=== PATIENT | male | born 1960 | race Caucasian/White ===

== ENCOUNTER 2016-11-24 11:12 | Emergency (ER) | payer OTHER ==
[~2016-11-24] VITALS: Ht 180.3 cm; Wt 109.1 kg
[~2016-11-24 11:12] MED LIST: AMIT25TA9 PO; IBUP-1050 PO; OXYC1TAB3 PO
[2016-11-24 11:19] VITALS: TEMP 37.3; Ht 180.3 cm; Wt 109.1 kg
[2016-11-24] MEDS ORDERED: GARL400T12 PO (11:48)
[2016-11-24] MEDS ORDERED: GING1CAP PO (11:48)
[2016-11-24] MEDS ORDERED: SODIUM CHLORIDE 0.9% 1000ML 500 ML IV STA (12:42)
[2016-11-24] MEDS ORDERED: ONDANSETRON INJ 2 MG/ML 2 ML VIAL IV STA (12:47)
--- NOTE | 2016-11-24 12:51 | EMERGENCY ROOM VISIT NOTE ---
History Report prepared by Carmelita: Loli Valdes Under the Supervision of: Dr. Blas Darby M.D. First contact with patient: 12:11 Chief Complaint: WEAKNESS Stated Complaint: FLU LIKE Nursing Triage Summary: Triage note: Pt wearing mask to triage. Pt reports "there are several things wrong with me, i have been weak since wednesday, my brain feels like it is just a bowl of jelly, i have lower back pain but that is probably my sciatica acting up." History of Present Illness The patient is a 56 year old male who presents to the Emergency Room with complaints of persistent weakness that began Wednesday. He currently rates his discomfort as a 4/10 in severity. The patient states that since Wednesday he has been feeling weak and fatigued. He states that he has had sick contacts at work , noting possible flu. The patient notes that he is typically feeling unsteady since his stroke in 2014, but states that it worsened this morning. He additionally notes chills, and a possible subjective fever. The patient notes that he has had a minor cough and congestion. He states that he has kept up on his fluid intake and appetite. The patient denies any shortness of breath, chest pain, nausea, vomiting, urinary symptoms or diarrhea. He states that he has a history of sciatica, noting that his back pain has worsened with his illness. The patient denies any recent fall. Source of History: patient Onset: Wednesday Position: other (global) Symptom Intensity: 4/10 Quality: other (weakness) Timing: other (persistent) Associated Symptoms: + back pain (increased), + chills, + cough, + fatigue, + fevers (sugjective), No SOB, No chest pain, No diarrhea, No nausea, No urinary symptoms, No vomiting Note: Associated Symptoms: congestion Review of Systems See HPI for pertinent positives & negatives. A total of 10 systems reviewed and were otherwise negative. Past Medical & Surgical Medical Problems: (1) Benign hypertension (2) Diabetes (3) Hyperlipidemia (4) Seizure (5) Tonsillectomy Family History No pertinent family history Social History Smoking Status: Never Smoker Alcohol Use: occasionally Drug Use: none Marital Status: Housing Status: other Occupation Status: employed Current/Historical Medications Scheduled Amitriptyline Hcl (Elavil), 25 MG PO HS Insulin Glargine (Lantus Solostar), 40 UNITS SQ HS Levetiracetam (Keppra), 500 MG PO BID Lisinopril (Prinivil), 20 MG PO QD Metformin Hcl (Glucophage), 1,000 MG PO BIDM Paroxetine Hcl (Paxil), 40 MG PO DAILY Simvastatin (Zocor), 20 MG PO QPM Scheduled PRN Ibuprofen (Advil), 1,200 MG PO Q8 PRN for Pain Oxycodone Immediate Rel Tab (Roxicodone Ir), 1-2 TAB PO Q4H PRN for Severe Pain Oxycodone Ir (Roxicodone Ir), 1-2 TAB PO Q4H PRN for Pain Miscellaneous Medications Garlic (Gnp Garlic) Roxanne (Zingiber Officinalis) (Roxanne) Allergies Coded Allergies: BEE STING (Verified Allergy, Unknown, ., 11/24/16) Physical Exam Vital Signs Date Time Temp Pulse Resp B/P Pulse Ox O2 Delivery O2 Flow Rate FiO2 11/24/16 17:21 75 11/24/16 17:15 74 150/93 11/24/16 16:53 87 16 160/102 11/24/16 16:14 82 16 159/93 97 Room Air 11/24/16 14:15 87 16 180/99 99 Room Air 11/24/16 13:40 88 11/24/16 13:09 87 21 171/101 95 Room Air 11/24/16 13:00 96 Room Air 11/24/16 11:19 37.3 96 18 151/101 97 Room Air Physical Exam GENERAL: Patient is in no acute distress. HEENT: No acute trauma, normocephalic atraumatic, mucous membranes moist, no throat erythema or exudate, no nasal congestion, no scleral icterus. NECK: No stridor, no adenopathy, no meningismus, trachea is midline. LUNGS: Clear to auscultation bilaterally, no wheeze, no rhonchi, breath sounds equal. HEART: Without murmurs gallops or rubs, regular rate and rhythm. ABDOMEN: Soft, nontender, bowel sounds positive, no hernias, no peritonitis. EXTREMITIES: No cyanosis or edema, full range of motion of all the joints without pain or difficulty, no signs for acute trauma. NEUROLOGIC: Oriented x 3, no acute motor or sensory deficits, no focal weakness. SKIN: No rash, no jaundice, no diaphoresis. Medical Decision & Procedures ER Provider Diagnostic Interpretation: X ray results and stated below per my interpretation and radiologist interpretation. Other radiology results and stated below per my review and radiologist interpretation: HEAD CT NONCONTRAST CT DOSE: 638.56 mGycm HISTORY: EVALUATE ALTERED MENTAL STATUS/WEAKNESS TECHNIQUE: Multiaxial CT images of the head were performed without the use of intravenous contrast. Automated exposure control was utilized for this study. Comparison: Head CT 11/09/2014. Findings: The paranasal sinuses and mastoid air cells are clear. The calvarium and skull base are intact. The ventricles and sulci are within normal limits. There is no mass, hematoma, midline shift, or acute infarct. Impression: No acute intracranial abnormality. Electronically signed by: Pantera Garzon M.D. 11/24/2016 1:55 PM Dictated Date/Time: 11/24/2016 1:51 PM CHEST ONE VIEW PORTABLE HISTORY: EVALUATE ALTERED MENTAL STATUS/WEAKNESS COMPARISON: Chest 11/16/2014. FINDINGS: The lungs are clear. Cardiac silhouette is normal in size. No pleural effusions. No pneumothorax. IMPRESSION: No acute process. Electronically signed by: Pantera Garzon M.D. 11/24/2016 1:37 PM Dictated Date/Time: 11/24/2016 1:36 P Laboratory Results 11/24/16 13:05 Red Blood Count 4.79, Mean Corpuscular Volume 85.4, Mean Corpuscular Hemoglobin 30.3, Mean Corpuscular Hemoglobin Concent 35.5, Mean Platelet Volume 10.6, Neutrophils (%) (Auto) 60.7, Lymphocytes (%) (Auto) 14.2, Monocytes (%) (Auto) 23.1, Eosinophils (%) (Auto) 0.8, Basophils (%) (Auto) 0.5, Neutrophils # (Auto ) 3.68, Lymphocytes # (Auto) 0.86, Monocytes # (Auto) 1.40, Eosinophils # (Auto ) 0.05, Basophils # (Auto) 0.03 11/24/16 13:05 Test 11/24/16 13:00 11/24/16 13:05 11/24/16 14:13 Influenza Type A Antigen Neg for Influ A (NEG) Influenza Type B Antigen Neg for Influ B (NEG) White Blood Count 6.06 K/uL (4.8-10.8) Red Blood Count 4.79 M/uL (4.7-6.1) Hemoglobin 14.5 g/dL (14.0-18.0) Hematocrit 40.9 % (42-52) Mean Corpuscular Volume 85.4 fL (80-100) Mean Corpuscular Hemoglobin 30.3 pg (25-34) Mean Corpuscular Hemoglobin Concent 35.5 g/dl (32-36) Platelet Count 181 K/uL (130-400) Mean Platelet Volume 10.6 fL (7.4-10.4) Neutrophils (%) (Auto) 60.7 % Lymphocytes (%) (Auto) 14.2 % Monocytes (%) (Auto) 23.1 % Eosinophils (%) (Auto) 0.8 % Basophils (%) (Auto) 0.5 % Neutrophils # (Auto) 3.68 K/uL (1.4-6.5) Lymphocytes # (Auto) 0.86 K/uL (1.2-3.4) Monocytes # (Auto) 1.40 K/uL (0.11-0.59) Eosinophils # (Auto) 0.05 K/uL (0-0.5) Basophils # (Auto) 0.03 K/uL (0-0.2) RDW Standard Deviation 41.4 fL (36.4-46.3) RDW Coefficient of Variation 13.2 % (11.5-14.5) Immature Granulocyte % (Auto) 0.7 % Immature Granulocyte # (Auto) 0.04 K/uL (0.00-0.02) Anion Gap 11.0 mmol/L (3-11) Est Creatinine Clear Calc Drug Dose 119.1 ml/min Estimated GFR () 112.1 Estimated GFR (Non- 96.7 BUN/Creatinine Ratio 20.5 (10-20) Calcium Level 9.3 mg/dl (8.5-10.1) Total Bilirubin 0.3 mg/dl (0.2-1) Aspartate Amino Transf (AST/SGOT) 35 U/L (15-37) Alanine Aminotransferase (ALT/SGPT) 34 U/L (12-78) Alkaline Phosphatase 109 U/L (45-117) Troponin I < 0.015 ng/ml (0-0.045) Total Protein 7.5 gm/dl (6.4-8.2) Albumin 3.7 gm/dl (3.4-5.0) Globulin 3.8 gm/dl (2.5-4.0) Albumin/Globulin Ratio 1.0 (0.9-2) Thyroid Stimulating Hormone (TSH) 1.460 uIu/ml (0.300-4.500) Urine Color YELLOW Urine Appearance CLEAR (CLEAR) Urine pH 5.0 (4.5-7.5) Urine Specific [place] 1.013 (1.000-1.030) Urine Protein NEG (NEG) Urine Glucose (UA) NEG (NEG) Urine Ketones NEG (NEG) Urine Occult Blood NEG (NEG) Urine Nitrite NEG (NEG) Urine Bilirubin NEG (NEG) Urine Urobilinogen NEG (NEG) Urine Leukocyte Esterase NEG (NEG) Laboratory results reviewed by me. Medications Administered Medications (Trade) Dose Ordered Sig/Jerzy Route Start Time Stop Time Status Last Admin Dose Admin Sodium Chloride (Nss 1000ml) 500 ml @ 999 mls/hr Q31M STAT IV 11/24/16 12:42 11/24/16 13:12 DC 11/24/16 13:17 999 MLS/HR Morphine Sulfate (MoRPHine SULFATE INJ) 4 mg Q15M PRN IV 11/24/16 13:00 12/08/16 12:59 11/24/16 13:17 4 MG Ondansetron HCl (Zofran Inj) 4 mg NOW STAT IV 11/24/16 12:47 11/24/16 12:49 DC 11/24/16 13:17 4 MG Hydromorphone HCl (Dilaudid Inj) 1 mg NOW STAT IV 11/24/16 15:45 11/24/16 15:47 DC 11/24/16 16:13 1 MG Ketorolac Tromethamine (Toradol Inj) 30 mg NOW STAT IV 11/24/16 15:45 11/24/16 15:47 DC 11/24/16 16:12 30 MG Labetalol HCl (Normodyne IV) 20 mg NOW STAT IV 11/24/16 16:39 11/24/16 16:41 DC 11/24/16 16:54 20 MG ECG Indication: weakness Rate (beats per minute): 84 Rhythm: normal sinus Findings: no acute ischemic change, no ectopy ED Course 1216: The patient was evaluated in room C10. A complete history and physical exam was performed by the medical student. 1242: Ordered Sodium Chloride 500 ml @ 999 mls/hr IV. 1245: The patient was evaluated in room C10. A complete history and physical exam was performed. 1247: Ordered Zofran Inj 4 mg IV. 1300: Ordered Morphine Sulfate 4 mg IV. 1450: The medical student reevaluated the patient at this time. 1545: I reevaluated the patient and he is requesting more pain medications. Ordered Toradol Inj 30 mg IV, Dilaudid Inj 1 mg IV. 1637: I reevaluated the patient and he is still having pain, and additionally has a high blood pressure 1639: Ordered Labetalol HCl 20 mg IV. 1654: I discussed the patients case with Pinky Ruby, Family Medicine. He is going to see the patient on Wednesday. He is going to call back with an appointment time. He wants the patient started on 20 mg of Lisinopril daily. 1715: Dr. Ruby called back and states that the patient is scheduled for 1320 on Wednesday at their [facility] office. 1720: I reevaluated the patient and his pressure is better. I discussed all of the exam findings with the patient and I discussed the treatment plan. He verbalized complete understanding and agreement. He is ready to go home. Medical Decision The patient is a 56 year old male who presents to the ED with complaints of weakness. Differential diagnoses considered include dehydration, electrolyte imbalance, anemia, stroke, UTI, flu like illness, influenza, pneumonia. There is no leukocytosis or concerning anemia. No significant electrolyte abnormality, kidney failure or hepatitis. The patient appears to be in a euthyroid state. Urinalysis does not show evidence for infection. Chest x-ray does not show pneumonia or CHF. Influenza testing is negative. Brain CT shows no acute bleed or mass effect. Blood cultures are pending. The patient received IV saline, IV morphine, IV Zofran. He received IV Toradol and IV Dilaudid. The pain medication was given for his lower back discomfort. He states this is always present but he states it feels worse since he feels weak and flulike. He has not fallen, there is no radiation of pain down his legs. Patient did receive IV labetalol to help control his blood pressure. The labetalol worked nicely. I do believe the patient can be discharged with outpatient follow-up. I spoke with his outpatient providers, he will be seen on Wednesday, in 4 days for a recheck. He will be started on lisinopril daily for his blood pressure. I have written a prescription for oxycodone for pain. He will stay hydrated and rest. If worsening, he will return. His generalized illness is likely viral, he understands. [place] Drug Monitoring Program Search Results: patient reviewed within database, see additional documentation Drug Monitoring Findings: The patient's last narcotic prescription was in the end of July. Consults Time Called: 1642 Consulting Physician: Dr. Ruby, Family Medicine Returned Call: 1653 I discussed the patients case with Pinky Ruby, Family Medicine. He is going to see the patient on Wednesday. He is going to call back with an appointment time. He wants the patient started on 20 mg of Lisinopril daily. Impression Primary Impression: Weakness Additional Impressions: Flu-like symptoms Lower back pain Hypertension Scribe Attestation The scribe's documentation has been prepared under my direction and personally reviewed by me in its entirety. I confirm that the note above accurately reflects all work, treatment, procedures, and medical decision making performed by me. Departure Information Dispostion Home / Self-Care Prescriptions Oxycodone Ir (Roxicodone Ir) 5 Mg Tab 1-2 TAB PO Q4H Y for Pain, #15 TAB Prov: Blas Darby M.D. 11/24/16 Lisinopril (Prinivil) 10 Mg Tab 20 MG PO QD, #15 TAB 3 Refills Prov: Blas Darby M.D. 11/24/16 Referrals Jossie Junior D.O. (PCP) Forms HOME CARE DOCUMENTATION FORM, IMPORTANT VISIT INFORMATION, Work Instructions Patient Instructions My [facility] Additional Instructions lisinopril 1 tab daily for now oxy ir 1-2 tab every 4 hours for pain rest stay well hydrated return if worsening lab testing and imaging today was all ok Problem Qualifiers
[2016-11-24 13:00] VITALS: O2SAT 96
[2016-11-24] MEDS ORDERED: MoRPHine SULFATE 4 MG/ML 1 ML CARP\\VIAL IV PRN (13:00)
[2016-11-24 13:19] LABS: BASO % 0.5 %; BASO ABS # 0.03 K/uL (0-0.2); COMPLETE YES; EOS % 0.8 %; HEMATOCRIT 40.9 % (42-52); IG% 0.7 %; LYMPH % 14.2 %; LYMPH ABS # 0.86 K/uL (1.2-3.4); MEAN CELL VOLUME 85.4 fL (80-100); MEAN CORPUSCULAR HEMOGLOBIN 30.3 pg (25-34); MEAN CORPUSCULAR HGB CONC 35.5 g/dl (32-36); MEAN PLATELET VOLUME 10.6 fL (7.4-10.4); MONO % 23.1 %; NEUT % 60.7 %; PLATELET COUNT 181 K/uL (130-400); RED BLOOD COUNT 4.79 M/uL (4.7-6.1); WHITE BLOOD COUNT 6.06 K/uL (4.8-10.8)
[2016-11-24 13:39] LABS: ALT/SGPT 34 U/L (12-78); BLOOD UREA NITROGEN 18 mg/dl (7-18); BUN/CREATININE RATIO 20.5 (10-20); CALCIUM 9.3 mg/dl (8.5-10.1); CARBON DIOXIDE 23 mmol/L (21-32); CHLORIDE 102 mmol/L (98-107); CREATININE 0.88 mg/dl (0.60-1.40); GLUCOSE 131 mg/dl (70-99); SODIUM 136 mmol/L (136-145)
--- NOTE | 2016-11-24 13:39 | DIAGNOSTIC IMAGING REPORT ---
CHEST ONE VIEW PORTABLE HISTORY: EVALUATE ALTERED MENTAL STATUS/WEAKNESS COMPARISON: Chest 11/16/2014. FINDINGS: The lungs are clear. Cardiac silhouette is normal in size. No pleural effusions. No pneumothorax. IMPRESSION: No acute process. Electronically signed by: Pantera Garzon M.D. 11/24/2016 1:37 PM Dictated Date/Time: 11/24/2016 1:36 PM
[2016-11-24 13:49] LABS: ALKALINE PHOSPHATASE 109 U/L (45-117); AST/SGOT 35 U/L (15-37)
--- NOTE | 2016-11-24 13:56 | DIAGNOSTIC IMAGING REPORT ---
HEAD CT NONCONTRAST CT DOSE: 638.56 mGycm HISTORY: EVALUATE ALTERED MENTAL STATUS/WEAKNESS TECHNIQUE: Multiaxial CT images of the head were performed without the use of intravenous contrast. Automated exposure control was utilized for this study. Comparison: Head CT 11/09/2014. Findings: The paranasal sinuses and mastoid air cells are clear. The calvarium and skull base are intact. The ventricles and sulci are within normal limits. There is no mass, hematoma, midline shift, or acute infarct. Impression: No acute intracranial abnormality. Electronically signed by: Pantera Garzon M.D. 11/24/2016 1:55 PM Dictated Date/Time: 11/24/2016 1:51 PM
[2016-11-24 15:24] LABS: URINE APPEARANCE CLEAR (CLEAR); URINE BILIRUBIN NEG (NEG); URINE COLOR YELLOW; URINE NITRITE NEG (NEG); URINE SPECIFIC GRAVITY 1.013 (1.000-1.030); UROBILINOGEN NEG (NEG); ZZUR CULT IF INDIC CLEAN CATCH NO
[2016-11-24 15:28] LABS: MANUAL MICROSCOPIC REQUIRED? NO; REVIEW REQ? NO
[2016-11-24] MEDS ORDERED: KETOROLAC TROMETHAMINE 30 MG/ML VIAL IV STA (15:45)
[2016-11-24] MEDS ORDERED: HYDROmorphone INJ 2 MG/ML SYR/VIAL IV STA (15:45)
[2016-11-24] MEDS ORDERED: LABETALOL HCL IV 5 MG/ML 20ML IV STA (16:39)
[2016-11-24] MEDS ORDERED: LISI10TA PO (17:22)
[2016-11-24] MEDS ORDERED: OXYC1TAB3 PO (17:26)
[2016-11-24 17:38] VITALS: BP 176/95; PULSE 74; O2SAT 97
[2016-11-26] MEDS ORDERED: METF-384 PO (05:13)
[2016-11-26] MEDS ORDERED: LEVE500T13 PO (05:15)
[2016-11-26] MEDS ORDERED: SIMV20TA2 PO (05:16)
[2016-11-26] MEDS ORDERED: INSDGIPEN SQ (05:17)
[2016-11-26] MEDS ORDERED: PARO40TA3 PO (06:57)
== END 2016-11-24 17:40 | disposition home or self-care (01) ==
LOC: C.EDB 11:14 → C.EDC 17:40
DX: R53.1 Weakness (principal); M54.5 Low back pain; I10 Essential (primary) hypertension; E11.9 Type 2 diabetes mellitus without complications; E78.5 Hyperlipidemia, unspecified; Z90.89 Acquired absence of other organs; Z79.4 Long term (current) use of insulin; Z79.84 Long term (current) use of oral hypoglycemic drugs; Z79.899 Other long term (current) drug therapy

== ENCOUNTER 2016-11-26 17:42 | Emergency (ER) | payer OTHER ==
[~2016-11-26] VITALS: Ht 180.3 cm; Wt 110.3 kg
[~2016-11-26 17:42] MED LIST changes: +GARL400T12 PO; +GING1CAP PO; +INSDGIPEN SQ; +LEVE500T13 PO; +LISI10TA PO; +METF-384 PO; +PARO40TA3 PO; +SIMV20TA2 PO
[2016-11-26 17:48] VITALS: TEMP 36.9; Ht 180.3 cm; Wt 110.3 kg
[2016-11-26] MEDS ORDERED: HYDROmorphone INJ 1 MG/ML SYR IM STA (18:28)
[2016-11-26] MEDS ORDERED: GINGER PO (18:29)
--- NOTE | 2016-11-26 19:43 | EMERGENCY ROOM VISIT NOTE ---
History First contact with patient: 18:07 Chief Complaint: BACK PAIN Stated Complaint: BACK PAIN History of Present Illness The patient is a 56 year old male who presents to the Emergency Room with complaints of low back pain. The patient reports he has a history of chronic low back pain and sees Dr. Ruby for this back pain. He previously received prescriptions for oxycodone for his pain, but has not had a take any pain medication recently after visiting a chiropractor. He states that he has been ill recently and was seen here 2 days ago for an illness. He had an extensive workup at that time which was negative. The patient states that he was feeling better, but his back pain has worsened. He states this does feel like a flareup of his chronic back pain. His legs feel slightly weak, but this is not unusual for him. He reports he had an MRI recently of the back. The patient denies any fevers, abdominal pain, chest pain, shortness of breath, incontinence , urinary retention, dysuria, or numbness of the lower extremities. Review of Systems A complete 6 point review of systems was reviewed with the patient with pertinent positives and negatives as per history of present illness. All else were negative. Past Medical/Surgical History Medical Problems: (1) Benign hypertension (2) Diabetes (3) Hyperlipidemia (4) Seizure (5) Tonsillectomy Family History No pertinent family history Social History Smoking Status: Never Smoker Alcohol Use: occasionally Drug Use: none Marital Status: Housing Status: other Occupation Status: employed Current/Historical Medications Scheduled Garlic (Gnp Garlic), 400 MG PO DAILY Insulin Glargine (Lantus Solostar), 40 UNITS SQ HS Levetiracetam (Keppra), 500 MG PO BID Lisinopril (Prinivil), 20 MG PO QD Metformin Hcl (Glucophage), 1,000 MG PO BIDM Paroxetine Hcl (Paxil), 40 MG PO DAILY Simvastatin (Zocor), 20 MG PO QPM [Roxanne], 5 ML PO DAILY Scheduled PRN Amitriptyline Hcl (Elavil), 25 MG PO HS PRN for Sleep Ibuprofen (Advil), 1,200 MG PO Q8 PRN for Pain Oxycodone Ir (Roxicodone Ir), 1-2 TAB PO Q4H PRN for Pain Allergies Coded Allergies: BEE STING (Verified Allergy, Unknown, ., 11/24/16) Physical Exam Vital Signs Date Time Temp Pulse Resp B/P Pulse Ox O2 Delivery O2 Flow Rate FiO2 11/26/16 19:48 80 18 137/87 94 Room Air 11/26/16 17:48 36.9 79 18 147/99 98 Room Air Physical Exam VITALS: Vitals are noted on the nurse's note and reviewed by myself. Vital signs stable. GENERAL: This is a 56-year-old male, in no acute distress, nondiaphoretic, well- developed well-nourished. SKIN: Capillary reflex less than 2 seconds. HEART: Regular rate and rhythm without murmurs gallops or rubs. LUNGS: Clear to auscultation bilaterally without wheezes, rales or rhonchi. No retractions or accessory muscle use. ABDOMEN: Positive bowel sounds x 4. Soft, nontender to palpation. MUSCULOSKELETAL: Mild tenderness over bilateral lumbar paraspinous muscles. No muscle spasms noted. Full range of motion and strength 5/5 bilateral lower extremities. Negative straight leg raise test. NEURO: Patient was alert and oriented to person place and time. Normal sensation to light and sharp touch. Deep tendon reflexes 2+ throughout. No focal neurological deficits. Medical Decision & Procedures Medications Administered Medications (Trade) Dose Ordered Sig/Jerzy Route Start Time Stop Time Status Last Admin Dose Admin Hydromorphone HCl (Dilaudid Inj) 1 mg NOW STAT IM 11/26/16 18:28 11/26/16 18:29 DC 11/26/16 18:38 1 MG Medical Decision Differential diagnosis includes cauda equina syndrome, cord compression, lumbar radiculopathy, epidural abscess, malignancy, muscle spasm, muscular strain, among others. The patient was evaluated as above. Previous records were reviewed. The patient was seen here 2 days ago for weakness and had an extensive workup which was negative. The patient does report he is feeling better, but has continued pain in the low back. He was given pain medication at home, but told me that he has not been taking the medication as he does not like taking any pills. He did agree to receive analgesics in the emergency department and was given 1 mg Dilaudid IM with good relief of his pain. He has appointment with his primary care provider scheduled in 2 days. He was instructed to continue his home pain medication and follow-up with the primary care provider as scheduled. The patient verbalized understanding of my assessment and treatment plan and was discharged home in good condition. Impression Primary Impression: Lumbar pain Departure Information Dispostion Home / Self-Care Condition GOOD Referrals Jossie Junior D.O. (PCP) Patient Instructions My [facility] Additional Instructions You have been treated in the Emergency Department for Back Pain. You have received pain medicine in the emergency department which impairs your ability to operate a vehicle. It is illegal for you to drive after receiving these medicines. For pain control, you can use the following [id number] medicines (if >12 yo): - Regular strength (325mg/tab) Tylenol (acetaminophen) 2 tabs every 4-6 hours as needed. Do not exceed 12 tablets in a 24 hour period. Avoid taking more than 4 grams (4000 mg) of Tylenol per day. This includes any other sources of acetaminophen you may take on a regular basis. - Regular strength (200 mg/tab) Advil (ibuprofen) 1-2 tabs every 4-6 hours as needed. Do not exceed a dose of 3200 mg per day. If this is an acute injury, ice can be applied to the area of pain for the first 3 days to help decrease pain and inflammation. After the first 3 days, a heating pad can be used over the area for continued soothing relief. You should schedule a follow-up appointment in 2-3 days with your Primary Care Provider for further evaluation and treatment of your back pain. Return to the Emergency Department if your current symptoms worsen despite treatment course outlined above, or if you develop any of the following symptoms : intractable pain despite aforementioned treatment course, loss of control of your bowel or bladder, numbness or tingling in your groin, or development of a fever. Problem Qualifiers Primary Impression: Lumbar pain Chronicity: chronic Back pain laterality: bilateral Sciatica presence: unspecified whether sciatica present Qualified Codes: M54.5 - Low back pain; G89.29 - Other chronic pain
[2016-11-26 19:48] VITALS: BP 137/87; PULSE 80; O2SAT 94
== END 2016-11-26 19:55 | disposition home or self-care (01) ==
LOC: EDBD 17:42 → C.EDA 17:47
DX: M54.5 Low back pain (principal); R53.1 Weakness; I10 Essential (primary) hypertension; E78.5 Hyperlipidemia, unspecified; E11.9 Type 2 diabetes mellitus without complications; G40.909 Epilepsy, unspecified, not intractable, without status epilepticus; Z98.890 Other specified postprocedural states; Z79.4 Long term (current) use of insulin; Z79.84 Long term (current) use of oral hypoglycemic drugs; Z79.899 Other long term (current) drug therapy; Z91.030 Bee allergy status

== ENCOUNTER 2017-06-02 08:33 | Emergency (ER) | payer OTHER ==
[~2017-06-02] VITALS: Ht 177.8 cm; Wt 109.4 kg
[~2017-06-02 08:33] MED LIST changes: -GING1CAP PO; +GINGER PO; -OXYC1TAB3 PO
[2017-06-02 08:35] VITALS: TEMP 36.8; Ht 177.8 cm; Wt 109.4 kg
[2017-06-02] MEDS ORDERED: PAROXETINE 20 MG TAB PO ONE (09:15)
[2017-06-02] MEDS ORDERED: LISI-725 PO (09:30)
[2017-06-02 10:25] VITALS: BP 175/104; PULSE 76; O2SAT 97
--- NOTE | 2017-06-02 15:21 | EMERGENCY ROOM VISIT NOTE ---
History First contact with patient: 08:54 Chief Complaint: MEDICATION REFILL REQUEST Stated Complaint: MEDICATION REFILL REQUEST FOR PAROXETINE History of Present Illness The patient is a 57 year old male who presents to the Emergency Room requesting prescription refills of his Lantus and Paxil. The patient reports that he has been without insulin for approximately one week, and without Paxil for the past 4 days. The patient reports that It feels like my brain is turning into Jell-O " because he has not been taking his Paxil. The patient has not been checking his blood glucose monitor at home. The patient reports that his PCP, Dr. Junior , was supposed to send a prescription for the Lantus to his pharmacy [facility]. He tried to call them yesterday and they still did not have the prescription. The patient gets his Prozac prescriptions from Dr. Ruby. The patient reports that he does have refills left on his Prozac, "but I have no excuse for not getting a prescription filled." The patient reports that he is now dizzy with 2 jobs working at [employer], and has been extremely busy. 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 He also complains of bilateral knee pain, and was told in the past by Dr. Wing that he has arthritis. He is wanting evaluation for his knee pain today as well. He denies any recent injuries. He denies any back pain. He currently denies any significant discomfort. Review of Systems 10 system review was performed and was negative except for pertinent positives and negatives as indicated in history of present illness Past Medical/Surgical History Medical Problems: (1) Benign hypertension (2) Diabetes (3) Hyperlipidemia (4) Seizure (5) Tonsillectomy Family History FH: cancer FH: diabetes mellitus FH: heart disease FH: hypertension FH: seizures No pertinent family history Social History Smoking Status: Current Every Day Smoker Alcohol Use: occasionally Drug Use: none Marital Status: Housing Status: lives alone, other Occupation Status: employed Current/Historical Medications Scheduled Insulin Glargine (Lantus Solostar), 40 UNITS SQ HS Levetiracetam (Keppra), 500 MG PO BID Lisinopril (Zestril), 20 MG PO QAM Metformin Hcl (Glucophage), 1,000 MG PO BIDM Paroxetine Hcl (Paxil), 40 MG PO QAM Simvastatin (Zocor), 20 MG PO QPM Scheduled PRN Amitriptyline Hcl (Elavil), 25 MG PO HS PRN for Sleep Ibuprofen (Advil), 1,200 MG PO Q8 PRN for Pain Physical Exam Vital Signs Date Time Temp Pulse Resp B/P (MAP) Pulse Ox O2 Delivery O2 Flow Rate FiO2 06/02/17 10:25 76 18 175/104 97 06/02/17 08:35 36.8 81 18 176/115 97 Room Air Pain Rating (0-10): 0 Physical Exam CONSTITUTIONAL: Healthy and well nourished. Alert and oriented X 3. PSYCHIATRIC: Patient has a positive affect. He does not appear delusional. HEENT: Normocephalic, atraumatic. Pupils equal, round and reactive. No scleral icterus or conjunctival pallor. NECK: Full active range of motion without discomfort. RESPIRATORY: Clear to auscultation bilaterally with no wheezing, crackles, rhonchi or stridor. CARDIOVASCULAR: Regular rate and rhythm with no murmurs, rubs or gallops. GASTROINTESTINAL: Bowel sounds present in all quadrants. Soft and nontender to palpation. MUSCULOSKELETAL: Full range of motion of all joints without discomfort. Patient ambulates without antalgic gait. INTEGUMENTARY: No rash or other significant dermatologic conditions noted. NEUROLOGIC: No focal neurologic deficits noted. Medical Decision & Procedures Laboratory Results Test 06/02/17 08:51 Bedside Glucose 187 mg/dl (70-99) Medications Administered Medications (Trade) Dose Ordered Sig/Jerzy Route Start Time Stop Time Status Last Admin Dose Admin Paroxetine HCl (pAXil TAB) 40 mg NOW ONCE PO 06/02/17 09:15 06/02/17 09:16 DC 06/02/17 09:26 40 MG ED Course Patient history and physical exam were performed. Nurse's notes were reviewed. Vital signs were reviewed, showing a blood pressure 176/115. I also reviewed the patient's prescription bottle of Prozac, showing that he was prescribed Prozac 40 mg once daily. The patient reports before he ran out of his insulin, he was taking Lantus 40 units at bedtime. His BSG in the emergency department was 187. I did discuss this case further with Dr. Junior he reports that she last saw the patient in her office approximately one year ago. He has been a no-show to the last 3 office appointments. She also reports that the patient's insurance changed, and that they will not cover the patient's Lantus. She will have her nurse contact the insurance carrier to see what insulin he is covered under his insurance, we'll call it into his pharmacy and contact the patient by phone. I also discussed the patient's complain of bilateral knee pain, and the patient was instructed to follow-up with Dr. Junior to discuss further orthopedic workup. The patient was instructed to get his Prozac prescription filled. The patient was happy with plan of care, and voiced understanding of all discharge instructions. Medical Decision [place] Drug Monitoring Program Search Results: patient reviewed within database Medication Reconcilliation Current Medication List: was personally reviewed by me Blood Pressure Screening Patient's blood pressure: Elevated blood pressure Blood pressure disposition: Referred to PCP Impression Primary Impression: Diabetes Additional Impression: Depression Departure Information Dispostion Home / Self-Care Forms HOME CARE DOCUMENTATION FORM, IMPORTANT VISIT INFORMATION Patient Instructions My [facility] Additional Instructions Your family doctor's office will call you today once they determine what prescription is covered by your insurance company. Get your Paxil prescription refilled. Follow-up with your family doctor to discuss your knee pain. It is important that you keep your appointments with your family doctor. You did not show up to your last 3 office visits. Problem Qualifiers Additional Impression: Depression Depression Type: unspecified Qualified Codes: F32.9 - Major depressive disorder, single episode, unspecified
== END 2017-06-02 10:47 | disposition home or self-care (01) ==
LOC: C.EDB 08:35
DX: Z76.0 Encounter for issue of repeat prescription (principal); F32.9 Major depressive disorder, single episode, unspecified; E11.9 Type 2 diabetes mellitus without complications; I10 Essential (primary) hypertension; E78.5 Hyperlipidemia, unspecified; G40.909 Epilepsy, unspecified, not intractable, without status epilepticus; F17.200 Nicotine dependence, unspecified, uncomplicated; Z98.890 Other specified postprocedural states; Z79.4 Long term (current) use of insulin; Z79.84 Long term (current) use of oral hypoglycemic drugs; Z79.899 Other long term (current) drug therapy; Z80.9 Family history of malignant neoplasm, unspecified; Z83.3 Family history of diabetes mellitus; Z82.49 Family history of ischemic heart disease and other diseases of the circulatory system; Z82.0 Family history of epilepsy and other diseases of the nervous system

== ENCOUNTER 2017-09-15 22:02 | Emergency (ER) | payer OTHER ==
[~2017-09-15] VITALS: Ht 172.7 cm; Wt 115.4 kg
[~2017-09-15 22:02] MED LIST changes: +DICL-201 PO; -GARL400T12 PO; -GINGER PO; +HYDR-5688 PO; -IBUP-1050 PO; -LISI10TA PO
[2017-09-15 22:13] VITALS: TEMP 36.5; Ht 172.7 cm; Wt 115.4 kg
[2017-09-15 22:15] VITALS: O2SAT 95
[2017-09-15 23:19] LABS: BASO % 0.5 %; BASO ABS # 0.04 K/uL (0-0.2); EOS % 1.3 %; EOS ABS # 0.11 K/uL (0-0.5); HEMATOCRIT 41.8 % (42-52); HEMOGLOBIN 15.1 g/dL (14.0-18.0); IG# 0.09 K/uL (0.00-0.02); LYMPH % 31.5 %; LYMPH ABS # 2.77 K/uL (1.2-3.4); MEAN CELL VOLUME 89.1 fL (80-100); MEAN CORPUSCULAR HEMOGLOBIN 32.2 pg (25-34); MEAN CORPUSCULAR HGB CONC 36.1 g/dl (32-36); MEAN PLATELET VOLUME 10.8 fL (7.4-10.4); MONO % 8.5 %; MONO ABS # 0.75 K/uL (0.11-0.59); NEUT % 57.2 %; NEUT ABS # 5.04 K/uL (1.4-6.5); PLATELET COUNT 213 K/uL (130-400); RED CELL DISTRIBUTION WIDTH CV 12.8 % (11.5-14.5); RED CELL DISTRIBUTION WIDTH SD 41.5 fL (36.4-46.3)
[2017-09-15 23:37] LABS: ALBUMIN 3.7 gm/dl (3.4-5.0); CALCIUM 8.6 mg/dl (8.5-10.1); CREATININE 0.7 mg/dl (0.60-1.40); POTASSIUM 3.6 mmol/L (3.5-5.1)
[2017-09-15 23:40] LABS: TOTAL PROTEIN 7.3 gm/dl (6.4-8.2)
[2017-09-16 02:00] VITALS: BP 144/97; PULSE 72; O2SAT 97
--- NOTE | 2017-09-16 06:38 | EMERGENCY ROOM VISIT NOTE ---
History First contact with patient: 22:16 Chief Complaint: ALCOHOL OVERDOSE Stated Complaint: ETOH Nursing Triage Summary: pt arrives via ALS for alcohol overdose per ALS they arrived to friend reporting patient was unresponsive and drinking he was covered in vomit and feces pt reports he was drinking "rum and cokes." pt reports no drug use ALS reports HX of Seizures and Diabetes History of Present Illness The patient is a 57 year old male who presents to the Emergency Room via EMS for evaluation of an alcohol overdose. The patient reports that he was drinking with friends this evening and he is "so drunk." He states that he had several rum and cokes. He denies any drug use. He is a diabetic and checks his blood sugar frequently. He denies any trauma. According to friends, the patient vomited and was incontinent of stool. Review of Systems A complete 10 point review of systems was reviewed with the patient with pertinent positives and negatives as per history of present illness. All else were negative. Past Medical/Surgical History Medical Problems: (1) Benign hypertension (2) Diabetes (3) Hyperlipidemia (4) Seizure (5) Tonsillectomy Family History FH: cancer FH: diabetes mellitus FH: heart disease FH: hypertension FH: seizures No pertinent family history Social History Smoking Status: Current Every Day Smoker Alcohol Use: occasionally Drug Use: none Marital Status: Housing Status: lives alone, other Occupation Status: employed Current/Historical Medications Unable to Obtain Active Prescriptions or Reported Meds Physical Exam Vital Signs Date Time Temp Pulse Resp B/P (MAP) Pulse Ox O2 Delivery O2 Flow Rate FiO2 09/16/17 02:00 72 16 144/97 97 Room Air 09/16/17 00:05 68 16 141/88 98 Room Air 09/15/17 22:15 71 09/15/17 22:15 95 Room Air 09/15/17 22:13 36.5 99 14 142/99 99 Room Air Physical Exam VITALS: Vitals are noted on the nurse's note and reviewed by myself. Vital signs stable. GENERAL: This is a 57-year-old male, lying prone in bed, appears to be visibly intoxicated, smells of ETOH. SKIN: The skin was without erythema, edema, or bruising. HEAD: Normocephalic atraumatic. EARS: External auditory canals clear. No hemotympanum. EYES: Pupils equal round and reactive to light and accommodation. NOSE: No deformities noted. MOUTH: No loose or chipped teeth. NECK: No cervical spine tenderness. HEART: Regular rate and rhythm without murmurs gallops or rubs. LUNGS: Clear to auscultation bilaterally without wheezes, rales or rhonchi. ABDOMEN: Soft, nontender. MUSCULOSKELETAL: Full range of motion throughout. Strength intact throughout. NEURO: Patient was alert and oriented to person place and time. Speech slurred. Gross sensation intact. Patient cooperative with examiner. Medical Decision & Procedures Laboratory Results 09/15/17 23:02 Red Blood Count 4.69, Mean Corpuscular Volume 89.1, Mean Corpuscular Hemoglobin 32.2, Mean Corpuscular Hemoglobin Concent 36.1, Mean Platelet Volume 10.8, Neutrophils (%) (Auto) 57.2, Lymphocytes (%) (Auto) 31.5, Monocytes (%) (Auto) 8.5, Eosinophils (%) (Auto) 1.3, Basophils (%) (Auto) 0.5, Neutrophils # (Auto) 5.04, Lymphocytes # (Auto) 2.77, Monocytes # (Auto) 0.75, Eosinophils # (Auto) 0.11, Basophils # (Auto) 0.04 09/15/17 23:02 Test 09/15/17 23:02 09/16/17 02:10 White Blood Count 8.80 K/uL (4.8-10.8) Red Blood Count 4.69 M/uL (4.7-6.1) Hemoglobin 15.1 g/dL (14.0-18.0) Hematocrit 41.8 % (42-52) Mean Corpuscular Volume 89.1 fL (80-100) Mean Corpuscular Hemoglobin 32.2 pg (25-34) Mean Corpuscular Hemoglobin Concent 36.1 g/dl (32-36) Platelet Count 213 K/uL (130-400) Mean Platelet Volume 10.8 fL (7.4-10.4) Neutrophils (%) (Auto) 57.2 % Lymphocytes (%) (Auto) 31.5 % Monocytes (%) (Auto) 8.5 % Eosinophils (%) (Auto) 1.3 % Basophils (%) (Auto) 0.5 % Neutrophils # (Auto) 5.04 K/uL (1.4-6.5) Lymphocytes # (Auto) 2.77 K/uL (1.2-3.4) Monocytes # (Auto) 0.75 K/uL (0.11-0.59) Eosinophils # (Auto) 0.11 K/uL (0-0.5) Basophils # (Auto) 0.04 K/uL (0-0.2) RDW Standard Deviation 41.5 fL (36.4-46.3) RDW Coefficient of Variation 12.8 % (11.5-14.5) Immature Granulocyte % (Auto) 1.0 % Immature Granulocyte # (Auto) 0.09 K/uL (0.00-0.02) Anion Gap 9.0 mmol/L (3-11) Est Creatinine Clear Calc Drug Dose 145.3 ml/min Estimated GFR () 122.3 Estimated GFR (Non- 105.5 BUN/Creatinine Ratio 23.7 (10-20) Calcium Level 8.6 mg/dl (8.5-10.1) Total Bilirubin 0.2 mg/dl (0.2-1) Aspartate Amino Transf (AST/SGOT) 17 U/L (15-37) Alanine Aminotransferase (ALT/SGPT) 19 U/L (12-78) Alkaline Phosphatase 89 U/L (45-117) Total Protein 7.3 gm/dl (6.4-8.2) Albumin 3.7 gm/dl (3.4-5.0) Globulin 3.6 gm/dl (2.5-4.0) Albumin/Globulin Ratio 1.0 (0.9-2) Ethyl Alcohol mg/dL 196.3 mg/dl (0-3) Bedside Glucose 125 mg/dl (70-99) ED Course The patient was evaluated as above. Labs were drawn. Patient awoke and requested to be discharged home. He stated he would be walking home. I informed him that I was not comfortable discharging him without a ride. Patient attempted to leave, wearing only a paper scrub top and shorts. He was escorted back to his room by security and informed that he would not be discharged in his intoxicated state. The patient apparently called police from his room phone. [place] Police arrived to the patient's room and were able to assist him in finding a ride home. Patient was discharged home in good condition with a sober ride. Medical Decision Differential diagnosis includes alcohol intoxication, drug use, infection, hypoglycemia, head trauma, among others. The patient is a 57-year-old male who presents today for evaluation of probable alcohol intoxication. POC BSG was found to be 144. Labs revealed an alcohol of 196. Kidney function was found to be within normal limits. Labs were otherwise unremarkable. There is no evidence of head trauma or infection on exam. The patient was placed on the patient monitor and placed in the prone position. They were monitored for an appropriate amount of time. Blood glucose was checked frequently. The patient was discharged home with a sober friend. Medication Reconcilliation Current Medication List: was personally reviewed by me Blood Pressure Screening Patient's blood pressure: Elevated blood pressure Blood pressure disposition: Elevated BP felt to be situational Impression Primary Impression: Alcohol use with intoxication Departure Information Dispostion Home / Self-Care Condition GOOD Prescriptions Unable to Obtain Active Prescriptions or Reported Meds Referrals Jossie Junior D.O. (PCP) Forms HOME CARE DOCUMENTATION FORM, IMPORTANT VISIT INFORMATION Patient Instructions [facility]
[2017-12-28] MEDS ORDERED: LISI-730 PO (14:06)
[2017-12-28] MEDS ORDERED: LISI-726 PO (14:06)
[2017-12-31] MEDS ORDERED: ATOR-26 PO (16:41)
[2017-12-31] MEDS ORDERED: ASPI-320 PO (16:41)
[2017-12-31] MEDS ORDERED: PLV75 PO (16:41)
[2017-12-31] MEDS ORDERED: LISI-730 PO (16:41)
[2017-12-31] MEDS ORDERED: LPR25 PO (16:41)
[2017-12-31] MEDS ORDERED: ACET-1138 PO (16:43)
== END 2017-09-16 03:25 | disposition home or self-care (01) ==
LOC: EDBD 22:02 → C.EDB 22:03
DX: F10.129 Alcohol abuse with intoxication, unspecified (principal); Y90.6 Blood alcohol level of 120-199 mg/100 ml; I10 Essential (primary) hypertension; E78.5 Hyperlipidemia, unspecified; E11.9 Type 2 diabetes mellitus without complications; G40.909 Epilepsy, unspecified, not intractable, without status epilepticus; F17.200 Nicotine dependence, unspecified, uncomplicated; Z98.890 Other specified postprocedural states; Z80.9 Family history of malignant neoplasm, unspecified; Z83.3 Family history of diabetes mellitus; Z82.49 Family history of ischemic heart disease and other diseases of the circulatory system; Z82.0 Family history of epilepsy and other diseases of the nervous system

== ENCOUNTER 2017-12-28 10:11 | Observation (INO) | payer OTHER ==
[~2017-12-28] VITALS: Ht 180.3 cm; Wt 112.0 kg
[2017-12-28 10:52] LABS: BASO % 0.4 %; BASO ABS # 0.03 K/uL (0-0.2); EOS % 1.5 %; EOS ABS # 0.11 K/uL (0-0.5); HEMATOCRIT 43.5 % (42-52); HEMOGLOBIN 15.5 g/dL (14.0-18.0); IG# 0.06 K/uL (0.00-0.02); LYMPH % 35.3 %; LYMPH ABS # 2.63 K/uL (1.2-3.4); MEAN CELL VOLUME 87.5 fL (80-100); MEAN CORPUSCULAR HEMOGLOBIN 31.2 pg (25-34); MEAN CORPUSCULAR HGB CONC 35.6 g/dl (32-36); MEAN PLATELET VOLUME 10.3 fL (7.4-10.4); MONO % 11.3 %; MONO ABS # 0.84 K/uL (0.11-0.59); NEUT % 50.7 %; NEUT ABS # 3.79 K/uL (1.4-6.5); PLATELET COUNT 228 K/uL (130-400); RED CELL DISTRIBUTION WIDTH CV 12.8 % (11.5-14.5); RED CELL DISTRIBUTION WIDTH SD 40.9 fL (36.4-46.3); WHITE BLOOD COUNT 7.46 K/uL (4.8-10.8)
[2017-12-28 11:09] LABS: CALCIUM 9.5 mg/dl (8.5-10.1); CREATININE 0.94 mg/dl (0.60-1.40); POTASSIUM 4.3 mmol/L (3.5-5.1)
[2017-12-28 11:12] LABS: TOTAL PROTEIN 7.5 gm/dl (6.4-8.2)
--- NOTE | 2017-12-28 11:36 | DIAGNOSTIC IMAGING REPORT ---
CT OF THE HEAD WITHOUT CONTRAST CLINICAL HISTORY: Stroke COMPARISON STUDY: Head CT November 24, 2016. CT DOSE: 690.05 mGycm TECHNIQUE: Helical axial images of the head were obtained without IV contrast. Automated exposure control was utilized for the study. A dose lowering technique was utilized adhering to the principles of ALARA. FINDINGS: No acute intracranial hemorrhage, midline shift or mass effect is present. Ventricular system is normal. Basilar cisterns are patent. There are no extra-axial collections. A few white matter hypodensity suggests small vessel disease. There are no findings to suggest acute dural sinus thrombosis or acute territorial infarct. There are no significant calvarial abnormalities. Visual portions of the sinuses and mastoid air cells are clear. IMPRESSION: No acute intracranial findings. Electronically signed by: Anders Dunlap M.D. 12/28/2017 11:35 AM Dictated Date/Time: 12/28/2017 11:33 AM
[2017-12-28 12:10] LABS: PTT PATIENT 24.8 SECONDS (21.0-31.0)
[2017-12-28 12:24] LABS: CKMB 3.6 ng/ml (0.5-3.6)
[2017-12-28] MEDS ORDERED: ASPIRIN 324 MG CHEW PO STA (12:43)
[2017-12-28] MEDS ORDERED: ATORVASTATIN 40 MG TAB PO STA (12:43)
[2017-12-28] MEDS ORDERED: LABETALOL HCL IV 5 MG/ML 20ML IV STA (13:57)
[2017-12-28] MEDS ORDERED: ONDANSETRON INJ 2 MG/ML 2 ML VIAL IV PRN (14:00)
[2017-12-28] MEDS ORDERED: MAGNESIUM HYDROXIDE SUSP 30 ML UDC PO PRN (14:00)
[2017-12-28] MEDS ORDERED: PHARMACIST DISCHARGE MED REC CONSULT PRN (14:00)
[2017-12-28] MEDS ORDERED: LABETALOL HCL IV 5 MG/ML 20ML IV PRN (14:00)
[2017-12-28] MEDS ORDERED: PARO40TA3 PO (14:06)
[2017-12-28] MEDS ORDERED: DICL-201 PO (14:06)
[2017-12-28] MEDS ORDERED: LEVE500T13 PO (14:06)
[2017-12-28] MEDS ORDERED: LSN20 PO (14:06)
[2017-12-28] MEDS ORDERED: SIMV20TA5 PO (14:06)
[2017-12-28] MEDS ORDERED: METF1000 PO (14:06)
[2017-12-28] MEDS ORDERED: AMIT25TA9 PO (14:06)
[2017-12-28] MEDS ORDERED: LSN5 PO (14:06)
[2017-12-28] MEDS ORDERED: INSDGIPEN SC (14:06)
[2017-12-28] MEDS ORDERED: GLUCOSE 10 TABS/TUBE PO PRN ×2 (14:15→16:00)
[2017-12-28] MEDS ORDERED: DEXTROSE 50% 50 ML SYR IV PRN ×2 (14:15→16:00)
[2017-12-28] MEDS ORDERED: IV FLUIDS COMPLETED PRN (14:15)
[2017-12-28] MEDS ORDERED: GLUCAGON FOR INJ 1 MG VIAL SQ PRN ×2 (14:15→16:00)
[2017-12-28] MEDS ORDERED: GLUCOSE 40% GEL 15 GM TUBE PO PRN ×2 (14:15→16:00)
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
--- NOTE | 2017-12-28 16:37 | DIAGNOSTIC IMAGING REPORT ---
BRAIN WITHOUT CONTRAST HISTORY: 57 years-old Male Stroke acute strokelike symptoms with high blood pressure and history of seizures COMPARISON: CT head 12/28/2017 and 11/17/2014, brain MRI 11/10/2014 TECHNIQUE: Multiplanar multisequence MRI the brain was obtained without contrast utilizing seizure protocol. FINDINGS: There is no evidence of restricted diffusion to suggest acute infarction. There is a 7 mm ovoid area of increased diffusion-weighted signal involving the left smith radiata, image 15 series 4 with slightly increased signal on the ADC map, image 15 series 400 and increased T2/FLAIR signal. This area is new from comparison MRI 11/10/2014. Midline structures including the corpus callosum, brainstem, optic chiasm, pituitary and pineal glands are unremarkable the sagittal T1 series. No cerebellar tonsillar herniation. Degenerative changes are noted within the imaged cervical spine. No acute intracranial hemorrhage, midline shift, abnormal extra-axial collections or hydrocephalus. Mild degree of scattered foci demonstrating increased T2/FLAIR signal are seen within the subcortical and periventricular white matter suggesting mild chronic microvascular ischemic changes. No definite acute seizure focus identified. No evidence of mesial temporal sclerosis or cortical dysplasia. There is loss of the normal flow void involving the petrous, cavernous and clinoid portions of the right internal carotid artery which is new from study dated 11/10/2014. The orbits are unremarkable. Paranasal sinuses are generally clear with the exception of mild ethmoid sinus disease. Mastoid air cells are clear. Scalp, calvarium and soft tissues are within normal limits. IMPRESSION: 1. No evidence of acute infarction. 2. 7 mm ovoid area of increased diffusion-weighted signal involving the left smith radiata with slightly increased signal on the ADC map, demonstrates increased T2/FLAIR signal and is new from comparison MRI 11/10/2014 suggesting an area of chronic or subacute infarction. 3. Loss of the normal flow void involving the petrous, cavernous and clinoid portions of the right internal carotid artery is new from study dated 11/10/2014 and is compatible with age indeterminate high-grade narrowing or thrombus. Correlation with CTA recommended. 4. Chronic microvascular ischemic changes. The above report was generated using voice recognition software. It may contain grammatical, syntax or spelling errors. Electronically signed by: Javier Schuster M.D. 12/28/2017 4:36 PM Dictated Date/Time: 12/28/2017 4:23 PM
--- NOTE | 2017-12-28 17:01 | DIAGNOSTIC IMAGING REPORT ---
ADDENDUM ADDENDUM: When correlated with prior examinations there is complete thrombosis of the right internal carotid artery. The patent vessel identified and labeled the right internal carotid artery on today's ultrasound likely represents a prominent right external carotid artery. Electronically signed by: Blas Maurer M.D. 12/29/2017 2:49 PM Dictated Date/Time: 12/29/2017 2:48 PM ORIGINAL REPORT ULTRASOUND OF THE CAROTID ARTERIES CLINICAL HISTORY: Strokelike symptoms. COMPARISON STUDY: MR angiogram of the neck dated 11/10/2014. TECHNIQUE: Real-time, grayscale, and color Doppler sonography of the carotid arteries is performed. Images are reviewed in the transverse and longitudinal planes. FINDINGS: Blood pressures were not assessed due to IV sites. The carotid arteries are patent bilaterally and demonstrate antegrade flow. There is minimal atherosclerotic plaque identified. Normal doppler arterial waveforms are seen throughout. Velocity measurements are listed below. 67 Common carotid peak systolic velocity (cm/sec): RIGHT: 51 LEFT: 62 ICA proximal peak systolic velocity (cm/sec): RIGHT: 90 LEFT: 67 ICA mid peak systolic velocity (cm/sec): RIGHT: 116 LEFT: 73 ICA distal peak systolic velocity (cm/sec): RIGHT: 117 LEFT: 52 ICA/CC peak systolic ratio: RIGHT: 2.3 LEFT: 1.2 Antegrade flow was shown in the vertebral arteries. Only trace flow is seen within the right external carotid artery. IMPRESSION: 1. There is no sonographic evidence of hemodynamically significant stenosis in the right or left carotid arterial system. 2. Antegrade flow is shown in the vertebral arteries. 3. Diminished flow suggested within the right external carotid artery. Electronically signed by: Blas Maurer M.D. 12/28/2017 5:00 PM Dictated Date/Time: 12/28/2017 4:58 PM
[2017-12-28 17:03] VITALS: BP 172/114; PULSE 72; TEMP 36.3; O2SAT 96
[2017-12-28 17:04] VITALS: BP 172/114; PULSE 70; TEMP 36.3; O2SAT 96; BMI 34.1
[2017-12-28] MEDS: NICOTINE 14 MG/24 HR TDSY TD SCH (17:33)
[2017-12-28] MEDS: INSULIN ASPART 100 UNITS/ML 3 ML PEN SC SCH ×2 (18:03→21:27)
[2017-12-28] MEDS ORDERED: OPTIRAY 320 IV PRN (19:15)
[2017-12-28 19:41] VITALS: BP 169/101; PULSE 73; TEMP 37; O2SAT 98
--- NOTE | 2017-12-28 19:41 | DIAGNOSTIC IMAGING REPORT ---
NECK ANGIO WITH CONTRAST, HEAD ANGIO WITH CONTRAST CLINICAL HISTORY: 57 years-old Male with . Acute TIA symptoms. Loss of flow void within the right internal carotid artery seen on brain MRI of same day. COMPARISON STUDY: Brain MRI of same day TECHNIQUE: Following the IV administration of 115 of Optiray 320, CT angiogram of the neck was performed from the aortic arch to the skull base. Images are reviewed in the axial, sagittal, and coronal planes. 3-D MIPS images are created and assessed. IV contrast was administered without complication. All measurements were calculated based on NASCET criteria. A dose lowering technique was utilized adhering to the principles of ALARA. CT DOSE: 532.38 mGy.cm FINDINGS: CTA HEAD: The left internal carotid, bilateral middle cerebral and bilateral anterior cerebral arteries are widely patent. Atherosclerotic plaquing of the clinoid portion left internal carotid artery is noted without significant stenosis. The anterior communicating artery is unremarkable. The bilateral vertebral arteries are widely patent and appear to be codominant. The bilateral posterior cerebral arteries are also widely patent. The cerebral venous sinuses are patent. There is occlusion of the right internal carotid artery with reconstitution of flow within the supraclinoid segment, image 60 series 3. No abnormal intra-axial or extra-axial enhancement. Bones appear intact and unremarkable. Mild thickening of the maxillary sinuses. Soft tissues and orbits are unremarkable. CTA NECK: Normal three-vessel aortic arch is present. The imaged bilateral subclavian arteries are widely patent. The bilateral common carotid arteries are widely patent. Mild to moderate mixed plaquing of the left carotid bulb and proximal left internal carotid artery causes less than 50% narrowing. The left internal carotid artery appears widely patent. No aneurysm or dissection. There is occlusion of the right internal carotid artery at its origin, image 119 series 4 with occlusion extending through the entirety of the vessel with reconstitution of flow seen within the supraclinoid right internal carotid artery, image 222 series 4. The vertebral arteries are codominant. There is a focal area of proximally 70% luminal narrowing involving the V2 segment left vertebral artery, image 113 series 4 at the level of C4-C5 which appears be secondary to atheromatous plaque. There is 80% luminal narrowing involving the V2 segment right vertebral artery at the level of C4-C5, image 110 series 4. The remainder of the vessel is widely patent. Lung apices are clear. No adenopathy of the neck identified. Multilevel degenerative changes about the cervical spine. IMPRESSION: 1. Occlusion of the right internal carotid artery extending from its origin to the clinoid segment. Reconstitution of flow is seen within the supraclinoid portion. 2. Luminal narrowing of the bilateral V2 segment vertebral arteries at the level of C4-C5, 70% on the left and 80% on the right. 3. Mild to moderate mixed plaquing of the left carotid bulb causes less than 50% luminal narrowing. 4. No aneurysm or dissection identified. The above report was generated using voice recognition software. It may contain grammatical, syntax or spelling errors. Electronically signed by: Javier Schuster M.D. 12/28/2017 7:40 PM Dictated Date/Time: 12/28/2017 7:25 PM
[2017-12-28 20:00] VITALS: O2SAT 98
[2017-12-28] MEDS: AMITRIPTYLINE HCL 25 MG TAB PO SCH (21:16)
[2017-12-28] MEDS: LEVETIRACETAM 500 MG TAB PO SCH (21:18)
[2017-12-28] MEDS: ENOXAPARIN 40 MG/0.4 ML SYR SC SCH (21:18)
[2017-12-28] MEDS: INSULIN GLARGINE SOLOSTAR 100 UNITS/ML 3 ML PEN SC SCH (21:20)
[2017-12-28 22:55] VITALS: BP 166/104; PULSE 74; TEMP 36.8; O2SAT 98
[2017-12-28] MEDS ORDERED: CLOPIDOGREL BISULFATE 75 MG TAB PO ONE (23:12)
[2017-12-28] MEDS: ACETAMINOPHEN 325 MG TAB PO PRN (23:49)
[2017-12-29] VITALS (10 sets, daily range): BP systolic 151–182; BP diastolic 95–118; PULSE 67–88; TEMP 36.5–36.9; O2SAT 95–99; Ht 180.3 cm; Wt 112.0 kg
[2017-12-29 06:00] LABS: BASO % 0.7 %; BASO ABS # 0.05 K/uL (0-0.2); EOS % 2.1 %; EOS ABS # 0.16 K/uL (0-0.5); HEMOGLOBIN 14.8 g/dL (14.0-18.0); IG# 0.05 K/uL (0.00-0.02); LYMPH % 39.6 %; LYMPH ABS # 2.99 K/uL (1.2-3.4); MEAN CELL VOLUME 88.1 fL (80-100); MEAN CORPUSCULAR HGB CONC 35.2 g/dl (32-36); MEAN PLATELET VOLUME 10.6 fL (7.4-10.4); MONO % 13.2 %; NEUT % 43.7 %; PLATELET COUNT 215 K/uL (130-400); RED CELL DISTRIBUTION WIDTH CV 12.6 % (11.5-14.5); RED CELL DISTRIBUTION WIDTH SD 40.6 fL (36.4-46.3); WHITE BLOOD COUNT 7.55 K/uL (4.8-10.8)
[2017-12-29 06:00] LABS: HEMOGLOBIN A1C 7.2 % (4.5-5.6)
[2017-12-29 06:37] LABS: BLOOD UREA NITROGEN 13 mg/dl (7-18); CALCIUM 9.3 mg/dl (8.5-10.1); CARBON DIOXIDE 27 mmol/L (21-32); CHOLESTEROL 166 mg/dl (0-200); CREATININE 1.01 mg/dl (0.60-1.40); GLUCOSE 122 mg/dl (70-99); LDL CHOLESTEROL CALCULATED 87 mg/dl; SODIUM 133 mmol/L (136-145)
[2017-12-29] MEDS ORDERED: PERFLUTREN LIPID MICROSPHERE (DEFINITY) IV ONE (07:19)
[2017-12-29] MEDS: ATORVASTATIN 40 MG TAB PO SCH (07:32)
[2017-12-29] MEDS: LEVETIRACETAM 500 MG TAB PO SCH ×2 (07:32→20:56)
[2017-12-29] MEDS: CLOPIDOGREL BISULFATE 75 MG TAB PO SCH (07:32)
[2017-12-29] MEDS: LISINOPRIL 5 MG TAB PO SCH (07:32)
[2017-12-29] MEDS: ASPIRIN 81 MG ECTAB PO SCH (07:32)
[2017-12-29] MEDS: LISINOPRIL 20 MG TAB PO SCH (07:33)
[2017-12-29] MEDS: PAROXETINE 20 MG TAB PO SCH (07:33)
[2017-12-29] MEDS: NICOTINE 14 MG/24 HR TDSY TD SCH (07:33)
[2017-12-29] MEDS: INSULIN ASPART 100 UNITS/ML 3 ML PEN SC SCH ×4 (07:43→21:00)
[2017-12-29] MEDS: INSULIN GLARGINE SOLOSTAR 100 UNITS/ML 3 ML PEN SC SCH ×2 (07:43→20:58)
--- NOTE | 2017-12-29 13:15 | Neurology Consultation ---
Neurology Consultation Date of Consultation: Dec 29, 2017. Attending Physician: Catarino Kasper M.D. Primary Care Physician: Jossie Junior D.O. Reason for Consultation: TIA History of Present Illness Source: patient, family, friend Dean is a 57 year old male PMH HTN, HDL, DM II, depression, seizure disorder presented to ER with complaint "feeling weird". He woke 6:45 AM this morning and he was feeling "in high gear". He got ready for work and when he arrived at work at approximately 8:55 AM his high energy continued and he reports was much more productive than usual and was working ahead of schedule. At 10 AM he started to feel tired" feeling weird" his boss brought him to the ED. He was having trouble gripping the pen with his right hand and trouble writing and is writing on a slant. he was having trouble lifting his left leg , and felt like he had difficulty expressing his words and he noticed some stuttering. All symptoms resolved in approximately 2 hours. he is DM but did not eat breakfast this morning. He had a grand mal seizure in the past and was placed on Keppra. He was also told that he has had a stroke in the past found on head imaging. He is not on a baby aspirin or any other anticoagulation and denies a fib or irregular heart rhythm. Denies CP, SOB, abdominal pain, weakness , numbness tingling, current one sided weakness, falls, head trauma, N,V. no resent seizure history. Past Medical/Surgical History Medical Problems: (1) Flu-like symptoms Status: Acute (2) Left knee pain Status: Acute (3) Left shoulder pain Status: Acute (4) Lower back pain Status: Acute (5) Spasm of thoracic back muscle Status: Acute (6) Weakness Status: Acute Social History Smoking Status: Current every day smoker Smokeless Tobacco Use: No Alcohol Use: occasionally (1-2 drinks a month) Drug Use: none Marital Status: Housing Status: lives alone, other Occupation Status: employed Allergies Coded Allergies: BEE STING (Verified Allergy, Unknown, ., 06/02/17) Current Inpatient Medications Current Inpatient Medications Medications (Trade) Dose Ordered Sig/Jerzy Route Start Time Stop Time Status Last Admin Dose Admin Enoxaparin Sodium (Lovenox Inj) 40 mg Q24H SC 12/28/17 21:00 01/27/18 20:59 12/28/17 21:18 40 MG Acetaminophen (Tylenol Tab) 650 mg Q4H PRN PO 12/28/17 14:00 01/27/18 13:59 12/28/17 23:49 650 MG Magnesium Hydroxide (Milk Of Magnesia Susp) 30 ml Q12H PRN PO 12/28/17 14:00 01/27/18 13:59 Ondansetron HCl (Zofran Inj) 4 mg Q6H PRN IV 12/28/17 14:00 01/27/18 13:59 Atorvastatin Calcium (Lipitor Tab) 40 mg QAM PO 12/29/17 09:00 01/28/18 08:59 12/29/17 07:32 40 MG Aspirin (Ecotrin Tab) 81 mg QAM PO 12/29/17 09:00 01/28/18 08:59 12/29/17 07:32 81 MG Miscellaneous Information (Pharmacist Discharge Med Rec Consult) 1 ea UD PRN N/A 12/28/17 14:00 01/27/18 13:59 Labetalol HCl (Normodyne IV) 10 mg Q4H PRN IV 12/28/17 14:00 01/27/18 13:59 Amitriptyline HCl (Elavil Tab) 25 mg HS PO 12/28/17 21:00 01/27/18 20:59 12/28/17 21:16 25 MG Levetiracetam (Keppra Tab) 500 mg BID PO 12/28/17 21:00 01/27/18 20:59 12/29/17 07:32 500 MG Lisinopril (Zestril Tab) 5 mg DAILY PO 12/29/17 09:00 01/28/18 08:59 12/29/17 07:32 5 MG Lisinopril (Zestril Tab) 20 mg DAILY PO 12/29/17 09:00 01/28/18 08:59 12/29/17 07:33 20 MG Paroxetine HCl (pAXil TAB) 40 mg DAILY PO 12/29/17 09:00 01/28/18 08:59 12/29/17 07:33 40 MG Insulin Glargine (Lantus Solostar Pen) 20 units Q12 SC 12/28/17 21:00 01/27/18 20:59 12/29/17 07:43 20 UNITS Insulin Aspart (novoLOG ASPART) SLIDING SCALE If C... ACHS SC 12/28/17 16:00 01/27/18 15:59 12/29/17 12:16 5 UNITS Glucose (Glucose 40% Gel) 15-30 GRAMS 15 GRAMS... UD PRN PO 12/28/17 14:15 01/27/18 14:14 Glucose (Glucose Chew Tab) 4-8 Tablets 4 Tabl... UD PRN PO 12/28/17 14:15 01/27/18 14:14 Dextrose (Dextrose 50% 50ML Syringe) 25-50ML OF 50% DW IV FOR... UD PRN IV 12/28/17 14:15 01/27/18 14:14 Glucagon (Glucagon Inj) 1 mg UD PRN SQ 12/28/17 14:15 01/27/18 14:14 Miscellaneous (Iv Fluids Completed) 1 ea PRN PRN N/A 12/28/17 14:15 12/28/18 14:14 Nicotine (Nicoderm Cq 14MG Patch) 1 patch QAM TD 12/28/17 17:00 01/27/18 16:59 12/29/17 07:33 1 PATCH Miscellaneous (Remove Nicoderm Patch) 1 ea HS N/A 12/28/17 21:00 01/27/18 20:59 12/28/17 21:15 1 EA Glucose (Glucose 40% Gel) 15-30 GRAMS 15 GRAMS... UD PRN PO 12/28/17 16:00 01/27/18 15:59 Glucose (Glucose Chew Tab) 4-8 Tablets 4 Tabl... UD PRN PO 12/28/17 16:00 01/27/18 15:59 Dextrose (Dextrose 50% 50ML Syringe) 25-50ML OF 50% DW IV FOR... UD PRN IV 12/28/17 16:00 01/27/18 15:59 Glucagon (Glucagon Inj) 1 mg UD PRN SQ 12/28/17 16:00 01/27/18 15:59 Ioversol (Optiray 320) 100 ml UD PRN IV 12/28/17 19:15 01/01/18 19:14 Clopidogrel Bisulfate (plAVix TAB) 75 mg QAM PO 12/29/17 09:00 01/28/18 08:59 12/29/17 07:32 75 MG Physical Exam Vital Signs (Past 24 Hrs): Date Time Temp Pulse Resp B/P (MAP) Pulse Ox O2 Delivery O2 Flow Rate FiO2 12/29/17 12:38 170/98 (122) 12/29/17 12:00 Room Air 12/29/17 11:53 36.8 82 22 182/118 (139) 95 Room Air 12/29/17 08:00 Room Air 12/29/17 07:54 36.5 67 20 160/97 (118) 98 Room Air 12/29/17 04:00 36.6 73 18 155/96 (115) 99 Room Air 12/29/17 04:00 Room Air 12/29/17 00:00 Room Air 12/28/17 22:55 36.8 74 18 166/104 (124) 98 Room Air 12/28/17 20:00 98 Room Air 12/28/17 19:41 37.0 73 18 169/101 (123) 98 Room Air 12/28/17 17:04 36.3 70 20 172/114 96 Room Air 12/28/17 17:03 36.3 72 20 172/114 (133) 96 Room Air 12/28/17 15:20 36.5 72 18 153/95 93 12/28/17 15:18 72 18 147/99 93 Room Air 12/28/17 15:18 72 18 153/95 93 Room Air 12/28/17 15:16 72 162/101 93 12/28/17 15:15 73 162/100 96 12/28/17 15:14 73 18 176/111 97 12/28/17 15:12 177/111 12/28/17 14:44 73 18 169/93 12/28/17 13:14 70 18 178/123 97 Physical Exam: Constitutional: appearance nourished, healthy and obese Ears, Nose, Mouth and Throat: mucous membranes moist, no injection and skin normal, eyes normal Cardiovascular: normal S-1 and S-2 and regular rate and rhythm Respiratory: clear to auscultation (CTA) and no rales, rhonchi or wheeze Musculoskeletal: no peripheral edema and good distal pulses Skin: no stigmata of neurocutaneous disease noted and normal and intact Eyes: extraocular muscles intact (EOMI) and pupils equal, round and reactive to light (PERRL) NEUROLOGIC EXAMINATION: Mental status: Alert and interactive Oriented to full date and location Oriented to person Speech fluent with no evidence of aphasia Cranial Nerves smile eye brow raise symmetric Reflexes: Deep tendon reflexes were symmetrical and graded 2/5. Plantar responses were flexor. Sensory: intact to vibration light touch, GT proprioception intact Coordination: finger to nose no bipass, no tremor Gait/Stance: Posture sitting up in bed no issues with moving to side of bed without assistance Motor: Negative for pronator drift of out stretched arms with eyes closed. Strength: biceps triceps deltoids 5/5 bilaterally hip flex plantar flex ext 5/5 bilaterally Laboratory Results Past 24 Hours: 12/29/17 05:38 Red Blood Count 4.77, Mean Corpuscular Volume 88.1, Mean Corpuscular Hemoglobin 31.0, Mean Corpuscular Hemoglobin Concent 35.2, Mean Platelet Volume 10.6, Neutrophils (%) (Auto) 43.7, Lymphocytes (%) (Auto) 39.6, Monocytes (%) (Auto) 13.2, Eosinophils (%) (Auto) 2.1, Basophils (%) (Auto) 0.7, Neutrophils # (Auto ) 3.30, Lymphocytes # (Auto) 2.99, Monocytes # (Auto) 1.00, Eosinophils # (Auto ) 0.16, Basophils # (Auto) 0.05 12/29/17 05:38 12/29/17 07:51 Test 12/28/17 20:15 12/28/17 21:47 12/29/17 05:38 12/29/17 11:32 Urine Color YELLOW Urine Appearance CLEAR (CLEAR) Urine pH 6.5 (4.5-7.5) Urine Specific [place] 1.016 (1.000-1.030) Urine Protein NEG (NEG) Urine Glucose (UA) NEG (NEG) Urine Ketones NEG (NEG) Urine Occult Blood NEG (NEG) Urine Nitrite NEG (NEG) Urine Bilirubin NEG (NEG) Urine Urobilinogen NEG (NEG) Urine Leukocyte Esterase NEG (NEG) Urine Opiates Screen NEG (NEG) Urine Methadone, Qualitative NEG (NEG) Urine Barbiturates NEG (NEG) Urine Phencyclidine (PCP) Level NEG (NEG) Ur Amphetamine/Methamphetamine NEG (NEG) MDMA (Ecstasy) Screen NEG (NEG) Urine Benzodiazepines Screen NEG (NEG) Urine Cocaine Metabolite NEG (NEG) Urine Marijuana (THC) NEG (NEG) Troponin I < 0.015 ng/ml (0-0.045) White Blood Count 7.55 K/uL (4.8-10.8) Red Blood Count 4.77 M/uL (4.7-6.1) Hemoglobin 14.8 g/dL (14.0-18.0) Hematocrit 42.0 % (42-52) Mean Corpuscular Volume 88.1 fL (80-100) Mean Corpuscular Hemoglobin 31.0 pg (25-34) Mean Corpuscular Hemoglobin Concent 35.2 g/dl (32-36) Platelet Count 215 K/uL (130-400) Mean Platelet Volume 10.6 fL (7.4-10.4) Neutrophils (%) (Auto) 43.7 % Lymphocytes (%) (Auto) 39.6 % Monocytes (%) (Auto) 13.2 % Eosinophils (%) (Auto) 2.1 % Basophils (%) (Auto) 0.7 % Neutrophils # (Auto) 3.30 K/uL (1.4-6.5) Lymphocytes # (Auto) 2.99 K/uL (1.2-3.4) Monocytes # (Auto) 1.00 K/uL (0.11-0.59) Eosinophils # (Auto) 0.16 K/uL (0-0.5) Basophils # (Auto) 0.05 K/uL (0-0.2) RDW Standard Deviation 40.6 fL (36.4-46.3) RDW Coefficient of Variation 12.6 % (11.5-14.5) Immature Granulocyte % (Auto) 0.7 % Immature Granulocyte # (Auto) 0.05 K/uL (0.00-0.02) Anion Gap 3.0 mmol/L (3-11) Est Creatinine Clear Calc Drug Dose 103.2 ml/min Estimated GFR () 95.9 Estimated GFR (Non- 82.8 BUN/Creatinine Ratio 13.1 (10-20) Calcium Level 9.3 mg/dl (8.5-10.1) Triglycerides Level 211 mg/dl (0-150) Cholesterol Level 166 mg/dl (0-200) HDL Cholesterol 37 mg/dl LDL Cholesterol, Calculated 87 mg/dl VLDL Cholesterol, Calculated 42 mg/dl Cholesterol/HDL Ratio 4.5 Bedside Glucose 167 mg/dl (70-99) Imaging CTA head/ neck- Occlusion of the right internal carotid artery extending from its origin to the clinoid segment. Reconstitution of flow is seen within the supraclinoid portion. Luminal narrowing of the bilateral V2 segment vertebral arteries at the level of C4-C5, 70% on the left and 80% on the right. Mild to moderate mixed plaquing of the left carotid bulb causes less than 50% luminal narrowing. No aneurysm or dissection identified. MRI brain- . No evidence of acute infarction. 7 mm ovoid area of increased diffusion-weighted signal involving the left smith radiata with slightly increased signal on the ADC map, demonstrates increased T2/FLAIR signal and is new from comparison MRI 11/10/2014 suggesting an area of chronic or subacute infarction. Loss of the normal flow void involving the petrous, cavernous and clinoid portions of the right internal carotid artery is new from study dated and is compatible with age indeterminate high-grade narrowing or thrombus. Correlation with CTA recommended. Chronic microvascular ischemic changes. Carotid doppler- 1. There is no sonographic evidence of hemodynamically significant stenosis in the right or left carotid arterial system. Antegrade flow is shown in the vertebral arteries. Diminished flow suggested within the right external carotid artery. Impression 57 year old male s/p stroke like event -resolving in 2 hours Plan 1. MRI with evidence of past infarct no acute infarct noted 2. CTA- Occlusion of the right internal carotid artery extending from its origin to the clinoid segment 3. started plavix 75 mg aspirin 81 mg -dual therapy for at least 3 months 4. optimize HTN,DM, DL, LDL <70 5. PT/OT speech does not appear to have any needs 6. vascular surgery consult for ICA occlusion 7. TTE pending read 8. ZIO patch or cardio net for irregular heart rhythms 9. smoking cessation strongly urged 10. continue Keppra 500 mg BID for seizure prevention I have seen and discussed above patient with Dr Catarino An, neurology Case reviewed along with old records Suspect the event was indeed a tia related either to the sudden occlusion of the chroniclly stenotic right ica or a transient collateral failure due to hypotension of transient type Issue is academic he is back to normal the imaging shown no new infarction in the appropriate distribution and the vessel is occluded vascular surgery will be contacted but in this setting doubt that anything will be offered and he needs to be on or back on asa and have bp kept in the high normotensive range to keep collateral flow adequate I will be off and Dr Stone will assume care tomorrow Catarino Lopez MD
--- NOTE | 2017-12-29 15:16 | ECHOCARDIOGRAM REPORT ---
*NOTICE TO RECEIVING DEMOCRAT AGENCY This information is strictly Confidential and protected under [place] law. [place] law prohibits you from making any further disclosure of this information unless further disclosure is expressly permitted by the written consent of the person to whom it pertains or is authorized by law. A general authorization for the release of medical or other information is not sufficient for this purpose. Hospital accepts no responsibility if the information is made available to any other person, INCLUDING THE PATIENT. Interpretation Summary * Name: CYNTHIA SOLOMON Study Date: 12/29/2017 06:46 AM BP: 155/96 mmHg * Patient Location: C.2T\S\E218\S\1 HR: 73 * : 1960 (M/d/yyyy) Gender: Male Height: 71 in * Age: 57 yrs Ethnicity: CA Weight: 250 lb * Ordering Physician: Nini Fields * Performed By: Ann-Marie Ruffin RDCS * * Reason For Study: CEREBRAL ISCHEMIA/EMBOLUS * BSA: 2.3 m2 * Grossly normal valvular structure and function. * -- Conclusions -- * There is severe concentric left ventricular hypertrophy. * The left ventricular cavity is small. * Left ventricular systolic function is normal. * Ejection Fraction = 60-65%. * The right ventricular systolic function is normal. * The left atrial size is normal. * Right atrial size is normal. * Previous study 2015 had a negative micro-cavitations study excluding a PFO. * Grossly normal valvular structure and function. Procedure Details * A complete two-dimensional transthoracic echocardiogram was performed (2D, M-mode, Doppler and color flow Doppler). * A contrast injection of Definity was performed to improve assessment of LV function. * Contrast was injected into an intravenous site in the left arm. * One vial of Definity ultrasound contrast was diluted in normal saline to a total volume of 10 ml. A total of '3' ml of solution was administered during imaging. * Lot # [id number] of Definity utilized for procedure. * Expiration date 01/06. * The attending nurse who injected the contrast agent was ANN-MARIE ROCHA RN. Left Ventricle * The left ventricular cavity is small. * There is severe concentric left ventricular hypertrophy. * Ejection Fraction = 60-65%. * Left ventricular systolic function is normal. Right Ventricle * The right ventricular cavity is small. * The right ventricular systolic function is normal. Atria * The left atrial size is normal. * Right atrial size is normal. * No ASD detected; PFO is not assessed. Mitral Valve * The mitral valve anatomy is normal. * Significant mitral regurgitation is absent. Tricuspid Valve * The tricuspid valve anatomy is normal. * Significant tricuspid regurgitation is absent. Aortic Valve * The aortic valve is not well visualized. * No hemodynamically significant valvular aortic stenosis. * There is no significant aortic regurgitation. Pulmonic Valve * The pulmonic valve is not well visualized. Great Vessels * The aortic root and proximal ascending aorta are normal sized. Pericardium/Pleural * There is no pericardial effusion. MMode 2D Measurements and Calculations IVSd 2.2 cm IVSs 2.0 cm LVIDd 4.3 cm LVIDs 2.8 cm LVPWd 1.7 cm LVPWs 2.5 cm IVS/LVPW 1.3 FS 34.5 % EDV(Teich) 84.0 ml ESV(Teich) 30.3 ml EF(Teich) 63.9 % EDV(cubed) 80.7 ml ESV(cubed) 22.7 ml EF(cubed) 71.9 % % IVS thick -9.25 % % LVPW thick 51.7 % LV mass(C)d 390.3 grams LV mass(C)dI 168.3 grams/m\S\2 LV mass(C)s 312.7 grams LV mass(C)sI 134.9 grams/m\S\2 SV(Teich) 53.7 ml SI(Teich) 23.2 ml/m\S\2 SV(cubed) 58.1 ml SI(cubed) 25.0 ml/m\S\2 asc Aorta Diam 3.5 cm LVOT diam 1.8 cm LVOT area 2.5 cm\S\2 LVAd ap4 33.5 cm\S\2 LVLd ap4 8.8 cm EDV(MOD-sp4) 102.6 ml EDV(sp4-el) 108.3 ml LVAs ap4 18.3 cm\S\2 LVLs ap4 7.5 cm ESV(MOD-sp4) 36.2 ml ESV(sp4-el) 37.9 ml EF(MOD-sp4) 64.7 % EF(sp4-el) 65.0 % LVAd ap2 23.0 cm\S\2 LVLd ap2 7.7 cm EDV(MOD-sp2) 57.2 ml EDV(sp2-el) 58.4 ml LVAs ap2 12.6 cm\S\2 LVLs ap2 6.6 cm ESV(MOD-sp2) 20.6 ml ESV(sp2-el) 20.5 ml EF(MOD-sp2) 64.1 % EF(sp2-el) 64.9 % LVLd %diff -14.05 % EDV(MOD-bp) 81.8 ml LVLs %diff -13.45 % ESV(MOD-bp) 28.6 ml EF(MOD-bp) 65.1 % SV(MOD-sp4) 66.4 ml SI(MOD-sp4) 28.6 ml/m\S\2 SV(MOD-sp2) 36.6 ml SI(MOD-sp2) 15.8 ml/m\S\2 SV(MOD-bp) 53.3 ml SI(MOD-bp) 23.0 ml/m\S\2 SV(sp4-el) 70.4 ml SI(sp4-el) 30.4 ml/m\S\2 SV(sp2-el) 37.9 ml SI(sp2-el) 16.4 ml/m\S\2 Doppler Measurements and Calculations MV E max red 79.8 cm/sec MV A max red 69.9 cm/sec MV E/A 1.1 MV dec time 0.20 sec Ao V2 max 94.9 cm/sec Ao max PG 3.6 mmHg Ao max PG (full) 1.1 mmHg AMEENA(V,A) 2.1 cm\S\2 AMEENA(V,D) 2.1 cm\S\2 LV V1 max PG 2.5 mmHg LV V1 max 79.4 cm/sec PA V2 max 45.3 cm/sec PA max PG 0.82 mmHg PI end-d red 62.1 cm/sec
--- NOTE | 2017-12-29 20:45 | Progress Note ---
Medicine Progress Note Date & Time of Visit: Dec 29, 2017 at ~ 18:00 . Subjective Feels well. No headache. No visual changes were dysarthria. No chest pain, palpitations. No cough or shortness of breath. No nausea or vomiting. . Objective Last 8 Hrs Date Time Temp Pulse Resp B/P (MAP) Pulse Ox O2 Delivery O2 Flow Rate FiO2 12/29/17 19:32 36.9 88 18 151/105 (120) 96 Room Air 12/29/17 16:00 97 Room Air 12/29/17 15:31 79 18 175/117 (136) 97 Room Air 12/29/17 12:38 170/98 (122) Physical Exam: General-lying in bed, no distress Lungs- clear to auscultation; no respiratory distress Cardiovascular- RRR; no murmur; no gallop; no JVD; no pretibial edema Abdomen- + bowel sounds, soft, nontender Extremities- no cyanosis; no calf tenderness Neuro- alert, oriented; PERRL, EOMI; no facial palsy; no dysarthria; motor strength upper and lower extremities 5/5 Skin- warm & dry . Laboratory Results: Last 24 Hours Test 12/28/17 21:47 12/29/17 05:38 12/29/17 06:41 12/29/17 07:51 Troponin I < 0.015 ng/ml White Blood Count 7.55 K/uL Red Blood Count 4.77 M/uL Hemoglobin 14.8 g/dL Hematocrit 42.0 % Mean Corpuscular Volume 88.1 fL Mean Corpuscular Hemoglobin 31.0 pg Mean Corpuscular Hemoglobin Concent 35.2 g/dl Platelet Count 215 K/uL Mean Platelet Volume 10.6 fL Neutrophils (%) (Auto) 43.7 % Lymphocytes (%) (Auto) 39.6 % Monocytes (%) (Auto) 13.2 % Eosinophils (%) (Auto) 2.1 % Basophils (%) (Auto) 0.7 % Neutrophils # (Auto) 3.30 K/uL Lymphocytes # (Auto) 2.99 K/uL Monocytes # (Auto) 1.00 K/uL Eosinophils # (Auto) 0.16 K/uL Basophils # (Auto) 0.05 K/uL RDW Standard Deviation 40.6 fL RDW Coefficient of Variation 12.6 % Immature Granulocyte % (Auto) 0.7 % Immature Granulocyte # (Auto) 0.05 K/uL Sodium Level 133 mmol/L Potassium Level mmol/L 4.1 mmol/L Chloride Level 103 mmol/L Carbon Dioxide Level 27 mmol/L Anion Gap 3.0 mmol/L Blood Urea Nitrogen 13 mg/dl Creatinine 1.01 mg/dl Est Creatinine Clear Calc Drug Dose 103.2 ml/min Estimated GFR () 95.9 Estimated GFR (Non- 82.8 BUN/Creatinine Ratio 13.1 Random Glucose 122 mg/dl Calcium Level 9.3 mg/dl Triglycerides Level 211 mg/dl Cholesterol Level 166 mg/dl HDL Cholesterol 37 mg/dl LDL Cholesterol, Calculated 87 mg/dl VLDL Cholesterol, Calculated 42 mg/dl Cholesterol/HDL Ratio 4.5 Bedside Glucose 120 mg/dl Test 12/29/17 07:54 12/29/17 11:32 12/29/17 16:02 Hepatitis C Antibody Screen NEG Bedside Glucose 167 mg/dl 128 mg/dl Assessment & Plan POSSIBLE TIA Patient presented with right hand weakness, left leg weakness, and apparent aphasia. CT of head without contrast demonstrated small vessel ischemic changes, no apparent acute vascular event. Carotid duplex initially interpreted as normal flow in bilateral internal carotid arteries, but upon further review it was felt that there was occlusion of the right internal carotid artery. MRI of the brain showed a 7 mm lesion in the left smith radiata suggesting chronic or subacute infarction, no evidence of acute infarction, loss of normal flow within the right internal carotid artery, chronic microvascular ischemic changes. CTA of head and neck demonstrated occlusion of the right internal carotid artery , narrowing of bilateral V2 segment vertebral arteries, mild to moderate plaque of the left carotid bulb. Current and previous imaging studies were reviewed with Radiology. MRA of the head performed on 11/17/14 demonstrated occlusion of the right internal carotid artery. No significant arrhythmias. Echocardiogram demonstrated severe concentric LVH, normal left ventricular systolic function. Neurology consulted. It was felt that his symptoms the day of admission may have been secondary to either a TIA or cerebral hypoperfusion. Amounts of relatively high blood pressures recommended. Vascular Surgery consult recommended. Continue antiplatelet therapy with aspirin and clopidogrel. LDL C = 87. Change statin therapy from simvastatin to atorvastatin 80 mg daily given vascular findings. HYPERTENSION Continue lisinopril. Allow relatively high blood pressures given cerebrovascular findings. DIABETES MELLITUS TYPE 2 Fairly well controlled. Hemoglobin A1c 7.2. Hold metformin during hospital stay. Lantus/NovoLog per protocol. Fasting blood sugar today = 120. DYSLIPIDEMIA LDL C = 87. Change statin therapy from simvastatin to atorvastatin 80 mg daily given vascular findings. SEIZURE DISORDER No apparent seizure activity. Continue levetiracetam. VTE PROPHYLAXIS SQ enoxaparin. Ambulate. DISPOSITION Expected discharge to home. Family Medicine follow-up with Dr. Junior. . Current Inpatient Medications: Current Inpatient Medications Medications (Trade) Dose Ordered Sig/Jerzy Route Start Time Stop Time Status Last Admin Dose Admin Enoxaparin Sodium (Lovenox Inj) 40 mg Q24H SC 12/28/17 21:00 01/27/18 20:59 12/28/17 21:18 40 MG Acetaminophen (Tylenol Tab) 650 mg Q4H PRN PO 12/28/17 14:00 01/27/18 13:59 12/28/17 23:49 650 MG Magnesium Hydroxide (Milk Of Magnesia Susp) 30 ml Q12H PRN PO 12/28/17 14:00 01/27/18 13:59 Ondansetron HCl (Zofran Inj) 4 mg Q6H PRN IV 12/28/17 14:00 01/27/18 13:59 Atorvastatin Calcium (Lipitor Tab) 40 mg QAM PO 12/29/17 09:00 01/28/18 08:59 12/29/17 07:32 40 MG Aspirin (Ecotrin Tab) 81 mg QAM PO 12/29/17 09:00 01/28/18 08:59 12/29/17 07:32 81 MG Miscellaneous Information (Pharmacist Discharge Med Rec Consult) 1 ea UD PRN N/A 12/28/17 14:00 01/27/18 13:59 Labetalol HCl (Normodyne IV) 10 mg Q4H PRN IV 12/28/17 14:00 01/27/18 13:59 Amitriptyline HCl (Elavil Tab) 25 mg HS PO 12/28/17 21:00 01/27/18 20:59 12/28/17 21:16 25 MG Levetiracetam (Keppra Tab) 500 mg BID PO 12/28/17 21:00 01/27/18 20:59 12/29/17 07:32 500 MG Lisinopril (Zestril Tab) 5 mg DAILY PO 12/29/17 09:00 01/28/18 08:59 12/29/17 07:32 5 MG Lisinopril (Zestril Tab) 20 mg DAILY PO 12/29/17 09:00 01/28/18 08:59 12/29/17 07:33 20 MG Paroxetine HCl (pAXil TAB) 40 mg DAILY PO 12/29/17 09:00 01/28/18 08:59 12/29/17 07:33 40 MG Insulin Glargine (Lantus Solostar Pen) 20 units Q12 SC 12/28/17 21:00 01/27/18 20:59 12/29/17 07:43 20 UNITS Insulin Aspart (novoLOG ASPART) SLIDING SCALE If C... ACHS SC 12/28/17 16:00 01/27/18 15:59 12/29/17 16:58 10 UNITS Glucose (Glucose 40% Gel) 15-30 GRAMS 15 GRAMS... UD PRN PO 12/28/17 14:15 01/27/18 14:14 Glucose (Glucose Chew Tab) 4-8 Tablets 4 Tabl... UD PRN PO 12/28/17 14:15 01/27/18 14:14 Dextrose (Dextrose 50% 50ML Syringe) 25-50ML OF 50% DW IV FOR... UD PRN IV 12/28/17 14:15 01/27/18 14:14 Glucagon (Glucagon Inj) 1 mg UD PRN SQ 12/28/17 14:15 01/27/18 14:14 Miscellaneous (Iv Fluids Completed) 1 ea PRN PRN N/A 12/28/17 14:15 12/28/18 14:14 Nicotine (Nicoderm Cq 14MG Patch) 1 patch QAM TD 12/28/17 17:00 01/27/18 16:59 12/29/17 07:33 1 PATCH Miscellaneous (Remove Nicoderm Patch) 1 ea HS N/A 12/28/17 21:00 01/27/18 20:59 12/28/17 21:15 1 EA Glucose (Glucose 40% Gel) 15-30 GRAMS 15 GRAMS... UD PRN PO 12/28/17 16:00 01/27/18 15:59 Glucose (Glucose Chew Tab) 4-8 Tablets 4 Tabl... UD PRN PO 12/28/17 16:00 01/27/18 15:59 Dextrose (Dextrose 50% 50ML Syringe) 25-50ML OF 50% DW IV FOR... UD PRN IV 12/28/17 16:00 01/27/18 15:59 Glucagon (Glucagon Inj) 1 mg UD PRN SQ 12/28/17 16:00 01/27/18 15:59 Ioversol (Optiray 320) 100 ml UD PRN IV 12/28/17 19:15 01/01/18 19:14 Clopidogrel Bisulfate (plAVix TAB) 75 mg QAM PO 12/29/17 09:00 01/28/18 08:59 12/29/17 07:32 75 MG
[2017-12-29] MEDS: AMITRIPTYLINE HCL 25 MG TAB PO SCH (20:56)
[2017-12-29] MEDS: ENOXAPARIN 40 MG/0.4 ML SYR SC SCH (20:56)
[2017-12-30 05:08] VITALS: BP 112/76; PULSE 82; TEMP 36.5; O2SAT 95
[2017-12-30 06:39] LABS: BASO % 0.4 %; BASO ABS # 0.03 K/uL (0-0.2); EOS % 2.1 %; EOS ABS # 0.14 K/uL (0-0.5); HEMOGLOBIN 14.9 g/dL (14.0-18.0); IG# 0.05 K/uL (0.00-0.02); LYMPH % 36.6 %; LYMPH ABS # 2.45 K/uL (1.2-3.4); MEAN CELL VOLUME 88.4 fL (80-100); MEAN CORPUSCULAR HEMOGLOBIN 31.4 pg (25-34); MEAN CORPUSCULAR HGB CONC 35.5 g/dl (32-36); MEAN PLATELET VOLUME 10.5 fL (7.4-10.4); MONO % 12.1 %; MONO ABS # 0.81 K/uL (0.11-0.59); NEUT % 48.1 %; NEUT ABS # 3.21 K/uL (1.4-6.5); PLATELET COUNT 212 K/uL (130-400); RED CELL DISTRIBUTION WIDTH CV 12.7 % (11.5-14.5); RED CELL DISTRIBUTION WIDTH SD 40.9 fL (36.4-46.3); WHITE BLOOD COUNT 6.69 K/uL (4.8-10.8)
[2017-12-30 07:09] LABS: CREATININE 0.95 mg/dl (0.60-1.40)
[2017-12-30 07:34] VITALS: BP 127/80; PULSE 70; TEMP 36.7; O2SAT 98
[2017-12-30] MEDS: PAROXETINE 20 MG TAB PO SCH (08:37)
[2017-12-30] MEDS: NICOTINE 14 MG/24 HR TDSY TD SCH (08:37)
[2017-12-30] MEDS: CLOPIDOGREL BISULFATE 75 MG TAB PO SCH (08:37)
[2017-12-30] MEDS: LISINOPRIL 20 MG TAB PO SCH (08:37)
[2017-12-30] MEDS: ASPIRIN 81 MG ECTAB PO SCH (08:37)
[2017-12-30] MEDS: ATORVASTATIN 40 MG TAB PO SCH (08:37)
[2017-12-30] MEDS: LEVETIRACETAM 500 MG TAB PO SCH ×2 (08:37→21:06)
[2017-12-30] MEDS: LISINOPRIL 5 MG TAB PO SCH (08:38)
[2017-12-30] MEDS: INSULIN ASPART 100 UNITS/ML 3 ML PEN SC SCH ×4 (08:40→21:13)
[2017-12-30] MEDS: INSULIN GLARGINE SOLOSTAR 100 UNITS/ML 3 ML PEN SC SCH ×2 (08:41→21:12)
[2017-12-30 11:53] VITALS: BP 138/78; PULSE 77; TEMP 37; O2SAT 95
--- NOTE | 2017-12-30 13:51 | Neurology Progress Notes ---
Neurology Progress Note Date of Service Dec 30, 2017. Danielle Moran is a 57 year old male PMH HTN, HDL, DM II, depression, seizure disorder presented to ER with complaint "feeling weird". He woke 6:45 AM this morning and he was feeling "in high gear". He got ready for work and when he arrived at work at approximately 8:55 AM his high energy continued and he reports was much more productive than usual and was working ahead of schedule. At 10 AM he started to feel tired" feeling weird" his boss brought him to the ED. He was having trouble gripping the pen with his right hand and trouble writing and is writing on a slant. he was having trouble lifting his left leg , and felt like he had difficulty expressing his words and he noticed some stuttering. All symptoms resolved in approximately 2 hours. he is DM but did not eat breakfast this morning. He had a grand mal seizure in the past and was placed on Keppra. He was also told that he has had a stroke in the past found on head imaging. He is not on a baby aspirin or any other anticoagulation and denies a fib or irregular heart rhythm. he is sitting up in bed talking to his daughter and using a lap top computer. He states he has not had any further symptoms. He is waiting for vascular surgery to see him however unlikely they will offer any intervention. Denies CP , SOB, abdominal pain, weakness, numbness tingling, current one sided weakness, falls, head trauma, N,V. no resent seizure history. Objective Date Time Temp Pulse Resp B/P (MAP) Pulse Ox O2 Delivery O2 Flow Rate FiO2 12/30/17 12:00 Room Air 12/30/17 12:00 Room Air 12/30/17 11:53 37.0 77 20 138/78 (98) 95 Room Air 12/30/17 08:00 Room Air 12/30/17 08:00 Room Air 12/30/17 07:34 36.7 70 16 127/80 (96) 98 Room Air 12/30/17 05:08 36.5 82 18 112/76 (88) 95 Room Air 12/30/17 04:00 Room Air 12/30/17 00:00 Room Air 12/29/17 23:49 36.8 84 19 161/105 (123) 96 Room Air 12/29/17 20:00 96 Room Air 12/29/17 19:32 36.9 88 18 151/105 (120) 96 Room Air 12/29/17 16:00 97 Room Air 12/29/17 15:31 79 18 175/117 (136) 97 Room Air Last 24 Hours Test 12/29/17 16:02 12/29/17 20:45 12/30/17 06:20 12/30/17 06:31 Bedside Glucose 128 mg/dl 193 mg/dl 101 mg/dl White Blood Count 6.69 K/uL Red Blood Count 4.75 M/uL Hemoglobin 14.9 g/dL Hematocrit 42.0 % Mean Corpuscular Volume 88.4 fL Mean Corpuscular Hemoglobin 31.4 pg Mean Corpuscular Hemoglobin Concent 35.5 g/dl Platelet Count 212 K/uL Mean Platelet Volume 10.5 fL Neutrophils (%) (Auto) 48.1 % Lymphocytes (%) (Auto) 36.6 % Monocytes (%) (Auto) 12.1 % Eosinophils (%) (Auto) 2.1 % Basophils (%) (Auto) 0.4 % Neutrophils # (Auto) 3.21 K/uL Lymphocytes # (Auto) 2.45 K/uL Monocytes # (Auto) 0.81 K/uL Eosinophils # (Auto) 0.14 K/uL Basophils # (Auto) 0.03 K/uL RDW Standard Deviation 40.9 fL RDW Coefficient of Variation 12.7 % Immature Granulocyte % (Auto) 0.7 % Immature Granulocyte # (Auto) 0.05 K/uL Sodium Level 138 mmol/L Potassium Level 4.0 mmol/L Chloride Level 108 mmol/L Carbon Dioxide Level 27 mmol/L Anion Gap 3.0 mmol/L Blood Urea Nitrogen 15 mg/dl Creatinine 0.95 mg/dl Est Creatinine Clear Calc Drug Dose 110.0 ml/min Estimated GFR () 103.3 Estimated GFR (Non- 89.1 BUN/Creatinine Ratio 15.8 Random Glucose 106 mg/dl Calcium Level 9.0 mg/dl Test 12/30/17 11:17 Bedside Glucose 145 mg/dl Imaging: TTE * There is severe concentric left ventricular hypertrophy. * The left ventricular cavity is small. * Left ventricular systolic function is normal. * Ejection Fraction = 60-65%. * The right ventricular systolic function is normal. * The left atrial size is normal. * Right atrial size is normal. * Previous study 2015 had a negative micro-cavitations study excluding a PFO. * Grossly normal valvular structure and function. 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 triceps bilaterally 5/5, hip flex patellar/plantar flex ext 5/5 bilaterally Current Inpatient Medications Medications (Trade) Dose Ordered Sig/Jerzy Route Start Time Stop Time Status Last Admin Dose Admin Enoxaparin Sodium (Lovenox Inj) 40 mg Q24H SC 12/28/17 21:00 01/27/18 20:59 12/29/17 20:56 40 MG Acetaminophen (Tylenol Tab) 650 mg Q4H PRN PO 12/28/17 14:00 01/27/18 13:59 12/28/17 23:49 650 MG Magnesium Hydroxide (Milk Of Magnesia Susp) 30 ml Q12H PRN PO 12/28/17 14:00 01/27/18 13:59 Ondansetron HCl (Zofran Inj) 4 mg Q6H PRN IV 12/28/17 14:00 01/27/18 13:59 Atorvastatin Calcium (Lipitor Tab) 40 mg QAM PO 12/29/17 09:00 01/28/18 08:59 12/30/17 08:37 40 MG Aspirin (Ecotrin Tab) 81 mg QAM PO 12/29/17 09:00 01/28/18 08:59 12/30/17 08:37 81 MG Miscellaneous Information (Pharmacist Discharge Med Rec Consult) 1 ea UD PRN N/A 12/28/17 14:00 01/27/18 13:59 Labetalol HCl (Normodyne IV) 10 mg Q4H PRN IV 12/28/17 14:00 01/27/18 13:59 Amitriptyline HCl (Elavil Tab) 25 mg HS PO 12/28/17 21:00 01/27/18 20:59 12/29/17 20:56 25 MG Levetiracetam (Keppra Tab) 500 mg BID PO 12/28/17 21:00 01/27/18 20:59 12/30/17 08:37 500 MG Lisinopril (Zestril Tab) 5 mg DAILY PO 12/29/17 09:00 01/28/18 08:59 12/30/17 08:38 5 MG Lisinopril (Zestril Tab) 20 mg DAILY PO 12/29/17 09:00 01/28/18 08:59 12/30/17 08:37 20 MG Paroxetine HCl (pAXil TAB) 40 mg DAILY PO 12/29/17 09:00 01/28/18 08:59 12/30/17 08:37 40 MG Insulin Glargine (Lantus Solostar Pen) 20 units Q12 SC 12/28/17 21:00 01/27/18 20:59 12/30/17 08:41 20 UNITS Insulin Aspart (novoLOG ASPART) SLIDING SCALE If C... ACHS SC 12/28/17 16:00 01/27/18 15:59 12/30/17 12:39 8 UNITS Glucose (Glucose 40% Gel) 15-30 GRAMS 15 GRAMS... UD PRN PO 12/28/17 14:15 01/27/18 14:14 Glucose (Glucose Chew Tab) 4-8 Tablets 4 Tabl... UD PRN PO 12/28/17 14:15 01/27/18 14:14 Dextrose (Dextrose 50% 50ML Syringe) 25-50ML OF 50% DW IV FOR... UD PRN IV 12/28/17 14:15 01/27/18 14:14 Glucagon (Glucagon Inj) 1 mg UD PRN SQ 12/28/17 14:15 01/27/18 14:14 Miscellaneous (Iv Fluids Completed) 1 ea PRN PRN N/A 12/28/17 14:15 12/28/18 14:14 Nicotine (Nicoderm Cq 14MG Patch) 1 patch QAM TD 12/28/17 17:00 01/27/18 16:59 12/30/17 08:37 1 PATCH Miscellaneous (Remove Nicoderm Patch) 1 ea HS N/A 12/28/17 21:00 01/27/18 20:59 12/29/17 20:57 1 EA Glucose (Glucose 40% Gel) 15-30 GRAMS 15 GRAMS... UD PRN PO 12/28/17 16:00 01/27/18 15:59 Glucose (Glucose Chew Tab) 4-8 Tablets 4 Tabl... UD PRN PO 12/28/17 16:00 01/27/18 15:59 Dextrose (Dextrose 50% 50ML Syringe) 25-50ML OF 50% DW IV FOR... UD PRN IV 12/28/17 16:00 01/27/18 15:59 Glucagon (Glucagon Inj) 1 mg UD PRN SQ 12/28/17 16:00 01/27/18 15:59 Ioversol (Optiray 320) 100 ml UD PRN IV 12/28/17 19:15 01/01/18 19:14 Clopidogrel Bisulfate (plAVix TAB) 75 mg QAM PO 12/29/17 09:00 01/28/18 08:59 12/30/17 08:37 75 MG Impression 57 year old male s/p stroke like event -resolving in 2 hours Plan 1. MRI with evidence of past infarct no acute infarct noted 2. CTA- Occlusion of the right internal carotid artery extending from its origin to the clinoid segment 3. started plavix 75 mg aspirin 81 mg -dual therapy for at least 3 months 4. optimize HTN,DM, DL, LDL <70 5. PT/OT speech does not appear to have any needs 6. vascular surgery consult for ICA occlusion 7. TTE no ASD previous imaging r/o PFO 8. ZIO patch or cardio net for irregular heart rhythms 9. smoking cessation strongly urged 10. continue Keppra 500 mg BID for seizure prevention neurology follow up with Moses DOWNS for seizure disorder 2-3 weeks after discharge from hospital. Discussed above patient with Dr Cinthya Ayala, neurology Pt stroke not in the distribution of carotid occlusion. Rec outpt monitoring to r/o gume Vazquez MD
--- NOTE | 2017-12-30 15:04 | Surgery Consultation ---
Consultation Date of Service Dec 30, 2017. Chief Complaint Right internal carotid artery occlusion. History of Present Illness The patient is a 75 year old male who was admitted with left leg weakness that has resolved. He was found to have a right internal artery occlusion. He does state that he has recovered function of his extremity but does have a little difficulty with thin liquids. Vitals Vital Signs Past 12 Hours Date Time Temp Pulse Resp B/P (MAP) Pulse Ox O2 Delivery O2 Flow Rate FiO2 12/30/17 12:00 Room Air 12/30/17 12:00 Room Air 12/30/17 11:53 37.0 77 20 138/78 (98) 95 Room Air 12/30/17 08:00 Room Air 12/30/17 08:00 Room Air 12/30/17 07:34 36.7 70 16 127/80 (96) 98 Room Air 12/30/17 05:08 36.5 82 18 112/76 (88) 95 Room Air 12/30/17 04:00 Room Air Allergies Coded Allergies: BEE STING (Verified Allergy, Unknown, ., 06/02/17) Home Medications Scheduled Amitriptyline Hcl (Elavil), 1 TAB PO HS Diclofenac (Voltaren), 75 MG PO BID Insulin Glargine (Lantus Solostar), 40 SC QPM Levetiracetam (Keppra), 1 TAB PO BID Lisinopril (Lisinopril), 1 TAB PO DAILY Lisinopril (Lisinopril), 1 TAB PO DAILY Metformin Hcl (Glucophage), 1,000 MG PO BID Paroxetine Hcl (Paxil), 1 TAB PO DAILY Simvastatin (Zocor), 1 TAB PO HS Problem List Medical Problems: (1) Alcohol use with intoxication (2) Benign hypertension (3) CVA (cerebral infarction) (4) Depression (5) Diabetes (6) Hyperglycemia (7) Hyperglycemia without ketosis (8) Hyperlipidemia (9) Hypertension (10) Left hand weakness (11) Left shoulder pain (12) Lumbar pain (13) Mood disorder (14) Pain, dental (15) Seizure (16) Seizure disorder (17) TIA (transient ischemic attack) Surgical Problems: (1) Tonsillectomy Surgical / Medical History Hx Cardiac Surgery: No Hx Abdominal Surgery: Yes Hx Cancer Surgery: No Hx Thoracic Surgery: No Hx Orthopedic: Yes (LEFT THUMB) Hx Urinary Tract Surgery: No Family History FH: cancer FH: diabetes mellitus FH: heart disease FH: hypertension FH: seizures No pertinent family history Social History Smoking Status: Current Every Day Smoker Hx Tobacco Use In Past Year?: Yes Hx Alcohol Use - Type & Amnt: Yes (social) Hx Substance Use -Type & Amnt: No Review of Systems Constitutional: No chills, No diaphoresis, No fever, No malaise, No weakness, No weight gain, No weight loss, No sweats, No fatigue, No problem reported Respiratory: No cough, No cyanosis, No VÁSQUEZ, No hemoptysis, No orthopnea, No PND , No short of breath, No sputum production, No stridor, No wheezing, No dyspnea , No problem reported Cardiovascular: No chest pain, No chest tightness, No chest pressure, No palpitations, No syncope, No diaphoresis, No edema, No intermittent claudication , No orthopnea, No cyanosis, No mumur, No lightheadedness, No paroxysmal nocturnal dyspnea, No problem reported Musculoskeletal: No back pain, No gout, No joint pain, No joint swelling, No muscle pain, No muscle stiffness, No muscle weakness, No neck pain, No problem reported Neurologic: No dizziness, No weakness, No headache, No lethargy, No numbness, No paresthesia, No pre-existing deficit, No seizures, No tics, No tingling, No tremors, No vertigo, No memory loss, No LOC, No problem reported Psychiatric: No anxiety, No alcohol abuse, No auditory hallucinations, No depression, No drug abuse, No homicidal ideation, No mood changes, No suicidal ideation, No visual hallucinations, No problem reported Physical Exam Constitutional: General Apperance: heathly-appearing, well-nourished, well-developed Level of Distress: NAD Ambulation: ambulating normally Neurologic: Cranial Nerves: grossly intact Sensation: grossly intact Assessment and Plan Imp; Right internal carotid artery occlusion Difficulty in swallowing Plan: Will order a bedside swallowing study due to problems with thin liquids Will see him in 6 months. Thank you very much for letting me participate in the care of this patient.
[2017-12-30 15:54] VITALS: BP 163/100; PULSE 89; TEMP 37.5; O2SAT 96
[2017-12-30 19:26] VITALS: BP 173/101; PULSE 88; TEMP 37.5; O2SAT 93
--- NOTE | 2017-12-30 20:12 | Progress Note ---
Medicine Progress Note Date & Time of Visit: Dec 30, 2017 at ~ 17:00 . Subjective Still experiencing coughing associated with drinking thin liquids like coffee. No headaches or other neurologic symptoms. No shortness of breath. No chest pain. No nausea or vomiting. . Objective Last 8 Hrs Date Time Temp Pulse Resp B/P (MAP) Pulse Ox O2 Delivery O2 Flow Rate FiO2 12/30/17 19:26 37.5 88 22 173/101 (125) 93 Room Air 12/30/17 16:00 Room Air 12/30/17 16:00 Room Air 12/30/17 15:54 37.5 89 20 163/100 (121) 96 Room Air Physical Exam: General- lying in bed, no distress Lungs- clear to auscultation; no respiratory distress Cardiovascular- RRR; no murmur; no gallop; no JVD; no pretibial edema Abdomen- + bowel sounds, soft, nontender Extremities- no cyanosis; no calf tenderness Neuro- alert, oriented; PERRL, EOMI; no facial palsy; no dysarthria; motor strength upper and lower extremities 5/5 Skin- warm & dry . Laboratory Results: Last 24 Hours Test 12/29/17 20:45 12/30/17 06:20 12/30/17 06:31 12/30/17 11:17 Bedside Glucose 193 mg/dl 101 mg/dl 145 mg/dl White Blood Count 6.69 K/uL Red Blood Count 4.75 M/uL Hemoglobin 14.9 g/dL Hematocrit 42.0 % Mean Corpuscular Volume 88.4 fL Mean Corpuscular Hemoglobin 31.4 pg Mean Corpuscular Hemoglobin Concent 35.5 g/dl Platelet Count 212 K/uL Mean Platelet Volume 10.5 fL Neutrophils (%) (Auto) 48.1 % Lymphocytes (%) (Auto) 36.6 % Monocytes (%) (Auto) 12.1 % Eosinophils (%) (Auto) 2.1 % Basophils (%) (Auto) 0.4 % Neutrophils # (Auto) 3.21 K/uL Lymphocytes # (Auto) 2.45 K/uL Monocytes # (Auto) 0.81 K/uL Eosinophils # (Auto) 0.14 K/uL Basophils # (Auto) 0.03 K/uL RDW Standard Deviation 40.9 fL RDW Coefficient of Variation 12.7 % Immature Granulocyte % (Auto) 0.7 % Immature Granulocyte # (Auto) 0.05 K/uL Sodium Level 138 mmol/L Potassium Level 4.0 mmol/L Chloride Level 108 mmol/L Carbon Dioxide Level 27 mmol/L Anion Gap 3.0 mmol/L Blood Urea Nitrogen 15 mg/dl Creatinine 0.95 mg/dl Est Creatinine Clear Calc Drug Dose 110.0 ml/min Estimated GFR () 103.3 Estimated GFR (Non- 89.1 BUN/Creatinine Ratio 15.8 Random Glucose 106 mg/dl Calcium Level 9.0 mg/dl Test 12/30/17 15:32 Bedside Glucose 152 mg/dl Assessment & Plan POSSIBLE TIA Patient presented with right hand weakness, left leg weakness, and apparent aphasia. CT of head without contrast demonstrated small vessel ischemic changes, no apparent acute vascular event. Carotid duplex initially interpreted as normal flow in bilateral internal carotid arteries, but upon further review it was felt that there was occlusion of the right internal carotid artery. MRI of the brain showed a 7 mm lesion in the left smith radiata suggesting chronic or subacute infarction, no evidence of acute infarction, loss of normal flow within the right internal carotid artery, chronic microvascular ischemic changes. CTA of head and neck demonstrated occlusion of the right internal carotid artery , narrowing of bilateral V2 segment vertebral arteries, mild to moderate plaque of the left carotid bulb. Current and previous imaging studies were reviewed with Radiology. MRA of the head performed on 11/17/14 demonstrated occlusion of the right internal carotid artery. No significant arrhythmias. Echocardiogram demonstrated severe concentric LVH, normal left ventricular systolic function. Neurology consulted. It was felt that his symptoms the day of admission may have been secondary to either a TIA or cerebral hypoperfusion. Amounts of relatively high blood pressures recommended. Vascular Surgery consulted and will see him for outpatient follow-up. Antiplatelet therapy with aspirin and clopidogrel. LDL C = 87. Change statin therapy from simvastatin to atorvastatin 80 mg daily given vascular findings. APPARENT ASPIRATION REFINERY OPERATOR [facility] [facility] asked to see patient for follow-up assessment. HYPERTENSION Taking lisinopril. Add beta anupam in light of marked concentric LVH noted on echo. Allow relatively high blood pressures given cerebrovascular findings. DIABETES MELLITUS TYPE 2 Fairly well controlled. Hemoglobin A1c 7.2. Hold metformin during hospital stay. Lantus/NovoLog per protocol. Fasting blood sugar today = 101. DYSLIPIDEMIA LDL C = 87. Change statin therapy from simvastatin to atorvastatin 80 mg daily given vascular findings. SEIZURE DISORDER No apparent seizure activity. Continue levetiracetam. VTE PROPHYLAXIS SQ enoxaparin. Ambulate. DISPOSITION Expected discharge to home. Family Medicine follow-up with Dr. Junior. . Current Inpatient Medications: Current Inpatient Medications Medications (Trade) Dose Ordered Sig/Jerzy Route Start Time Stop Time Status Last Admin Dose Admin Enoxaparin Sodium (Lovenox Inj) 40 mg Q24H SC 12/28/17 21:00 01/27/18 20:59 12/29/17 20:56 40 MG Acetaminophen (Tylenol Tab) 650 mg Q4H PRN PO 12/28/17 14:00 01/27/18 13:59 12/28/17 23:49 650 MG Magnesium Hydroxide (Milk Of Magnesia Susp) 30 ml Q12H PRN PO 12/28/17 14:00 01/27/18 13:59 Ondansetron HCl (Zofran Inj) 4 mg Q6H PRN IV 12/28/17 14:00 01/27/18 13:59 Atorvastatin Calcium (Lipitor Tab) 40 mg QAM PO 12/29/17 09:00 01/28/18 08:59 12/30/17 08:37 40 MG Aspirin (Ecotrin Tab) 81 mg QAM PO 12/29/17 09:00 01/28/18 08:59 12/30/17 08:37 81 MG Miscellaneous Information (Pharmacist Discharge Med Rec Consult) 1 ea UD PRN N/A 12/28/17 14:00 01/27/18 13:59 Labetalol HCl (Normodyne IV) 10 mg Q4H PRN IV 12/28/17 14:00 01/27/18 13:59 Amitriptyline HCl (Elavil Tab) 25 mg HS PO 12/28/17 21:00 01/27/18 20:59 12/29/17 20:56 25 MG Levetiracetam (Keppra Tab) 500 mg BID PO 12/28/17 21:00 01/27/18 20:59 12/30/17 08:37 500 MG Lisinopril (Zestril Tab) 5 mg DAILY PO 12/29/17 09:00 01/28/18 08:59 12/30/17 08:38 5 MG Lisinopril (Zestril Tab) 20 mg DAILY PO 12/29/17 09:00 01/28/18 08:59 12/30/17 08:37 20 MG Paroxetine HCl (pAXil TAB) 40 mg DAILY PO 12/29/17 09:00 01/28/18 08:59 12/30/17 08:37 40 MG Insulin Glargine (Lantus Solostar Pen) 20 units Q12 SC 12/28/17 21:00 01/27/18 20:59 12/30/17 08:41 20 UNITS Insulin Aspart (novoLOG ASPART) SLIDING SCALE If C... ACHS SC 12/28/17 16:00 01/27/18 15:59 12/30/17 17:02 6 UNITS Glucose (Glucose 40% Gel) 15-30 GRAMS 15 GRAMS... UD PRN PO 12/28/17 14:15 01/27/18 14:14 Glucose (Glucose Chew Tab) 4-8 Tablets 4 Tabl... UD PRN PO 12/28/17 14:15 01/27/18 14:14 Dextrose (Dextrose 50% 50ML Syringe) 25-50ML OF 50% DW IV FOR... UD PRN IV 12/28/17 14:15 01/27/18 14:14 Glucagon (Glucagon Inj) 1 mg UD PRN SQ 12/28/17 14:15 01/27/18 14:14 Miscellaneous (Iv Fluids Completed) 1 ea PRN PRN N/A 12/28/17 14:15 12/28/18 14:14 Nicotine (Nicoderm Cq 14MG Patch) 1 patch QAM TD 12/28/17 17:00 01/27/18 16:59 12/30/17 08:37 1 PATCH Miscellaneous (Remove Nicoderm Patch) 1 ea HS N/A 12/28/17 21:00 01/27/18 20:59 12/29/17 20:57 1 EA Glucose (Glucose 40% Gel) 15-30 GRAMS 15 GRAMS... UD PRN PO 12/28/17 16:00 01/27/18 15:59 Glucose (Glucose Chew Tab) 4-8 Tablets 4 Tabl... UD PRN PO 12/28/17 16:00 01/27/18 15:59 Dextrose (Dextrose 50% 50ML Syringe) 25-50ML OF 50% DW IV FOR... UD PRN IV 12/28/17 16:00 01/27/18 15:59 Glucagon (Glucagon Inj) 1 mg UD PRN SQ 12/28/17 16:00 01/27/18 15:59 Ioversol (Optiray 320) 100 ml UD PRN IV 12/28/17 19:15 01/01/18 19:14 Clopidogrel Bisulfate (plAVix TAB) 75 mg QAM PO 12/29/17 09:00 01/28/18 08:59 12/30/17 08:37 75 MG
[2017-12-30] MEDS: AMITRIPTYLINE HCL 25 MG TAB PO SCH (21:07)
[2017-12-30] MEDS: METOPROLOL TARTRATE 25 MG TAB PO SCH (21:07)
[2017-12-30] MEDS: ENOXAPARIN 40 MG/0.4 ML SYR SC SCH (21:08)
[2017-12-30 23:47] VITALS: BP 159/93; PULSE 72; TEMP 36.8; O2SAT 97
[2017-12-31 07:22] VITALS: BP_SYST 159; BP_SYST 164; BP_DIAS 112; BP_DIAS 97; PULSE 65; TEMP 36.8; O2SAT 98
[2017-12-31] MEDS: PAROXETINE 20 MG TAB PO SCH (07:48)
[2017-12-31] MEDS: CLOPIDOGREL BISULFATE 75 MG TAB PO SCH (07:49)
[2017-12-31] MEDS: ATORVASTATIN 40 MG TAB PO SCH (07:49)
[2017-12-31] MEDS: METOPROLOL TARTRATE 25 MG TAB PO SCH (07:49)
[2017-12-31] MEDS: LEVETIRACETAM 500 MG TAB PO SCH (07:49)
[2017-12-31] MEDS: LISINOPRIL 5 MG TAB PO SCH (07:49)
[2017-12-31] MEDS: ASPIRIN 81 MG ECTAB PO SCH (07:49)
[2017-12-31] MEDS: NICOTINE 14 MG/24 HR TDSY TD SCH (07:50)
[2017-12-31] MEDS: INSULIN GLARGINE SOLOSTAR 100 UNITS/ML 3 ML PEN SC SCH (07:54)
[2017-12-31] MEDS: INSULIN ASPART 100 UNITS/ML 3 ML PEN SC SCH ×3 (07:54→17:43)
[2017-12-31 10:51] VITALS: BP_SYST 159; BP_SYST 167; BP_DIAS 102; BP_DIAS 124; PULSE 62; TEMP 36.8; O2SAT 99
[2017-12-31] MEDS: ACETAMINOPHEN 325 MG TAB PO PRN (13:01)
[2017-12-31 15:44] VITALS: BP 162/104; PULSE 64; TEMP 36.9; O2SAT 96
--- NOTE | 2017-12-31 16:26 | Progress Note ---
Medicine Progress Note Date & Time of Visit: Dec 31, 2017 at 16:26 . Subjective Doing well. No headaches. No focal neurologic symptoms. No chest pain, cough, shortness of breath, nausea, vomiting. . Objective Last 8 Hrs Date Time Temp Pulse Resp B/P (MAP) Pulse Ox O2 Delivery O2 Flow Rate FiO2 12/31/17 15:44 36.9 64 20 162/104 (123) 96 Room Air 12/31/17 12:00 Room Air 12/31/17 10:51 36.8 62 20 159/102 (121) 99 Room Air 167/124 (138) Physical Exam: General- no distress Lungs- clear to auscultation; no respiratory distress Cardiovascular- RRR; no murmur; no gallop; no JVD; no pretibial edema Abdomen- + bowel sounds, soft, nontender Extremities- no cyanosis; no calf tenderness Neuro- alert, oriented; PERRL, EOMI; no facial palsy; no dysarthria; motor strength upper and lower extremities 5/5 Skin- warm & dry . Laboratory Results: Last 24 Hours Test 12/30/17 20:16 12/31/17 07:46 12/31/17 11:10 Bedside Glucose 184 mg/dl 123 mg/dl 104 mg/dl Assessment & Plan POSSIBLE TIA Patient presented with right hand weakness, left leg weakness, and apparent aphasia. CT of head without contrast demonstrated small vessel ischemic changes, no apparent acute vascular event. Carotid duplex initially interpreted as normal flow in bilateral internal carotid arteries, but upon further review it was felt that there was occlusion of the right internal carotid artery. MRI of the brain showed a 7 mm lesion in the left smith radiata suggesting chronic or subacute infarction, no evidence of acute infarction, loss of normal flow within the right internal carotid artery, chronic microvascular ischemic changes. CTA of head and neck demonstrated occlusion of the right internal carotid artery , narrowing of bilateral V2 segment vertebral arteries, mild to moderate plaque of the left carotid bulb. Previous imaging studies reviewed: MRA of the head performed on 11/17/14 demonstrated occlusion of the right internal carotid artery. No significant arrhythmias noted on Telemetry. Echocardiogram demonstrated severe concentric LVH, normal left ventricular systolic function. Neurology consulted. It was felt that his symptoms the day of admission may have been secondary to either a TIA or cerebral hypoperfusion. Allowance of relatively high blood pressures recommended to maintain adequate cerebral Vascular Surgery consulted. No surgical intervention indicated at this time; they will see him for outpatient follow-up. Antiplatelet therapy with aspirin and clopidogrel. LDL C = 87. Changed statin therapy from simvastatin to atorvastatin 80 mg daily given vascular findings. Outpatient cardiac event monitor recommended. APPARENT ASPIRATION PATIENT SERVICE REP asked to see patient. Aspiration precautions discussed. Patient advised not to utilize straws for drinking HYPERTENSION Was taking lisinopril 25 mg daily at home. Lisinopril dose changed to 5 mg twice daily. Added metoprolol tartrate 25 mg twice daily in light of marked concentric LVH noted on echo. Allow relatively high blood pressures given cerebrovascular findings. DIABETES MELLITUS TYPE 2 Fairly well controlled. Hemoglobin A1c 7.2. Hold metformin during hospital stay. Lantus/NovoLog per protocol. Fasting blood sugar today = 123. DYSLIPIDEMIA LDL C = 87. Changed statin therapy from simvastatin to atorvastatin 80 mg daily given vascular findings. SEIZURE DISORDER No apparent seizure activity. Continue levetiracetam. VTE PROPHYLAXIS SQ enoxaparin. Ambulating. DISPOSITION Discharge to home. Family Medicine follow-up with Dr. Junior. Vascular Surgery follow-up with Dr. Wilkerson. . Current Inpatient Medications: Current Inpatient Medications Medications (Trade) Dose Ordered Sig/Jerzy Route Start Time Stop Time Status Last Admin Dose Admin Enoxaparin Sodium (Lovenox Inj) 40 mg Q24H SC 12/28/17 21:00 01/27/18 20:59 12/30/17 21:08 40 MG Acetaminophen (Tylenol Tab) 650 mg Q4H PRN PO 12/28/17 14:00 01/27/18 13:59 12/31/17 13:01 650 MG Magnesium Hydroxide (Milk Of Magnesia Susp) 30 ml Q12H PRN PO 12/28/17 14:00 01/27/18 13:59 Ondansetron HCl (Zofran Inj) 4 mg Q6H PRN IV 12/28/17 14:00 01/27/18 13:59 Atorvastatin Calcium (Lipitor Tab) 40 mg QAM PO 12/29/17 09:00 01/28/18 08:59 12/31/17 07:49 40 MG Aspirin (Ecotrin Tab) 81 mg QAM PO 12/29/17 09:00 01/28/18 08:59 12/31/17 07:49 81 MG Miscellaneous Information (Pharmacist Discharge Med Rec Consult) 1 ea UD PRN N/A 12/28/17 14:00 01/27/18 13:59 Labetalol HCl (Normodyne IV) 10 mg Q4H PRN IV 12/28/17 14:00 01/27/18 13:59 Amitriptyline HCl (Elavil Tab) 25 mg HS PO 12/28/17 21:00 01/27/18 20:59 12/30/17 21:07 25 MG Levetiracetam (Keppra Tab) 500 mg BID PO 12/28/17 21:00 01/27/18 20:59 12/31/17 07:49 500 MG Lisinopril (Zestril Tab) 5 mg DAILY PO 12/29/17 09:00 01/28/18 08:59 12/31/17 07:49 5 MG Paroxetine HCl (pAXil TAB) 40 mg DAILY PO 12/29/17 09:00 01/28/18 08:59 12/31/17 07:48 40 MG Insulin Glargine (Lantus Solostar Pen) 20 units Q12 SC 12/28/17 21:00 01/27/18 20:59 12/31/17 07:54 20 UNITS Insulin Aspart (novoLOG ASPART) SLIDING SCALE If C... ACHS SC 12/28/17 16:00 01/27/18 15:59 12/31/17 11:47 5 UNITS Glucose (Glucose 40% Gel) 15-30 GRAMS 15 GRAMS... UD PRN PO 12/28/17 14:15 01/27/18 14:14 Glucose (Glucose Chew Tab) 4-8 Tablets 4 Tabl... UD PRN PO 12/28/17 14:15 01/27/18 14:14 Dextrose (Dextrose 50% 50ML Syringe) 25-50ML OF 50% DW IV FOR... UD PRN IV 12/28/17 14:15 01/27/18 14:14 Glucagon (Glucagon Inj) 1 mg UD PRN SQ 12/28/17 14:15 01/27/18 14:14 Miscellaneous (Iv Fluids Completed) 1 ea PRN PRN N/A 12/28/17 14:15 12/28/18 14:14 Nicotine (Nicoderm Cq 14MG Patch) 1 patch QAM TD 12/28/17 17:00 01/27/18 16:59 12/31/17 07:50 1 PATCH Miscellaneous (Remove Nicoderm Patch) 1 ea HS N/A 12/28/17 21:00 01/27/18 20:59 12/29/17 20:57 1 EA Glucose (Glucose 40% Gel) 15-30 GRAMS 15 GRAMS... UD PRN PO 12/28/17 16:00 01/27/18 15:59 Glucose (Glucose Chew Tab) 4-8 Tablets 4 Tabl... UD PRN PO 12/28/17 16:00 01/27/18 15:59 Dextrose (Dextrose 50% 50ML Syringe) 25-50ML OF 50% DW IV FOR... UD PRN IV 12/28/17 16:00 01/27/18 15:59 Glucagon (Glucagon Inj) 1 mg UD PRN SQ 12/28/17 16:00 01/27/18 15:59 Ioversol (Optiray 320) 100 ml UD PRN IV 12/28/17 19:15 01/01/18 19:14 Clopidogrel Bisulfate (plAVix TAB) 75 mg QAM PO 12/29/17 09:00 01/28/18 08:59 12/31/17 07:49 75 MG Metoprolol Tartrate (Lopressor Tab) 25 mg BID PO 12/30/17 21:00 01/29/18 20:59 12/31/17 07:49 25 MG
[2017-12-31] MEDS ORDERED: ATOR-26 PO (16:41)
[2017-12-31] MEDS ORDERED: PLV75 PO (16:41)
[2017-12-31] MEDS ORDERED: ASPI-320 PO (16:41)
[2017-12-31] MEDS ORDERED: LPR25 PO (16:41)
[2017-12-31] MEDS ORDERED: LSN5 PO (16:41)
[2017-12-31] MEDS ORDERED: ACET-1138 PO (16:43)
--- NOTE | 2017-12-31 16:57 | Discharge Instructions ---
Discharge Instructions Date of Service Dec 31, 2017. Admission Reason for Admission: weakness . Discharge Discharge Diagnosis / Problem: possible TIA (ministroke) Discharge Goals Goal(s): Increase independence, Improve disease control Activity Recommendations Activity Limitations: resume your previous activity . Instructions / Follow-Up Instructions / Follow-Up APPOINTMENTS: FAMILY MEDICINE 01/03/2018 2:00 PM Jossie Junior DO NEUROLOGY 08/10/2018 3:00 PM HIMANSHU Moran VASCULAR SURGERY Dr. Wilkerson Please call his office for follow-up appointment in 6 months. OTHER INSTRUCTIONS: Take aspirin (Ecotrin) 81 mg daily as blood thinner to prevent strokes and heart attacks. Take long-term unless otherwise instructed. Take clopidogrel (Plavix) 75 mg daily as blood thinner to prevent strokes and heart attacks. Take for 3 months unless otherwise instructed. New blood pressure medication: metoprolol tartrate (Lopressor) 25 mg twice a day New dose lisinopril: lisinopril (Prinivil or Zestril) 5 mg twice a day Stop diclofenac (Voltaren) - it can increase your risk of having a heart attack or stroke. Take acetaminophen (Tylenol Extra Strength) 2 pills every 8 hours as needed for pain. Stop simvastatin (Zocor). New / stronger cholesterol medication: atorvastatin (Lipitor) 80 mg daily' Only take 20 units of Lantus evening of 12/31/17, then go back to usual routine on 01/01/18. It is very important that you quit smoking; it is bad for your blood vessels and lungs. Speech Therapy Discharge Instructions * Recommendin.Dental soft (moist diet) with thin liquids 2.Safe swallow strategies (small bites, small sips, slow rate, upright and alert for all intake, alternate consistencies) 3.No straws Seek medical attention if you have: * temperature above 101 * chest pain or trouble breathing * abdominal pain, nausea, vomiting * diarrhea, dark stools or bloody stools * headache, trouble with vision, trouble speaking, weakness in arms or legs * problems coughing or choking when you eat or drink * any unanswered questions or concerns Call 911 if symptoms are severe. Call if you have any questions or problems. My cell # is [phone]. You can also reach a [facility] hospitalist on duty at [facility] 24 hours a day by calling [phone]. Please take good care of yourself. Catarino Kasper . Risk Factors for Stroke: You can reduce your chances of stroke by working with your medical provider to adopt a healthy lifestyle. Some specific ways to lower your chance of stroke are: * If you are a smoker, now is the time to stop smoking cigarettes * If you are diabetic, improve the control of your blood sugars * Avoid excessive amounts of alcohol * Control high blood pressure * Lose weight if you are overweight * Be sure to lead an active lifestyle * Eat a healthy diet low in salt, cholesterol and fat You should know about other risk factors for stroke that you are unable to control. These include: * Age 55 years or older * Male gender * Certain racial groups: , or / * Family History of Stroke, Mini stroke or Heart Attack * Sickle Cell Disease Follow Up: It is important for you to keep your follow up appointments with your medical provider. Current Hospital Diet Patient's current hospital diet: Diabetes Type 2 Diet, AHA Diet (Heart Healthy) Discharge Diet Recommended Diet: AHA Diet (Heart Healthy), Diabetes Type 2 Diet Pending Studies Studies pending at discharge: no Laboratory Results Hemoglobin A1c Test 12/28/17 10:35 Range/Units Estimated Average Glucose 160 mg/dl Hemoglobin A1c 7.2 H 4.5-5.6 % Lipid Panel Test 12/29/17 05:38 Range/Units Triglycerides Level 211 H 0-150 mg/dl Cholesterol Level 166 0-200 mg/dl HDL Cholesterol 37 mg/dl Cholesterol/HDL Ratio 4.5 LDL Cholesterol, Calculated 87 mg/dl Work Instructions Return To Work: 3 days Additional Instructions: Dean Vieira was absent from work since 12/28/17 due to illness. He may return to work on Wednesday01/03/18 without resriction. Medical Emergencies . Who to Call and When: Medical Emergencies: Call 911 immediately if you experience any of the following warning signs and symptoms of Stroke: * Sudden numbness or weakness of the face, arm or leg, especially on one side of the body * Sudden confusion, trouble speaking or understanding * Sudden trouble seeing in one or both eyes * Sudden trouble walking, dizziness, loss of balance or coordination * Sudden severe headache with no cause Do not delay calling 911 if you experience any warning signs or symptoms of a stroke. Delay in seeking medical attention may affect what treatments can be given to you. . Non-Emergent Contact Non-Emergency issues call your: Primary Care Provider, Hospital Doctor, Neurologist . . "Provider Documentation" section prepared by Catarino Kasper. . Stroke Core Measures Reason no t-PA for Stroke: Treatment not indicated Reason no antithrom by day 2: Treatment provided - N/A Reason no antithrom at D/C: Treatment provided - N/A Reason no statin at D/C: Treatment provided - N/A Reason no anticoag w/a fib: Treatment not indicated
[2017-12-31 17:28] VITALS: BP 162/104; PULSE 64; TEMP 36.9; O2SAT 96
--- NOTE | 2017-12-31 18:11 | Pharmacy Progress Note ---
Pharmacist Stroke Counseling Date of Service Dec 31, 2017. Scope Pharmacy has been consulted to provide medication discharge counseling for this patient admitted with possible transient ischemic attack as per the Pharmacist Discharge Counseling for Stroke Patients Protocol. Medications on Discharge New Medications: Acetaminophen (Tylenol Extra Strength) 500 Mg Tab 1000 MG PO Q8 PRN for Pain, #100 TAB 11 Refills Atorvastatin (Lipitor) 80 Mg Tab 80 MG PO DAILY, #30 TAB 11 Refills Lisinopril (Lisinopril) 5 Mg Tab 5 MG PO BID, #60 TAB 11 Refills Aspirin (Aspirin EC Low Dose) 81 Mg Ectab 81 MG PO QAM, #30 TAB 11 Refills Clopidogrel Bisulfate (Clopidogrel) 75 Mg Tab 75 MG PO QAM, #30 TAB 2 Refills Metoprolol Tartrate (Lopressor) 25 Mg Tab 25 MG PO BID, #60 TAB 11 Refills Continued Medications: Amitriptyline Hcl (Elavil) 25 Mg Tab 25 TAB PO HS Insulin Glargine (Lantus Solostar) 100 Unit/Ml Inj 40 SC QPM, PEN Levetiracetam (Keppra) 500 Mg Tab 500 MG PO BID Metformin Hcl (Glucophage) 1,000 Mg Tab 1000 MG PO BID, TAB Paroxetine Hcl (Paxil) 40 Mg Tab 40 TAB PO DAILY Discontinued Medications: Diclofenac (Voltaren) 75 Mg Tabcr 75 MG PO BID, TAB WITH FOOD Lisinopril (Lisinopril) 20 Mg Tab 20 MG PO DAILY Take with 20 mg pill for total of 25 mg daily. Lisinopril (Lisinopril) 5 Mg Tab 5 MG PO DAILY Take with 20 mg pill for total of 25 mg daily. Simvastatin (Zocor) 20 Mg Tab 1 TAB PO HS Action The above medications, specifically ones for stroke treatment/prophylaxis, have been reviewed in detail with the patient and/or patient bilingual inside sales representative(s) prior to discharge. This includes indication, common adverse reactions, drug interactions, and medication administration. Medication counseling has been employed using the teach-back method to ensure understanding. Outcome The patient and/or patient bilingual inside sales representative(s) have demonstrated understanding of the medications. Please note, they are aware that the pharmacist will call them within 72 hours post-discharge to confirm that the appropriate medications are being taken and answer any further medication related questions the patient might have at that time. Contact information Individual to be contacted: Dean Knepp Relationship to patient (if applicable): patient Phone number: [phone] Best time to call: After 11AM Additional comments: Reviewed changes to statin (previously on simvastatin/patient understands he should no longer take), changes to lisinopril (reduced dose) and new medications ASA, Plavix, Metoprolol tartrate. Please F/u make sure patient has stopped diclofenac per discharge instructions Thank you for allowing pharmacy to be involved in the care of this patient. Please call [phone] or [phone] with any additional questions
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
--- NOTE | 2018-01-03 15:24 | Pharmacy Progress Note ---
Pharmacist Post D/C Phone Note Medications Dose Route/Sig Max Daily Dose Days Date Category Tylenol Extra Strength (Acetaminophen) 500 Mg Tab 1,000 Mg PO Q8 PRN 12/31/17 Rx Lipitor (Atorvastatin Calcium) 80 Mg Tab 80 Mg PO DAILY 12/31/17 Rx Lisinopril 5 Mg Tab 5 Mg PO BID 12/31/17 Rx Lopressor (Metoprolol Tartrate) 25 Mg Tab 25 Mg PO BID 12/31/17 Rx Aspirin EC Low Dose (Aspirin) 81 Mg Ectab 81 Mg PO QAM 12/31/17 Rx Clopidogrel (Clopidogrel Bisulfate) 75 Mg Tab 75 Mg PO QAM 12/31/17 Rx Paxil (Paroxetine Hcl) 40 Mg Tab 40 Tab PO DAILY 12/28/17 Reported Glucophage (Metformin Hcl) 1,000 Mg Tab 1,000 Mg PO BID 12/28/17 Reported Keppra (Levetiracetam) 500 Mg Tab 500 Mg PO BID 12/28/17 Reported Lantus Solostar (Insulin Glargine) 100 Unit/Ml Inj 40 SC QPM 12/28/17 Reported Elavil (Amitriptyline Hcl) 25 Mg Tab 25 Tab PO HS 12/28/17 Reported Date of phone call: Jan 03, 2018. The patient and/or patient traffic representative(s) were unable to be reached for a follow-up phone call within the 72 hour time frame. Discharge counseling pharmacist contact information has already been provided to the patient should questions arise. Thank you for allowing us to be involved in the care of this patient.
== END 2017-12-31 18:15 | disposition home or self-care (01) ==
LOC: C.EDB 10:13 → C.2T 13:50 → ENRESERV 14:51
PROVIDERS: ADMIT Hospitalist; ATTEND Hospitalist
DX: R13.0 Aphagia (principal); I65.21 Occlusion and stenosis of right carotid artery; M62.81 Muscle weakness (generalized); I25.10 Atherosclerotic heart disease of native coronary artery without angina pectoris; I10 Essential (primary) hypertension; E78.00 Pure hypercholesterolemia, unspecified; E11.9 Type 2 diabetes mellitus without complications; F32.9 Major depressive disorder, single episode, unspecified; F17.200 Nicotine dependence, unspecified, uncomplicated; G40.909 Epilepsy, unspecified, not intractable, without status epilepticus; Z86.73 Personal history of transient ischemic attack (TIA), and cerebral infarction without residual deficits; Z90.89 Acquired absence of other organs; Z83.3 Family history of diabetes mellitus; Z82.49 Family history of ischemic heart disease and other diseases of the circulatory system; Z82.0 Family history of epilepsy and other diseases of the nervous system; Z91.030 Bee allergy status; Z79.84 Long term (current) use of oral hypoglycemic drugs

== ENCOUNTER 2018-04-30 01:57 | Emergency (ER) | payer OTHER ==
[~2018-04-30] VITALS: Ht 177.8 cm; Wt 116.8 kg
[~2018-04-30 01:57] MED LIST changes: +ACET-1138 PO; +ASPI-320 PO; +ATOR-26 PO; -DICL-201 PO; -HYDR-5688 PO; +INSDGIPEN SC; -INSDGIPEN SQ; +LISI-730 PO; +LPR25 PO; -METF-384 PO; +METF1000 PO; +PLV75 PO; -SIMV20TA2 PO
[2018-04-30 02:05] VITALS: TEMP 36.8
[2018-04-30] MEDS ORDERED: SODIUM CHLORIDE 0.9% 1000ML 1,000 ML IV SCH (02:05)
[2018-04-30 02:13] VITALS: O2SAT 98; Ht 177.8 cm; Wt 116.8 kg
[2018-04-30 02:22] LABS: BASO % 0.6 %; BASO ABS # 0.05 K/uL (0-0.2); EOS % 1.8 %; EOS ABS # 0.16 K/uL (0-0.5); HEMATOCRIT 39.8 % (42-52); HEMOGLOBIN 13.9 g/dL (14.0-18.0); IG# 0.05 K/uL (0.00-0.02); LYMPH % 38.7 %; LYMPH ABS # 3.35 K/uL (1.2-3.4); MEAN CELL VOLUME 88.8 fL (80-100); MEAN CORPUSCULAR HGB CONC 34.9 g/dl (32-36); MEAN PLATELET VOLUME 10.6 fL (7.4-10.4); MONO % 14.7 %; MONO ABS # 1.27 K/uL (0.11-0.59); NEUT % 43.6 %; NEUT ABS # 3.78 K/uL (1.4-6.5); PLATELET COUNT 208 K/uL (130-400); RED CELL DISTRIBUTION WIDTH CV 12.9 % (11.5-14.5); RED CELL DISTRIBUTION WIDTH SD 41.5 fL (36.4-46.3); WHITE BLOOD COUNT 8.66 K/uL (4.8-10.8)
[2018-04-30 02:36] LABS: PTT PATIENT 22.6 SECONDS (21.0-31.0)
[2018-04-30 02:51] LABS: ALBUMIN 3.5 gm/dl (3.4-5.0); ALKALINE PHOSPHATASE 103 U/L (45-117); ALT/SGPT 18 U/L (12-78); AST/SGOT 17 U/L (15-37); BLOOD UREA NITROGEN 16 mg/dl (7-18); CALCIUM 8.2 mg/dl (8.5-10.1); CARBON DIOXIDE 22 mmol/L (21-32); CKMB 1.5 ng/ml (0.5-3.6); CREATININE 0.89 mg/dl (0.60-1.40); GLUCOSE 141 mg/dl (70-99); SODIUM 138 mmol/L (136-145); TOTAL PROTEIN 6.9 gm/dl (6.4-8.2)
[2018-04-30 03:24] VITALS: BP 156/95; PULSE 64; O2SAT 97
--- NOTE | 2018-04-30 03:39 | EMERGENCY ROOM VISIT NOTE ---
History First contact with patient: 01:59 Chief Complaint: WEAKNESS Stated Complaint: WEAKNESS History of Present Illness The patient is a 58 year old male who presents to the Emergency Room with complaints of generalized weakness and difficulty word finding for the past few hours. Patient denies localized weakness, chest pain, dyspnea, fever, chills, cough, congestion, abdominal pain, nausea, vomiting, diarrhea, vision loss, balance problems, dizziness. Patient is tolerating p.o. fluids and food. Patient states is concerned he might be having another TIA. Review of Systems An 10 system review of systems was completed with positives and pertinent negatives listed in the HPI. Past Medical/Surgical History Medical Problems: (1) Benign hypertension (2) Carotid artery disease (3) Cerebrovascular disease (4) Depression (5) Diabetes mellitus, type 2 (6) Dyslipidemia (7) Hypertension (8) Mood disorder (9) Seizure disorder (10) TIA (transient ischemic attack) Surgical Problems: (1) Status post tonsillectomy (2) Tonsillectomy Family History FH: cancer FH: diabetes mellitus FH: heart disease FH: hypertension FH: seizures No pertinent family history Social History Smoking Status: Current Every Day Smoker Alcohol Use: occasionally Drug Use: none Marital Status: Housing Status: lives alone, other Occupation Status: employed Current/Historical Medications Scheduled Amitriptyline Hcl (Elavil), 25 TAB PO HS Aspirin (Aspirin EC Low Dose), 81 MG PO QAM Atorvastatin (Lipitor), 80 MG PO DAILY Clopidogrel Bisulfate (Clopidogrel), 75 MG PO QAM Insulin Glargine (Lantus Solostar), 40 SC QPM Levetiracetam (Keppra), 500 MG PO BID Lisinopril (Lisinopril), 5 MG PO BID Metformin Hcl (Glucophage), 1,000 MG PO BID Metoprolol Tartrate (Lopressor), 25 MG PO BID Paroxetine Hcl (Paxil), 40 TAB PO DAILY Scheduled PRN Acetaminophen (Tylenol Extra Strength), 1,000 MG PO Q8 PRN for Pain Physical Exam Vital Signs Date Time Temp Pulse Resp B/P (MAP) Pulse Ox O2 Delivery O2 Flow Rate FiO2 04/30/18 03:24 64 18 156/95 97 04/30/18 03:22 170/98 04/30/18 03:20 136/93 04/30/18 03:19 59 19 136/93 97 Room Air 62 170/98 65 156/95 04/30/18 02:13 98 Room Air 04/30/18 02:13 98 Room Air 04/30/18 02:07 61 04/30/18 02:05 36.8 65 20 193/103 98 Room Air 04/30/18 02:03 193/103 Physical Exam VITALS: Vitals are noted on the nurse's note and reviewed by myself. Vital signs hypertensive GENERAL: White male, in no acute distress, nondiaphoretic, well-developed well- nourished. SKIN: The skin was without rashes, erythema, edema, or bruising. There is no tenting of the skin. Capillary reflex less than 2 seconds. HEAD: Normocephalic atraumatic. EARS: External auditory canals clear, tympanic membranes pearly mendiola without erythema or effusion bilaterally. EYES: Pupils equal round and reactive to light and accommodation. Conjunctivae without injection, sclerae without icterus. Extraocular movements intact. NOSE: Patent, turbinates without inflammation or discharge. MOUTH: Mucous membranes moist. Pharynx without erythema or exudate. Uvula midline. Airway patent. Tongue does not deviate. NECK: Supple without nuchal rigidity. No lymphadenopathy. No thyromegaly. Cervical spine is nontender. No JVD. HEART: Regular rate and rhythm without murmurs gallops or rubs. LUNGS: Clear to auscultation bilaterally without wheezes, rales or rhonchi. No retractions or accessory muscle use. ABDOMEN: Positive bowel sounds x 4. Normal tympanic percussion. Soft, nontender, without masses or organomegaly. You sign negative. No guarding or rebound tenderness. No CVA tenderness MUSCULOSKELETAL: No muscle atrophy, erythema, or edema noted. 5 out of 5 strength throughout NEURO: Patient was alert and oriented to person place and time. Normal sensation to light and sharp touch. No focal neurological deficits. Cranial nerves II through XII grossly intact. No pronator drift. Cerebellar exam intact. Medical Decision & Procedures Laboratory Results 04/30/18 02:10 Red Blood Count 4.48, Mean Corpuscular Volume 88.8, Mean Corpuscular Hemoglobin 31.0, Mean Corpuscular Hemoglobin Concent 34.9, Mean Platelet Volume 10.6, Neutrophils (%) (Auto) 43.6, Lymphocytes (%) (Auto) 38.7, Monocytes (%) (Auto) 14.7, Eosinophils (%) (Auto) 1.8, Basophils (%) (Auto) 0.6, Neutrophils # (Auto ) 3.78, Lymphocytes # (Auto) 3.35, Monocytes # (Auto) 1.27, Eosinophils # (Auto ) 0.16, Basophils # (Auto) 0.05 04/30/18 02:10 Test 04/30/18 02:10 04/30/18 03:00 White Blood Count 8.66 K/uL (4.8-10.8) Red Blood Count 4.48 M/uL (4.7-6.1) Hemoglobin 13.9 g/dL (14.0-18.0) Hematocrit 39.8 % (42-52) Mean Corpuscular Volume 88.8 fL (80-100) Mean Corpuscular Hemoglobin 31.0 pg (25-34) Mean Corpuscular Hemoglobin Concent 34.9 g/dl (32-36) Platelet Count 208 K/uL (130-400) Mean Platelet Volume 10.6 fL (7.4-10.4) Neutrophils (%) (Auto) 43.6 % Lymphocytes (%) (Auto) 38.7 % Monocytes (%) (Auto) 14.7 % Eosinophils (%) (Auto) 1.8 % Basophils (%) (Auto) 0.6 % Neutrophils # (Auto) 3.78 K/uL (1.4-6.5) Lymphocytes # (Auto) 3.35 K/uL (1.2-3.4) Monocytes # (Auto) 1.27 K/uL (0.11-0.59) Eosinophils # (Auto) 0.16 K/uL (0-0.5) Basophils # (Auto) 0.05 K/uL (0-0.2) RDW Standard Deviation 41.5 fL (36.4-46.3) RDW Coefficient of Variation 12.9 % (11.5-14.5) Immature Granulocyte % (Auto) 0.6 % Immature Granulocyte # (Auto) 0.05 K/uL (0.00-0.02) Prothrombin Time 10.1 SECONDS (9.0-12.0) Prothromb Time International Ratio 1.0 (0.9-1.1) Activated Partial Thromboplast Time 22.6 SECONDS (21.0-31.0) Partial Thromboplastin Ratio 0.9 Anion Gap 6.0 mmol/L (3-11) Est Creatinine Clear Calc Drug Dose 117.2 ml/min Estimated GFR () 110.0 Estimated GFR (Non- 94.9 BUN/Creatinine Ratio 18.6 (10-20) Calcium Level 8.2 mg/dl (8.5-10.1) Magnesium Level 2.0 mg/dl (1.8-2.4) Total Bilirubin 0.3 mg/dl (0.2-1) Direct Bilirubin < 0.1 mg/dl (0-0.2) Aspartate Amino Transf (AST/SGOT) 17 U/L (15-37) Alanine Aminotransferase (ALT/SGPT) 18 U/L (12-78) Alkaline Phosphatase 103 U/L (45-117) Total Creatine Kinase 99 U/L (39-308) Creatine Kinase MB 1.5 ng/ml (0.5-3.6) Creatine Kinase MB Ratio 1.5 (0-3.0) Troponin I < 0.015 ng/ml (0-0.045) Total Protein 6.9 gm/dl (6.4-8.2) Albumin 3.5 gm/dl (3.4-5.0) Thyroid Stimulating Hormone (TSH) 2.570 uIu/ml (0.300-4.500) Urine Color YELLOW Urine Appearance CLEAR (CLEAR) Urine pH 5.0 (4.5-7.5) Urine Specific [place] 1.027 (1.000-1.030) Urine Protein NEG (NEG) Urine Glucose (UA) NEG (NEG) Urine Ketones NEG (NEG) Urine Occult Blood NEG (NEG) Urine Nitrite NEG (NEG) Urine Bilirubin NEG (NEG) Urine Urobilinogen NEG (NEG) Urine Leukocyte Esterase NEG (NEG) Medications Administered Medications (Trade) Dose Ordered Sig/Jerzy Route Start Time Stop Time Status Last Admin Dose Admin Sodium Chloride 1,000 ml @ 50 mls/hr Q20H IV 04/30/18 02:05 05/30/18 02:04 04/30/18 02:44 50 MLS/HR ED Course Prior records/ancillary studies reviewed and summarized above. Nursing notes reviewed. Additional history obtained from EMS The patient's history was concerning for generalized weakness and difficulty word finding Differential diagnosis: Etiologies such as metabolic, infection, hypo/hyperglycemia, electrolyte abnormalities, cardiac sources, intracerebral event, toxicologic, neurologic, as well as others were entertained. Physical examination: As above. ER treatment provided: IV Lock On reassessment the patient felt better. Diagnostics interpretation by me: ECG: Normal sinus, normal intervals, no acute ST-T wave changes. Impression normal sinus rhythm interpreted by myself I think arrhythmia is unlikely. EKG shows normal sinus rhythm with no interval abnormalities such as QT prolongation or WPW. There are no findings to suggest Brugada syndrome. Cardiac monitoring in the emergency department reveals no tachycardic or bradycardic dysrhythmia. Hypertrophic cardiomyopathy was considered but there are no clear historical elements pointing toward this. EKG is not suggestive. The QRS voltage is not extremely large and there are no suggestive Q waves. The labs revealed mild anemia. Negative troponin. Negative urine. Hyperglycemia without DKA Imaging studies: Chest x-ray with no acute consolidation, pneumothorax or free of my interpretation CT HEAD: Comparison: CT dated 12/28/2017 No evidence of acute intracranial abnormality. Stable CT compared to 12/28/2017. Radiologist: Georgette Gibbs MD Exam and history seem consistent with generalized weakness and hyperglycemia without DKA. Patient was neurovascularly and neurologically intact. He is well -appearing. He is tolerating fluids. He was speaking in full sentences. No acute findings in the above workup. He was advised to follow-up family care in a few days or here in the ER sooner for chest pain, difficulty breathing, localized weakness, worsening signs or symptoms or as needed. He is advised to continue his aspirin and clopidogrel. Patient was upset with the fact that we found nothing wrong with him in the ER. He had been going on and on about how he felt weak and has had lack of energy. I strongly encouraged him to follow- up with family care. He then requested a taxi voucher. He was informed that we do not give these out anymore. Case management and the charge nurse went to speak to him about this matter. By the evaluation outlined above emergent etiologies such as infection, electrolyte abnormalities, cardiac sources, intracerebral event, toxologic, neurologic, severe abnormalities blood glucose, metabolic, as well as others were deemed relatively unlikely. The pt informed about the findings as listed above. All questions were answered and pleased with the treatment. Return instructions were outlined and the patient was discharged in stable condition. Referral: The patient was referred back to primary care physician for follow-up in 2 to 3 days for a recheck of the current condition. Case reviewed with my attending The chart was completed utilizing [employer] Speech voice recognition software. Grammatical errors, random word insertions, pronoun errors, and incomplete sentences are an occassional consequence of this system due to software limitations, ambient noise, and hardware issues. Any formal questions or concerns about the content, text, or information contained within the body of this dictation should be directly addressed to the physician orthopedic assistant for clarification. Medical Decision As above Medication Reconcilliation Current Medication List: was personally reviewed by me Blood Pressure Screening Patient's blood pressure: Elevated blood pressure Impression Primary Impression: Weakness Additional Impression: Hyperglycemia Departure Information Dispostion Home / Self-Care Condition GOOD Referrals No Doctor, Assigned (PCP) Patient Instructions My [facility] Additional Instructions Continue your clopidogrel and aspirin as directed from your last ER visit Rest and drink plenty of fluids as tolerated. Continue current medications. Return to the ER immediately for localized weakness, abdominal pain, vomiting, fevers, chest pains, difficulty breathing, worsening of your condition, or as needed. Follow up with your primary physician in 2-3 days for a recheck of your current condition. Problem Qualifiers
--- NOTE | 2018-04-30 07:39 | DIAGNOSTIC IMAGING REPORT ---
CT SCAN OF THE BRAIN WITHOUT IV CONTRAST CLINICAL HISTORY: Headache. Generalized weakness. COMPARISON STUDY: CT of the brain dated 12/28/2017. TECHNIQUE: Unenhanced axial CT scan of the brain is performed from the vertex to the skull base. A dose lowering technique was utilized adhering to the principles of ALARA. CT DOSE: 537.48 mGy.cm FINDINGS: Brain parenchyma: There is minimal subcortical and periventricular microangiopathic change. There is no hemorrhage, mass effect, or evidence of acute territorial ischemia by CT criteria. Miller-white matter is preserved. No extra-axial fluid collection is seen. Ventricles, sulci, cisterns: Normal in configuration. Intracranial vasculature: There is atherosclerotic calcification of the cavernous carotid arteries. Calvarium: Unremarkable. Sinuses and mastoids: The visualized paranasal sinuses are clear. There is a right mastoid effusion. The left mastoid air cells are well pneumatized. Orbits: The bony orbits are grossly intact. IMPRESSION: There is no hemorrhage, mass effect, or evidence of acute territorial ischemia by CT criteria. Electronically signed by: Blas Maurer M.D. 04/30/2018 7:38 AM Dictated Date/Time: 04/30/2018 7:36 AM
--- NOTE | 2018-04-30 09:39 | DIAGNOSTIC IMAGING REPORT ---
SINGLE VIEW CHEST CLINICAL HISTORY: Generalized weakness. FINDINGS: An AP, portable, upright chest radiograph is compared to study dated 11/24/2016. The examination is degraded by portable technique, apical lordotic positioning, and patient rotation. The heart is top normal for projection. The mediastinal contour is within normal limits. Mild chronic interstitial thickening is similar to previous. No airspace consolidation or pleural effusion is identified. No pneumothorax is seen. The bony thorax is grossly intact. IMPRESSION: No acute cardiopulmonary abnormality. Electronically signed by: Blas Maurer M.D. 04/30/2018 9:38 AM Dictated Date/Time: 04/30/2018 9:37 AM
== END 2018-04-30 03:45 | disposition home or self-care (01) ==
LOC: EDBD 01:57 → C.EDB 01:58
DX: R53.1 Weakness (principal); E11.65 Type 2 diabetes mellitus with hyperglycemia; Z86.73 Personal history of transient ischemic attack (TIA), and cerebral infarction without residual deficits; I10 Essential (primary) hypertension; I25.10 Atherosclerotic heart disease of native coronary artery without angina pectoris; F32.9 Major depressive disorder, single episode, unspecified; E78.5 Hyperlipidemia, unspecified; I67.9 Cerebrovascular disease, unspecified; G40.909 Epilepsy, unspecified, not intractable, without status epilepticus; Z79.84 Long term (current) use of oral hypoglycemic drugs; Z79.4 Long term (current) use of insulin; Z79.82 Long term (current) use of aspirin; Z79.899 Other long term (current) drug therapy; F17.200 Nicotine dependence, unspecified, uncomplicated

== ENCOUNTER 2018-12-14 20:07 | Inpatient (IN) ==
[2018-12-14] MEDS ORDERED: ASPIRIN CHEW 324 MG PO STA (20:26)
[2018-12-14] MEDS ORDERED: SODIUM CHLORIDE 0.9% 1000ML 1,000 ML IV SCH (20:30)
[2018-12-14 20:40] LABS: Basophils # (auto) 0.03 K/uL (0-0.2); Basophils % (auto) 0.2 %; Eosinophils # (auto) 0.03 K/uL (0-0.5); Eosinophils % (auto) 0.2 %; Hemoglobin 12.5 g/dL (14.0-18.0); Immature Granulocytes # (auto) 0.06 K/uL (0.00-0.02); Immature Granulocytes % (auto) 0.5 %; Lymphocytes # (auto) 2.26 K/uL (1.2-3.4); Lymphocytes % (auto) 17.2 %; Mean Corpuscular Hgb Conc 34.7 g/dL (32-36); Mean Corpuscular Volume 88.7 fL (80-100); Mean Platelet Volume 10.9 fL (7.4-10.4); Monocytes # (auto) 1.73 K/uL (0.11-0.59); Monocytes % (auto) 13.1 %; Neutrophils # (auto) 9.05 K/uL (1.4-6.5); Neutrophils % (auto) 68.8 %; Platelet Count 228 K/uL (130-400); RDW Coefficient of Variation 12.9 % (11.5-14.5); RDW Standard Deviation 41.5 fL (36.4-46.3); Red Blood Count 4.06 M/uL (4.7-6.1); White Blood Count 13.16 K/uL (4.8-10.8)
--- NOTE | 2018-12-14 20:42 | XRay Report ---
XR chest 1V portable CLINICAL HISTORY: Atypical chest pain COMPARISON STUDY: 12/11/2018 FINDINGS: The cardiac and mediastinal contours are normal. There is no evidence of focal pulmonary co nsolidation. There is no evidence of failure. No pleural effusions are visualized.[ There is minor ri ght basilar atelectasis versus bronchial thickening unchanged from prior studies. IMPRESSION: No active disease in the chest. Electronically signed by: Thomas Salmon M.D. 12/14/2018 8:41 PM
[2018-12-14] MEDS ORDERED: NovoLIN-R INSULIN PER UNIT CHARGE IV STA (20:54)
[2018-12-14] MEDS ORDERED: NITROGLYCERIN 2% OINTMENT 30GM TUBE EXT STA (20:55)
[2018-12-14 21:07] LABS: Albumin Globulin Ratio 0.9 (0.9-2); Albumin Level 3.2 gm/dl (3.4-5.0); BUN Creatinine Ratio 12.8 (10-20); Bilirubin,Total 0.4 mg/dl (0.2-1); Calcium 8.9 mg/dl (8.5-10.1); Creatinine Clr Calc Pharmacy 70.7 ml/min; Est GFR (African American) 60.5; Est GFR (Non-African American) 52.2; Globulin 3.7 gm/dl (2.5-4.0); Potassium 4.3 mmol/L (3.5-5.1); Total Protein 6.9 gm/dl (6.4-8.2); Troponin I 15.4 ng/ml (0-0.045)
[2018-12-14 21:19] LABS: Beta-Hydroxybutyrate 1.25 mg/dl (0.2-2.81); D Dimer 400 ug/L FEU (0-500); Partial Thromboplastin Ratio 0.9; Partial Thromboplastin Time 25.1 Seconds (21.0-31.0); Prothrombin Time 10.5 Seconds (9.0-12.0)
[2018-12-14] MEDS ORDERED: HEPARIN 25000 UNIT/500 ML D5W IV ONE (21:23)
[2018-12-14] MEDS ORDERED: HEPARIN SOD 5,000 UNIT/0.5 ML VIAL ONE (21:23)
--- NOTE | 2018-12-14 23:33 | Cardiology Consultation ---
Date of Consultation December 14, 2018 Assessment & Plan (1) Elevated troponin: 2. Hyperglycemia/type 2 diabetes 3. Acute kidney injury 4. Cerebrovascular disease with prior TIA 5. Major depressive disorder/PTSD 6. Homelessness 7. Prior tobacco use Patient here with presenting back/abdominal pain found to have dynamic ST changes and elevated troponin of 15. Presenting symptoms have resolved and currently sleeping comfortably without any pain. Bedside echo done showed normal LV function without regional wall motion abnormalities or pericardial effusion. At this point no acute indication for emergent cardiac catheterization. Agree with treating as ACS for now. Continue current heparin infusion, dual antiplatelet therapy with aspirin, clopidogrel along with statin and beta- anupam as BP allows. On echo LV appears underfilled and recommend IV fluids, and avoiding additional nitrates. Monitor on telemetry, formal echocardiogram in the a.m., continue to trend troponins. We will continue to follow. History of Present Illness Attending Physician: George Layton MD History of Present Illness Mr. Vieira is a 58-year-old man who presented to the [facility] ED in the setting of back and abdominal pain. Cardiology contacted by the ED and admitting team's due EKG ST changes and elevated troponin. Patient has a significant psychiatric history for PTSD, major depressive disorder with prior suicidal ideation and inpatient hospitalization. Medical care complicated by homelessness and medical nonadherence. Frequently seen in the emergency department. 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 Patient was unable to provide much of any meaningful history to me. Had to be awoken from sleep. Stated that he had back and abdominal pain earlier today but that has since resolved. Denies any janeth chest pain. No other complaints. Denied prior cardiac history. Upon arrival EKG noteworthy for subtle inferior ST elevations for which computer read as an acute inferior DC. Subtle lateral ST depressions, and TWI in V2. Troponin elevated at 15. Patient started on heparin infusion. Nitropaste applied with resulting hypotensive to 60s-70s. Hyperglycemic to 400s and started on insulin drip. Allergies Allergy/AdvReac Type Severity Reaction Status Date / Time bee venom protein (honey bee) Allergy Unknown . Verified 12/14/18 20:57 Home Medications Home Medications Medication Instructions Recorded Confirmed Type atorvastatin 80 mg PO DAILY 07/08/18 12/14/18 History clopidogrel [Plavix] 75 mg PO DAILY 07/08/18 12/14/18 History metformin 1,000 mg PO BID 07/08/18 12/14/18 History metoprolol tartrate 25 mg PO BID 07/08/18 12/14/18 History paroxetine HCl [Paxil] 40 mg PO QAM 07/08/18 12/14/18 History insulin glargine [Basaglar KwikPen 40 units SQ DAILY #30 ml 11/28/18 12/14/18 Rx U-100 Insulin] levetiracetam [Keppra] 500 mg PO BID #14 tab 11/28/18 12/14/18 Rx risperidone [Risperdal] 1 mg PO BID 11/28/18 12/14/18 History aspirin 81 mg PO DAILY 12/14/18 12/14/18 History lisinopril 10 mg PO DAILY 12/14/18 12/14/18 History Patient History Social History Preferred Language: Swedish Beliefs That Will Affect Care: None Current Living Situation: Homeless Feels Safe at Home: Yes Smoking Status: Current some day smoker Review of Systems Unable to be obtained Physical Exam Vital Signs (Past 24 Hours): Last Vital Signs Temp 36.9 C 12/14/18 20:14 Pulse 57 L 12/14/18 23:07 Resp 18 12/14/18 23:07 BP 89/55 L 12/14/18 23:07 Pulse Ox 96 12/14/18 23:07 Physical Exam: General: Sleeping comfortably Eyes: Sclerae anicteric, extraocular movements intact HENT: Oropharynx clear mucous membranes moist Lungs: Clear to auscultation bilaterally, no rhonchi or wheezes Cardiac: Regular rate and rhythm, no murmurs, rubs or gallops. Vascular: 2+ radial, DP and PT pulses. No varicosities. Abdomen: Soft, nontender, nondistended, positive bowel sounds. Extremities: Well perfused, no peripheral edema Skin: No rashes or lesions. Neuro: Nonfocal Psych: Sleepy, wakes to voice and answers questions briefly
[2018-12-14] MEDS ORDERED: INSULIN REGULAR 250 UNITS in SODIUM CHLORIDE 0.9% 247.5 ML IV SCH (23:38)
[2018-12-14] MEDS ORDERED: DC ALL PREVIOUSLY ORDERED DIABETES MEDS ONE (23:38)
[2018-12-14] MEDS ORDERED: Heparin IV Standard *NO* Bolus ONE (23:38)
[2018-12-14] MEDS ORDERED: ACETAMINOPHEN 325 MG TAB PO PRN (23:38)
[2018-12-14] MEDS ORDERED: ONDANSETRON INJ 2 MG/ML 2 ML VIAL IV PRN (23:38)
[2018-12-14] MEDS ORDERED: MoRPHine SULFATE 2 MG/ML CARP IV PRN (23:38)
[2018-12-14] MEDS ORDERED: INSULIN PROTOCOL GOAL RANGE ONE (23:38)
[2018-12-14] MEDS ORDERED: MODERATE STRESS LEVEL ONE (23:38)
[2018-12-14] MEDS ORDERED: Heparin Adult STANDARD Wt-Based Dextrose 5% 25,000 units/500 mL IV SCH (23:45)
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
[2018-12-15] MEDS ORDERED: PHARMACY GLYCEMIC MGMT CONSULT PRN (00:13)
[2018-12-15] MEDS ORDERED: GLUCOSE 40% GEL 15 GM TUBE PO PRN (01:00)
[2018-12-15] MEDS ORDERED: CARBOHYDRATES FOR HYPOGLYCEMIA PO PRN (01:00)
[2018-12-15] MEDS ORDERED: GLUCOSE 10 TABS/TUBE PO PRN (01:00)
[2018-12-15] MEDS ORDERED: GLUCAGON FOR INJ 1 MG VIAL IM PRN (01:00)
[2018-12-15] MEDS ORDERED: DEXTROSE 50% 50 ML SYRINGE IV PRN (01:00)
[2018-12-15] MEDS: cefTRIAXone SODIUM 1,000 MG in DEXTROSE 5% 50 ML IV SCH ×2 (01:01→21:43)
--- NOTE | 2018-12-15 01:13 | Emergency Department Note ---
Entered by Karla Bryant acting as a scribe for History of Present Illness General Chief complaint: Back Injury/Pain Stated complaint: AB & BACK PAIN Time Seen by Provider: 12/14/18 20:24 Source: patient Mode of arrival: EMS Limitations: no limitations History of Present Illness Provider complaint: back pain Onset (ago): hour(s) (2.5) Location: back Pain Consistency: + other (persistent) Maximum Pain Intensity: 3 Quality: + aching Associated symptoms: + other (chronic arm pain); no chest pain and no shortness of breath The patient is a 58 year old male who presents to the Emergency Room with complaints of a persistent back pain that began 2.5 hours ago. The patient denies any chest pain or shortness of breath and notes he does have chronic arm pain due to his history of arthritis. He reports that he last ate at noon which was chili. He denies a personal history of a heart attack but states he does have a family history of it. He notes he does have abdominal pain. The patient reports that he has a history of diabetes but has not been taking his prescribed medication. Home Medications Home Medications Medication Instructions Recorded Confirmed Type atorvastatin 80 mg PO DAILY 07/08/18 12/18/18 History clopidogrel [Plavix] 75 mg PO DAILY 07/08/18 12/18/18 History metformin 1,000 mg PO BID 07/08/18 12/18/18 History metoprolol tartrate 25 mg PO BID 07/08/18 12/18/18 History paroxetine HCl [Paxil] 40 mg PO QAM 07/08/18 12/18/18 History Basaglar JuanaPen U-100 Insulin 40 units SQ DAILY #30 ml 11/28/18 12/18/18 Rx levetiracetam [Keppra] 500 mg PO BID #14 tab 11/28/18 12/18/18 Rx risperidone [Risperdal] 1 mg PO BID 11/28/18 12/18/18 History aspirin 81 mg PO DAILY 30 Days #30 tab 12/16/18 12/18/18 Rx levofloxacin [Levaquin] 750 mg PO DAILY 7 Days #7 tab 12/18/18 Rx lisinopril 10 mg PO DAILY 12/18/18 12/18/18 History Allergies Allergy/AdvReac Type Severity Reaction Status Date / Time bee venom protein (honey bee) Allergy Unknown . Verified 12/18/18 20:55 Past Med/Surg History Social History Preferred Language: [place] Beliefs That Will Affect Care: None Current Living Situation: Homeless Feels Safe at Home: Yes Smoking Status: Current every day smoker Hx Alcohol Use: No Hx Substance Use: No Review of Systems See HPI for pertinent positives & negatives. and A total of 10 systems reviewed and were otherwise negative Physical Exam Vital Signs Vital Signs - 24 hr 12/14/18 20:14 12/14/18 20:49 12/14/18 21:02 Temperature 36.9 C Temperature Source Oral Sepsis Recent Fever Within 48 Hours No Sepsis New/Unexplained Change in Mental Status No Sepsis Action Taken by Nursing No Action Required Pulse Rate 63 61 61 Pulse Rate [Right Finger] Respiratory Rate 22 18 19 Respiratory Effort / Characteristics Non-Labored Respiratory Depth Normal Respiratory Pattern Blood Pressure 102/61 98/59 L 100/63 Blood Pressure [Right Arm] Blood Pressure Mean 74 72 75 Blood Pressure Mean [Right Arm] Blood Pressure Position [Right Arm] Pulse Oximetry 95 97 99 Oxygen Delivery Method Room Air Room Air Room Air 12/14/18 21:31 12/14/18 22:02 12/14/18 22:30 Temperature Temperature Source Sepsis Recent Fever Within 48 Hours Sepsis New/Unexplained Change in Mental Status Sepsis Action Taken by Nursing Pulse Rate 64 67 61 Pulse Rate [Right Finger] Respiratory Rate 23 23 17 Respiratory Effort / Characteristics Respiratory Depth Respiratory Pattern Blood Pressure 97/58 L 91/57 L 93/54 L Blood Pressure [Right Arm] Blood Pressure Mean 71 68 67 Blood Pressure Mean [Right Arm] Blood Pressure Position [Right Arm] Pulse Oximetry 98 95 97 Oxygen Delivery Method Room Air Room Air Room Air 12/14/18 23:02 12/14/18 23:07 12/14/18 23:40 Temperature 37.3 C Temperature Source Oral Sepsis Recent Fever Within 48 Hours Sepsis New/Unexplained Change in Mental Status Sepsis Action Taken by Nursing Pulse Rate 56 L 57 L Pulse Rate [Right Finger] 56 L Respiratory Rate 16 18 20 Respiratory Effort / Characteristics Non-Labored Spontaneous Respiratory Depth Normal Respiratory Pattern Regular Blood Pressure 80/46 L 89/55 L Blood Pressure [Right Arm] 100/67 Blood Pressure Mean 57 66 Blood Pressure Mean [Right Arm] 78 Blood Pressure Position [Right Arm] Lying Pulse Oximetry 95 96 95 Oxygen Delivery Method Room Air Room Air Room Air Vital signs reviewed. General: Chronically ill-appearing 58-year-old male, in no significant distress. HEENT: No scleral icterus, PERRLA, neck supple. Atraumatic. Cardiovascular: Regular rate and rhythm, no extra sounds. Pulmonary: Clear to auscultation bilaterally, normal work of breathing. Abdomen: Soft, nontender, nondistended, positive bowel sounds. Obese. Musculoskeletal: Atraumatic, no peripheral edema. Neurologic: Patient awake alert and oriented x 3, full strength in all 4 extremities. Cranial nerves 2 through 12 grossly intact. Skin: Warm, dry, no rash Course 2023: Past medical records reviewed. The patient was evaluated in room C11A, and a complete history and physical examination were performed. 2106: I reviewed the patient's case with Dr. Valderrama - Cardiology. We agree that the patient does not warrant urgent intervention at this time. 2126: I reviewed the patient's case with Dr. Kidd - [facility] Hospitalist. He will evaluate the patient for further management. Administered Medications Discontinued Medications Acetaminophen (Tylenol) 650 mg PO Q4H PRN PRN Reason: Pain or Fever Stop: 01/13/19 23:37 Last Admin: 12/16/18 00:23 Dose: 650 mg Documented by: [id number] Aspirin (Aspirin) 324 mg PO NOW [facility] Stop: 12/14/18 20:27 Last Admin: 12/14/18 20:44 Dose: 324 mg Documented by: [id number] [facility]) [facility] Stop: 01/14/19 08:59 Last Admin: 12/16/18 07:58 Dose: 81 mg Documented by: [id number] Admin: 12/15/18 08:28 Dose: 81 mg Documented by: [id number] Atorvastatin Calcium (Lipitor) 80 mg PO DAILY [facility] Stop: 01/14/19 08:59 Last Admin: 12/16/18 07:59 Dose: 80 mg Documented by: [id number] Admin: 12/15/18 08:27 Dose: 80 mg Documented by: [id number] Clopidogrel Bisulfate (Plavix) 75 mg PO DAILY [facility] Stop: 01/14/19 08:59 Last Admin: 12/16/18 07:59 Dose: 75 mg Documented by: [id number] Admin: 12/15/18 08:27 Dose: 75 mg Documented by: [id number] Clopidogrel Bisulfate (Plavix) Confirm Administered Dose 300 mg .ROUTE .STK-MED ONE Stop: 12/15/18 13:55 Last Admin: 12/15/18 14:12 Dose: 300 mg Documented by: [id number] Doxycycline Hyclate (Vibramycin) 100 mg PO BID [facility] Stop: 12/21/18 22:44 Last Admin: 12/16/18 07:58 Dose: 100 mg Documented by: [id number] Admin: 12/15/18 21:44 Dose: 100 mg Documented by: [id number] Admin: 12/15/18 08:28 Dose: 100 mg Documented by: [id number] Admin: 12/15/18 01:57 Dose: 100 mg Documented by: [id number] Fentanyl Citrate (Fentanyl Citrate) Confirm Administered Dose 100 mcg .ROUTE .STK-MED ONE Stop: 12/15/18 11:58 Last Increment: 12/15/18 13:50 Dose: 50 mcg Documented by: [id number] Heparin Sodium (Porcine) (Heparin Sodium (Porcine)) Confirm Administered Dose 10,000 units .ROUTE .STK-MED ONE Stop: 12/14/18 21:24 Last Admin: 12/14/18 21:27 Dose: 5,000 units Documented by: [id number] Cosigned by: [id number] Heparin Sodium (Porcine) (Heparin Iv Bolus (Ec[employer]er Use Only)) Confirm Administered Dose 10,000 units .ROUTE .STK-MED ONE Stop: 12/15/18 11:58 Last Admin: 12/15/18 13:50 Dose: 10,000 units Documented by: [id number] Heparin Sodium/Dextrose () 1 ea IV NOW [facility]; Protocol Stop: 12/14/18 21:02 Last Admin: 12/14/18 21:29 Dose: Not Given Documented by: [id number] Heparin Sodium/Dextrose (Heparin Sodium/Dextrose) Confirm Administered Dose 25,000 units IV .STK-MED ONE Stop: 12/14/18 21:24 Last Admin: 12/14/18 21:28 Dose: 1,600 units Documented by: [id number] Cosigned by: [id number] Heparin Sodium/Sodium Chloride (Heparin Sod/Nss 2 Units/Ml) Confirm Administered Dose 3,000 units IV .STK-MED ONE Stop: 12/15/18 11:58 Last Admin: 12/15/18 12:54 Dose: 3,000 units Documented by: [id number] Sodium Chloride (Nss 1000ml) 1,000 mls @ 125 mls/hr IV .Q8H [facility] Stop: 01/13/19 20:29 Last Infusion: 12/14/18 23:50 Dose: 0 mls/hr Documented by: [id number] Admin: 12/14/18 20:44 Dose: 125 mls/hr Documented by: [id number] Ceftriaxone Sodium 1,000 mg/ (Dextrose) 50 mls @ 100 mls/hr IV Q24H [facility]; Protocol Stop: 12/21/18 22:44 Last Infusion: 12/15/18 22:16 Dose: 0 mls/hr Documented by: [id number] Admin: 12/15/18 21:43 Dose: 100 mls/hr Documented by: [id number] Infusion: 12/15/18 01:51 Dose: 0 mls/hr Documented by: [id number] Admin: 12/15/18 01:01 Dose: 100 mls/hr Documented by: [id number] Sodium Chloride (Nss 1000ml) 1,000 mls @ 150 mls/hr IV .Q6H40M [facility] Stop: 01/13/19 23:37 Last Admin: 12/15/18 14:53 Dose: Not Given Documented by: [id number] Infusion: 12/15/18 14:51 Dose: 0 mls/hr Documented by: [id number] Infusion: 12/15/18 12:30 Dose: 0 mls/hr Documented by: [id number] Infusion: 12/15/18 10:56 Dose: 150 mls/hr Documented by: [id number] Infusion: 12/15/18 08:35 Dose: 0 mls/hr Documented by: [id number] Admin: 12/15/18 08:27 Dose: 150 mls/hr Documented by: [id number] Infusion: 12/15/18 08:27 Dose: 150 mls/hr Documented by: [id number] Admin: 12/15/18 02:01 Dose: 150 mls/hr Documented by: [id number] Heparin Sodium/Dextrose (Heparin Sodium/Dextrose) 25,000 units in 500 mls @ 0 mls/hr IV .Q0M [facility]; Protocol Stop: 01/13/19 23:44 Last Titration: 12/15/18 15:35 Dose: 0 units/hr, 0 mls/hr Documented by: [id number] Cosigned by: [id number] Titration: 12/15/18 14:31 Dose: 0 units/hr, 0 mls/hr Documented by: [id number] Cosigned by: [id number] Titration: 12/15/18 12:30 Dose: 0 units/hr, 0 mls/hr Documented by: [id number] Cosigned by: [id number] Titration: 12/15/18 07:01 Dose: 1,600 units/hr, 32 mls/hr Documented by: [id number] Cosigned by: [id number] Admin: 12/14/18 23:50 Dose: 1,600 units/hr, 32 mls/hr Documented by: [id number] Cosigned by: [id number] Magnesium Sulfate/Dextrose (Magnesium Sulfate / D5w) 1 gm in 100 mls @ 100 mls/hr IV Q1H [facility] Stop: 12/15/18 09:29 Last Infusion: 12/15/18 10:56 Dose: 0 mls/hr Documented by: [id number] Admin: 12/15/18 09:43 Dose: 100 mls/hr Documented by: [id number] Infusion: 12/15/18 09:35 Dose: 100 mls/hr Documented by: [id number] Admin: 12/15/18 08:35 Dose: 100 mls/hr Documented by: [id number] Sodium Chloride (Nss 1000ml) 1,000 mls @ 100 mls/hr IV .Q10H [facility] Stop: 12/15/18 19:14 Last Infusion: 12/16/18 00:16 Dose: 0 mls/hr Documented by: [id number] Admin: 12/15/18 14:51 Dose: 100 mls/hr Documented by: [id number] Insulin Aspart (Novolog Flexpen) 0 units SC Q4 [facility]; Protocol Stop: 01/14/19 03:59 Last Admin: 12/16/18 08:01 Dose: 4 units Documented by: [id number] Cosigned by: [id number] Admin: 12/16/18 04:17 Dose: Not Given Documented by: [id number] Cosigned by: [id number] Admin: 12/16/18 00:15 Dose: 3 units Documented by: [id number] Cosigned by: [id number] Admin: 12/15/18 21:45 Dose: 4 units Documented by: [id number] Cosigned by: [id number] Admin: 12/15/18 16:49 Dose: 8 units Documented by: [id number] Cosigned by: [id number] Admin: 12/15/18 12:00 Dose: 2 units Documented by: [id number] Cosigned by: [id number] Admin: 12/15/18 08:29 Dose: 1 units Documented by: [id number] Cosigned by: [id number] Admin: 12/15/18 04:33 Dose: 1 units Documented by: [id number] Cosigned by: [id number] Insulin Aspart (Novolog Flexpen) 0 units SC ACHS [facility]; Protocol Stop: 01/15/19 11:29 Last Admin: 12/16/18 12:18 Dose: 9 units Documented by: [id number] Cosigned by: [id number] Insulin Glargine (Lantus Solostar Pen) 25 units SC 0900 [facility] Stop: 12/15/18 09:01 Last Admin: 12/15/18 09:44 Dose: 25 units Documented by: [id number] Cosigned by: [id number] Insulin Glargine (Lantus Solostar Pen) 0 units SC 1630 [facility]; Protocol Stop: 12/15/18 16:31 Last Admin: 12/15/18 16:48 Dose: 10 units Documented by: [id number] Cosigned by: [id number] Insulin Glargine (Lantus Solostar Pen) 35 units SC 0900 [facility] Stop: 12/16/18 09:01 Last Admin: 12/16/18 09:01 Dose: 35 units Documented by: [id number] Cosigned by: [id number] Insulin Human Regular (Novolin R U-100 Per Unit) 10 units IV NOW [facility] Stop: 12/14/18 20:55 Last Admin: 12/14/18 21:00 Dose: 10 units Documented by: [id number] Cosigned by: [id number] Levetiracetam (Keppra) 500 mg PO BID [facility] Stop: 01/13/19 23:37 Last Admin: 12/16/18 07:59 Dose: 500 mg Documented by: [id number] Admin: 12/15/18 21:43 Dose: 500 mg Documented by: [id number] Admin: 12/15/18 08:27 Dose: 500 mg Documented by: [id number] Admin: 12/15/18 01:57 Dose: 500 mg Documented by: [id number] Lisinopril (Zestril) 10 mg PO DAILY [facility] Stop: 01/14/19 08:59 Last Admin: 12/16/18 07:59 Dose: 10 mg Documented by: [id number] Admin: 12/15/18 08:27 Dose: 10 mg Documented by: [id number] Metoprolol Tartrate (Lopressor) 25 mg PO BID [facility] Stop: 01/14/19 08:59 Last Admin: 12/16/18 07:58 Dose: 25 mg Documented by: [id number] Admin: 12/15/18 21:43 Dose: 25 mg Documented by: [id number] Admin: 12/15/18 09:46 Dose: Not Given Documented by: [id number] Midazolam HCl (Versed) Confirm Administered Dose 2 mg .ROUTE .STK-MED ONE Stop: 12/15/18 11:58 Last Increment: 12/15/18 13:50 Dose: 1 mg Documented by: [id number] Nicardipine HCl (Cardene) Confirm Administered Dose 25 mg .ROUTE .STK-MED ONE Stop: 12/15/18 11:58 Last Admin: 12/15/18 12:54 Dose: 25 mg Documented by: [id number] Nitroglycerin (Nitro-Bid 2%) 1 inch EXT NOW [facility] Stop: 12/14/18 20:56 Last Admin: 12/14/18 21:00 Dose: 1 inch Documented by: [id number] Nitroglycerin/Dextrose (Nitroglycerin/D5w 100 Mcg/Ml 20ml Syringe) Confirm Administered Dose 2,000 mcg .ROUTE .STK-MED ONE Stop: 12/15/18 11:58 Last Admin: 12/15/18 12:54 Dose: 2,000 mcg Documented by: [id number] Paroxetine HCl (Paxil) 40 mg PO QAM [facility] Stop: 01/14/19 08:59 Last Admin: 12/16/18 07:59 Dose: 40 mg Documented by: [id number] Admin: 12/15/18 08:28 Dose: 40 mg Documented by: [id number] Risperidone (Risperdal) 1 mg PO BID [facility] Stop: 01/14/19 08:59 Last Admin: 12/16/18 09:01 Dose: 1 mg Documented by: [id number] Admin: 12/15/18 21:42 Dose: 1 mg Documented by: [id number] Admin: 12/15/18 08:28 Dose: 1 mg Documented by: [id number] Medical Decision Making Differential Diagnosis Differential Diagnosis includes but is not limited to: dehydration, stroke, anemia, hypoglycemia, hyponatremia, hypernatremia, urinary tract infection, p neumonia, bronchitis, sepsis, gastroenteritis, additional abdominal pathology, metabolic abnormalities and infections. Medical Records Attestation: I reviewed the patient's medical records. Home Medications Current Medication List: was personally reviewed by me Laboratory Data Attestation: I reviewed the patient's lab results. Result diagrams: 12/15/18 05:16 12/16/18 05:41 Lab Results 12/14/18 12/14/18 12/14/18 Range/Units 20:25 20:25 20:25 WBC 13.16 H (4.8-10.8) K/uL RBC 4.06 L (4.7-6.1) M/uL Hgb 12.5 L (14.0-18.0) g/dL Hct 36.0 L (42-52) % MCV 88.7 (80-100) fL MCH 30.8 (25-34) pg MCHC 34.7 (32-36) g/dL RDW Std Deviation 41.5 (36.4-46.3) fL RDW Coeff of Kimmy 12.9 (11.5-14.5) % Plt Count 228 (130-400) K/uL MPV 10.9 H (7.4-10.4) fL Immature Gran % (Auto) 0.5 % Neut % (Auto) 68.8 % Lymph % (Auto) 17.2 % [place] % (Auto) 13.1 % Eos % (Auto) 0.2 % Baso % (Auto) 0.2 % Immature Gran # (Auto) 0.06 H (0.00-0.02) K/uL Neut # (Auto) 9.05 H (1.4-6.5) K/uL Lymph # (Auto) 2.26 (1.2-3.4) K/uL [place] # (Auto) 1.73 H (0.11-0.59) K/uL Eos # (Auto) 0.03 (0-0.5) K/uL Baso # (Auto) 0.03 (0-0.2) K/uL PT 10.5 (9.0-12.0) Seconds INR 1.0 (0.9-1.1) APTT 25.1 (21.0-31.0) Seconds PTT Ratio 0.9 Activ Coag Time Kaolin (94-140) SECONDS D-Dimer 400 (0-500) ug/L FEU Sodium 132 L (136-145) mmol/L Potassium 4.3 (3.5-5.1) mmol/L Chloride 98 (98-107) mmol/L Carbon Dioxide 24 (21-32) mmol/L Anion Gap 10.0 (3-11) BUN 19 H (7-18) mg/dl Creatinine 1.47 H (0.6-1.4) mg/dl Est Cr Clr Drug Dosing 70.7 ml/min Est GFR ( Amer) 60.5 Est GFR (Non-Af Amer) 52.2 BUN/Creatinine Ratio 12.8 (10-20) Glucose 429 H* (70-99) mg/dl POC Glucose (70-99) Estimat Average Glucose mg/dl Hemoglobin A1c (4.5-5.6) % Calcium 8.9 (8.5-10.1) mg/dl Magnesium (1.8-2.4) mg/dl Total Bilirubin 0.4 (0.2-1) mg/dl AST 82 H (15-37) U/L ALT 26 (12-78) U/L Alkaline Phosphatase 129 H (45-117) U/L POC Troponin I (0-0.045) ng/ml Troponin I 15.400 H* (0-0.045) ng/ml Total Protein 6.9 (6.4-8.2) gm/dl Albumin 3.2 L (3.4-5.0) gm/dl Globulin 3.7 (2.5-4.0) gm/dl Albumin/Globulin Ratio 0.9 (0.9-2) Lipase 109 (73-393) U/L Beta-Hydroxybutyric Acd 1.25 (0.2-2.81) mg/dl 12/14/18 12/14/18 12/14/18 Range/Units 20:25 20:33 23:43 WBC (4.8-10.8) K/uL RBC (4.7-6.1) M/uL Hgb (14.0-18.0) g/dL Hct (42-52) % MCV (80-100) fL MCH (25-34) pg MCHC (32-36) g/dL RDW Std Deviation (36.4-46.3) fL RDW Coeff of Kimmy (11.5-14.5) % Plt Count (130-400) K/uL MPV (7.4-10.4) fL Immature Gran % (Auto) % Neut % (Auto) % Lymph % (Auto) % [place] % (Auto) % Eos % (Auto) % Baso % (Auto) % Immature Gran # (Auto) (0.00-0.02) K/uL Neut # (Auto) (1.4-6.5) K/uL Lymph # (Auto) (1.2-3.4) K/uL [place] # (Auto) (0.11-0.59) K/uL Eos # (Auto) (0-0.5) K/uL Baso # (Auto) (0-0.2) K/uL PT Cancelled (9.0-12.0) Seconds INR Cancelled (0.9-1.1) APTT Cancelled (21.0-31.0) Seconds PTT Ratio Cancelled Activ Coag Time Kaolin (94-140) SECONDS D-Dimer (0-500) ug/L FEU Sodium (136-145) mmol/L Potassium (3.5-5.1) mmol/L Chloride (98-107) mmol/L Carbon Dioxide (21-32) mmol/L Anion Gap (3-11) BUN (7-18) mg/dl Creatinine (0.6-1.4) mg/dl Est Cr Clr Drug Dosing ml/min Est GFR ( Amer) Est GFR (Non-Af Amer) BUN/Creatinine Ratio (10-20) Glucose (70-99) mg/dl POC Glucose (70-99) Estimat Average Glucose mg/dl Hemoglobin A1c (4.5-5.6) % Calcium (8.5-10.1) mg/dl Magnesium (1.8-2.4) mg/dl Total Bilirubin (0.2-1) mg/dl AST (15-37) U/L ALT (12-78) U/L Alkaline Phosphatase (45-117) U/L POC Troponin I 11.09 H (0-0.045) ng/ml Troponin I 15.800 H* (0-0.045) ng/ml Total Protein (6.4-8.2) gm/dl Albumin (3.4-5.0) gm/dl Globulin (2.5-4.0) gm/dl Albumin/Globulin Ratio (0.9-2) Lipase (73-393) U/L Beta-Hydroxybutyric Acd (0.2-2.81) mg/dl 12/15/18 12/15/18 12/15/18 Range/Units 00:35 01:33 03:16 WBC (4.8-10.8) K/uL RBC (4.7-6.1) M/uL Hgb (14.0-18.0) g/dL Hct (42-52) % MCV (80-100) fL MCH (25-34) pg MCHC (32-36) g/dL RDW Std Deviation (36.4-46.3) fL RDW Coeff of Kimmy (11.5-14.5) % Plt Count (130-400) K/uL MPV (7.4-10.4) fL Immature Gran % (Auto) % Neut % (Auto) % Lymph % (Auto) % [place] % (Auto) % Eos % (Auto) % Baso % (Auto) % Immature Gran # (Auto) (0.00-0.02) K/uL Neut # (Auto) (1.4-6.5) K/uL Lymph # (Auto) (1.2-3.4) K/uL [place] # (Auto) (0.11-0.59) K/uL Eos # (Auto) (0-0.5) K/uL Baso # (Auto) (0-0.2) K/uL PT (9.0-12.0) Seconds INR (0.9-1.1) APTT (21.0-31.0) Seconds PTT Ratio Activ Coag Time Kaolin (94-140) SECONDS D-Dimer (0-500) ug/L FEU Sodium (136-145) mmol/L Potassium (3.5-5.1) mmol/L Chloride (98-107) mmol/L Carbon Dioxide (21-32) mmol/L Anion Gap (3-11) BUN (7-18) mg/dl Creatinine (0.6-1.4) mg/dl Est Cr Clr Drug Dosing ml/min Est GFR ( Amer) Est GFR (Non-Af Amer) BUN/Creatinine Ratio (10-20) Glucose (70-99) mg/dl POC Glucose 144 H 183 H 148 H (70-99) Estimat Average Glucose mg/dl Hemoglobin A1c (4.5-5.6) % Calcium (8.5-10.1) mg/dl Magnesium (1.8-2.4) mg/dl Total Bilirubin (0.2-1) mg/dl AST (15-37) U/L ALT (12-78) U/L Alkaline Phosphatase (45-117) U/L POC Troponin I (0-0.045) ng/ml Troponin I (0-0.045) ng/ml Total Protein (6.4-8.2) gm/dl Albumin (3.4-5.0) gm/dl Globulin (2.5-4.0) gm/dl Albumin/Globulin Ratio (0.9-2) Lipase (73-393) U/L Beta-Hydroxybutyric Acd (0.2-2.81) mg/dl 12/15/18 12/15/18 12/15/18 Range/Units 03:25 04:12 05:16 WBC 11.50 H (4.8-10.8) K/uL RBC 3.63 L (4.7-6.1) M/uL Hgb 10.9 L (14.0-18.0) g/dL Hct 31.7 L (42-52) % MCV 87.3 (80-100) fL MCH 30.0 (25-34) pg MCHC 34.4 (32-36) g/dL RDW Std Deviation 42.1 (36.4-46.3) fL RDW Coeff of Kimmy 13.0 (11.5-14.5) % Plt Count 184 (130-400) K/uL MPV 10.6 H (7.4-10.4) fL Immature Gran % (Auto) 0.5 % Neut % (Auto) 61.3 % Lymph % (Auto) 24.2 % [place] % (Auto) 13.2 % Eos % (Auto) 0.6 % Baso % (Auto) 0.2 % Immature Gran # (Auto) 0.06 H (0.00-0.02) K/uL Neut # (Auto) 7.05 H (1.4-6.5) K/uL Lymph # (Auto) 2.78 (1.2-3.4) K/uL [place] # (Auto) 1.52 H (0.11-0.59) K/uL Eos # (Auto) 0.07 (0-0.5) K/uL Baso # (Auto) 0.02 (0-0.2) K/uL PT (9.0-12.0) Seconds INR (0.9-1.1) APTT 54.3 H* (21.0-31.0) Seconds PTT Ratio 2.0 Activ Coag Time Kaolin (94-140) SECONDS D-Dimer (0-500) ug/L FEU Sodium (136-145) mmol/L Potassium (3.5-5.1) mmol/L Chloride (98-107) mmol/L Carbon Dioxide (21-32) mmol/L Anion Gap (3-11) BUN (7-18) mg/dl Creatinine (0.6-1.4) mg/dl Est Cr Clr Drug Dosing ml/min Est GFR ( Amer) Est GFR (Non-Af Amer) BUN/Creatinine Ratio (10-20) Glucose (70-99) mg/dl POC Glucose 165 H (70-99) Estimat Average Glucose mg/dl Hemoglobin A1c (4.5-5.6) % Calcium (8.5-10.1) mg/dl Magnesium (1.8-2.4) mg/dl Total Bilirubin (0.2-1) mg/dl AST (15-37) U/L ALT (12-78) U/L Alkaline Phosphatase (45-117) U/L POC Troponin I (0-0.045) ng/ml Troponin I (0-0.045) ng/ml Total Protein (6.4-8.2) gm/dl Albumin (3.4-5.0) gm/dl Globulin (2.5-4.0) gm/dl Albumin/Globulin Ratio (0.9-2) Lipase (73-393) U/L Beta-Hydroxybutyric Acd (0.2-2.81) mg/dl 12/15/18 12/15/1812/15/19 Range/Units 05:16 05:16 07:41 WBC (4.8-10.8) K/uL RBC (4.7-6.1) M/uL Hgb (14.0-18.0) g/dL Hct (42-52) % MCV (80-100) fL MCH (25-34) pg MCHC (32-36) g/dL RDW Std Deviation (36.4-46.3) fL RDW Coeff of Kimmy (11.5-14.5) % Plt Count (130-400) K/uL MPV (7.4-10.4) fL Immature Gran % (Auto) % Neut % (Auto) % Lymph % (Auto) % [place] % (Auto) % Eos % (Auto) % Baso % (Auto) % Immature Gran # (Auto) (0.00-0.02) K/uL Neut # (Auto) (1.4-6.5) K/uL Lymph # (Auto) (1.2-3.4) K/uL [place] # (Auto) (0.11-0.59) K/uL Eos # (Auto) (0-0.5) K/uL Baso # (Auto) (0-0.2) K/uL PT (9.0-12.0) Seconds INR (0.9-1.1) APTT (21.0-31.0) Seconds PTT Ratio Activ Coag Time Kaolin (94-140) SECONDS D-Dimer (0-500) ug/L FEU Sodium 138 (136-145) mmol/L Potassium 3.7 (3.5-5.1) mmol/L Chloride 106 (98-107) mmol/L Carbon Dioxide 25 (21-32) mmol/L Anion Gap 7.0 (3-11) BUN 19 H (7-18) mg/dl Creatinine 1.00 D (0.6-1.4) mg/dl Est Cr Clr Drug Dosing 103.0 ml/min Est GFR ( Amer) 96.4 Est GFR (Non-Af Amer) 83.2 BUN/Creatinine Ratio 18.9 (10-20) Glucose 154 H (70-99) mg/dl POC Glucose 167 H (70-99) Estimat Average Glucose 246 mg/dl Hemoglobin A1c 10.2 H (4.5-5.6) % Calcium 8.5 (8.5-10.1) mg/dl Magnesium 1.6 L (1.8-2.4) mg/dl Total Bilirubin (0.2-1) mg/dl AST (15-37) U/L ALT (12-78) U/L Alkaline Phosphatase (45-117) U/L POC Troponin I (0-0.045) ng/ml Troponin I 15.200 H* (0-0.045) ng/ml Total Protein (6.4-8.2) gm/dl Albumin (3.4-5.0) gm/dl Globulin (2.5-4.0) gm/dl Albumin/Globulin Ratio (0.9-2) Lipase (73-393) U/L Beta-Hydroxybutyric Acd (0.2-2.81) mg/dl 12/15/18 12/15/18 12/15/18 Range/Units 11:18 11:40 12:35 WBC (4.8-10.8) K/uL RBC (4.7-6.1) M/uL Hgb (14.0-18.0) g/dL Hct (42-52) % MCV (80-100) fL MCH (25-34) pg MCHC (32-36) g/dL RDW Std Deviation (36.4-46.3) fL RDW Coeff of Kimmy (11.5-14.5) % Plt Count (130-400) K/uL MPV (7.4-10.4) fL Immature Gran % (Auto) % Neut % (Auto) % Lymph % (Auto) % [place] % (Auto) % Eos % (Auto) % Baso % (Auto) % Immature Gran # (Auto) (0.00-0.02) K/uL Neut # (Auto) (1.4-6.5) K/uL Lymph # (Auto) (1.2-3.4) K/uL [place] # (Auto) (0.11-0.59) K/uL Eos # (Auto) (0-0.5) K/uL Baso # (Auto) (0-0.2) K/uL PT (9.0-12.0) Seconds INR (0.9-1.1) APTT (21.0-31.0) Seconds PTT Ratio Activ Coag Time Kaolin 186 H (94-140) SECONDS D-Dimer (0-500) ug/L FEU Sodium (136-145) mmol/L Potassium (3.5-5.1) mmol/L Chloride (98-107) mmol/L Carbon Dioxide (21-32) mmol/L Anion Gap (3-11) BUN (7-18) mg/dl Creatinine (0.6-1.4) mg/dl Est Cr Clr Drug Dosing ml/min Est GFR ( Amer) Est GFR (Non-Af Amer) BUN/Creatinine Ratio (10-20) Glucose (70-99) mg/dl POC Glucose 200 H (70-99) Estimat Average Glucose mg/dl Hemoglobin A1c (4.5-5.6) % Calcium (8.5-10.1) mg/dl Magnesium (1.8-2.4) mg/dl Total Bilirubin (0.2-1) mg/dl AST (15-37) U/L ALT (12-78) U/L Alkaline Phosphatase (45-117) U/L POC Troponin I (0-0.045) ng/ml Troponin I 12.300 H* (0-0.045) ng/ml Total Protein (6.4-8.2) gm/dl Albumin (3.4-5.0) gm/dl Globulin (2.5-4.0) gm/dl Albumin/Globulin Ratio (0.9-2) Lipase (73-393) U/L Beta-Hydroxybutyric Acd (0.2-2.81) mg/dl 12/15/18 12/15/18 12/16/18 Range/Units 16:16 20:07 00:07 WBC (4.8-10.8) K/uL RBC (4.7-6.1) M/uL Hgb (14.0-18.0) g/dL Hct (42-52) % MCV (80-100) fL MCH (25-34) pg MCHC (32-36) g/dL RDW Std Deviation (36.4-46.3) fL RDW Coeff of Kimmy (11.5-14.5) % Plt Count (130-400) K/uL MPV (7.4-10.4) fL Immature Gran % (Auto) % Neut % (Auto) % Lymph % (Auto) % [place] % (Auto) % Eos % (Auto) % Baso % (Auto) % Immature Gran # (Auto) (0.00-0.02) K/uL Neut # (Auto) (1.4-6.5) K/uL Lymph # (Auto) (1.2-3.4) K/uL [place] # (Auto) (0.11-0.59) K/uL Eos # (Auto) (0-0.5) K/uL Baso # (Auto) (0-0.2) K/uL PT (9.0-12.0) Seconds INR (0.9-1.1) APTT (21.0-31.0) Seconds PTT Ratio Activ Coag Time Kaolin (94-140) SECONDS D-Dimer (0-500) ug/L FEU Sodium (136-145) mmol/L Potassium (3.5-5.1) mmol/L Chloride (98-107) mmol/L Carbon Dioxide (21-32) mmol/L Anion Gap (3-11) BUN (7-18) mg/dl Creatinine (0.6-1.4) mg/dl Est Cr Clr Drug Dosing ml/min Est GFR ( Amer) Est GFR (Non-Af Amer) BUN/Creatinine Ratio (10-20) Glucose (70-99) mg/dl POC Glucose 163 H 238 H 207 H (70-99) Estimat Average Glucose mg/dl Hemoglobin A1c (4.5-5.6) % Calcium (8.5-10.1) mg/dl Magnesium (1.8-2.4) mg/dl Total Bilirubin (0.2-1) mg/dl AST (15-37) U/L ALT (12-78) U/L Alkaline Phosphatase (45-117) U/L POC Troponin I (0-0.045) ng/ml Troponin I (0-0.045) ng/ml Total Protein (6.4-8.2) gm/dl Albumin (3.4-5.0) gm/dl Globulin (2.5-4.0) gm/dl Albumin/Globulin Ratio (0.9-2) Lipase (73-393) U/L Beta-Hydroxybutyric Acd (0.2-2.81) mg/dl 12/16/18 12/16/18 12/16/18 Range/Units 04:14 05:41 05:41 WBC (4.8-10.8) K/uL RBC (4.7-6.1) M/uL Hgb (14.0-18.0) g/dL Hct (42-52) % MCV (80-100) fL MCH (25-34) pg MCHC (32-36) g/dL RDW Std Deviation (36.4-46.3) fL RDW Coeff of Kimmy (11.5-14.5) % Plt Count (130-400) K/uL MPV (7.4-10.4) fL Immature Gran % (Auto) % Neut % (Auto) % Lymph % (Auto) % [place] % (Auto) % Eos % (Auto) % Baso % (Auto) % Immature Gran # (Auto) (0.00-0.02) K/uL Neut # (Auto) (1.4-6.5) K/uL Lymph # (Auto) (1.2-3.4) K/uL [place] # (Auto) (0.11-0.59) K/uL Eos # (Auto) (0-0.5) K/uL Baso # (Auto) (0-0.2) K/uL PT (9.0-12.0) Seconds INR (0.9-1.1) APTT 27.6 (21.0-31.0) Seconds PTT Ratio 1.0 Activ Coag Time Kaolin (94-140) SECONDS D-Dimer (0-500) ug/L FEU Sodium 138 (136-145) mmol/L Potassium 3.8 (3.5-5.1) mmol/L Chloride 109 H (98-107) mmol/L Carbon Dioxide 26 (21-32) mmol/L Anion Gap 3.0 (3-11) BUN 11 (7-18) mg/dl Creatinine 0.67 D (0.6-1.4) mg/dl Est Cr Clr Drug Dosing 154.0 ml/min Est GFR ( Amer) 123.6 Est GFR (Non-Af Amer) 106.7 BUN/Creatinine Ratio 15.7 (10-20) Glucose 117 H (70-99) mg/dl POC Glucose 148 H (70-99) Estimat Average Glucose mg/dl Hemoglobin A1c (4.5-5.6) % Calcium 7.9 L (8.5-10.1) mg/dl Magnesium (1.8-2.4) mg/dl Total Bilirubin (0.2-1) mg/dl AST (15-37) U/L ALT (12-78) U/L Alkaline Phosphatase (45-117) U/L POC Troponin I (0-0.045) ng/ml Troponin I (0-0.045) ng/ml Total Protein (6.4-8.2) gm/dl Albumin (3.4-5.0) gm/dl Globulin (2.5-4.0) gm/dl Albumin/Globulin Ratio (0.9-2) Lipase (73-393) U/L Beta-Hydroxybutyric Acd (0.2-2.81) mg/dl 12/16/18 12/16/18 Range/Units 07:58 11:25 WBC (4.8-10.8) K/uL RBC (4.7-6.1) M/uL Hgb (14.0-18.0) g/dL Hct (42-52) % MCV (80-100) fL MCH (25-34) pg MCHC (32-36) g/dL RDW Std Deviation (36.4-46.3) fL RDW Coeff of Kimmy (11.5-14.5) % Plt Count (130-400) K/uL MPV (7.4-10.4) fL Immature Gran % (Auto) % Neut % (Auto) % Lymph % (Auto) % [place] % (Auto) % Eos % (Auto) % Baso % (Auto) % Immature Gran # (Auto) (0.00-0.02) K/uL Neut # (Auto) (1.4-6.5) K/uL Lymph # (Auto) (1.2-3.4) K/uL [place] # (Auto) (0.11-0.59) K/uL Eos # (Auto) (0-0.5) K/uL Baso # (Auto) (0-0.2) K/uL PT (9.0-12.0) Seconds INR (0.9-1.1) APTT (21.0-31.0) Seconds PTT Ratio Activ Coag Time Kaolin (94-140) SECONDS D-Dimer (0-500) ug/L FEU Sodium (136-145) mmol/L Potassium (3.5-5.1) mmol/L Chloride (98-107) mmol/L Carbon Dioxide (21-32) mmol/L Anion Gap (3-11) BUN (7-18) mg/dl Creatinine (0.6-1.4) mg/dl Est Cr Clr Drug Dosing ml/min Est GFR ( Amer) Est GFR (Non-Af Amer) BUN/Creatinine Ratio (10-20) Glucose (70-99) mg/dl POC Glucose 124 H 167 H (70-99) Estimat Average Glucose mg/dl Hemoglobin A1c (4.5-5.6) % Calcium (8.5-10.1) mg/dl Magnesium (1.8-2.4) mg/dl Total Bilirubin (0.2-1) mg/dl AST (15-37) U/L ALT (12-78) U/L Alkaline Phosphatase (45-117) U/L POC Troponin I (0-0.045) ng/ml Troponin I (0-0.045) ng/ml Total Protein (6.4-8.2) gm/dl Albumin (3.4-5.0) gm/dl Globulin (2.5-4.0) gm/dl Albumin/Globulin Ratio (0.9-2) Lipase (73-393) U/L Beta-Hydroxybutyric Acd (0.2-2.81) mg/dl Imaging Data Radiologist's Impression: Radiology results as stated below per my review and the radiologist's interpretation: XR chest 1V portable CLINICAL HISTORY: Atypical chest pain COMPARISON STUDY: 12/11/2018 FINDINGS: The cardiac and mediastinal contours are normal. There is no evidence of focal pulmonary consolidation. There is no evidence of failure. No pleural effusions are visualized.[ There is minor right basilar atelectasis versus bronchial thickening unchanged from prior studies. IMPRESSION: No active disease in the chest. Electronically signed by: Thomas Salmon M.D. 12/14/2018 8:41 PM ECG Data Attestation: I personally reviewed and interpreted this ECG as follows: Indication: back/shoulder pain Rate (beats per minute): 64 Rhythm: normal sinus Findings: + other (poor quality baseline for interpretation), + Q waves (Inferior), + T-wave inversion (aVL, v1 and v2) and + ST elevation (questionable of 1 mm); no ectopy Comparison ECG Date: from (11-DEC-2018) Change: the following changes noted (hanges in inferior leads are new. TWI in v2 is new. Otherwise, no significant change.) Additional Comments: RPEAT EKG at 2028: normal sinus rhythm at 63 bpm, no change from previous. Slight ST elevation in inferior leads, TWI in aVL, v1 and v2. Blood Pressure Blood Pressure Findings: Low blood pressure Blood Pressure Disposition: further management by hospitalist MDM Narrative This patient was evaluated and appeared to be in no significant distress. The patient is a poor historian. EKG changes are noted, IV access was obtained and the patient was placed on the flocculator operator. He was given aspirin. Patient was not able to answer specific questions regarding any chest discomfort or pain with exertion. Several EKGs were evaluated. I do suspect the patient is high risk for ACS. Glucose is noted to be 429. Patient was given 10 units of IV regular insulin and hydrated with normal saline solution. I did speak with Dr. Valderrama of interventional cardiology. As the patient does not have any chest pain at this time and has significant metabolic stressors, he will be placed on IV heparin and evaluated by the hospitalist. He may require catheterization while hospitalized. Patient is aware of the plan and agrees. Impression & Plan Acute coronary syndrome, Hyperglycemia, Noncompliance with medications, Homeless Discharge Plan Visit Data *Final* Discharge Date/Time: 12/14/18 23:00 Chief Complaint: Back Injury/Pain Stated Complaint: AB & BACK PAIN ED Provider: Rocio Medrano Discharge Problem: Acute coronary syndrome, Hyperglycemia, Noncompliance with medications, Homeless Patient Disposition: Being Evaluated by Hospitalist Discharge Instructions Interventions: ED Discharge Assessment Last Done: 12/14/18 23:00 The scribe's documentation has been prepared under my direction and personally reviewed by me in its entirety. I confirm that the note above accurately reflects all work, treatment, procedures, and medical decision making performed by me.
[2018-12-15] MEDS: levETIRAcetam 500 MG TAB PO SCH ×3 (01:57→21:43)
[2018-12-15] MEDS: DOXYCYCLINE HYCLATE 100 MG CAP PO SCH ×3 (01:57→21:44)
[2018-12-15] MEDS: SODIUM CHLORIDE 0.9% 1000ML 1,000 ML IV SCH ×3 (02:01→14:53)
[2018-12-15 04:07] LABS: Partial Thromboplastin Time 54.3 Seconds (21.0-31.0)
[2018-12-15] MEDS: INSULIN ASPART 100 UNITS/ML 3 ML PEN SC SCH ×5 (04:33→21:45)
[2018-12-15 05:35] LABS: Basophils # (auto) 0.02 K/uL (0-0.2); Basophils % (auto) 0.2 %; Eosinophils # (auto) 0.07 K/uL (0-0.5); Eosinophils % (auto) 0.6 %; Hematocrit (blood only) 31.7 % (42-52); Hemoglobin 10.9 g/dL (14.0-18.0); Immature Granulocytes # (auto) 0.06 K/uL (0.00-0.02); Immature Granulocytes % (auto) 0.5 %; Lymphocytes # (auto) 2.78 K/uL (1.2-3.4); Lymphocytes % (auto) 24.2 %; Mean Corpuscular Hgb Conc 34.4 g/dL (32-36); Mean Corpuscular Volume 87.3 fL (80-100); Mean Platelet Volume 10.6 fL (7.4-10.4); Monocytes # (auto) 1.52 K/uL (0.11-0.59); Monocytes % (auto) 13.2 %; Neutrophils # (auto) 7.05 K/uL (1.4-6.5); Neutrophils % (auto) 61.3 %; Platelet Count 184 K/uL (130-400); RDW Standard Deviation 42.1 fL (36.4-46.3); Red Blood Count 3.63 M/uL (4.7-6.1)
[2018-12-15 06:13] LABS: BUN Creatinine Ratio 18.9 (10-20); Calcium 8.5 mg/dl (8.5-10.1); Est GFR (African American) 96.4; Est GFR (Non-African American) 83.2; Magnesium 1.6 mg/dl (1.8-2.4); Potassium 3.7 mmol/L (3.5-5.1); Troponin I 15.2 ng/ml (0-0.045)
[2018-12-15 06:24] LABS: Estimated Average Glucose 246 mg/dl; Hemoglobin A1C 10.2 % (4.5-5.6)
[2018-12-15] MEDS: ATORVASTATIN 40 MG TAB PO SCH (08:27)
[2018-12-15] MEDS: LISINOPRIL 10 MG TAB PO SCH (08:27)
[2018-12-15] MEDS: CLOPIDOGREL BISULFATE 75 MG TAB PO SCH (08:27)
[2018-12-15] MEDS: ASPIRIN 81 MG ECTAB PO SCH (08:28)
[2018-12-15] MEDS: PARoxetine HCl 20 MG TAB PO SCH (08:28)
[2018-12-15] MEDS: risperiDONE 1 MG TABLET PO SCH ×2 (08:28→21:42)
[2018-12-15] MEDS: METOPROLOL TARTRATE 25 MG TAB PO SCH ×3 (08:29→21:43)
[2018-12-15] MEDS: MAGNESIUM SULFATE / D5W 1 GM/100 ML BAG IV SCH ×2 (08:35→09:43)
[2018-12-15] MEDS ORDERED: ASPIRIN CHEW 324 MG PO SCH (09:00)
[2018-12-15] MEDS ORDERED: INSULIN ASPART 100 UNITS/ML 3 ML PEN SC SCH (09:00)
[2018-12-15] MEDS ORDERED: INSULIN GLARGINE SOLOSTAR 100 UNITS/ML 3 ML PEN SC SCH ×2 (09:00→16:30)
[2018-12-15] MEDS ORDERED: NITROGLYCERIN/D5W 100MCG/ML 20ML SYR ONE (11:57)
[2018-12-15] MEDS ORDERED: MIDAZOLAM HCL 1 MG/ML 2ML VIAL ONE (11:57)
[2018-12-15] MEDS ORDERED: HEPARIN (PORCINE) 1000 UNIT/ML 10 ML (CATH LAB USE ONLY) ONE (11:57)
[2018-12-15] MEDS ORDERED: NiCARDipine HCL INJ 2.5 MG/ML 10 ML AMP ONE (11:57)
[2018-12-15] MEDS ORDERED: fentaNYL citrate 100 MCG/2 ML VIAL ONE (11:57)
--- NOTE | 2018-12-15 12:11 | Pharmacy Report ---
Glycemic Control Consultation - Date of Service December 15, 2018 - Scope Scope: Glycemic Pharmacist consulted by Dr. Kidd on 12/14/18 for glycemic control and to write orders per [facility] inpatient glycemic control protocol - Objective Weight: 107 kg Accuchecks BSG (last 24hrs): 12/14/18 12/15/18 12/15/18 20:25 00:35 01:33 Glucose 429 H* POC Glucose 144 H 183 H 12/15/18 12/15/18 12/15/18 03:16 04:12 05:16 Glucose 154 H POC Glucose 148 H 165 H 12/15/18 12/15/18 07:41 11:18 Glucose POC Glucose 167 H 200 H Laboratory Data (last 24hrs): 12/14/18 12/15/18 20:25 05:16 Potassium 4.3 3.7 Carbon Dioxide 24 25 Anion Gap 10.0 7.0 Creatinine 1.47 H 1.00 D Est Cr Clr Drug Dosing 70.7 103.0 Beta-Hydroxybutyric Acd 1.25 HbA1c: Hemoglobin A1c 10.2 % (4.5-5.6) H 12/15/18 05:16 - Recent Pertinent Medications Outpatient Anti-diabetic Regimen: * Lantus 40 units daily * Metformin 1 gm po BID * A1c = 10.2 % on 12/15/18 The patient is currently receiving: * Basal insulin: Lantus 25 units x1 dose this AM * Correctional Insulin: Novolog Correction per scale ACHS Goal Range: Low 120 mg/dL - High 160 mg/dL Correction Factor: 20 mg/dL/unit * Prandial insulin: Currently NPO, but carb ratio of 1 unit per 7 grams CHO is ordered for when diet ordered. * Oral Agents: Metformin put on hold Risk Factors for Insulin Resistance: * Steroids: None * Infection: Doxycycline + Ceftriaxone * Pressors: none * IVF: NS @ 150 ml/hr * Recent Surgery: * Diet: NPO - Assessment & Plan Assessment & Plan: ASSESSMENT: * 58 y/o M with diabetes managed with Lantus and Metformin prior to admission. Patient is homeless and his compliance with anti-diabetic meds is questionable given HbA1c = 10.2%. He is currently admitted for acute HI and possible respiratory infection. * Patient had an elevated BSG last night at 429 for which he received regular insulin 10 units IV. He was then ordered an insulin drip but because his BSG decreased down to 144 pretty quickly after the bolus dose, the drip was cancelled and not given. Novolog with CF of 20 was ordered q4h to make sure his BSGs were not trending up. * BSG this AM was 165 and 154. BSG around 1100 today was 200. Patient continues to be NPO. * Patient only received 2 units of insulin this AM. Will continue same CF and CR. * Lantus dose will be based off of his home regimen but split up into BID to allow for easier titration. PLAN FOR INPATIENT GLYCEMIC CONTROL: * Holding outpatient oral diabetes medications (Metformin). * Basal insulin * Lantus 25 units SQ ordered this AM. * Dinner time Lantus based on scale: BSG less than 140- give 0 insulin, BSG 140-180- give 10 units, BSG greater than 180- give 15 units. * Bolus insulin: continue same * NovoLog per scale Q4H * Goal Range: Low 120 mg/dL - [id number] mg/dL * Correction Factor: 20 mg/dL/unit * Nutritional / Prandial insulin per carb ratio of 1 unit per 7 grams CHO consumed once diet is ordered. * Please note that the plan above was derived based on current level of insulin resistance and hospital stress. These recommendations are appropriate for inpatient admission only. Plan of care upon discharge will need to be reassessed to avoid potential outpatient hypo/hyperglycemia. Thank you.
[2018-12-15] MEDS ORDERED: CLOPIDOGREL BISULFATE 300 MG TAB ONE (13:54)
--- NOTE | 2018-12-15 13:55 | Post Anesthesia Assessment ---
Date of Service December 15, 2018 Post Sedation Assessment Vital Signs Temp Pulse Pulse Resp BP BP BP 12/15/18 11:52 37.0 C 54 L 19 105/69 12/15/18 07:45 37.4 C 57 L 19 106/64 12/15/18 04:45 58 L 96/62 L 12/15/18 03:17 36.8 C 55 L 16 81/55 L 81/55 L 12/14/18 23:40 37.3 C 56 L 20 100/67 12/14/18 23:37 65 12/14/18 23:07 57 L 18 89/55 L 12/14/18 23:02 56 L 16 80/46 L 12/14/18 22:30 61 17 93/54 L 12/14/18 22:02 67 23 91/57 L 12/14/18 21:31 64 23 97/58 L 12/14/18 21:02 61 19 100/63 12/14/18 20:49 61 18 98/59 L 12/14/18 20:14 36.9 C 63 22 102/61 Pulse Ox 12/15/18 11:52 96 12/15/18 07:45 95 12/15/18 04:45 12/15/18 03:17 92 12/14/18 23:40 95 12/14/18 23:37 12/14/18 23:07 96 12/14/18 23:02 95 12/14/18 22:30 97 12/14/18 22:02 95 12/14/18 21:31 98 12/14/18 21:02 99 12/14/18 20:49 97 12/14/18 20:14 95 Recovery Score Activity: Moves 4 extremities Respiration: Deep Breath/Cough Circulation: +/-20% PreAnes Value Consciousness: Fully Awake Oxygen Saturation: O2 needed for >90% Discharge Sedation Level of Care: Fast Track Phase II Post Sedation Plan On clinical assessment, the patient appears to have tolerated the sedation without complications. Patient is recovering as anticipated. Patient will continue to be monitored by nursing and may be discharged when sedation discharge criteria are met per below protocol. Upon Completions of procedure and additional 15 minutes continue every 5 minute vital signs and the P.A.R. score; then discharge to a Phase I or Fast Track to Phase II per the following guidelines: * Discharge Patient to appropriate Phase II area if PAR is 8 or greater or return to pre- procedure baseline. The post - procedure orders will be as directed. * If PAR score is less than 8 or not return to pre-procedure baseline then patient will follow Phase I monitoring till PAR is reached for Phase II. The Phase I may be done in procedure room or may call to secure a Phase I area. * If naloxone or flumazenil are used for reversal, hold in Phase I for continued monitoring from when last reversal dose was given for a minimum of 60 minutes or longer pending the nurse and/or physician discretion of patient condition before discharge to Phase II. Please call the Sedation Physician to re-evaluate and complete post-note for discharge to Phase II area. Do NOT discharge from procedure sedation or Phase 1 until post- sedation evaluation note is complete by procedure /sedation MD Sedation Discharge Instructions to be given to the patient at discharge to home.
--- NOTE | 2018-12-15 13:55 | Pre Anesthesia Assessment ---
Date of Service December 15, 2018 Pre Sedation Assessment Vital Signs Temp Pulse Pulse Resp BP BP BP 12/15/18 11:52 37.0 C 54 L 19 105/69 12/15/18 07:45 37.4 C 57 L 19 106/64 12/15/18 04:45 58 L 96/62 L 12/15/18 03:17 36.8 C 55 L 16 81/55 L 81/55 L 12/14/18 23:40 37.3 C 56 L 20 100/67 12/14/18 23:37 65 12/14/18 23:07 57 L 18 89/55 L 12/14/18 23:02 56 L 16 80/46 L 12/14/18 22:30 61 17 93/54 L 12/14/18 22:02 67 23 91/57 L 12/14/18 21:31 64 23 97/58 L 12/14/18 21:02 61 19 100/63 12/14/18 20:49 61 18 98/59 L 12/14/18 20:14 36.9 C 63 22 102/61 Pulse Ox 12/15/18 11:52 96 12/15/18 07:45 95 12/15/18 04:45 12/15/18 03:17 92 12/14/18 23:40 95 12/14/18 23:37 12/14/18 23:07 96 12/14/18 23:02 95 12/14/18 22:30 97 12/14/18 22:02 95 12/14/18 21:31 98 12/14/18 21:02 99 12/14/18 20:49 97 12/14/18 20:14 95 Cardiovascular RRR, no murmur, no edema Respiratory normal respiratory effort, lungs clear to auscultation Pre-Sedation Airway Assessment Smoking Status: Current every day smoker Hx Sleep Apnea: No Hx Difficult Intubation: No Short, Thick Neck: No Thyromental Distance: < 3.5 Finger Breadths Oral Cavity: + WNL Mallampati Class: III ASA: ASA4 NPO Status Date of Last Intake of Fluids: 12/14/18 Date of Last Intake of Solid Food: 12/14/18 Procedure Planning Contraindications for Sedation: none Current Medications Reviewed: Yes Notes The planned sedation has been discussed with the patient. Informed Consent was obtained. I have identified the patient, determined the appropriateness of sedation and have assessed the patient immediately prior to the procedure. All medicine(s) and interventions are by my order.
--- NOTE | 2018-12-15 14:04 | Cardiac Catheterization ---
Cardiac Cath Procedure Full Procedure Date December 15, 2018 Pre-Procedure Diagnosis Pre-Procedure Diagnosis: Non STEMI AUC Score AUC Score: 8 Post-Procedure Diagnosis Post-Procedure Diagnosis: Severe CAD, Successful PCI and Normal Intracardiac Pressures Procedure(s) Performed Procedure(s) Performed: Coronary Angiography, Left Heart Cath and Drug Eluting Stent Business Consult Osito Valderrama MD Dedenter(s) Lara Estimated Blood Loss Estimated Blood Loss: 15 Medication(s) Medication(s): Clopidogrel, Fentanyl, Heparin, Lidocaine 1%, Nicardipine, Nitroglycerin and Versed Summary of Findings Indication: High risk NSTEMI Access: 6 Fr right radial artery Catheters: [place], EBU 3.75 guide Findings: LM -luminal irregularities LAD -moderate caliber vessel, proximal luminal irregularities, 40-50% diffuse mid segment disease, distal with 20-30% disease as wraps around apex. Circumflex -moderate caliber vessel, 100% acute mid segment occlusion after takeoff of small OM1. Ramusmoderate caliber, luminal irregularities RCA -dominant, moderate caliber vessel, proximal to mid luminal irregularities, 60% distal stenosis. Right PDA without significant disease. Large acute marginal with 60-70% proximal, 90% mid stenosis. LVEDP -16 -- PCI -- Antithrombotic therapy: Heparin, clopidogrel Procedure: Left main cannulated with EBU 3.75 guide Turret Punch Operator 50 wire passed across occlusion into distal PLB Mid circumflex lesion predilated with 2.5 compliant balloon Dilated lesion stented with 2.75 x 18 mm integrity bare-metal stent Stent post-dilated with 2.75 noncompliant balloon IC vasodilators administered for spasm Post procedure ROSA 3 flow, stent well expanded with minimal residual stenosis and no apparent cardiac complications. Arterial Closure: TR band Summary: 1. Multivessel coronary artery disease -100% acute mid circumflex occlusion 40-50% diffuse mid LAD 60% distal RCA. 90% right acute marginal 2. Normal intracardiac filling pressure 3. Successful PCI of mid circumflex with single bare-metal stent (2.75 x 18 mm integrity) Recommendations: To PCU for continued monitoring Reloaded with clopidogrel 300 mg in catholic priest Continue dual-antiplatelet therapy for at least one month, ideally 1 year the setting of [place] Continue statin, and ASCVD risk factor modification Consult cardiac Rehab Hemodynamics Rest Ao:: 66 Final Ao: 108/60/82 LV: 87/16 Recommendations Recommendations: PCI without planned CABG Specimens Specimens: None Radiation Exposure (mGy) 2976 Contrast (mls) 110 Fluids (cc crystalloids) Fluids (cc crystalloids): 110 Drains Drains: None Anesthesia Moderate Procedural Complication(s) None Disposition PCU ACC Data: Clothes Ironer Cardiac Status Clinical evaluation leading to the procedure CAD Presenation: Non STEMI Anginal Classification: CCS IV Heart Failure: No Cardiogenic Shock within 24 Hours: No Cardiac Arrest within 24 Hours: No Imaging Studies Past 6 Months: Yes Stress Studies Past 6 Months: No Diagnostic Physicians Name: Osito Valderrama MD Status: Urgent Closure Device Percutaneous Entry Location: Radial Closure Device: Radial Band Recommendations: PCI without planned CABG PCI Indication: PCI for high risk Non-ELDA Lesion Segment Name: Mid circumflex Culprit Artery: Yes Stenosis Prior to Rx (%): 100 Chronic Total Occlusion: No IVUS: No Pre-Procedure ROSA Flow: 0 Previously Treated Lesion: No Lesion Complexity: Non-High/Non-C Lesion Length (mm): 12 Thrombus Present: Yes Bifurcation Lesion: No Guidewire Across Lesion: Stenosis Post-Procedure (%): 0 Post-Procedure ROSA Flow: 3 Devices(s) Deployed: Yes Yes Intraprocedure Events Significant Disection: No Perforation: No
--- NOTE | 2018-12-15 14:07 | Cardiology Progress Note ---
Date of Service December 15, 2018 Assessment & Plan (1) Elevated troponin: 2. Hyperglycemia/type 2 diabetes 3. Acute kidney injury 4. Cerebrovascular disease with prior TIA 5. Major depressive disorder/PTSD 6. Homelessness 7. Prior tobacco use Patient chest pain-free overnight, hemodynamically electrically stable. Troponin peaked at 15. Echocardiogram shows preserved LV function with subtle inferolateral wall motion abnormality Discussed options for management going forward including continued medical management versus early invasive strategy with cardiac catheterization. We agreed upon proceeding with cardiac cath after discussing risk, benefits, alternatives. Procedure to be completed via right radial artery. Further conditions pending findings. Subjective Patient chest pain-free overnight. No other new concerns this morning. Telemetry reviewno events Review of Systems 10 point review of systems was completed and was otherwise negative unless stated in HPI Physical Exam Vital Signs (Past 24 Hours): Last Vital Signs Temp 37.0 C 12/15/18 11:52 Pulse 54 L 12/15/18 11:52 Resp 19 12/15/18 11:52 BP 105/69 12/15/18 11:52 Pulse Ox 96 12/15/18 11:52 Physical Exam: General: Comfortable, no acute distress Eyes: Sclerae anicteric, Neck: Normal carotid upstrokes, no bruits. No JVD. Lungs: Clear to auscultation bilaterally, no rhonchi or wheezes Cardiac: Regular rate and rhythm, no murmurs, rubs or gallops. Vascular: 2+ radial, DP and PT pulses. No varicosities. Abdomen: Soft, nontender, nondistended, positive bowel sounds. Extremities: Well perfused, no peripheral edema Skin: No rashes or lesions. Neuro: Nonfocal Psych: Alert orient x3, normal affect and mood
[2018-12-15] MEDS ORDERED: SODIUM CHLORIDE 0.9% 1000ML 1,000 ML IV SCH (14:15)
--- NOTE | 2018-12-15 15:44 | Hospitalist Progress Note ---
Date of Service December 15, 2018 Assessment & Plan (1) Acute coronary syndrome: (2) Elevated troponin: Present on admission with back pain and abdominal pain Troponin on [address] changes on admission Cardiology on board S/P cardiac cath done today with multivessel coronary artery disease. 100% acute mid circumflex occlusion. 40-50% diffuse mid LAD. 60% distal RCA. 90% right acute marginal Successful PCI of mid circumflex with single bare-metal stent (2.75 x 18 mm integrity) Continue dual-antiplatelet therapy with plavix and aspirin for at least one month, ideally 1 year the setting of [place] Continue statin and metoprolol Will need cardiac Rehab Continue monitor in tele Check troponin in am (3) Diabetes mellitus, type 2: Uncontrolled DM Hba1c 10.2 On insulin sliding scale with novolog and lantus Diabetic education Continue monitor BS closely (4) Cerebrovascular disease: Stable (5) PTSD (post-traumatic stress disorder): (6) Mood disorder: (7) Major depressive disorder, recurrent: Continue paroxetine and Risperdal. Stable Cough CXR showed no infiltrate WBC elevates Doubt about infectious etiology On IV rocephin and Doxy Will consider to de escalate or d/c abx in am if procalcitonin normal DVT px was on heparin drip CODE STATUS FULL CODE Disposition Monitor in tele Subjective Pt was seen and examined Lying in bd with no distress eating Pt said that he feels fine Denies any chest pain, palpitation, dizziness and SOB Physical Exam Vital Signs (Past 24 Hours): Last Vital Signs Temp 37.1 C 12/15/18 14:08 Pulse 61 12/15/18 14:53 Resp 16 12/15/18 14:53 BP 127/72 12/15/18 14:53 Pulse Ox 95 12/15/18 14:53 Physical Exam: General- No acute distress Head- atraumatic Eyes- PERRL, EOMI, ENT- oropharynx clear Neck- supple, no JVD Lungs- clear to auscultation Heart- regular rhythm; no murmur Abdomen- normal bowel sounds, soft, nontender Extremities- no calf tenderness, no hematoma in right radial wrist Neuro- alert, oriented, PERRL, EOMI; no facial palsy; no dysarthria Skin- warm & dry (1) Diabetes mellitus, type 2 Diabetes mellitus complication status: with unspecified complications Diabetes mellitus extermination supervisor insulin use: unspecified extermination supervisor insulin use status Qualified Code(s): E11.8 - Type 2 diabetes mellitus with unspecified complications
[2018-12-16] MEDS: INSULIN ASPART 100 UNITS/ML 3 ML PEN SC SCH ×3 (00:15→08:01)
[2018-12-16 06:26] LABS: Partial Thromboplastin Time 27.6 Seconds (21.0-31.0)
[2018-12-16 06:48] LABS: BUN Creatinine Ratio 15.7 (10-20); Calcium 7.9 mg/dl (8.5-10.1); Est GFR (African American) 123.6; Est GFR (Non-African American) 106.7; Potassium 3.8 mmol/L (3.5-5.1)
[2018-12-16] MEDS: METOPROLOL TARTRATE 25 MG TAB PO SCH (07:58)
[2018-12-16] MEDS: ASPIRIN 81 MG ECTAB PO SCH (07:58)
[2018-12-16] MEDS: DOXYCYCLINE HYCLATE 100 MG CAP PO SCH (07:58)
[2018-12-16] MEDS: levETIRAcetam 500 MG TAB PO SCH (07:59)
[2018-12-16] MEDS: CLOPIDOGREL BISULFATE 75 MG TAB PO SCH (07:59)
[2018-12-16] MEDS: PARoxetine HCl 20 MG TAB PO SCH (07:59)
[2018-12-16] MEDS: ATORVASTATIN 40 MG TAB PO SCH (07:59)
[2018-12-16] MEDS: LISINOPRIL 10 MG TAB PO SCH (07:59)
[2018-12-16] MEDS ORDERED: INSULIN GLARGINE SOLOSTAR 100 UNITS/ML 3 ML PEN SC SCH (09:00)
[2018-12-16] MEDS: risperiDONE 1 MG TABLET PO SCH (09:01)
[2018-12-16] MEDS ORDERED: INSULIN ASPART 100 UNITS/ML 3 ML PEN SC SCH (11:30)
--- NOTE | 2018-12-16 11:34 | Pharmacy Report ---
Pharmacy Glycemic Short Note 2 - Date of Service December 16, 2018 - Glycemic Short BSG Results (Last 24 hours): 12/15/18 12/15/18 12/15/18 11:18 16:16 20:07 Glucose POC Glucose 200 H 163 H 238 H 12/16/18 12/16/18 12/16/18 00:07 04:14 05:41 Glucose 117 H POC Glucose 207 H 148 H 12/16/18 07:58 Glucose POC Glucose 124 H OUTPATIENT ANTIDIABETIC REGIMEN: * Lantus 40 units SQ daily * Metformin 1 gm BID ASSESSMENT: * Patient received total of 63 units of insulin yesterday:- 35 units were basal insulin and 28 units were prandial/correctional insulin. * AM Fasting BSG = 117. Will continue with same dose of Lantus, all of it to be given in the AM to match patient's home regimen. * Patient was NPO yesterday during the day but changed to a diet at dinner. Due to this bedtime and overnight BSGs were elevated. * For this reason, Carb ratio was tightened to 6 with lunch today. * Novolog coverage/ BSG checks was changed from q4h to ACHS this AM since we have a better idea of patient's insulin needs now. PLAN FOR INPATIENT GLYCEMIC CONTROL: * Holding outpatient oral diabetes medications (Metformin). * Basal insulin: continue same * Lantus 35 units SQ this AM * Bolus insulin: tightened CR * NovoLog per scale ACHS or Q6hrs while NPO * Goal Range: Low 120 mg/dL - High 160 mg/dL * Correction Factor: 20 mg/dL/unit * Nutritional / Prandial insulin per carb ratio of 1 unit per 6 grams CHO consumed PLAN FOR DISCHARGE: * HbA1c = 10.2% from 12/15/18 * Per CDE note, patient was not using any insulin for several months d/t inability to afford, but is now interested in using insulin and checking BSGs. * Would recommend patient continue to use Lantus at home and resume his previously ordered Metformin BID. Would follow up with outpatient provider to optimize insulin dosing.
[2018-12-16 12:16] VITALS: BP 120/65; PULSE 71; TEMP 98.2; O2SAT 99
--- NOTE | 2018-12-16 12:52 | Hospitalist Progress Note ---
Date of Service December 16, 2018 Assessment & Plan (1) Acute coronary syndrome: (2) Elevated troponin: Present on admission with back pain and abdominal pain Troponin [address] changes on admission Troponin dropped to 12 Cardiology on board S/P cardiac cath done today with multivessel coronary artery disease. 100% acute mid circumflex occlusion. 40-50% diffuse mid LAD. 60% distal RCA. 90% right acute marginal Successful PCI of mid circumflex with single bare-metal stent (2.75 x 18 mm int egrity) Continue dual-antiplatelet therapy with plavix and aspirin for at least one month, ideally 1 year the setting of [place] Continue statin and metoprolol Will need cardiac Rehab on discharge Case discussed with cardiology and [place] from cardiac standpoint to discharge home Follow up with [place] cardiology in 2 weeks (Office will arrange for the f/u appt) (3) Diabetes mellitus, type 2: Uncontrolled DM Hba1c 10.2 On insulin sliding scale with novolog and lantus Diabetic education Continue monitor BS closely Check Hba1c in 4 months (4) Cerebrovascular disease: Stable (5) PTSD (post-traumatic stress disorder): (6) Mood disorder: (7) Major depressive disorder, recurrent: Continue paroxetine and Risperdal. Stable Cough CXR showed no infiltrate WBC elevates Doubt about infectious etiology On IV rocephin and Doxy Will consider to de escalate or d/c abx in am if procalcitonin normal DVT px was on heparin drip CODE STATUS FULL CODE Disposition Follow up with your primary care provider Dr. Alejandra on 12/21 @ 1:05 PM Follow with [facility] Cardiology in 2 weeks Cardiac rehab referral Subjective Pt was seen and examined Lying in bed with no distress eating lunch Pt said that he slept well last night He denies any chest pain, palpitation, dizziness and SOB Physical Exam Vital Signs (Past 24 Hours): Last Vital Signs Temp 36.8 C 12/16/18 11:44 Pulse 71 12/16/18 11:44 Resp 18 12/16/18 11:44 BP 120/65 12/16/18 11:44 Pulse Ox 99 12/16/18 11:44 Physical Exam: General- No acute distress Head- atraumatic Eyes- PERRL, EOMI, ENT- oropharynx clear Neck- supple, no JVD Lungs- clear to auscultation Heart- regular rhythm; no murmur Abdomen- normal bowel sounds, soft, nontender Extremities- no calf tenderness, no hematoma in right radial wrist Neuro- alert, oriented, PERRL, EOMI; no facial palsy; no dysarthria Skin- warm & dry (1) Diabetes mellitus, type 2 Diabetes mellitus complication status: with unspecified complications Diabetes mellitus manager intermediate insulin use: unspecified snf insulin use status Qualified Code(s): E11.8 - Type 2 diabetes mellitus with unspecified complications
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
== END 2018-12-16 16:25 | disposition home or self-care (01) | DRG 248 ==
LOC: ED 20:07 → 2S 22:22

== ENCOUNTER 2018-12-31 17:03 | Inpatient (IN) ==
[2018-12-31] MEDS ORDERED: NITROGLYCERIN 2% OINTMENT 30GM TUBE EXT STA (17:46)
--- NOTE | 2018-12-31 18:04 | XRay Report ---
SINGLE VIEW CHEST CLINICAL HISTORY: Atypical chest pain. FINDINGS: An AP, portable, upright chest radiograph is compared to study dated 12/18/2018. The examina tion is degraded by portable technique and patient rotation. The heart is enlarged. The pulmonary va sculature is noncongested. There is left basilar atelectasis. No airspace consolidation or large pleu ral effusion is identified. No pneumothorax is seen. The skeletal structures are osteopenic. The bon y thorax is grossly intact. IMPRESSION: Cardiomegaly with no acute cardiopulmonary abnormality. Electronically signed by: Blas Maurer M.D. 12/31/2018 6:02 PM
--- NOTE | 2018-12-31 18:05 | Emergency Department Note ---
Entered by Jessica Leon acting as a scribe for History of Present Illness General Chief complaint: Chest Pain Stated complaint: chest pain Time Seen by Provider: 12/31/18 17:38 Source: patient Mode of arrival: EMS Limitations: no limitations History of Present Illness Provider complaint: Chest pain Onset (ago): hour(s) (a few hours ago) Location: chest and left Radiation: non-radiation Pain Consistency: + other (worsening) Maximum Pain Intensity: 8 Current Pain Intensity: 8 Quality: + other (pain, tightness) Relieved By: + medication Associated symptoms: + other (Additional symptoms: shallow breathing); no diaphoresis and no nausea/vomiting Treatments prior to arrival: aspirin (4 baby aspirin) and other (2 nitroglycerin) The patient is a 58 year old male with a history of an OR, pneumonia, diabetes, hypertension, and TIA who presents to the Emergency Room with complaints of worsening left-sided chest pain starting a few hours ago. The patient describes his pain as a tightness that, at its worst, was an 8/10. He states that his pain came on suddenly while he was sitting down and that he did not experience any chest symptoms prior to today. He adds that his pain has been accompanied by shallow breathing but no diaphoresis and nausea. The patient reports that he was administered 2 nitroglycerin and 4 baby aspirin on the ambulance, which somewhat alleviated his symptoms. He states that his PCP is Dr. Ramos and that he is scheduled to see a helicopter utility aircrewman in the near future. Per the patient's medical records, the patient was diagnosed with an OR and had a stent placed by Dr. Valderrama on December 14. The patient was back in the ER on December 18, he was diagnosed with pneumonia and put on Levaquin, which he has now finished taking. Home Medications Home Medications Medication Instructions Recorded Confirmed Type atorvastatin 80 mg PO DAILY 07/08/18 12/31/18 History clopidogrel [Plavix] 75 mg PO DAILY 07/08/18 12/31/18 History metformin 1,000 mg PO BID 07/08/18 12/31/18 History metoprolol tartrate 25 mg PO BID 07/08/18 12/31/18 History paroxetine HCl [Paxil] 40 mg PO QAM 07/08/18 12/31/18 History Basaglar KwikPen U-100 Insulin 40 units SQ DAILY #30 ml 11/28/18 12/31/18 Rx levetiracetam [Keppra] 500 mg PO BID #14 tab 11/28/18 12/31/18 Rx risperidone [Risperdal] 1 mg PO BID 11/28/18 12/31/18 History aspirin 81 mg PO DAILY 30 Days #30 tab 12/16/18 12/31/18 Rx lisinopril 10 mg PO DAILY 12/18/18 12/31/18 History Allergies Allergy/AdvReac Type Severity Reaction Status Date / Time bee venom protein (honey bee) Allergy Unknown . Verified 12/31/18 17:52 Past Med/Surg History Medical History Myocardial infarction Pneumonia (Acute) TIA (transient ischemic attack) Depression (Chronic) Hypertension (Chronic) Diabetes mellitus, type 2 (Chronic) Cerebrovascular disease (Chronic) Dyslipidemia (Chronic) Carotid artery disease (Chronic) "complete occlusion right ICA first noted 11/17/14" Seizure disorder (Chronic) Mood disorder (Chronic) Major depressive disorder, recurrent PTSD (post-traumatic stress disorder) Surgical History S/P coronary artery stent placement Status post tonsillectomy (Chronic) Family History Other Family history non-contributory Social History Preferred Language: Irish Beliefs That Will Affect Care: None marital status: Current Living Situation: Homeless current occupational status: unemployed Feels Safe at Home: Yes Smoking Status: Current every day smoker Hx Alcohol Use: No Hx Substance Use: No Review of Systems See HPI for pertinent positives & negatives. and A total of 10 systems reviewed and were otherwise negative Physical Exam Vital Signs Vital Signs - 24 hr 12/31/18 17:15 12/31/18 18:33 12/31/18 18:49 Temperature 37 C Temperature Source Oral Sepsis Recent Fever Within 48 Hours No Sepsis New/Unexplained Change in Mental Status No Sepsis Action Taken by Nursing No Action Required Pulse Rate 67 Pulse Rate [Left Finger] 68 65 Pulse Rate from SpO2 Sensor Respiratory Rate 18 18 Respiratory Effort / Characteristics Non-Labored Spontaneous Non-Labored Respiratory Depth Normal Normal Respiratory Pattern Regular Regular Blood Pressure 109/68 Blood Pressure [Right Arm] 110/85 114/66 Blood Pressure Mean 81 Blood Pressure Mean [Right Arm] 93 82 Blood Pressure Position Sitting Pulse Oximetry 95 98 Oxygen Delivery Method Room Air Room Air 12/31/18 19:10 12/31/18 19:16 12/31/18 19:20 Temperature Temperature Source Sepsis Recent Fever Within 48 Hours Sepsis New/Unexplained Change in Mental Status Sepsis Action Taken by Nursing Pulse Rate 73 70 70 Pulse Rate [Left Finger] Pulse Rate from SpO2 Sensor 73 70 71 Respiratory Rate 16 19 17 Respiratory Effort / Characteristics Respiratory Depth Respiratory Pattern Blood Pressure 127/89 Blood Pressure [Right Arm] Blood Pressure Mean 101 Blood Pressure Mean [Right Arm] Blood Pressure Position Pulse Oximetry 99 96 95 Oxygen Delivery Method 12/31/18 19:48 12/31/18 20:23 12/31/18 21:49 Temperature Temperature Source Sepsis Recent Fever Within 48 Hours Sepsis New/Unexplained Change in Mental Status Sepsis Action Taken by Nursing Pulse Rate 68 Pulse Rate [Left Finger] 71 68 Pulse Rate from SpO2 Sensor Respiratory Rate 21 18 16 Respiratory Effort / Characteristics Non-Labored Non-Labored Respiratory Depth Normal Normal Respiratory Pattern Regular Regular Blood Pressure 103/64 Blood Pressure [Right Arm] 117/66 101/61 Blood Pressure Mean Blood Pressure Mean [Right Arm] 83 74 Blood Pressure Position Pulse Oximetry 97 95 96 Oxygen Delivery Method Room Air Room Air Room Air GENERAL: Patient is in no acute distress. HEENT: No acute trauma, normocephalic atraumatic, mucous membranes moist, no nasal congestion, no scleral icterus. NECK: No stridor, no adenopathy, no meningismus, trachea is midline. LUNGS: Clear to auscultation bilaterally, no wheeze, no rhonchi, breath sounds equal. HEART: Without murmurs gallops or rubs, regular rate and rhythm. ABDOMEN: Soft, nontender, bowel sounds positive, no hernias, no peritonitis. EXTREMITIES: No cyanosis, full range of motion of all the joints without pain or difficulty, no signs for acute trauma, moderate bilateral pedal edema. NEUROLOGIC: Oriented x 3, no acute motor or sensory deficits, no focal weakness. SKIN: No rash, no jaundice, no diaphoresis. Course 1741: The patient was evaluated in room B5. A complete history and physical exam was performed. 1911: I checked on the patient and updated him on his results and treatment plan. The patient appeared comfortable. 1914: I reviewed the patient's case with Dr. Reynolds - Pipo Machado. Dr. Reynolds will evaluate the patient for further management. Consultations Consultation #1: I reviewed the patient's case with Dr. Reynolds - Pipo Machado. Dr. Reynolds will evaluate the patient for further management. Time: 19:15 Administered Medications Discontinued Medications Heparin Sodium/Dextrose (Heparin Sodium/Dextrose) Confirm Administered Dose 25,000 units IV .STK-MED ONE Stop: 12/31/18 20:58 Last Admin: 12/31/18 21:01 Dose: 1,600 units Documented by: [id number] Cosigned by: [id number] Nitroglycerin (Nitro-Bid 2%) 1 inch EXT NOW STA Stop: 12/31/18 17:47 Last Admin: 12/31/18 18:50 Dose: 1 inch Documented by: [id number] Medical Decision Making Differential Diagnosis Differential diagnosis includes: angina, OR, pneumonia, pneumothorax, anemia, aortic dissection, PE, musculoskeletal pain. Medical Records Attestation: I reviewed the patient's medical records. Home Medications Current Medication List: was personally reviewed by me Laboratory Data Attestation: I reviewed the patient's lab results. Result diagrams: 12/31/18 18:20 12/31/18 18:20 Lab Results 12/31/18 12/31/18 12/31/18 Range/Units 18:20 18:20 18:20 WBC 10.42 (4.8-10.8) K/uL RBC 3.76 L (4.7-6.1) M/uL Hgb 10.9 L (14.0-18.0) g/dL Hct 32.6 L (42-52) % MCV 86.7 (80-100) fL MCH 29.0 (25-34) pg MCHC 33.4 (32-36) g/dL RDW Std Deviation 42.1 (36.4-46.3) fL RDW Coeff of Kimmy 13.2 (11.5-14.5) % Plt Count 444 H (130-400) K/uL MPV 9.4 (7.4-10.4) fL Immature Gran % (Auto) 1.1 % Neut % (Auto) 62.8 % Lymph % (Auto) 22.6 % Harmon % (Auto) 10.2 % Eos % (Auto) 3.0 % Baso % (Auto) 0.3 % Immature Gran # (Auto) 0.11 H (0.00-0.02) K/uL Neut # (Auto) 6.55 H (1.4-6.5) K/uL Lymph # (Auto) 2.36 (1.2-3.4) K/uL Harmon # (Auto) 1.06 H (0.11-0.59) K/uL Eos # (Auto) 0.31 (0-0.5) K/uL Baso # (Auto) 0.03 (0-0.2) K/uL PT 11.5 (9.0-12.0) Seconds INR 1.1 (0.9-1.1) APTT 26.8 (21.0-31.0) Seconds PTT Ratio 1.0 Sodium 139 (136-145) mmol/L Potassium 3.8 (3.5-5.1) mmol/L Chloride 107 (98-107) mmol/L Carbon Dioxide 27 (21-32) mmol/L Anion Gap 5.0 (3-11) BUN 11 (7-18) mg/dl Creatinine 0.64 (0.6-1.4) mg/dl Est Cr Clr Drug Dosing 159.0 ml/min Est GFR ( Amer) 126.0 Est GFR (Non-Af Amer) 108.7 BUN/Creatinine Ratio 17.4 (10-20) Glucose 81 (70-99) mg/dl Calcium 9.0 (8.5-10.1) mg/dl Magnesium 1.9 (1.8-2.4) mg/dl Total Bilirubin 0.1 L (0.2-1) mg/dl AST 11 L (15-37) U/L ALT 13 (12-78) U/L Alkaline Phosphatase 145 H (45-117) U/L Troponin I 0.594 H* (0-0.045) ng/ml Total Protein 6.6 (6.4-8.2) gm/dl Albumin 2.5 L (3.4-5.0) gm/dl Globulin 4.1 H (2.5-4.0) gm/dl Albumin/Globulin Ratio 0.6 L (0.9-2) Lipase 101 (73-393) U/L Imaging Data Radiologist's Impression: Radiology results as stated below per my review and the radiologist's interpretation: SINGLE VIEW CHEST CLINICAL HISTORY: Atypical chest pain. FINDINGS: An AP, portable, upright chest radiograph is compared to study dated 12/18/2018. The examination is degraded by portable technique and patient rotation. The heart is enlarged. The pulmonary vasculature is noncongested. There is left basilar atelectasis. No airspace consolidation or large pleural effusion is identified. No pneumothorax is seen. The skeletal structures are osteopenic. The bony thorax is grossly intact. IMPRESSION: Cardiomegaly with no acute cardiopulmonary abnormality. Electronically signed by: Blas Maurer M.D. 12/31/2018 6:02 PM ECG Data Attestation: I personally reviewed and interpreted this ECG as follows: Indication: chest pain Rate (beats per minute): 66 Rhythm: normal sinus Findings: no PVC and no ST elevation Blood Pressure Blood Pressure Findings: Normal blood pressure MDM Narrative There is no leukocytosis. The patient is anemic today's value is similar to her recent testing. Platelet count was 444. There was no coagulopathy. No significant electrolyte abnormality or kidney failure. Alk phos was slightly elevated. Lipase was normal. EKG showed a normal sinus rhythm, no acute ischemia. Cardiac troponin was somewhat elevated at 0.59. This could be consistent with cardiac injury or strain. During his last hospitalization, his troponin was higher than today's value. Chest x-ray does not show mediastinal widening, pneumonia or pneumothorax. The patient was given Nitropaste. No further aspirin was given as he had received aspirin prior to arrival. He is currently resting comfortably. Patient presents with chest pain and left arm discomfort. He was somewhat short of breath. He recently underwent cardiac stenting for an OR. Looking at his recent cardiac catheterization results, he does have three-vessel coronary disease. The patient requires a hospital stay and further cardiac work-up. I did speak to the patient and case picker. The on-call hospitalist was consulted. Impression & Plan Precordial chest pain, Elevated troponin, Recent myocardial infarction Discharge Plan Visit Data *Final* Discharge Date/Time: 12/31/18 21:49 Chief Complaint: Chest Pain Stated Complaint: chest pain ED Provider: Blas Darby Discharge Problem: Precordial chest pain, Elevated troponin, Recent myocardial infarction Patient Disposition: Admitted As Inpatient Discharge Instructions Interventions: ED Discharge Assessment Last Done: 12/31/18 21:49 The scribe's documentation has been prepared under my direction and personally reviewed by me in its entirety. I confirm that the note above accurately reflects all work, treatment, procedures, and medical decision making performed by me.
[2018-12-31 18:36] LABS: Basophils # (auto) 0.03 K/uL (0-0.2); Basophils % (auto) 0.3 %; Eosinophils # (auto) 0.31 K/uL (0-0.5); Hematocrit (blood only) 32.6 % (42-52); Hemoglobin 10.9 g/dL (14.0-18.0); Immature Granulocytes # (auto) 0.11 K/uL (0.00-0.02); Immature Granulocytes % (auto) 1.1 %; Lymphocytes # (auto) 2.36 K/uL (1.2-3.4); Lymphocytes % (auto) 22.6 %; Mean Corpuscular Hgb Conc 33.4 g/dL (32-36); Mean Corpuscular Volume 86.7 fL (80-100); Mean Platelet Volume 9.4 fL (7.4-10.4); Monocytes # (auto) 1.06 K/uL (0.11-0.59); Monocytes % (auto) 10.2 %; Neutrophils # (auto) 6.55 K/uL (1.4-6.5); Neutrophils % (auto) 62.8 %; Platelet Count 444 K/uL (130-400); RDW Coefficient of Variation 13.2 % (11.5-14.5); RDW Standard Deviation 42.1 fL (36.4-46.3); Red Blood Count 3.76 M/uL (4.7-6.1); White Blood Count 10.42 K/uL (4.8-10.8)
[2018-12-31 18:47] LABS: INR 1.1 (0.9-1.1); Partial Thromboplastin Time 26.8 Seconds (21.0-31.0); Prothrombin Time 11.5 Seconds (9.0-12.0)
[2018-12-31 18:56] LABS: Albumin Level 2.5 gm/dl (3.4-5.0); BUN Creatinine Ratio 17.4 (10-20); Est GFR (Non-African American) 108.7; Magnesium 1.9 mg/dl (1.8-2.4); Potassium 3.8 mmol/L (3.5-5.1)
[2018-12-31 19:08] LABS: Albumin Globulin Ratio 0.6 (0.9-2); Bilirubin,Total 0.1 mg/dl (0.2-1); Globulin 4.1 gm/dl (2.5-4.0); Total Protein 6.6 gm/dl (6.4-8.2); Troponin I 0.594 ng/ml (0-0.045)
--- NOTE | 2018-12-31 20:10 | History & Physical Report ---
Date of Service December 31, 2018 Assessment & Plan (1) Acute coronary syndrome: hx CAD status post recent PCI hypertension, stable hyperlipidemia on statin Rx history CVA as per records DM 2 insulin requiring, suboptimal control as of recent inpatient hemoglobin A1c of 10.2 last month ongoing tobacco abuse mood disorder, at baseline seizure disorder, stable on Keppra regimen Anemia, hemoglobin of 10 is patient's new baseline since last month PCU Continue antiplatelet regimen, beta-anupam, statin meds, nitro as needed IV heparin Follow cardiac markers; TTE if with progressive troponin elevation Cardiology consult in a.m. RE ACS Basal insulin, ISS BG goal 140-180, carb count coverage Anemia workup nicotine patch as needed DVT prophylaxis. Heparin Full code History of Present Illness Chief Complaint: Chest pain Primary Care Provider: Nilay Ramos DO History obtained from patient and records. Medical history significant for CAD status post stent, hypertension hyperlipidemia, history CVA, DM 2 insulin requiring, ongoing tobacco abuse, mood disorder, history PTSD, seizure disorder. Recent confinement last month for ACS. Multivessel CAD found on diagnostic cardiac catheterization. PCI of mid circumflex vessel done. Patient seen at the ER a few days later for pneumonia. Subsequent improvement on outpatient antibiotic course. Today patient noted sudden onset left-sided chest tightness, nonpleuritic, accompanied by shallow breathing. Patient had subsequent relief with aspirin and nitroglycerin given by EMS. Patient compliant with home antiplatelet Rx. Family History : Heart disease, diabetes, psychiatric disorder Personal/Social history : Pack daily, no EtOH intake, unemployed, currently [facility] resident Allergies Allergy/AdvReac Type Severity Reaction Status Date / Time bee venom protein (honey bee) Allergy Unknown . Verified 12/31/18 17:52 Home Medications Home Medications Medication Instructions Recorded Confirmed Type atorvastatin 80 mg PO DAILY 07/08/18 12/31/18 History clopidogrel [Plavix] 75 mg PO DAILY 07/08/18 12/31/18 History metformin 1,000 mg PO BID 07/08/18 12/31/18 History metoprolol tartrate 25 mg PO BID 07/08/18 12/31/18 History paroxetine HCl [Paxil] 40 mg PO QAM 07/08/18 12/31/18 History Basaglar KwikPen U-100 Insulin 40 units SQ DAILY #30 ml 11/28/18 12/31/18 Rx levetiracetam [Keppra] 500 mg PO BID #14 tab 11/28/18 12/31/18 Rx risperidone [Risperdal] 1 mg PO BID 11/28/18 12/31/18 History aspirin 81 mg PO DAILY 30 Days #30 tab 12/16/18 12/31/18 Rx lisinopril 10 mg PO DAILY 12/18/18 12/31/18 History Past Med/Surg History Medical History Myocardial infarction Pneumonia (Acute) TIA (transient ischemic attack) Depression (Chronic) Hypertension (Chronic) Diabetes mellitus, type 2 (Chronic) Cerebrovascular disease (Chronic) Dyslipidemia (Chronic) Carotid artery disease (Chronic) "complete occlusion right ICA first noted 11/17/14" Seizure disorder (Chronic) Mood disorder (Chronic) Major depressive disorder, recurrent PTSD (post-traumatic stress disorder) Surgical History S/P coronary artery stent placement Status post tonsillectomy (Chronic) Family History Other Family history non-contributory Social History Preferred Language: Gambian Communication Ability: Effective Research Consultant Required: No Beliefs That Will Affect Care: None marital status: Current Living Situation: Homeless current occupational status: unemployed Other Information That Helps Us Care for You: No Feels Safe at Home: Declines to Answer Smoking Status: Current some day smoker Hx Alcohol Use: No Hx Substance Use: No Review of Systems As per HPI, all 10 systems reviewed, all other ROS negative Physical Exam Vital Signs (Past 24 Hours): Last Vital Signs Temp 37 C 12/31/18 17:15 Pulse 71 12/31/18 19:48 Resp 21 12/31/18 19:48 BP 117/66 12/31/18 19:48 Pulse Ox 97 12/31/18 19:48 Physical Exam: GENERAL: Comfortable, slightly anxious, no respiratory distress SKIN: Pallor, warm HEENT: pale palpebral conjunctivae, no ptosis, dry buccal mucosa NECK : Supple, no tenderness CHEST : CTA, no tenderness HEART : RRR, no obvious murmurs ABDOMEN: Some distention, nontender EXTREMITIES : No LE swelling/tenderness, no other conspicuous deformities noted NEUROLOGIC : Coherent, no facial asymmetry, no other gross focality Results & Data Laboratory Results Laboratory Results WBC 10.42 K/uL (4.8-10.8) 12/31/18 18:20 RBC 3.76 M/uL (4.7-6.1) L 12/31/18 18:20 Hgb 10.9 g/dL (14.0-18.0) L 12/31/18 18:20 Hct 32.6 % (42-52) L 12/31/18 18:20 MCV 86.7 fL (80-100) 12/31/18 18:20 MCH 29.0 pg (25-34) 12/31/18 18:20 MCHC 33.4 g/dL (32-36) 12/31/18 18:20 RDW Std Deviation 42.1 fL (36.4-46.3) 12/31/18 18:20 RDW Coeff of Kimmy 13.2 % (11.5-14.5) 12/31/18 18:20 Plt Count 444 K/uL (130-400) H 12/31/18 18:20 MPV 9.4 fL (7.4-10.4) 12/31/18 18:20 Immature Gran % (Auto) 1.1 % 12/31/18 18:20 Neut % (Auto) 62.8 % 12/31/18 18:20 Lymph % (Auto) 22.6 % 12/31/18 18:20 Hall % (Auto) 10.2 % 12/31/18 18:20 Eos % (Auto) 3.0 % 12/31/18 18:20 Baso % (Auto) 0.3 % 12/31/18 18:20 Immature Gran # (Auto) 0.11 K/uL (0.00-0.02) H 12/31/18 18:20 Neut # (Auto) 6.55 K/uL (1.4-6.5) H 12/31/18 18:20 Lymph # (Auto) 2.36 K/uL (1.2-3.4) 12/31/18 18:20 Hall # (Auto) 1.06 K/uL (0.11-0.59) H 12/31/18 18:20 Eos # (Auto) 0.31 K/uL (0-0.5) 12/31/18 18:20 Baso # (Auto) 0.03 K/uL (0-0.2) 12/31/18 18:20 PT 11.5 Seconds (9.0-12.0) 12/31/18 18:20 INR 1.1 (0.9-1.1) 12/31/18 18:20 APTT 26.8 Seconds (21.0-31.0) 12/31/18 18:20 PTT Ratio 1.0 12/31/18 18:20 Sodium 139 mmol/L (136-145) 12/31/18 18:20 Potassium 3.8 mmol/L (3.5-5.1) 12/31/18 18:20 Chloride 107 mmol/L (98-107) 12/31/18 18:20 Carbon Dioxide 27 mmol/L (21-32) 12/31/18 18:20 Anion Gap 5.0 (3-11) 12/31/18 18:20 BUN 11 mg/dl (7-18) 12/31/18 18:20 Creatinine 0.64 mg/dl (0.6-1.4) 12/31/18 18:20 Est Cr Clr Drug Dosing 159.0 ml/min 12/31/18 18:20 Est GFR ( Amer) 126.0 12/31/18 18:20 Est GFR (Non-Af Amer) 108.7 12/31/18 18:20 BUN/Creatinine Ratio 17.4 (10-20) 12/31/18 18:20 Glucose 81 mg/dl (70-99) 12/31/18 18:20 Calcium 9.0 mg/dl (8.5-10.1) 12/31/18 18:20 Magnesium 1.9 mg/dl (1.8-2.4) 12/31/18 18:20 Total Bilirubin 0.1 mg/dl (0.2-1) L 12/31/18 18:20 AST 11 U/L (15-37) L 12/31/18 18:20 ALT 13 U/L (12-78) 12/31/18 18:20 Alkaline Phosphatase 145 U/L (45-117) H 12/31/18 18:20 Troponin I 0.594 ng/ml (0-0.045) H* 12/31/18 18:20 Total Protein 6.6 gm/dl (6.4-8.2) 12/31/18 18:20 Albumin 2.5 gm/dl (3.4-5.0) L 12/31/18 18:20 Globulin 4.1 gm/dl (2.5-4.0) H 12/31/18 18:20 Albumin/Globulin Ratio 0.6 (0.9-2) L 12/31/18 18:20 Lipase 101 U/L (73-393) 12/31/18 18:20 Diagnostic Findings Chest x-ray showed cardiomegaly EKG as per my interpretation : Rate 65, NSR, LAD, LAFB, incomplete RBBB, T wave flattening lateral leads
[2018-12-31] MEDS ORDERED: GLUCOSE 40% GEL 15 GM TUBE PO PRN (20:21)
[2018-12-31] MEDS ORDERED: DEXTROSE 50% 50 ML SYRINGE IV PRN (20:21)
[2018-12-31] MEDS ORDERED: CARBOHYDRATES FOR HYPOGLYCEMIA PO PRN (20:21)
[2018-12-31] MEDS ORDERED: GLUCOSE 10 TABS/TUBE PO PRN (20:21)
[2018-12-31] MEDS ORDERED: GLUCAGON FOR INJ 1 MG VIAL SQ PRN (20:21)
[2018-12-31] MEDS ORDERED: NITROGLYCERIN SL 0.4 MG/TAB TAB SL PRN (20:21)
[2018-12-31] MEDS ORDERED: ACETAMINOPHEN 325 MG TAB PO PRN (20:21)
[2018-12-31] MEDS ORDERED: LORazepam 0.5 MG/1 ML VIAL IV PRN (20:23)
[2018-12-31] MEDS ORDERED: PROCHLORPERAZINE 5 MG in SYRINGE 4 ML IV PRN (20:23)
[2018-12-31] MEDS ORDERED: MoRPHine SULFATE 4 MG/ML 1 ML CARP\\VIAL IV PRN (20:23)
[2018-12-31] MEDS ORDERED: OXYCODONE HCL IR 5 MG TAB (IMMEDIATE RELEASE) PO PRN (20:23)
[2018-12-31] MEDS ORDERED: Heparin IV Standard *NO* Bolus IV SCH (20:30)
[2018-12-31] MEDS ORDERED: HEPARIN 25000 UNIT/500 ML D5W IV ONE (20:57)
[2018-12-31] MEDS ORDERED: NSS + 20MEQ KCL 20 MEQ/1,000 ML BAG IV ONE (22:00)
[2018-12-31] MEDS: Heparin Adult STANDARD Wt-Based Dextrose 5% 25,000 units/500 mL IV SCH (22:54)
[2019-01-01] MEDS: levETIRAcetam 500 MG TAB PO SCH ×3 (00:16→21:30)
[2019-01-01] MEDS: METOPROLOL TARTRATE 25 MG TAB PO SCH ×3 (00:18→21:31)
[2019-01-01] MEDS: risperiDONE 1 MG TABLET PO SCH ×3 (00:18→21:31)
[2019-01-01] MEDS: INSULIN ASPART 100 UNITS/ML 3 ML PEN SC SCH ×5 (01:04→21:32)
[2019-01-01 06:07] LABS: Basophils # (auto) 0.05 K/uL (0-0.2); Basophils % (auto) 0.5 %; Eosinophils # (auto) 0.32 K/uL (0-0.5); Eosinophils % (auto) 3.2 %; Hematocrit (blood only) 33.4 % (42-52); Hemoglobin 11.1 g/dL (14.0-18.0); Immature Granulocytes # (auto) 0.08 K/uL (0.00-0.02); Immature Granulocytes % (auto) 0.8 %; Lymphocytes # (auto) 2.88 K/uL (1.2-3.4); Lymphocytes % (auto) 29.2 %; Mean Corpuscular Hgb Conc 33.2 g/dL (32-36); Mean Corpuscular Volume 88.4 fL (80-100); Mean Platelet Volume 9.8 fL (7.4-10.4); Monocytes # (auto) 1.02 K/uL (0.11-0.59); Monocytes % (auto) 10.3 %; Neutrophils # (auto) 5.51 K/uL (1.4-6.5); Platelet Count 454 K/uL (130-400); RDW Coefficient of Variation 13.2 % (11.5-14.5); Red Blood Count 3.78 M/uL (4.7-6.1); Reticulocyte % 2.4 % (0.5-2.0); Reticulocytes # 0.09 10^6/uL (0.02-0.10); White Blood Count 9.86 K/uL (4.8-10.8)
[2019-01-01 06:17] LABS: Partial Thromboplastin Ratio 1.5; Partial Thromboplastin Time 39.5 Seconds (21.0-31.0)
[2019-01-01 06:35] LABS: Ferritin 315.1 ng/ml (8-388); Troponin I 0.547 ng/ml (0-0.045)
[2019-01-01] MEDS ORDERED: HEPARIN IV BOLUS 7,000 UNITS in SYRINGE 0 ML IV ONE (06:51)
[2019-01-01] MEDS: ASPIRIN 81 MG ECTAB PO SCH (07:59)
[2019-01-01] MEDS: ATORVASTATIN 40 MG TAB PO SCH (07:59)
[2019-01-01] MEDS: PARoxetine HCl 20 MG TAB PO SCH (07:59)
[2019-01-01] MEDS: LISINOPRIL 10 MG TAB PO SCH (08:00)
[2019-01-01] MEDS: INSULIN GLARGINE SOLOSTAR 100 UNITS/ML 3 ML PEN SC SCH ×2 (08:00→21:31)
[2019-01-01] MEDS: CLOPIDOGREL BISULFATE 75 MG TAB PO SCH (08:00)
[2019-01-01] MEDS: Heparin Adult STANDARD Wt-Based Dextrose 5% 25,000 units/500 mL IV SCH (10:55)
--- NOTE | 2019-01-01 13:02 | Cardiology Consultation ---
Date of Consultation January 01, 2019 Assessment & Plan (1) Precordial chest pain: He presents with chest discomfort, although the symptoms could represent myocardial ischemia I do not think they do. The symptoms were quite prolonged, they were not associated with an enzyme rise (see below) and electric cardiogram is unchanged. I think the discomfort is noncardiac. (2) Elevated troponin: He does have a slightly elevated troponin and a descending pattern. However he recently had a microinfarction and observation of the grafts of his troponin levels from prior to his recent myocardial infarction suggests that this is the tail and of his prior infarction not a new event. I do not believe that the troponin elevation represents recurrent ischemia. (3) CAD (coronary artery disease): He does have coronary artery disease, and he needs to continue risk factor modification. I would not recommend intervention however. I would recommend discontinuation of heparin, liberalization of activity and see how he feels with ambulation. History of Present Illness Reason for Consultation: Chest pain Attending Physician: George Layton MD History of Present Illness This is a 58-year-old male who has history of coronary disease, CVA, prior tobacco abuse and major depressive disorder. He was recently hospitalized where he had electrocardiographic abnormalities and an elevated troponin, he therefore underwent catheterization on December 15, 2018 where he was found to have non- instructive LAD disease, an occluded circumflex and significant right coronary artery stenosis. He did under go intervention in the mid and circumflex. He was discharged the next day on December 16, 2018 but then presented to the emergency room on December 18, 2018 with complaints of weakness and was treated and discharged. He then presented again to the emergency room on December 31, 2018 with complaints of chest discomfort. He describes his discomfort as a sharp left-sided pain followed by chest dullness. He is a very poor historian and I am not sure we can rely very much on his history. It sounds as though the discomfort is no longer present. He was noted to have low-grade cardiac enzymes on admission, the initial troponin was 0.594, the next 0.571 and the third 0.547 indicating a descending pattern. On December 18 his troponin was 3.4 at the time of his myocardial infarction his peak troponin was 15.8 on December 14, 2018. His electrocardiograms this admission have shown no acute changes. Allergies Allergy/AdvReac Type Severity Reaction Status Date / Time bee venom protein (honey bee) Allergy Unknown . Verified 12/31/18 17:52 Home Medications Home Medications Medication Instructions Recorded Confirmed Type atorvastatin 80 mg PO DAILY 07/08/18 12/31/18 History clopidogrel [Plavix] 75 mg PO DAILY 07/08/18 12/31/18 History metformin 1,000 mg PO BID 07/08/18 12/31/18 History metoprolol tartrate 25 mg PO BID 07/08/18 12/31/18 History paroxetine HCl [Paxil] 40 mg PO QAM 07/08/18 12/31/18 History Basaglar KwikPen U-100 Insulin 40 units SQ DAILY #30 ml 11/28/18 12/31/18 Rx levetiracetam [Keppra] 500 mg PO BID #14 tab 11/28/18 12/31/18 Rx risperidone [Risperdal] 1 mg PO BID 11/28/18 12/31/18 History aspirin 81 mg PO DAILY 30 Days #30 tab 12/16/18 12/31/18 Rx lisinopril 10 mg PO DAILY 12/18/18 12/31/18 History Patient History Medical History Myocardial infarction Pneumonia (Acute) TIA (transient ischemic attack) Depression (Chronic) Hypertension (Chronic) Diabetes mellitus, type 2 (Chronic) Cerebrovascular disease (Chronic) Dyslipidemia (Chronic) Carotid artery disease (Chronic) "complete occlusion right ICA first noted 11/17/14" Seizure disorder (Chronic) Mood disorder (Chronic) Major depressive disorder, recurrent PTSD (post-traumatic stress disorder) Surgical History S/P coronary artery stent placement Status post tonsillectomy (Chronic) Family History Other Family history non-contributory Social History Preferred Language: Romansh Communication Ability: Effective 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 No exertional symptoms, no dyspnea on exertion or exertional chest pain. Resting chest discomfort as described. No orthopnea or PND or peripheral edema. No GI complaints, no bleeding. No neurologic complaints such as TIA or stroke symptoms. Other systems negative. Physical Exam Vital Signs (Past 24 Hours): Last Vital Signs Temp 36.7 C 01/01/19 11:39 Pulse 61 01/01/19 11:39 Resp 20 01/01/19 11:39 BP 127/74 01/01/19 11:39 Pulse Ox 97 01/01/19 11:39 Physical Exam: Constitutional: Alert, cooperative and in no distress. HEENT: Unremarkable Neck: No jugular venous distention, carotid pulses are normal and equal bilaterally without bruits. Pulmonary: Clear to auscultation bilaterally. Cardiac: Regular rhythm with no murmur, gallop or rub. Abdomen: Soft, nontender with normal bowel sounds. Extremities: No edema. Distal pulses intact. Neurologic: No focal findings. Gait is steady. Skin: No rash, ecchymoses or petechiae. Results & Data Diagnostic Findings His electrocardiogram on admission demonstrates sinus rhythm at 65 bpm and is essentially normal. A repeat electrocardiogram this morning is essentially the same.
[2019-01-01 13:25] LABS: Partial Thromboplastin Time 81.3 Seconds (21.0-31.0)
--- NOTE | 2019-01-01 13:58 | Hospitalist Progress Note ---
Date of Service January 01, 2019 Assessment & Plan (1) Precordial chest pain: Present on admission with chest pain with mildly elevated troponin had cardiac cath done on 12/15/18 with multivessel coronary artery disease. 100% acute mid circumflex occlusion. 40-50% diffuse mid LAD. 60% distal RCA. 90% right acute marginal Successful PCI of mid circumflex with single bare-metal stent (2.75 x 18 mm integrity) Already on plavix and aspirin EKG on admission showed no ischemic changes Was starting on heparin drip in the ER cardiology on board and think the chest pain is non cardiac Heparin drip d/c Will encourage pt to ambulate Continue statin and metoprolol Follow up with [facility]ology in 2 weeks (Office will arrange for the f/u appt) (2) Elevated troponin: Seems to be related from prior infarction not a new event. Troponin trending down Cardiology does not believe that the troponin elevation represents recurrent ischemia Heparin drip discontinued Continue statin, metoprolol, aspirin and plavix 3) Diabetes mellitus, type 2: Uncontrolled DM Hba1c 10.2 On insulin sliding scale with novolog and lantus Diabetic education Continue monitor BS closely Check Hba1c in 4 months (4) Cerebrovascular disease: Stable (5) PTSD (post-traumatic stress disorder): (6) Mood disorder: (7) Major depressive disorder, recurrent: Continue paroxetine and Risperdal. Stable 8) DVT px on heparin drip, d/c 9)Code status full code 10) Disposition Possible discharge Subjective Pt was seen and examined Lying in bed with no distress Pt said that he feels fine Currently denies any chest pain, palpitation, dizziness and SOB Physical Exam Vital Signs (Past 24 Hours): Last Vital Signs Temp 36.7 C 01/01/19 11:39 Pulse 61 01/01/19 11:39 Resp 20 01/01/19 11:39 BP 127/74 01/01/19 11:39 Pulse Ox 97 01/01/19 11:39 Physical Exam: General- No acute distress Head- atraumatic Eyes- PERRL, EOMI, ENT- oropharynx clear Neck- supple, no JVD Lungs- clear to auscultation Heart- regular rhythm; no murmur Abdomen- normal bowel sounds, soft, nontender Extremities- no calf tenderness Neuro- alert, oriented x 3; PERRL, EOMI; no facial palsy; no dysarthria Skin- warm & dry
[2019-01-02 07:47] VITALS: PULSE 68; TEMP 97.7; O2SAT 94
[2019-01-02] MEDS: INSULIN ASPART 100 UNITS/ML 3 ML PEN SC SCH ×2 (08:23→12:00)
[2019-01-02] MEDS: PARoxetine HCl 20 MG TAB PO SCH (08:25)
[2019-01-02] MEDS: ATORVASTATIN 40 MG TAB PO SCH (08:25)
[2019-01-02] MEDS: risperiDONE 1 MG TABLET PO SCH (08:25)
[2019-01-02] MEDS: levETIRAcetam 500 MG TAB PO SCH (08:25)
[2019-01-02] MEDS: LISINOPRIL 10 MG TAB PO SCH (08:25)
[2019-01-02] MEDS: METOPROLOL TARTRATE 25 MG TAB PO SCH (08:25)
[2019-01-02] MEDS: CLOPIDOGREL BISULFATE 75 MG TAB PO SCH (08:25)
[2019-01-02] MEDS: ASPIRIN 81 MG ECTAB PO SCH (08:25)
[2019-01-02] MEDS: INSULIN GLARGINE SOLOSTAR 100 UNITS/ML 3 ML PEN SC SCH (08:26)
--- NOTE | 2019-01-02 10:48 | Hospitalist Progress Note ---
Date of Service January 02, 2019 Assessment & Plan (1) Precordial chest pain: Present on admission with chest pain with mildly elevated troponin had cardiac cath done on 12/15/18 with multivessel coronary artery disease. 100% acute mid circumflex occlusion. 40-50% diffuse mid LAD. 60% distal RCA. 90% right acute marginal Successful PCI of mid circumflex with single bare-metal stent (2.75 x 18 mm integrity) EKG on admission showed no ischemic changes Case discussed with Cardiology and believe it is noncardiac Continue plavix and aspirin Heparin drip that was starting in the ER was d/c Continue statin and metoprolol Follow up with [place] cardiology in 2 weeks (Office will arrange for the f/u appt) (2) Elevated troponin: Seems to be related from prior infarction not a new event. Troponin trending down Cardiology does not believe that the troponin elevation represents recurrent ischemia Heparin drip discontinued Continue statin, metoprolol, aspirin and plavix 3) Diabetes mellitus, type 2: Uncontrolled DM Hba1c 10.2 On insulin sliding scale with novolog and lantus Diabetic education Continue monitor BS closely Check Hba1c in 4 months (4) Cerebrovascular disease: Stable (5) PTSD (post-traumatic stress disorder): (6) Mood disorder: (7) Major depressive disorder, recurrent: Continue paroxetine and Risperdal. Stable 8) DVT px on heparin drip, d/c 9)Code status full code 10) Disposition Possible discharge Subjective Pt was seen and examined Lying in bed with no distress Pt said that she feels fine She denies any chest pain, palpitation, dizziness and SOB Physical Exam Vital Signs (Past 24 Hours): Last Vital Signs Temp 36.5 C 01/02/19 07:46 Pulse 68 01/02/19 07:46 Resp 19 01/02/19 07:46 BP 160/87 H 01/02/19 07:46 Pulse Ox 94 01/02/19 07:46 Physical Exam: General- No acute distress Head- atraumatic Eyes- PERRL, EOMI, ENT- oropharynx clear Neck- supple, no JVD Lungs- clear to auscultation Heart- regular rhythm; no murmur Abdomen- normal bowel sounds, soft, nontender Extremities- no calf tenderness Neuro- alert, oriented x 3; PERRL, EOMI; no facial palsy; no dysarthria Skin- warm & dry
[2019-01-02 11:21] VITALS: BP 143/76
--- NOTE | 2019-01-04 08:32 | Coding Query ---
CODING QUERY FOR UNCONTROLLED DIABETES To promote full compliance with coding requirements relating to patient care, provider participation is requested in all cases of welder experimental uncertainty. Please assist us with the question(s) below: Coding Question: The term uncontrolled Diabetes was used throughout the record. To be able to code this diagnosis properly, could you please clarify the diagnosis below: ( ) Uncontrolled Diabetes meaning hypoglycemia ( x ) Uncontrolled Diabetes meaning hyperglycemia ( ) Other (please specify) Principal Diagnosis: "that condition established after study, to be chiefly responsible for occasioning the admission of the patient to the hospital for care." Co-Existing Principal Diagnosis: "when two or more diagnoses equally meet the criteria for principal diagnosis as determined by the circumstances of admission, diagnostic work up, and/or therapy provided, and the Alphabetic Index, Tabular List, or another coding guideline does not provide sequencing direction, any one of the diagnoses may be sequenced first." "When the physician has documented what appears to be a current diagnosis in the body of the record, but has not included the diagnosis in the final diagnostic statement, the physician should be asked whether the diagnosis should be added." (Source Coding [facility] 2 QTR90. p3-4) JOSÉ
--- NOTE | 2019-01-10 08:56 | Discharge Summary ---
Date of Service January 02, 2019 Admission HPI Per Admitting Provider History obtained from patient and records. Medical history significant for CAD status post stent, hypertension hyperlipidemia, history CVA, DM 2 insulin requiring, ongoing tobacco abuse, mood disorder, history PTSD, seizure disorder. Recent confinement last month for ACS. Multivessel CAD found on diagnostic cardiac catheterization. PCI of mid circumflex vessel done. Patient seen at the ER a few days later for pneumonia. Subsequent improvement on outpatient antibiotic course. Today patient noted sudden onset left-sided chest tightness, nonpleuritic, accompanied by shallow breathing. Patient had subsequent relief with aspirin and nitroglycerin given by EMS. Patient compliant with home antiplatelet Rx. Family History : Heart disease, diabetes, psychiatric disorder Personal/Social history : Pack daily, no EtOH intake, unemployed, currently homeless senior care resident Admission Exam Per Admitting Provider GENERAL: Comfortable, slightly anxious, no respiratory distress SKIN: Pallor, warm HEENT: pale palpebral conjunctivae, no ptosis, dry buccal mucosa NECK : Supple, no tenderness CHEST : CTA, no tenderness HEART : RRR, no obvious murmurs ABDOMEN: Some distention, nontender EXTREMITIES : No LE swelling/tenderness, no other conspicuous deformities noted NEUROLOGIC : Coherent, no facial asymmetry, no other gross focality Principal Diagnosis Chest Pain Uncontrolled DM type 2 Discharge Exam General- No acute distress Head- atraumatic Eyes- PERRL, EOMI, ENT- oropharynx clear Neck- supple, no JVD Lungs- clear to auscultation Heart- regular rhythm; no murmur Abdomen- normal bowel sounds, soft, nontender Extremities- no calf tenderness Neuro- alert, oriented x 3; PERRL, EOMI; no facial palsy; no dysarthria Skin- warm & dry Discharge Data Allergies Allergy/AdvReac Type Severity Reaction Status Date / Time bee venom protein (honey bee) Allergy Unknown . Verified 12/31/18 17:52 Consultations 12/31/18 19:17 ED Decision to Admit Stat 12/31/18 20:21 Consult Cardiology Routine Procedures Performed Operation Date: 01/02/19 12:00 <No data on this case meets the specified criteria> Ordered Studies 01/02/19 06:59 CL Cath Imgs for PACS use only Routine SINGLE VIEW CHEST CLINICAL HISTORY: Atypical chest pain. FINDINGS: An AP, portable, upright chest radiograph is compared to study dated 12/18/2018. The examination is degraded by portable technique and patient rotation. The heart is enlarged. The pulmonary vasculature is noncongested. There is left basilar atelectasis. No airspace consolidation or large pleural effusion is identified. No pneumothorax is seen. The skeletal structures are osteopenic. The bony thorax is grossly intact. IMPRESSION: Cardiomegaly with no acute cardiopulmonary abnormality. Electronically signed by: Blas Maurer M.D. 12/31/2018 6:02 PM Dictated: 12/31/181800 Transcribed: 12/31/181800 Hospital Course (1) Precordial chest pain: Present on admission with chest pain with mildly elevated troponin had cardiac cath done on 12/15/18 with multivessel coronary artery disease. 100% acute mid circumflex occlusion. 40-50% diffuse mid LAD. 60% distal RCA. 90% right acute marginal Successful PCI of mid circumflex with single bare-metal stent (2.75 x 18 mm integrity) EKG on admission showed no ischemic changes Case discussed with Cardiology and believe it is noncardiac Continue plavix and aspirin Heparin drip that was starting in the ER was d/c Continue statin and metoprolol Follow up with [place] cardiology in 2 weeks (Office will arrange for the f/u appt) (2) Elevated troponin: Seems to be related from prior infarction not a new event. Troponin trending down Cardiology does not believe that the troponin elevation represents recurrent ischemia Heparin drip discontinued Continue statin, metoprolol, aspirin and plavix 3) Diabetes mellitus, type 2: Uncontrolled DM with Hba1c 10.2 On insulin sliding scale with novolog and lantus Diabetic education Continue monitor BS closely Check Hba1c in 4 months (4) Cerebrovascular disease: Stable (5) PTSD (post-traumatic stress disorder): (6) Mood disorder: (7) Major depressive disorder, recurrent: Continue paroxetine and Risperdal. Stable 8) DVT px on heparin drip, d/c 9)Code status full code 10) Disposition Possible discharge Total Time Total Time Spent Total Time Spent (In Minutes): 35 minutes Total Time Includes: Examination of the Patient, Discharge Planning, Medication Reconciliation, Communication With Other Providers and Other Discharge Plan Discharge Items Patient Disposition: Home - Self-Care Reason For Visit: ACS Discharge Diagnosis: Chest pain Discharge Goals: Decrease discomfort, Improve disease control, Improve function and Increase independence Activity: Resume your previous activity Activity Comment: As tolerated Non-emergency contact: Primary Care Provider and It Systems Analyst Consultant Call non-emergency contact if: you have any medication questions Follow-up/Referrals: Nilay Ramos, [Primary Care Provider] - Diet: Carb Consistent or DM2 and Heart Healthy Addtl Provider Instructions: Follow up with your primary care provider Dr. Alejandra on 01/05 @ 12:55 PM [address] up with [facility] cardiology group in 2 weeks (Please call to schedule for follow up appointment) Monitor your blood sugar and bring your blood sugar log at your next appointment with your primary care provider Follow up a low carb diet and limited concentrated sugar intake. Continue plavix, aspirin, atorvastatin Prescriptions: Continued clopidogrel [Plavix] 75 mg Tablet 75 mg PO DAILY RF: 0 atorvastatin 80 mg Tablet 80 mg PO DAILY RF: 0 metoprolol tartrate 25 mg Tablet 25 mg PO BID RF: 0 paroxetine HCl [Paxil] 40 mg Tablet 40 mg PO QAM RF: 0 metformin 1,000 mg Tablet 1,000 mg PO BID RF: 0 aspirin 81 mg Tablet,Chewable 81 mg PO DAILY 30 Days Qty: 30 RF: 0 lisinopril 10 mg Tablet 10 mg PO DAILY RF: 0 risperidone [Risperdal] 1 mg Tablet 1 mg PO BID RF: 0 levetiracetam [Keppra] 500 mg tablet 500 mg PO BID Qty: 14 RF: 0 Basaglar KwikPen U-100 Insulin 100 unit/mL (3 mL) insulin pen 40 units SQ DAILY Qty: 30 RF: 0 Stand-Alone Forms: Call Back Authorization, My [facility]/Other Patient Handouts: Angina, Heart Attack Sx, Angina Heart Attack Recognize, CAD Discharge Orders: Discharge Order (Routine); Ordered 01/02/19 Ordered By: George Layton Admission Data Admit Date/Time: 12/31/18 20:21 Attending Provider: George Layton Admit Provider: Emiliano Reynolds Primary Care Provider: Nilay Ramos Other Providers: Emiliano Reynolds ; Rob Barlow Service: Telemetry Other Interventions: Discharge Summary Assessment (RN) Last Done: 01/02/19 11:19 DC Date/Time DO NOT enter until pt leaves facility: 01/02/19 12:23
== END 2019-01-02 12:23 | disposition home or self-care (01) | DRG 281 ==
LOC: ED 17:03 → 2S 20:21

== ENCOUNTER 2019-08-04 18:46 | Observation (INO) ==
[2019-08-04 19:37] LABS: Basophils # (auto) 0.03 K/uL (0-0.2); Basophils % (auto) 0.3 %; Eosinophils % (auto) 0.9 %; Hematocrit (blood only) 39.3 % (42-52); Immature Granulocytes # (auto) 0.05 K/uL (0.00-0.02); Immature Granulocytes % (auto) 0.4 %; Lymphocytes # (auto) 3.25 K/uL (1.2-3.4); Lymphocytes % (auto) 27.9 %; Mean Corpuscular Hgb Conc 35.6 g/dL (32-36); Mean Corpuscular Volume 87.1 fL (80-100); Mean Platelet Volume 11.2 fL (7.4-10.4); Monocytes # (auto) 1.02 K/uL (0.11-0.59); Monocytes % (auto) 8.8 %; Neutrophils # (auto) 7.19 K/uL (1.4-6.5); Neutrophils % (auto) 61.7 %; Platelet Count 242 K/uL (130-400); RDW Coefficient of Variation 12.7 % (11.5-14.5); RDW Standard Deviation 40.8 fL (36.4-46.3); Red Blood Count 4.51 M/uL (4.7-6.1); White Blood Count 11.64 K/uL (4.8-10.8)
[2019-08-04 19:52] LABS: Albumin Level 3.6 gm/dl (3.4-5.0); Bilirubin,Total 0.3 mg/dl (0.2-1); Calcium 8.9 mg/dl (8.5-10.1); Creatinine Clr Calc Pharmacy 98.8 ml/min; Est GFR (African American) 91.3; Est GFR (Non-African American) 78.8; Globulin 3.5 gm/dl (2.5-4.0); Potassium 3.9 mmol/L (3.5-5.1); Total Protein 7.1 gm/dl (6.4-8.2); Troponin I 0.021 ng/ml (0-0.045)
[2019-08-04 19:55] LABS: Base Excess VBG 2.2 mEq/L; Oxygen Saturation VBG 79.6 %; pH VBG 7.45 (7.36-7.41)
--- NOTE | 2019-08-04 20:04 | XRay Report ---
XR chest 1V portable CLINICAL HISTORY: Shortness of breath COMPARISON STUDY: No previous studies for comparison. FINDINGS: The heart is the upper limits of normal in size. There is mild interstitial thickening jeanine lar to the preceding study. There is no lobar consolidation. There is no overt failure. There are no pleural effusions.[ IMPRESSION: Stable mild interstitial thickening. No evidence of focal pulmonary consolidation Electronically signed by: Thomas Salmon M.D. 08/04/2019 8:03 PM
[2019-08-04] MEDS ORDERED: NovoLIN-R INSULIN PER UNIT CHARGE IV STA (20:18)
[2019-08-04 20:21] LABS: Appearance Urine Clear (Clear); Bilirubin Urine Negative (Negative); Blood Urine Negative (Negative); Color Urine Yellow; Glucose Urine UA 3+ (Negative); Ketones Urine Trace (Negative); Leukocyte Esterase Urine Negative (Negative); Nitrite Urine Negative (Negative); Protein Urine Negative (Negative); Specific Gravity Urine 1.035 (1.000-1.030); Urobilinogen Urine Negative (Negative)
[2019-08-04 20:55] LABS: D Dimer 530 ug/L FEU (0-500)
[2019-08-04] MEDS ORDERED: OPTIRAY 320 125ml IV PRN (21:37)
--- NOTE | 2019-08-04 21:44 | CT Scan Report ---
CT ANGIOGRAM OF THE CHEST CLINICAL HISTORY: Shortness of breath. Suspected pulmonary embolism COMPARISON STUDY: Chest x-ray dated 08/04/2019 TECHNIQUE: Following the IV administration of 100 mL of [id number]-[id number], CT angiogram of the thorax was p erformed from the thoracic inlet to the lung bases utilizing the pulmonary embolus protocol. Images a re reviewed in the axial, sagittal, and coronal planes. IV contrast was administered without complica tion. MIP imaging was performed. A dose lowering technique was utilized adhering to the principles o f ALARA. CT DOSE: 879.81 mGy.cm FINDINGS: No pathologically enlarged axillary mediastinal or hilar lymph nodes were visualized. There was no evidence of thoracic aortic dilatation. There were no pulmonary artery filling defects to indicate acute pulmonary embolism. No pleural effusions are visualized. There is no focal pulmonary consolidation. There are coronary artery calcifications. There is no pneumothorax. IMPRESSION: 1. No acute intrathoracic findings 2. No evidence of acute pulmonary embolism 3. No evidence of focal pulmonary consolidation Electronically signed by: Thomas Salmon M.D. 08/04/2019 9:43 PM
--- NOTE | 2019-08-05 00:14 | Emergency Department Note ---
Entered by Bee Hdz acting as a scribe for Micah Medrano DO History of Present Illness General Chief complaint: Hypoglycemia Stated complaint: ILLNESS Time Seen by Provider: 08/04/19 19:06 Source: patient History of Present Illness Onset (ago): minute(s) (30) Location: chest Pain Consistency: + constant Maximum Pain Intensity: 0 Relieved By: + rest (laying down) Associated symptoms: + denies other symptoms (vomiting, diarrhea, abdominal pain, rhinorrhea, sore throat ), + shortness of breath and + other (nausea, lightheadedness); no chest pain and no cough The patient is a 59 year old male who presents to the Emergency Room with complaints of shortness of breath. The patient is homeless and is involved in a program called "[employer]". He explains that this program allows people to store their personal items in a "pod". He explains that his items are "buried" and he has not been able to get to his meds as well as stating he is out of them. He also reports feeling nausea and lightheadedness beginning 2 hours ago as well as shortness of breath beginning 30 minutes ago. He states he was not doing anything unusual when he began to experience shortness of breath. He reports that he was sitting inside a restaurant. The patient explains that this SOB is similar to previous episodes, however today he feels it it worse and states he cannot "catch his breath". He states that his SOB is improved when laying down. Of note, he reports baseline swelling in his legs as well as a history of DM2. He also notes that he has not taken his insulin in 2 days. He denies vomiting, diarrhea, abdominal pain, chest pain, cough, rhinorrhea, and sore throat. The patient offers no additional complaints at this time. Home Medications Home Medications Medication Instructions Recorded Confirmed Type atorvastatin 80 mg PO QPM 07/08/18 08/04/19 History clopidogrel [Plavix] 75 mg PO QPM 07/08/18 08/04/19 History metformin 1,000 mg PO BID 07/08/18 08/04/19 History paroxetine HCl [Paxil] 40 mg PO DAILY 07/08/18 08/04/19 History levetiracetam [Keppra] 500 mg PO BID #14 tab 11/28/18 08/04/19 Rx risperidone [Risperdal] 1 mg PO BID 11/28/18 08/04/19 History lisinopril 10 mg PO DAILY 12/18/18 08/04/19 History Michelle Green U-100 Insulin 40 unit SQ HS 03/11/19 08/04/19 History acetaminophen 1,000 mg PO BID #60 cap 07/31/19 08/04/19 Rx aspirin [Aspirin Low Dose] 81 mg PO DAILY 08/04/19 08/04/19 History metoprolol tartrate 25 mg PO BID 08/04/19 08/04/19 History Allergies Allergy/AdvReac Type Severity Reaction Status Date / Time bee venom protein (honey bee) Allergy Intermediate Swelling Verified 08/04/19 19:40 of Lip/Tongue/Throat Past Med/Surg History Medical History Carotid artery disease (Chronic) "complete occlusion right ICA first noted 11/17/14" Cerebrovascular disease (Chronic) Depression (Chronic) Diabetes mellitus, type 2 (Chronic) Dyslipidemia (Chronic) Hypertension (Chronic) Major depressive disorder, recurrent Mood disorder (Chronic) Myocardial infarction Pneumonia (Inactive) PTSD (post-traumatic stress disorder) Seizure disorder (Chronic) TIA (transient ischemic attack) Surgical History S/P coronary artery stent placement Status post tonsillectomy (Chronic) Family History Other Family history non-contributory Social History Preferred Language: Indonesian Communication Ability: Effective Vegetable Trimmer Required: No Beliefs That Will Affect Care: None marital status: Current Living Situation: Homeless current occupational status: unemployed Feels Safe at Home: Yes Smoking Status: Current every day smoker Tobacco Type: cigarettes ; Cigarettes Per Day: 15-20 ; Hx Alcohol Use: No Hx Substance Use: No Review of Systems See HPI for pertinent positives & negatives. and A total of 10 systems reviewed and were otherwise negative Physical Exam Vital Signs Vital Signs - 24 hr 08/04/19 18:56 08/04/19 20:08 08/04/19 21:06 Temperature 36.6 C Temperature Source Oral Pulse Rate 81 Pulse Rate [Right Finger] 80 Pulse Rhythm Regular Pulse Rhythm [Right Finger] Regular Pulse Strength Normal Pulse Strength [Right Finger] Normal Respiratory Rate 16 16 Respiratory Effort / Characteristics Non-Labored Respiratory Depth Normal Respiratory Pattern Blood Pressure 155/99 H Blood Pressure [Right Arm] 148/83 H Blood Pressure Mean 117 Blood Pressure Mean [Right Arm] 104 Blood Pressure Position Lying Blood Pressure Position [Right Arm] Lying Pulse Oximetry 95 96 95 Oxygen Delivery Method Room Air Room Air Room Air Sepsis Recent Fever Within 48 Hours No Sepsis New/Unexplained Change in Mental Status No Sepsis Action Taken by Nursing No Action Required 08/04/19 23:00 08/04/19 23:50 Temperature Temperature Source Pulse Rate 69 Pulse Rate [Right Finger] 85 Pulse Rhythm Pulse Rhythm [Right Finger] Regular Pulse Strength Pulse Strength [Right Finger] Normal Respiratory Rate 16 16 Respiratory Effort / Characteristics Non-Labored Respiratory Depth Normal Respiratory Pattern Regular Blood Pressure 138/68 Blood Pressure [Right Arm] 138/68 Blood Pressure Mean Blood Pressure Mean [Right Arm] 91 Blood Pressure Position Blood Pressure Position [Right Arm] Lying Pulse Oximetry 96 99 Oxygen Delivery Method Room Air Room Air Sepsis Recent Fever Within 48 Hours Sepsis New/Unexplained Change in Mental Status Sepsis Action Taken by Nursing GENERAL: alert, chronically ill appearing, no distress, non-toxic, sitting up in bed, disheveled EYE EXAM: normal conjunctiva OROPHARYNX: no exudate, no erythema, lips, buccal mucosa, and tongue normal and mucous membranes are moist NECK: supple, no nuchal rigidity, no adenopathy, non-tender LUNGS: Clear to auscultation. Normal chest wall mechanics. Diminished at bases. HEART: no murmurs, S1 normal and S2 normal ABDOMEN: abdomen soft, non-tender, normo-active bowel sounds, no masses, no rebound or guarding. BACK: Back is symmetrical on inspection and there is no deformity, no midline tenderness, no CVA tenderness. SKIN: no rashes and no bruising UPPER EXTREMITIES: upper extremities are grossly normal. LOWER EXTREMITIES: Calves have pitting edema bilaterally. NEURO EXAM: Normal sensorium, cranial nerves II-XII grossly intact, normal speech, no gross weakness of arms, no gross weakness of legs. Course Course ED COURSE: Vital signs were reviewed and showed hypertensive situationally The patients medical record was reviewed The above diagnostic studies were performed and reviewed. ED treatments and interventions as stated above. 1919: Past medical records reviewed. The patient was evaluated in room C11B. A complete history and physical exam was performed. 2110: I updated the patient and he states that he feels like he cannot take a deep breath. 2300: I spoke with Dr. Kidd, [facility] Hospitalist who accepts the patient for admission. Based on the patients age, coexisting illnesses, exam and lab findings the d ecision to treat as an inpatient was made. The patient remained stable while under my care. The patient will be evaluated for further management. Administered Medications Ioversol (Optiray 320 125ml) 100 ml IV ONCE PRN PRN Reason: Interaction Checking Stop: 08/08/19 21:36 Last Admin: 08/04/19 21:38 Dose: 100 ml Documented by: [id number] Discontinued Medications Insulin Human Regular (Novolin R U-100 Per Unit) 4 units IV NOW STA Stop: 08/04/19 20:19 Last Admin: 08/04/19 21:01 Dose: 4 units Documented by: [id number] Cosigned by: [id number] Impression & Plan Shortness of breath, Hyperglycemia, Weakness Discharge Plan Visit Data Chief Complaint: Hypoglycemia Stated Complaint: ILLNESS ED Provider: Micah Medrano Discharge Problem: Shortness of breath, Hyperglycemia, Weakness Patient Disposition: Being Evaluated by Hospitalist Discharge Instructions Interventions: ED Discharge Assessment Last Done: 08/04/19 23:50 Medical Decision Making Differential Diagnosis Differential diagnosis includes but is not limited to etiologies such as infe ctions, reactive airway disease, pneumonia, pneumothorax, COPD, CHF, cardiac ischemia, pulmonary embolism, musculoskeletal, gastrointestinal, as well as others were entertained. Medical Records Attestation: I reviewed the patient's medical records. Home Medications Current Medication List: was personally reviewed by me Laboratory Data Attestation: I reviewed the patient's lab results. Result diagrams: 08/04/19 19:05 08/04/19 19:05 Lab Results 08/04/19 08/04/19 08/04/19 Range/Units 19:05 19:05 19:05 WBC 11.64 H (4.8-10.8) K/uL RBC 4.51 L (4.7-6.1) M/uL Hgb 14.0 (14.0-18.0) g/dL Hct 39.3 L (42-52) % MCV 87.1 (80-100) fL MCH 31.0 (25-34) pg MCHC 35.6 (32-36) g/dL RDW Std Deviation 40.8 (36.4-46.3) fL RDW Coeff of Kimmy 12.7 (11.5-14.5) % Plt Count 242 (130-400) K/uL MPV 11.2 H (7.4-10.4) fL Immature Gran % (Auto) 0.4 % Neut % (Auto) 61.7 % Lymph % (Auto) 27.9 % [place] % (Auto) 8.8 % Eos % (Auto) 0.9 % Baso % (Auto) 0.3 % Immature Gran # (Auto) 0.05 H (0.00-0.02) K/uL Neut # (Auto) 7.19 H (1.4-6.5) K/uL Lymph # (Auto) 3.25 (1.2-3.4) K/uL [place] # (Auto) 1.02 H (0.11-0.59) K/uL Eos # (Auto) 0.10 (0-0.5) K/uL Baso # (Auto) 0.03 (0-0.2) K/uL D-Dimer (0-500) ug/L FEU VBG pH (7.36-7.41) VBG pCO2 (38-50) mmHg VBG pO2 mmHg VBG HCO3 mmol/L VBG O2 Saturation % VBG Base Excess mEq/L Barometric Pressure mm/Hg Sodium 135 L (136-145) mmol/L Potassium 3.9 (3.5-5.1) mmol/L Chloride 101 (98-107) mmol/L Carbon Dioxide 26 (21-32) mmol/L Anion Gap 8.0 (3-11) BUN 18 (7-18) mg/dl Creatinine 1.04 (0.6-1.4) mg/dl Est Cr Clr Drug Dosing 98.8 ml/min Est GFR ( Amer) 91.3 Est GFR (Non-Af Amer) 78.8 BUN/Creatinine Ratio 17.0 (10-20) Glucose 370 H* (70-99) mg/dl POC Glucose (70-99) Calcium 8.9 (8.5-10.1) mg/dl Total Bilirubin 0.3 (0.2-1) mg/dl AST 15 (15-37) U/L ALT 19 (12-78) U/L Alkaline Phosphatase 118 H (45-117) U/L Troponin I 0.021 (0-0.045) ng/ml NT-Pro-B Natriuret Pep 222 (0-900) pg/ml Total Protein 7.1 (6.4-8.2) gm/dl Albumin 3.6 (3.4-5.0) gm/dl Globulin 3.5 (2.5-4.0) gm/dl Albumin/Globulin Ratio 1.0 (0.9-2) Lipase 99 (73-393) U/L Beta-Hydroxybutyric Acd (0.2-2.81) mg/dl Specimen Hemolysis Urine Color Yellow Urine Appearance Clear (Clear) Urine pH 6.0 (4.5-7.5) Ur Specific [place] 1.035 H (1.000-1.030) Urine Protein Negative (Negative) Urine Glucose (UA) 3+ H (Negative) Urine Ketones Trace H (Negative) Urine Blood Negative (Negative) Urine Nitrite Negative (Negative) Urine Bilirubin Negative (Negative) Urine Urobilinogen Negative (Negative) Ur Leukocyte Esterase Negative (Negative) 08/04/19 08/04/19 08/04/19 Range/Units 19:05 19:45 20:59 WBC (4.8-10.8) K/uL RBC (4.7-6.1) M/uL Hgb (14.0-18.0) g/dL Hct (42-52) % MCV (80-100) fL MCH (25-34) pg MCHC (32-36) g/dL RDW Std Deviation (36.4-46.3) fL RDW Coeff of Kimmy (11.5-14.5) % Plt Count (130-400) K/uL MPV (7.4-10.4) fL Immature Gran % (Auto) % Neut % (Auto) % Lymph % (Auto) % [place] % (Auto) % Eos % (Auto) % Baso % (Auto) % Immature Gran # (Auto) (0.00-0.02) K/uL Neut # (Auto) (1.4-6.5) K/uL Lymph # (Auto) (1.2-3.4) K/uL [place] # (Auto) (0.11-0.59) K/uL Eos # (Auto) (0-0.5) K/uL Baso # (Auto) (0-0.2) K/uL D-Dimer 530 H* (0-500) ug/L FEU VBG pH 7.45 H (7.36-7.41) VBG pCO2 38 (38-50) mmHg VBG pO2 41 mmHg VBG HCO3 26 mmol/L VBG O2 Saturation 79.6 % VBG Base Excess 2.2 mEq/L Barometric Pressure 737.9 mm/Hg Sodium (136-145) mmol/L Potassium (3.5-5.1) mmol/L Chloride (98-107) mmol/L Carbon Dioxide (21-32) mmol/L Anion Gap (3-11) BUN (7-18) mg/dl Creatinine (0.6-1.4) mg/dl Est Cr Clr Drug Dosing ml/min Est GFR ( Amer) Est GFR (Non-Af Amer) BUN/Creatinine Ratio (10-20) Glucose (70-99) mg/dl POC Glucose 342 H* (70-99) Calcium (8.5-10.1) mg/dl Total Bilirubin (0.2-1) mg/dl AST (15-37) U/L ALT (12-78) U/L Alkaline Phosphatase (45-117) U/L Troponin I (0-0.045) ng/ml NT-Pro-B Natriuret Pep (0-900) pg/ml Total Protein (6.4-8.2) gm/dl Albumin (3.4-5.0) gm/dl Globulin (2.5-4.0) gm/dl Albumin/Globulin Ratio (0.9-2) Lipase (73-393) U/L Beta-Hydroxybutyric Acd (0.2-2.81) mg/dl Specimen Hemolysis Urine Color Urine Appearance (Clear) Urine pH (4.5-7.5) Ur Specific [place] (1.000-1.030) Urine Protein (Negative) Urine Glucose (UA) (Negative) Urine Ketones (Negative) Urine Blood (Negative) Urine Nitrite (Negative) Urine Bilirubin (Negative) Urine Urobilinogen (Negative) Ur Leukocyte Esterase (Negative) 08/04/19 08/04/19 Range/Units 21:57 22:41 WBC (4.8-10.8) K/uL RBC (4.7-6.1) M/uL Hgb (14.0-18.0) g/dL Hct (42-52) % MCV (80-100) fL MCH (25-34) pg MCHC (32-36) g/dL RDW Std Deviation (36.4-46.3) fL RDW Coeff of Kimmy (11.5-14.5) % Plt Count (130-400) K/uL MPV (7.4-10.4) fL Immature Gran % (Auto) % Neut % (Auto) % Lymph % (Auto) % [place] % (Auto) % Eos % (Auto) % Baso % (Auto) % Immature Gran # (Auto) (0.00-0.02) K/uL Neut # (Auto) (1.4-6.5) K/uL Lymph # (Auto) (1.2-3.4) K/uL [place] # (Auto) (0.11-0.59) K/uL Eos # (Auto) (0-0.5) K/uL Baso # (Auto) (0-0.2) K/uL D-Dimer (0-500) ug/L FEU VBG pH (7.36-7.41) VBG pCO2 (38-50) mmHg VBG pO2 mmHg VBG HCO3 mmol/L VBG O2 Saturation % VBG Base Excess mEq/L Barometric Pressure mm/Hg Sodium (136-145) mmol/L Potassium (3.5-5.1) mmol/L Chloride (98-107) mmol/L Carbon Dioxide (21-32) mmol/L Anion Gap (3-11) BUN (7-18) mg/dl Creatinine (0.6-1.4) mg/dl Est Cr Clr Drug Dosing ml/min Est GFR ( Amer) Est GFR (Non-Af Amer) BUN/Creatinine Ratio (10-20) Glucose (70-99) mg/dl POC Glucose 393 H* (70-99) Calcium (8.5-10.1) mg/dl Total Bilirubin (0.2-1) mg/dl AST (15-37) U/L ALT (12-78) U/L Alkaline Phosphatase (45-117) U/L Troponin I 0.033 (0-0.045) ng/ml NT-Pro-B Natriuret Pep (0-900) pg/ml Total Protein (6.4-8.2) gm/dl Albumin (3.4-5.0) gm/dl Globulin (2.5-4.0) gm/dl Albumin/Globulin Ratio (0.9-2) Lipase (73-393) U/L Beta-Hydroxybutyric Acd (0.2-2.81) mg/dl Specimen Hemolysis Urine Color Urine Appearance (Clear) Urine pH (4.5-7.5) Ur Specific [place] (1.000-1.030) Urine Protein (Negative) Urine Glucose (UA) (Negative) Urine Ketones (Negative) Urine Blood (Negative) Urine Nitrite (Negative) Urine Bilirubin (Negative) Urine Urobilinogen (Negative) Ur Leukocyte Esterase (Negative) Imaging Data Radiologist's Impression: Radiology results as stated below per my review and the radiologist's interpretation: XR chest 1V portable CLINICAL HISTORY: Shortness of breath COMPARISON STUDY: No previous studies for comparison. FINDINGS: The heart is the upper limits of normal in size. There is mild interstitial thickening similar to the preceding study. There is no lobar consolidation. There is no overt failure. There are no pleural effusions.[ IMPRESSION: Stable mild interstitial thickening. No evidence of focal pulmonary consolidation Electronically signed by: Thomas Salmon M.D. 08/04/2019 8:[address] ANGIOGRAM OF THE CHEST CLINICAL HISTORY: Shortness of breath. Suspected pulmonary embolism COMPARISON STUDY: Chest x-ray dated 08/04/2019 TECHNIQUE: Following the IV administration of 100 mL of [id number]-[id number], CT angiogram of the thorax was performed from the thoracic inlet to the lung bases utilizing the pulmonary embolus protocol. Images are reviewed in the axial, sagittal, and coronal planes. IV contrast was administered without complication. MIP imaging was performed. A dose lowering technique was utilized adhering to the principles of ALARA. CT DOSE: 879.81 mGy.cm FINDINGS: No pathologically enlarged axillary mediastinal or hilar lymph nodes were visualized. There was no evidence of thoracic aortic dilatation. There were no pulmonary artery filling defects to indicate acute pulmonary embolism. No pleural effusions are visualized. There is no focal pulmonary consolidation. There are coronary artery calcifications. There is no pneumothorax. IMPRESSION: 1. No acute intrathoracic findings 2. No evidence of acute pulmonary embolism 3. No evidence of focal pulmonary consolidation Electronically signed by: Thomas Salmon M.D. 08/04/2019 9:43 PM ECG Data Attestation: I personally reviewed and interpreted this ECG as follows: Indication: + SOB/dyspnea Rate (beats per minute): 79 Rhythm: + sinus rhythm ECG Intervals/blocks: + Normal QT ECG Findings: + Other (poor baseline); no PVCs Blood Pressure Blood Pressure Findings: Elevated blood pressure Blood Pressure Disposition: further management by hospitalist [facility] Narrative Patient is a 59-year-old male with a past medical history of CAD, stents, OH, CVA, diabetes, hypertension, hyperlipidemia who presents the ER for weakness, diaphoresis, shortness of breath. IV was established and blood work was obtained and showed no significant leukocytosis or anemia. D-dimer was elevated and consequently CT PE was performed and was negative. VBG was negative. BMP was unremarkable with exception of a hyperglycemia. No signs of DKA. LFTs are negative. Troponin was initially 0.021 and increased on repeat to 0.033. UA was unremarkable. Chest x-ray without any focal infiltrate. EKG was nondiagnostic. He was updated bedside and discussed with the hospitalist for observation as his troponin is trending up with shortness of breath and extensive risk factors. The scribe's documentation has been prepared under my direction and personally reviewed by me in its entirety. I confirm that the note above accurately reflects all work, treatment, procedures, and medical decision making performed by me.
[2019-08-05] MEDS ORDERED: ACETAMINOPHEN 325 MG TAB PO PRN ×2 (00:36→07:31)
[2019-08-05] MEDS ORDERED: NITROGLYCERIN SL 0.4 MG/TAB TAB SL PRN (00:36)
[2019-08-05] MEDS ORDERED: ONDANSETRON INJ 2 MG/ML 2 ML VIAL IV PRN (00:36)
[2019-08-05] MEDS ORDERED: INSULIN GLARGINE SOLOSTAR 100 UNITS/ML 3 ML PEN SC SCH (00:36)
[2019-08-05] MEDS ORDERED: GLUCOSE 40% GEL 15 GM TUBE PO PRN (00:45)
[2019-08-05] MEDS ORDERED: DEXTROSE 50% 50 ML SYRINGE IV PRN (00:45)
[2019-08-05] MEDS ORDERED: GLUCAGON FOR INJ 1 MG VIAL SQ PRN (00:45)
[2019-08-05] MEDS ORDERED: CARBOHYDRATES FOR HYPOGLYCEMIA PO PRN (00:45)
[2019-08-05] MEDS ORDERED: GLUCOSE 10 TABS/TUBE PO PRN (00:45)
--- NOTE | 2019-08-05 00:50 | History and Physical Report ---
DATE OF ADMISSION: 08/04/2019 CHIEF COMPLAINT: Chest pain and shortness of breath. HISTORY OF PRESENT ILLNESS: This is a 59-year-old male with past medical history significant for coronary artery disease, multivessel disease, status post stent, type 2 diabetes, hyperlipidemia, hypertension, seizures, depression, paranoia, history of transient ischemic attack, history of noncompliance with medications, the patient is homeless, currently living in intermediate. The patient states they will put in their medications in the pot, his medications went to the bottom and he could not access them for the last 2 days and he could not take his diabetes mellitus medication for the last 2 days and today evening he felt chest pain, mild in nature and also shortness of breath when he called [facility]. When his sugars were checked, it was running high and was brought in here. Currently, he got 4 units of I.V. insulin. Currently resting comfortably. He states his shortness of breath and chest pain have improved. D-dimer is mildly elevated. CTA of the chest was done which was unremarkable. Denies any headache. No dizziness. No blurred vision. No cough. Currently, no chest pain. Currently, no shortness of breath. No nausea. No vomiting. No abdominal pain. Normal bowel and bladder movements. No hematuria or burning micturition. No hematochezia or melena. He states he has swelling in the legs. He states it comes and goes. He has erythematous skin changes in the medial aspect of both thighs. He states that is not new. Denies any fevers. He states his appetite is okay. He states he is not ambulating much because of his knee pains. Currently resting comfortably and hemodynamically stable. ALLERGIES: BEE VENOM. PAST MEDICAL HISTORY: As mentioned above. PAST SURGICAL HISTORY: Tonsillectomy and cardiac catheterization with stent placement. MEDICATIONS: The patient is on Keppra 500 mg p.o. b.i.d., Tylenol 1000 mg p.o. q. 6 hours p.r.n., metformin 1000 mg p.o. b.i.d., Plavix 75 mg p.o. daily, paroxetine 40 mg p.o. daily, insulin glargine 40 units under skin daily, risperidone 1 mg b.i.d., amitriptyline 25 mg p.o. at bedtime, Lipitor 80 mg p.o. daily, Lopressor 25 mg p.o. b.i.d., lisinopril 10 mg p.o. daily and aspirin 81 mg p.o. daily. FAMILY HISTORY: Significant for father had diabetes, heart disorder and hypertension. Mother has diabetes, coronary artery disease and hypertension. Brother has gout. Sister has cancer. SOCIAL HISTORY: Currently homeless. Smokes a half a pack a day for 40 years. Alcohol rare. No drug use. REVIEW OF SYMPTOMS: As per HPI. Rest of review of systems negative. PHYSICAL EXAMINATION: GENERAL: The patient is obese, not in acute distress. VITAL SIGNS: Temperature 36.6, pulse 80, respiratory rate 16, blood pressure 148/83 and oxygen 95% on room air. HEENT: No pallor. No icterus. Pupils are equal, round and reactive to light. NECK: No JVD. No neck masses. No carotid bruits. Supple. CARDIOVASCULAR: S1, S2 heard. Regular rate and rhythm. No murmur. No gallop. RESPIRATORY SYSTEM: Normal AP diameter. No accessory muscle use. No wheezing. No crackles. ABDOMEN: Soft. Bowel sounds present. Nontender. No distention. CENTRAL NERVOUS SYSTEM: Cranial nerves II through XII grossly nonfocal. EXTREMITIES: Bilateral lower extremities, +2 edema present with erythematous changes on the bilateral medial aspect of thigh. LABORATORY DATA: WBC 11.6, hemoglobin 14, hematocrit 39.3 and platelets 242. D-dimer 530. Venous blood gases pH 7.4, pCO2 of 38, pO2 of 41 and bicarbonate 26. Sodium 135, potassium 3.9, chloride 101, bicarbonate 26, BUN 18 and creatinine 1.04. Serum glucose 370. Calcium 8.9. Total bilirubin 0.3. AST 15. ALT 19. Alkaline phosphatase 118. Troponin I of 0.033. Brain natriuretic peptide 222. Urinalysis, +3 glucose. Chest x-ray, no evidence of focal pulmonary consolidation. CTA of the chest, no acute intrathoracic findings, no evidence of acute pulmonary embolism and no evidence of focal pulmonary consolidation. ELECTROCARDIOGRAM: Normal sinus rhythm, rate of [address] changes seen. ASSESSMENT AND PLAN: This is a 59-year-old male who presents with chest pain and shortness of breath. 1. Chest pain and shortness of breath. The patient has had cardiac catheterization done on 11/2018 showing multivessel coronary disease, 100% acute mid circumflex occlusion, 40% to 50% diffuse mid left anterior descending, 60% distal right coronary artery, 90% right acute marginal and status post successful mid circumflex single bare metal stent, currently D-dimer is elevated, but CTA of the chest is unremarkable. Electrocardiogram is unremarkable. Troponin 0.033. We will observe in tele floor. Serial cardiac enzymes, echocardiogram and consult Cardiology in a.m. and we will keep n.p.o. until seen by Cardiology. Currently asymptomatic. We will closely monitor in tele floor because of the history. 2. Diabetes. The patient is on metformin and on Basaglar insulin 40 units daily. He states for the last couple of days, he is not taking diabetes medication because they went to the bottom of the pot and he could not find them. Sugars were 300 when he came in. He received I.V. insulin. Currently, the patient is n.p.o. We will put him on 20 units of Basaglar at bedtime and insulin sliding scale. We will monitor blood sugars and change to full dose insulin when he starts to eat. May need prescription at discharge. 3. History of cerebrovascular accident, currently stable, continue aspirin, Plavix and statin. 4. History of depression and paranoia. Continue paroxetine , risperidone and amitriptyline. 5. Lower extremity edema erythematous changes in medial aspects of bilateral thighs-chronic? will follow Doppler studies and echo. 6. Deep venous thrombosis prophylaxis, sequential compression devices for now. 7. Disposition: Observation in tele floor. Expect to discharge home and follow with the family doctor. Level 1 full code. MTDD
[2019-08-05 05:45] LABS: Basophils # (auto) 0.04 K/uL (0-0.2); Basophils % (auto) 0.6 %; Eosinophils # (auto) 0.12 K/uL (0-0.5); Eosinophils % (auto) 1.7 %; Hematocrit (blood only) 39.9 % (42-52); Hemoglobin 13.9 g/dL (14.0-18.0); Immature Granulocytes # (auto) 0.04 K/uL (0.00-0.02); Immature Granulocytes % (auto) 0.6 %; Lymphocytes # (auto) 2.57 K/uL (1.2-3.4); Lymphocytes % (auto) 36.7 %; Mean Corpuscular Hemoglobin 30.7 pg (25-34); Mean Corpuscular Hgb Conc 34.8 g/dL (32-36); Mean Corpuscular Volume 88.1 fL (80-100); Mean Platelet Volume 10.4 fL (7.4-10.4); Monocytes # (auto) 0.83 K/uL (0.11-0.59); Monocytes % (auto) 11.8 %; Neutrophils # (auto) 3.41 K/uL (1.4-6.5); Neutrophils % (auto) 48.6 %; Platelet Count 224 K/uL (130-400); RDW Coefficient of Variation 12.9 % (11.5-14.5); RDW Standard Deviation 41.2 fL (36.4-46.3); Red Blood Count 4.53 M/uL (4.7-6.1); White Blood Count 7.01 K/uL (4.8-10.8)
[2019-08-05 06:01] LABS: BUN Creatinine Ratio 16.2 (10-20); Calcium 8.7 mg/dl (8.5-10.1); Creatinine Clr Calc Pharmacy 119.5 ml/min; Est GFR (African American) 111.9; Est GFR (Non-African American) 96.5; Magnesium 1.9 mg/dl (1.8-2.4); Potassium 3.8 mmol/L (3.5-5.1)
--- NOTE | 2019-08-05 07:12 | Ultrasound Report ---
BILATERAL LOWER EXTREMITY VENOUS DOPPLER HISTORY: dvt? lower extremity edema. erythematous chnages i COMPARISON STUDY: None. FINDINGS: There is normal compressibility, flow, and augmentation within the bilateral lower extremit y deep venous systems. IMPRESSION: No DVT within the right or left lower extremity. Electronically signed by: Pantera Garzon M.D. 08/05/2019 7:10 AM
[2019-08-05] MEDS ORDERED: INSULIN ASPART 100 UNITS/ML 3 ML PEN SC SCH ×2 (07:30→16:30)
[2019-08-05 07:44] LABS: Estimated Average Glucose 229 mg/dl; Hemoglobin A1C 9.6 % (4.5-5.6)
[2019-08-05] MEDS: INSULIN ASPART 100 UNITS/ML 3 ML PEN SC SCH ×2 (08:19→12:43)
[2019-08-05] MEDS ORDERED: risperiDONE 1 MG TABLET PO SCH (09:00)
[2019-08-05] MEDS ORDERED: LISINOPRIL 10 MG TAB PO SCH (09:00)
[2019-08-05] MEDS ORDERED: METOPROLOL TARTRATE 25 MG TAB PO SCH (09:00)
[2019-08-05] MEDS ORDERED: HEPARIN SOD 5,000 UNIT/0.5 ML VIAL SQ SCH (09:00)
[2019-08-05] MEDS ORDERED: PARoxetine HCl 20 MG TAB PO SCH (09:00)
[2019-08-05] MEDS ORDERED: levETIRAcetam 500 MG TAB PO SCH ×2 (09:00→21:00)
[2019-08-05] MEDS ORDERED: ASPIRIN 81 MG ECTAB PO SCH (09:00)
[2019-08-05] MEDS ORDERED: ACETAMINOPHEN 500 MG TAB PO SCH (09:00)
--- NOTE | 2019-08-05 10:18 | Hospitalist Progress Note ---
Date of Service August 05, 2019 Assessment & Plan (1) Chest pain: 59-year-old male who presents with chest pain and shortness of breath. -had cardiac catheterization done on 11/2018 showing multivessel coronary disease, 100% acute mid circumflex occlusion, 40% to 50% diffuse mid left anter ior descending, 60% distal right coronary artery, 90% right acute marginal and status post successful mid circumflex single bare metal stent -08/04/19 D-dimer elevated, but CTA of the chest is unremarkable. admission Electrocardiogram nonischemic. -troponins 0.033, then 0.015, then less than 0.015 -08/05/19: echocardiogram -08/05/19 daytime hospitalist encounter with patient: Patient is seen and examined at bedside on telemetry moralez. He denies current chest pain. He cannot clearly state how long prior episode of chest pain for which he came to the emergency room lasted. He reports the main symptoms that he came for is described as a general feeling of unwellness. Prior to coming to the emergency room, patient reports that the last time he took his own insulin of 40 units daily was several days ago. When asked why he did not take insulin more regularly, patient was nonspecific about that and reports that he is homeless. He denies being in a retirement recently. When asked where he has been living recently, patient replies "That is a lot of personal information." Hospitalist doctor explained that these questions are only being asked to coordinate outpatient care for after the hospital stay. Hospitalist informed patient that nurse case manager will be coming by. When patient asked about other home medications, patient reports he has been taking other medications regularly and he recounts: metformin, metoprolol,paroxetine, risperidone -08/05/19 echocardiogram: No change compared to previous study of 12/15/18. Normal LV chamber size with severe concentric LVH. Mild hypokinesis involving basel inferior, inferolateral hooper, otherwise, normal wall motion. Grade I diastolic dysfunction. No significant valvular pathology -continue metoprolol -08/05/19 cardiology recommendations pending Lower extremity edema -mild bilateral lower extremity edema (2) Diabetes mellitus, type 2: HbA1c is 10.2 on 12/15/18 HbA1c is 9.6 on 08/05/19 -home regimen should be metformin 1000 mg BID and Basaglar insulin 40 units daily -patient did not take insulin at home for several days prior to hospital presentation -in hospital, patient was given Lantus 20 units qhs and sliding scale insulin -will try to resume patient's insulin regimen -will benefit with lisinopril to be continued in hospital given Diabetes mellitus History of cerebrovascular accident -no focal neurological motor deficits -continue aspirin, Plavix and statin History of depression and paranoia -Continue paroxetine , risperidone -unclear whether patient takes Keppra (Levetiracetam) currently as outpatient Homeless -nurse case manager consultation requested Deep venous thrombosis prophylaxis, sequential compression devices Subjective Patient is seen and examined at bedside on telemetry moralez. He denies current chest pain. He cannot clearly state how long prior episode of chest pain for which he came to the emergency room lasted. He reports the main symptoms that he came for is described as a general feeling of unwellness. Prior to coming to the emergency room, patient reports that the last time he took his own insulin of 40 units daily was several days ago. When asked why he did not take insulin more regularly, patient was nonspecific about that and reports that he is homeless. He denies being in a retirement recently. When asked where he has been living recently, patient replies "That is a lot of personal information." Hospitalist doctor explained that these questions are only being asked to coordinate outpatient care for after the hospital stay. Hospitalist informed patient that nurse case manager will be coming by. When patient asked about other home medications, patient reports he has been taking other medications regularly and he recounts: metformin, metoprolol,paroxetine, risperidone. Review of Systems Review of Systems: All systems reviewed & are unremarkable except as noted in HPI & below Physical Exam Constitutional: comfortable Eyes: PERRL, conjunctivae normal, anicteric sclerae EOM intact bilaterally ENMT: external ear and nose normal, oropharynx normal Neck: normal visual inspection Respiratory: normal respiratory effort, lungs clear to auscultation Cardiovascular: Rate/Rhythm: regular rate and regular rhythm Gastrointestinal (Abdomen): normal bowel sounds, soft, nontender, no hepatosplenomegaly Musculoskeletal: Head/Neck/Chest: normocephalic and head atraumatic mild bilateral lower extremity edema Neurologic: PERRL, EOMI, accommodation nl, no face palsy, no dysarthria CN's II-XI intact bilaterally Psychiatric: A+Ox3, euthymic affect Results & Data Vital Signs (Past 12 Hours) Vital Signs Temp Pulse Pulse Resp BP BP Pulse Ox 08/05/19 08:02 36.8 C 63 18 144/68 H 96 08/05/19 03:27 36.7 C 69 18 164/72 H 94 08/05/19 01:11 73 08/05/19 00:29 36.7 C 76 20 172/96 H 94 08/04/19 23:50 69 16 138/68 99 08/04/19 23:00 85 16 138/68 96 (1) Diabetes mellitus, type 2 Diabetes mellitus complication status: with unspecified complications Diabetes mellitus 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
[2019-08-05] MEDS ORDERED: INSULIN GLARGINE SOLOSTAR 100 UNITS/ML 3 ML PEN SC STA (12:25)
--- NOTE | 2019-08-05 14:05 | Cardiology Consultation ---
Date of Consultation August 05, 2019 Assessment & Plan (1) CAD (coronary artery disease): (2) S/P coronary artery stent placement: (3) Chest pain: (4) Hypertension: (5) Dyslipidemia: ASSESSMENT/PLAN: 1. CAD status post circumflex PCI: No definite angina. One episode of chest discomfort at rest however no exertional chest pain despite regular activity. Cannot rule out that this is from her residual CAD, especially involving her acute marginal branch, which is typically treated medically. Unfortunately he has not been taking his medications the past few days. On medications he had no symptoms so therefore would recommend that he resume his usual medications including metoprolol, lisinopril, and anti-platelet therapy. High-intensity statin therapy. 911 for angina. 2. Chest pain: Atypical in that it occurred at rest. No objective findings to suggest ischemia. Was not having pain while taking medications. Resume medications as above. 3. Hypertension: Resume home medications. Blood pressure has been elevated here. 4. Dyslipidemia: Resume high-intensity statin therapy. 5. Tobacco abuse: Stop smoking. 6. Disposition: Follow-up with Dr. Valderrama if able/willing. Plan of care discussed with Dr. Lr, primary hospitalist. 45 minutes spent, with greater than 50% time spent counseling patient, and coordinating care. Thank you for allowing me to participate in the care of your patient. Please call for any other questions or concerns. Sincerely, Moses Gray M.D. History of Present Illness Reason for Consultation: Chest pain Requesting Physician: Dr. Lr Attending Physician: Shahriar Lr MD History of Present Illness Mr. Vieira is a pleasant 59-year-old gentleman with a history significant for CAD status post circumflex PCI in November of 2018 when presenting with NSTEMI, type 2 diabetes, dyslipidemia, hypertension, seizure disorder, depression/paranoia, TIA, and history of noncompliance with medical therapy. He initially was admitted on 12/14/2018 with NSTEMI and underwent consultation with Dr. Valderrama. Coronary angiography was performed with PCI of mid circumflex. He was then rehospitalized on 12/31/2018 with what was felt to be noncardiac chest discomfort when he was seen in consultation by Dr. Barlow. He had prolonged episodes of chest discomfort without objective data to suggest ongoing ischemic issues per report. He is homeless for the past year or so. He is currently in a program called out of the cold and is staying at [facility] for 2 weeks. He admits that for the past couple of days he has not taking any of his medications but states that typically he is compliant. He walks 3-4 miles per day and denies any exertional symptoms such as chest pain or shortness of breath. Last evening however, he fell really a goalie and sluggish throughout the night. He had 1 minor episode of chest discomfort which he described as a substernal chest pain. It lasted only a couple of minutes before spontaneously resolving. It occurred while sitting. He felt a little short of breath during the episode but no diaphoresis and no radiation of the pain. He states that he did not feel any chest discomfort with his [place] in November of 2018. He has not had any such symptoms with his regular exertion. He states that he is back to baseline currently. He no longer feels sluggish and has not had any further chest pain. He denies shortness of breath, syncope, near-syncope, palpitations, lower extremity edema, or bleeding such as melena, hematochezia, or hematuria. He has had the following studies/procedures: 1. Cardiac catheterization 12/15/2018: Mid LAD 40-50% diffuse disease. Distal LAD 20-30%. Acute mid circumflex 100%. Dominant RCA. Distal RCA 60%. Large acute marginal 60-70% proximal and mid 90%. Mid circumflex underwent PCI with 2.75 x 18 mm integrity BMS, post dilated with 2.75 NC. 2. Echo 12/15/2018: Normal LV size and systolic function. EF 60-65%. Mild hypokinesis involving the basal inferior and inferolateral hooper. No significant valvular abnormalities. Review of systems: As above. Review of systems otherwise negative/unremarkable, other than right hand arthritis. Family history: CAD reported. Social history: Smokes 1 pack of cigarettes per day. No alcohol or drugs. He is homeless for the past 1 year or so. He has 5 children and he keeps in touch with them. He has 1 grandchild. He is . He was unaccompanied in his hospital room. Allergies Allergy/AdvReac Type Severity Reaction Status Date / Time bee venom protein (honey bee) Allergy Intermediate Swelling Verified 08/04/19 19:40 of Lip/Tongue/Throat Home Medications Home Medications Medication Instructions Recorded Confirmed Type atorvastatin 80 mg PO QPM 07/08/18 08/04/19 History clopidogrel [Plavix] 75 mg PO QPM 07/08/18 08/04/19 History metformin 1,000 mg PO BID 07/08/18 08/04/19 History paroxetine HCl [Paxil] 40 mg PO DAILY 07/08/18 08/04/19 History levetiracetam [Keppra] 500 mg PO BID #14 tab 11/28/18 08/04/19 Rx risperidone [Risperdal] 1 mg PO BID 11/28/18 08/04/19 History lisinopril 10 mg PO DAILY 12/18/18 08/04/19 History Basaglar RennyikPen U-100 Insulin 40 unit SQ HS 03/11/19 08/04/19 History acetaminophen 1,000 mg PO BID #60 cap 07/31/19 08/04/19 Rx aspirin [Aspirin Low Dose] 81 mg PO DAILY 08/04/19 08/04/19 History metoprolol tartrate 25 mg PO BID 08/04/19 08/04/19 History aspirin [Ecotrin Low Strength] 81 mg PO DAILY 30 Days #30 tab 08/05/19 Rx atorvastatin 80 mg PO QPM 30 Days #60 tab 08/05/19 Rx clopidogrel 75 mg PO QPM 30 Days #30 tab 08/05/19 Rx levetiracetam [Keppra] 500 mg PO BID 30 Days #60 tab 08/05/19 Rx lisinopril 10 mg PO DAILY 30 Days #30 tab 08/05/19 Rx metformin 1,000 mg PO BIDM 30 Days #60 tab 08/05/19 Rx metoprolol tartrate 25 mg PO BID 30 Days #60 tab 08/05/19 Rx paroxetine HCl 40 mg PO DAILY 30 Days #60 tab 08/05/19 Rx risperidone 1 mg PO BID 30 Days #60 tab 08/05/19 Rx Patient History Medical History Carotid artery disease (Chronic) "complete occlusion right ICA first noted 11/17/14" Cerebrovascular disease (Chronic) Depression (Chronic) Diabetes mellitus, type 2 (Chronic) Dyslipidemia (Chronic) Hypertension (Chronic) Major depressive disorder, recurrent Mood disorder (Chronic) Myocardial infarction Pneumonia (Inactive) PTSD (post-traumatic stress disorder) Seizure disorder (Chronic) TIA (transient ischemic attack) Surgical History S/P coronary artery stent placement Status post tonsillectomy (Chronic) Family History Other Family history non-contributory Social History Preferred Language: Vietnamese Communication Ability: Effective Loop Tender Required: No Beliefs That Will Affect Care: None marital status: Current Living Situation: Homeless current occupational status: unemployed Feels Safe at Home: Declines to Answer Smoking Status: Current every day smoker Tobacco Type: cigarettes ; Cigarettes Per Day: 20 ; Second Hand Exposure: No ; Tobacco Cessation Education Requested by Patient: No Hx Alcohol Use: No Hx Substance Use: No Physical Exam Physical Exam: Gen.: No acute distress. Alert and oriented. HEENT: Anicteric sclera. Neck: No JVD. No bruits. Normal carotid upstrokes bilaterally. Cardiac: PMI was nondisplaced. No ventricular heave. Regular. Normal S1-S2. No murmurs, rubs, or gallops. Pulmonary: Clear to auscultation bilaterally without wheezes, rales, or rhonchi. Abdomen: Soft, nontender, nondistended, with normoactive bowel sounds. No bruits noted. Extremities: 2+ radial pulses bilaterally. 2+ posterior tibialis pulses bilaterally trace bilateral lower extremity edema. No cyanosis. Psychiatric: Affect appears appropriate. Chest: Nontender to palpation. Results & Data Vital Signs (Past 12 Hours) Vital Signs Temp Pulse Resp BP Pulse Ox 08/05/19 11:47 36.8 C 59 L 18 154/76 H 94 08/05/19 08:02 36.8 C 63 18 144/68 H 96 08/05/19 03:27 36.7 C 69 18 164/72 H 94 Laboratory Results Laboratory Results - last 24 hr 08/04/19 08/04/19 08/04/19 19:05 19:05 19:05 WBC 11.64 H RBC 4.51 L Hgb 14.0 Hct 39.3 L MCV 87.1 MCH 31.0 MCHC 35.6 RDW Std Deviation 40.8 RDW Coeff of Kimmy 12.7 Plt Count 242 MPV 11.2 H Immature Gran % (Auto) 0.4 Neut % (Auto) 61.7 Lymph % (Auto) 27.9 [place] % (Auto) 8.8 Eos % (Auto) 0.9 Baso % (Auto) 0.3 Immature Gran # (Auto) 0.05 H Neut # (Auto) 7.19 H Lymph # (Auto) 3.25 [place] # (Auto) 1.02 H Eos # (Auto) 0.10 Baso # (Auto) 0.03 D-Dimer VBG pH VBG pCO2 VBG pO2 VBG HCO3 VBG O2 Saturation VBG Base Excess Barometric Pressure Sodium 135 L Potassium 3.9 Chloride 101 Carbon Dioxide 26 Anion Gap 8.0 BUN 18 Creatinine 1.04 Est Cr Clr Drug Dosing 98.8 Est GFR ( Amer) 91.3 Est GFR (Non-Af Amer) 78.8 BUN/Creatinine Ratio 17.0 Glucose 370 H* POC Glucose Estimat Average Glucose Hemoglobin A1c Calcium 8.9 Magnesium Total Bilirubin 0.3 AST 15 ALT 19 Alkaline Phosphatase 118 H Troponin I 0.021 NT-Pro-B Natriuret Pep 222 Total Protein 7.1 Albumin 3.6 Globulin 3.5 Albumin/Globulin Ratio 1.0 Lipase 99 Beta-Hydroxybutyric Acd Specimen Hemolysis Urine Color Yellow Urine Appearance Clear Urine pH 6.0 Ur Specific [place] 1.035 H Urine Protein Negative Urine Glucose (UA) 3+ H Urine Ketones Trace H Urine Blood Negative Urine Nitrite Negative Urine Bilirubin Negative Urine Urobilinogen Negative Ur Leukocyte Esterase Negative Hepatitis C Ab Screen 08/04/19 08/04/19 08/04/19 19:05 19:45 20:59 WBC RBC Hgb Hct MCV MCH MCHC RDW Std Deviation RDW Coeff of Kimmy Plt Count MPV Immature Gran % (Auto) Neut % (Auto) Lymph % (Auto) [place] % (Auto) Eos % (Auto) Baso % (Auto) Immature Gran # (Auto) Neut # (Auto) Lymph # (Auto) [place] # (Auto) Eos # (Auto) Baso # (Auto) D-Dimer 530 H* VBG pH 7.45 H VBG pCO2 38 VBG pO2 41 VBG HCO3 26 VBG O2 Saturation 79.6 VBG Base Excess 2.2 Barometric Pressure 737.9 Sodium Potassium Chloride Carbon Dioxide Anion Gap BUN Creatinine Est Cr Clr Drug Dosing Est GFR ( Amer) Est GFR (Non-Af Amer) BUN/Creatinine Ratio Glucose POC Glucose 342 H* Estimat Average Glucose Hemoglobin A1c Calcium Magnesium Total Bilirubin AST ALT Alkaline Phosphatase Troponin I NT-Pro-B Natriuret Pep Total Protein Albumin Globulin Albumin/Globulin Ratio Lipase Beta-Hydroxybutyric Acd Specimen Hemolysis Urine Color Urine Appearance Urine pH Ur Specific [place] Urine Protein Urine Glucose (UA) Urine Ketones Urine Blood Urine Nitrite Urine Bilirubin Urine Urobilinogen Ur Leukocyte Esterase Hepatitis C Ab Screen 08/04/19 08/04/19 08/05/19 21:57 22:41 00:24 WBC RBC Hgb Hct MCV MCH MCHC RDW Std Deviation RDW Coeff of Kimmy Plt Count MPV Immature Gran % (Auto) Neut % (Auto) Lymph % (Auto) [place] % (Auto) Eos % (Auto) Baso % (Auto) Immature Gran # (Auto) Neut # (Auto) Lymph # (Auto) [place] # (Auto) Eos # (Auto) Baso # (Auto) D-Dimer VBG pH VBG pCO2 VBG pO2 VBG HCO3 VBG O2 Saturation VBG Base Excess Barometric Pressure Sodium Potassium Chloride Carbon Dioxide Anion Gap BUN Creatinine Est Cr Clr Drug Dosing Est GFR ( Amer) Est GFR (Non-Af Amer) BUN/Creatinine Ratio Glucose POC Glucose 393 H* 262 H Estimat Average Glucose Hemoglobin A1c Calcium Magnesium Total Bilirubin AST ALT Alkaline Phosphatase Troponin I 0.033 NT-Pro-B Natriuret Pep Total Protein Albumin Globulin Albumin/Globulin Ratio Lipase Beta-Hydroxybutyric Acd Specimen Hemolysis Urine Color Urine Appearance Urine pH Ur Specific [place] Urine Protein Urine Glucose (UA) Urine Ketones Urine Blood Urine Nitrite Urine Bilirubin Urine Urobilinogen Ur Leukocyte Esterase Hepatitis C Ab Screen 08/05/19 08/05/19 08/05/19 00:42 05:35 05:35 WBC 7.01 RBC 4.53 L Hgb 13.9 L Hct 39.9 L MCV 88.1 MCH 30.7 MCHC 34.8 RDW Std Deviation 41.2 RDW Coeff of Kimmy 12.9 Plt Count 224 MPV 10.4 Immature Gran % (Auto) 0.6 Neut % (Auto) 48.6 Lymph % (Auto) 36.7 [place] % (Auto) 11.8 Eos % (Auto) 1.7 Baso % (Auto) 0.6 Immature Gran # (Auto) 0.04 H Neut # (Auto) 3.41 Lymph # (Auto) 2.57 [place] # (Auto) 0.83 H Eos # (Auto) 0.12 Baso # (Auto) 0.04 D-Dimer VBG pH VBG pCO2 VBG pO2 VBG HCO3 VBG O2 Saturation VBG Base Excess Barometric Pressure Sodium 138 Potassium 3.8 Chloride 106 Carbon Dioxide 27 Anion Gap 5.0 BUN 14 Creatinine 0.84 Est Cr Clr Drug Dosing 119.5 Est GFR ( Amer) 111.9 Est GFR (Non-Af Amer) 96.5 BUN/Creatinine Ratio 16.2 Glucose 280 H POC Glucose Estimat Average Glucose Hemoglobin A1c Calcium 8.7 Magnesium 1.9 Total Bilirubin AST ALT Alkaline Phosphatase Troponin I 0.016 NT-Pro-B Natriuret Pep Total Protein Albumin Globulin Albumin/Globulin Ratio Lipase Beta-Hydroxybutyric Acd Specimen Hemolysis Urine Color Urine Appearance Urine pH Ur Specific [place] Urine Protein Urine Glucose (UA) Urine Ketones Urine Blood Urine Nitrite Urine Bilirubin Urine Urobilinogen Ur Leukocyte Esterase Hepatitis C Ab Screen 08/05/19 08/05/19 08/05/19 05:35 05:35 06:45 WBC RBC Hgb Hct MCV MCH MCHC RDW Std Deviation RDW Coeff of Kimmy Plt Count MPV Immature Gran % (Auto) Neut % (Auto) Lymph % (Auto) [place] % (Auto) Eos % (Auto) Baso % (Auto) Immature Gran # (Auto) Neut # (Auto) Lymph # (Auto) [place] # (Auto) Eos # (Auto) Baso # (Auto) D-Dimer VBG pH VBG pCO2 VBG pO2 VBG HCO3 VBG O2 Saturation VBG Base Excess Barometric Pressure Sodium Potassium Chloride Carbon Dioxide Anion Gap BUN Creatinine Est Cr Clr Drug Dosing Est GFR ( Amer) Est GFR (Non-Af Amer) BUN/Creatinine Ratio Glucose POC Glucose Estimat Average Glucose 229 Hemoglobin A1c 9.6 H Calcium Magnesium Total Bilirubin AST ALT Alkaline Phosphatase Troponin I < 0.015 NT-Pro-B Natriuret Pep Total Protein Albumin Globulin Albumin/Globulin Ratio Lipase Beta-Hydroxybutyric Acd Specimen Hemolysis Urine Color Urine Appearance Urine pH Ur Specific [place] Urine Protein Urine Glucose (UA) Urine Ketones Urine Blood Urine Nitrite Urine Bilirubin Urine Urobilinogen Ur Leukocyte Esterase Hepatitis C Ab Screen Neg 08/05/19 08/05/19 08/05/19 07:19 11:48 13:49 WBC RBC Hgb Hct MCV MCH MCHC RDW Std Deviation RDW Coeff of Kimmy Plt Count MPV Immature Gran % (Auto) Neut % (Auto) Lymph % (Auto) [place] % (Auto) Eos % (Auto) Baso % (Auto) Immature Gran # (Auto) Neut # (Auto) Lymph # (Auto) [place] # (Auto) Eos # (Auto) Baso # (Auto) D-Dimer VBG pH VBG pCO2 VBG pO2 VBG HCO3 VBG O2 Saturation VBG Base Excess Barometric Pressure Sodium Potassium Chloride Carbon Dioxide Anion Gap BUN Creatinine Est Cr Clr Drug Dosing Est GFR ( Amer) Est GFR (Non-Af Amer) BUN/Creatinine Ratio Glucose POC Glucose 322 H* 284 H 242 H Estimat Average Glucose Hemoglobin A1c Calcium Magnesium Total Bilirubin AST ALT Alkaline Phosphatase Troponin I NT-Pro-B Natriuret Pep Total Protein Albumin Globulin Albumin/Globulin Ratio Lipase Beta-Hydroxybutyric Acd Specimen Hemolysis Urine Color Urine Appearance Urine pH Ur Specific [place] Urine Protein Urine Glucose (UA) Urine Ketones Urine Blood Urine Nitrite Urine Bilirubin Urine Urobilinogen Ur Leukocyte Esterase Hepatitis C Ab Screen Diagnostic Findings Echo 08/05/2019: Normal LV size and systolic function. EF 60-65%. Mild hypokinesis involving basal inferior and inferolateral hooper. Severe concentric LVH. No significant valvular abnormalities. Telemetry personally reviewed: No arrhythmia. Sinus rhythm. ECGs personally reviewed: ECG 08/05/2019: Sinus rhythm 61 bpm. ECG 08/04/2019: Sinus rhythm 79 bpm. CTA chest 08/04/2019: No acute intrathoracic findings per Radiology. No PE. Medications Administered Current Inpatient Medications Acetaminophen (Tylenol) 325 mg PO Q6H PRN PRN Reason: Pain or Fever Stop: 09/04/19 00:35 Aspirin (Ecotrin Ectab) 81 mg PO DAILY [facility] Stop: 09/04/19 08:59 Last Admin: 08/05/19 08:18 Dose: 81 mg Documented by: Atorvastatin Calcium (Lipitor) 80 mg PO QPM [facility] Stop: 09/04/19 20:59 Clopidogrel Bisulfate (Plavix) 75 mg PO QPM [facility] Stop: 09/04/19 20:59 Dextrose (Dextrose 50%) 25 - 50 ml IV UD PRN; Protocol PRN Reason: Hypoglycemia Protocol Stop: 12/16/19 00:44 Glucagon (Glucagen) 1 mg SQ UD PRN; Protocol PRN Reason: Hypoglycemia Protocol Stop: 09/04/19 00:44 Glucose (Glucose 40%) 15 - 30 gm PO UD PRN; Protocol PRN Reason: Hypoglycemia Protocol Stop: 09/04/19 00:44 Glucose (Dex4 Glucose) 4 - 8 tabs PO UD PRN; Protocol PRN Reason: Hypoglycemia Protocol Stop: 09/04/19 00:44 Heparin Sodium (Porcine) (Heparin Sodium (Porcine)) 5,000 units SQ Q12 [facility] Stop: 09/04/19 08:59 Last Admin: 08/05/19 08:15 Dose: 5,000 units Documented by: Insulin Aspart (Novolog Flexpen) 0 units SC ACHS [facility] Stop: 09/04/19 16:29 Insulin Glargine (Lantus Solostar Pen) 40 units SC HS [facility] Stop: 09/05/19 20:59 Levetiracetam (Keppra) 500 mg PO BID [facility] Stop: 09/04/19 20:59 Lisinopril (Zestril) 10 mg PO DAILY [facility] Stop: 09/04/19 08:59 Last Admin: 08/05/19 08:15 Dose: 10 mg Documented by: Metformin HCl (Glucophage) 1,000 mg PO BIDM [facility] Stop: 09/04/19 16:59 Metoprolol Tartrate (Lopressor) 25 mg PO BID [facility] Stop: 09/04/19 08:59 Last Admin: 08/05/19 08:15 Dose: 25 mg Documented by: Miscellaneous (Carbohydrates For Hypoglycemia) 15 - 30 gm PO UD PRN PRN Reason: Hypoglycemia Treatment Stop: 09/04/19 00:44 Nitroglycerin (Nitrostat) 0.4 mg SL UD PRN PRN Reason: Chest Pain Stop: 09/04/19 00:35 Ondansetron HCl (Zofran) 4 mg IV Q6H PRN PRN Reason: Nausea Stop: 09/04/19 00:35 Paroxetine HCl (Paxil) 40 mg PO DAILY [facility] Stop: 09/04/19 08:59 Last Admin: 08/05/19 08:15 Dose: 40 mg Documented by: Risperidone (Risperdal) 1 mg PO BID [facility] Stop: 09/04/19 08:59 Last Admin: 08/05/19 08:16 Dose: 1 mg Documented by: PG Care Time/CCT Total # of Minutes Spent Total Time Spent with Patient: Total time spent is greater than 50% in coordination of care (as documented) at patient's floor/unit and/or counseling patient: (1) Hypertension Hypertension type: unspecified Qualified Code(s): I10 - Essential (primary) hypertension
--- NOTE | 2019-08-05 14:07 | Discharge Summary ---
Date of Service August 05, 2019 Admission HPI Per Admitting Provider DATE OF ADMISSION: 08/04/2019 CHIEF COMPLAINT: Chest pain and shortness of breath. HISTORY OF PRESENT ILLNESS: This is a 59-year-old male with past medical history significant for coronary artery disease, multivessel disease, status post stent, type 2 diabetes, hyperlipidemia, hypertension, seizures, depression, paranoia, history of transient ischemic attack, history of noncompliance with medications, the patient is homeless, currently living in longterm. The patient states they will put in their medications in the pot, his medications went to the bottom and he could not access them for the last 2 days and he could not take his diabetes mellitus medication for the last 2 days and today evening he felt chest pain, mild in nature and also shortness of breath when he called [facility]. When his sugars were checked, it was running high and was brought in here. Currently, he got 4 units of I.V. insulin. Currently resting comfortably. He states his shortness of breath and chest pain have improved. D-dimer is mildly elevated. CTA of the chest was done which was unremarkable. Denies any headache. No dizziness. No blurred vision. No cough. Currently, no chest pain. Currently, no shortness of breath. No nausea. No vomiting. No abdominal pain. Normal bowel and bladder movements. No hematuria or burning micturition. No hematochezia or melena. He states he has swelling in the legs. He states it comes and goes. He has erythematous skin changes in the medial aspect of both thighs. He states that is not new. Denies any fevers. He states his appetite is okay. He states he is not ambulating much because of his knee pains. Currently resting comfortably and hemodynamically stable. ALLERGIES: BEE VENOM. PAST MEDICAL HISTORY: As mentioned above. PAST SURGICAL HISTORY: Tonsillectomy and cardiac catheterization with stent placement. MEDICATIONS: The patient is on Keppra 500 mg p.o. b.i.d., Tylenol 1000 mg p.o. q. 6 hours p.r.n., metformin 1000 mg p.o. b.i.d., Plavix 75 mg p.o. daily, paroxetine 40 mg p.o. daily, insulin glargine 40 units under skin daily, risperidone 1 mg b.i.d., amitriptyline 25 mg p.o. at bedtime, Lipitor 80 mg p.o. daily, Lopressor 25 mg p.o. b.i.d., lisinopril 10 mg p.o. daily and aspirin 81 mg p.o. daily. FAMILY HISTORY: Significant for father had diabetes, heart disorder and hypertension. Mother has diabetes, coronary artery disease and hypertension. Brother has gout. Sister has cancer. SOCIAL HISTORY: Currently homeless. Smokes a half a pack a day for 40 years. Alcohol rare. No drug use. REVIEW OF SYMPTOMS: As per HPI. Rest of review of systems negative. Admission Exam Per Admitting Provider PHYSICAL EXAMINATION: GENERAL: The patient is obese, not in acute distress. VITAL SIGNS: Temperature 36.6, pulse 80, respiratory rate 16, blood pressure 148/83 and oxygen 95% on room air. HEENT: No pallor. No icterus. Pupils are equal, round and reactive to light. NECK: No JVD. No neck masses. No carotid bruits. Supple. CARDIOVASCULAR: S1, S2 heard. Regular rate and rhythm. No murmur. No gallop. RESPIRATORY SYSTEM: Normal AP diameter. No accessory muscle use. No wheezing. No crackles. ABDOMEN: Soft. Bowel sounds present. Nontender. No distention. CENTRAL NERVOUS SYSTEM: Cranial nerves II through XII grossly nonfocal. EXTREMITIES: Bilateral lower extremities, +2 edema present with erythematous changes on the bilateral medial aspect of thigh. 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 Discharge Exam Constitutional comfortable Eyes PERRL, conjunctivae normal, anicteric sclerae EOM intact bilaterally ENMT external ear and nose normal, oropharynx normal Neck normal visual inspection Respiratory normal respiratory effort, lungs clear to auscultation Cardiovascular Rate/Rhythm: regular rate and regular rhythm Gastrointestinal (Abdomen) normal bowel sounds, soft, nontender, no hepatosplenomegaly Musculoskeletal Head/Neck/Chest: normocephalic and head atraumatic mild bilateral lower extrmeity edema Neurologic PERRL, EOMI, accommodation nl, no face palsy, no dysarthria CN's II-XI intact bilaterally Psychiatric A+Ox3, euthymic affect Discharge Data Allergies Allergy/AdvReac Type Severity Reaction Status Date / Time bee venom protein (honey bee) Allergy Intermediate Swelling Verified 08/04/19 19:40 of Lip/Tongue/Throat Consultations 08/04/19 22:41 ED Decision to Admit Stat 08/05/19 00:36 Consult Case Management - Discharge Planning Routine 08/05/19 08:00 Consult Cardiology Routine Ordered Studies 08/04/19 21:00 CT angio chest PE protocol Stat 08/05/19 00:36 US venous doppler LE BI Routine Hospital Course (1) Chest pain: 59-year-old male who presents with chest pain and shortness of breath. -had cardiac catheterization done on 11/2018 showing multivessel coronary disease, 100% acute mid circumflex occlusion, 40% to 50% diffuse mid left anterior descending, 60% distal right coronary artery, 90% right acute marginal and status post successful mid circumflex single bare metal stent -08/04/19 D-dimer elevated, but CTA of the chest is unremarkable. admission Electrocardiogram nonischemic. -troponins 0.033, then 0.015, then less than 0.015 -08/05/19: echocardiogram -08/05/19 daytime hospitalist encounter with patient: Patient is seen and examined at bedside on telemetry moralez. He denies current chest pain. He cannot clearly state how long prior episode of chest pain for which he came to the emergency room lasted. He reports the main symptoms that he came for is described as a general feeling of unwellness. Prior to coming to the emergency room, patient reports that the last time he took his own insulin of 40 units daily was several days ago. When asked why he did not take insulin more regularly, patient was nonspecific about that and reports that he is homeless. He denies being in a longterm recently. When asked where he has been living recently, patient replies "That is a lot of personal information." Hospitalist doctor explained that these questions are only being asked to coordinate outpatient care for after the hospital stay. Hospitalist informed patient that caser up will be coming by. When patient asked about other home medications, patient reports he has been taking other medications regularly and he recounts: metformin, metoprolol,paroxetine, risperidone -08/05/19 echocardiogram: No change compared to previous study of 12/15/18. Normal LV chamber size with severe concentric LVH. Mild hypokinesis involving basel inferior, inferolateral hooper, otherwise, normal wall motion. Grade I diastolic dysfunction. No significant valvular pathology -continue metoprolol -08/05/[address] Gray does not advise further invasive testing such as cardiac cath Lower extremity edema -mild bilateral lower extremity edema (2) Diabetes mellitus, type 2: Type 2 diabetes mellitus with hyperglycemia and correction current use of insulin HbA1c is 10.2 on 12/15/18 HbA1c is 9.6 on 08/05/19 -home regimen should be metformin 1000 mg BID and Basaglar insulin 40 units daily -patient did not take insulin at home for several days prior to hospital presentation -in hospital, patient was given Lantus 20 units qhs and sliding scale insulin, and when it was determined that no further invasive cardiac testing needed, patient was given additional Lantus 20 units in the daytime of 08/05/19 -counseled patient about resuming diabetes medications with new prescriptions History of cerebrovascular accident -no focal neurological motor deficits -continue aspirin, Plavix and statin History of depression and paranoia -Continue paroxetine , risperidone History of Seizures in the past -Keppra (Levetiracetam) Homeless -caser up consultation requested and she assured hospitalist that patient has access to [facility] and arrangements with local pharmacy for medications to be filled Patient is given prescriptions for medication refill if needed for 30 day resupply of aspirin 81 mg daily, clopidogrel 75 mg every night, atorvastatin 80 mg every night, levtiracetam (Keppra) 500 mg twice a day, metformin 1000 mg twice a day, metoprolol 25 mg twice a day, paroxetine 40 mg daily, risperidone 1 mg twice a day, and prescription of Basaglar insulin to be used as 40 units daily subcutaneously Patient has follow up to see primary care doctor 08/11/2019 11:10 AM Provider DO Josephine Sebastian [facility] If patient develops acute chest pain with activity then he should return to the Emergency room Main Discharge Diagnosis: Chest Pain, Coronary artery disease involving [place] coronary artery of [place] heart, Type 2 diabetes mellitus with hyperglycemia with halfway current use of insulin. 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 Condition on Discharge: Good Activity: Per Instructions section Non-emergency contact: Primary Care Provider Call non-emergency contact if: you have any medication questions Follow-up/Referrals: Nilay Ramos DO [Primary Care Provider] - Diet: Carb Consistent or DM2 Addtl Attending Provider Instructions: Patient is given prescriptions for medication refill if needed for 30 day resupply of aspirin 81 mg daily, clopidogrel 75 mg every night, atorvastatin 80 mg every night, levtiracetam (Keppra) 500 mg twice a day, metformin 1000 mg twice a day, metoprolol 25 mg twice a day, paroxetine 40 mg daily, risperidone 1 mg twice a day, and prescription of Basaglar insulin to be used as 40 units daily subcutaneously Patient has follow up to see primary care doctor 08/11/2019 11:10 AM Provider Nilay Ramos DO [facility] If patient develops acute chest pain with activity then he should return to the Emergency room Pending Studies at Discharge: No Stand-Alone Forms: My [facility] [employer], Smoking Cessation Medications and DC Order Prescriptions: New atorvastatin 40 mg Tablet 80 mg PO QPM 30 Days Qty: 60 RF: 0 levetiracetam [Keppra] 500 mg Tablet 500 mg PO BID 30 Days Qty: 60 RF: 0 clopidogrel 75 mg Tablet 75 mg PO QPM 30 Days Qty: 30 RF: 0 aspirin [Ecotrin Low Strength] 81 mg Tablet,Delayed Release (Dr/Ec) 81 mg PO DAILY 30 Days Qty: 30 RF: 0 paroxetine HCl 20 mg Tablet 40 mg PO DAILY 30 Days Qty: 60 RF: 0 lisinopril 10 mg Tablet 10 mg PO DAILY 30 Days Qty: 30 RF: 0 risperidone 1 mg Tablet 1 mg PO BID 30 Days Qty: 60 RF: 0 metoprolol tartrate 25 mg Tablet 25 mg PO BID 30 Days Qty: 60 RF: 0 metformin 1,000 mg tablet 1,000 mg PO BIDM 30 Days Qty: 60 RF: 0 Continued Basaglar KwikPen U-100 Insulin 100 unit/mL (3 mL) insulin pen 40 unit SQ HS 30 Days Qty: 12 RF: 0 Discontinued clopidogrel [Plavix] 75 mg Tablet 75 mg PO QPM RF: 0 atorvastatin 80 mg Tablet 80 mg PO QPM RF: 0 paroxetine HCl [Paxil] 40 mg Tablet 40 mg PO DAILY RF: 0 metformin 1,000 mg Tablet 1,000 mg PO BID RF: 0 lisinopril 10 mg Tablet 10 mg PO DAILY RF: 0 risperidone [Risperdal] 1 mg Tablet 1 mg PO BID RF: 0 levetiracetam [Keppra] 500 mg tablet 500 mg PO BID Qty: 14 RF: 0 acetaminophen 500 mg capsule 1,000 mg PO BID Qty: 60 RF: 0 metoprolol tartrate 50 mg tablet 25 mg PO BID RF: 0 aspirin [Aspirin Low Dose] 81 mg Tablet,Delayed Release (Dr/Ec) 81 mg PO DAILY RF: 0 Discharge Orders: Discharge Order (Routine); Ordered 08/05/19 Ordered By: Shahriar Lr Admission Data Admit Date/Time: 08/04/19 23:24 Attending Provider: Shahriar Lr Admit Provider: Prieto Kidd Primary Care Provider: Nilay Ramos Other Providers: Prieto Kidd ; Rob Barlow
[2019-08-05] MEDS ORDERED: METFORMIN HCL 500 MG TAB PO SCH (17:00)
[2019-08-05] MEDS ORDERED: ATORVASTATIN 40 MG TAB PO SCH (21:00)
[2019-08-05] MEDS ORDERED: CLOPIDOGREL BISULFATE 75 MG TAB PO SCH (21:00)
[2019-08-06] MEDS ORDERED: INSULIN GLARGINE SOLOSTAR 100 UNITS/ML 3 ML PEN SC SCH (21:00)
== END 2019-08-05 16:15 | disposition home or self-care (01) ==
LOC: ED 18:46 → 2E 18:46

== ENCOUNTER 2019-10-31 13:53 | Inpatient (IN) ==
[2019-10-31 14:41] LABS: Appearance Urine Clear (Clear); Bilirubin Urine Negative (Negative); Blood Urine Negative (Negative); Color Urine Yellow; Glucose Urine UA 3+ (Negative); Ketones Urine Negative (Negative); Leukocyte Esterase Urine Negative (Negative); Nitrite Urine Negative (Negative); Protein Urine Negative (Negative); Specific Gravity Urine 1.026 (1.000-1.030); Urobilinogen Urine Negative (Negative)
[2019-10-31 14:42] LABS: Amphetamines+Metham, Urine Neg (Neg); Barbiturates, Urine Neg (Neg); Benzodiazepine, Urine Neg (Neg); Cocaine, Urine Neg (Neg); MDMA (Ecstacy), Urine Neg (Neg); Methadone, Urine Neg (Neg); Opiate, Urine Neg (Neg); Phencyclidine, Urine Neg (Neg)
[2019-10-31 14:46] LABS: Basophils # (auto) 0.03 K/uL (0-0.2); Basophils % (auto) 0.4 %; Eosinophils # (auto) 0.11 K/uL (0-0.5); Eosinophils % (auto) 1.4 %; Hematocrit (blood only) 43.2 % (42-52); Hemoglobin 15.2 g/dL (14.0-18.0); Immature Granulocytes # (auto) 0.07 K/uL (0.00-0.02); Immature Granulocytes % (auto) 0.9 %; Lymphocytes # (auto) 2.15 K/uL (1.2-3.4); Lymphocytes % (auto) 27.8 %; Mean Corpuscular Hemoglobin 30.4 pg (25-34); Mean Corpuscular Hgb Conc 35.2 g/dL (32-36); Mean Corpuscular Volume 86.4 fL (80-100); Mean Platelet Volume 11.3 fL (7.4-10.4); Monocytes # (auto) 1.06 K/uL (0.11-0.59); Monocytes % (auto) 13.7 %; Neutrophils # (auto) 4.32 K/uL (1.4-6.5); Neutrophils % (auto) 55.8 %; Platelet Count 215 K/uL (130-400); RDW Coefficient of Variation 13.1 % (11.5-14.5); RDW Standard Deviation 41.4 fL (36.4-46.3); White Blood Count 7.74 K/uL (4.8-10.8)
[2019-10-31 15:15] LABS: Acetaminophen < 2 ug/ml (10-30); Salicylate 3.8 mg/dl (2.8-20)
[2019-10-31 15:17] LABS: Albumin Globulin Ratio 0.9 (0.9-2); Albumin Level 3.3 gm/dl (3.4-5.0); BUN Creatinine Ratio 12.4 (10-20); Bilirubin,Total 0.3 mg/dl (0.2-1); Calcium 9.4 mg/dl (8.5-10.1); Creatinine Clr Calc Pharmacy 106.9 ml/min; Est GFR (African American) 101.9; Est GFR (Non-African American) 87.9; Globulin 3.8 gm/dl (2.5-4.0); Potassium 3.7 mmol/L (3.5-5.1); Thyroid Stimulating Hormone 2.85 uIu/ml (0.300-4.500); Total Protein 7.1 gm/dl (6.4-8.2)
[2019-10-31] MEDS ORDERED: NovoLIN-R INSULIN PER UNIT CHARGE SC STA (15:20)
[2019-10-31 15:37] LABS: Beta-Hydroxybutyrate 1.33 mg/dl (0.2-2.81)
--- NOTE | 2019-10-31 16:06 | Emergency Department Note ---
Entered by Compa Tipton acting as a scribe for Hugo Poole M.D. History of Present Illness General Chief complaint: Mental Health Evaluation Stated complaint: MENTAL HEALTH EVAL Time Seen by Provider: 10/31/19 14:03 Source: patient Limitations: no limitations History of Present Illness Onset (ago): day(s) (today) Location: head Pain Consistency: + constant Maximum Pain Intensity: 5 Quality: + constant Associated symptoms: + other (suicidal ideation with plan, anxiety, depressed) Treatments prior to arrival: other (daily medications, Paxil) The patient is a 59 year old male who presents to the Emergency Room for a mental health evaluation. The lead case manager states the patient was brought in by the police after he had suicidal ideations. The lead case manager states the patient has been staying with [facility] The patient states he felt depressed and wanted to take a nosedive off a parking garage. He states he went to the parking garage, but states he did not do anything. He states he has had thoughts of wanting to hurt himself before but denies ever doing anything. He states he has been feeling very down. He states his anxiety comes and goes. He notes he thinks he needs to talk to someone. He states he has been inpatient before. He notes he has been taking his medicine including Paxil, but states it has not been working. The patient denies having hallucinations. Home Medications Home Medications Medication Instructions Recorded Confirmed Type Basaglar KwikPen U-100 Insulin 40 unit SQ HS 30 Days #12 ml 08/05/19 10/31/19 Rx clopidogrel 75 mg PO QAM 08/20/19 10/31/19 History Paxil 40 mg PO DAILY 10/31/19 10/31/19 History levetiracetam 500 mg PO BID 10/31/19 10/31/19 History metformin 1,000 mg PO DAILY 10/31/19 10/31/19 History risperidone 2 mg PO DAILY 10/31/19 10/31/19 History Allergies Allergy/AdvReac Type Severity Reaction Status Date / Time bee venom protein (honey bee) Allergy Intermediate Swelling Verified 10/31/19 14:12 of Lip/Tongue/Throat Past Med/Surg History Medical History Carotid artery disease (Chronic) "complete occlusion right ICA first noted 11/17/14" Cerebrovascular disease (Chronic) Depression (Chronic) Diabetes mellitus, type 2 (Chronic) Dyslipidemia (Chronic) Hypertension (Chronic) Major depressive disorder, recurrent Mood disorder (Chronic) Myocardial infarction Pneumonia (Inactive) PTSD (post-traumatic stress disorder) Seizure disorder (Chronic) TIA (transient ischemic attack) Surgical History S/P coronary artery stent placement Status post tonsillectomy (Chronic) Family History Other Family history non-contributory Social History Preferred Language: Somali Communication Ability: Effective Wound Treatment Rn Required: No Beliefs That Will Affect Care: None marital status: Current Living Situation: Homeless current occupational status: unemployed Feels Safe at Home: No Is there a partner from a previous relationship who is making you feel unsafe now?: No Smoking Status: Current every day smoker Tobacco Type: cigarettes ; Cigarettes Per Day: 20 ; Second Hand Exposure: No ; Hx Alcohol Use: No Hx Substance Use: No Review of Systems See HPI for pertinent positives & negatives. and A total of 10 systems reviewed and were otherwise negative Physical Exam Vital Signs Vital Signs - 24 hr 10/31/19 14:02 10/31/19 16:34 Temperature 36.8 C Temperature Source Oral Pulse Rate 96 H Pulse Rate [Right Finger] 90 Pulse Rhythm [Right Finger] Regular Pulse Strength [Right Finger] Normal Respiratory Rate 20 20 Respiratory Effort / Characteristics Non-Labored Spontaneous Non-Labored Respiratory Depth Normal Normal Respiratory Pattern Regular Blood Pressure 175/111 H Blood Pressure [Left Arm] 184/95 H Blood Pressure Mean 132 Blood Pressure Mean [Left Arm] 124 Blood Pressure Position [Left Arm] Sitting Pulse Oximetry 95 92 Oxygen Delivery Method Room Air Room Air Sepsis Recent Fever Within 48 Hours No Sepsis New/Unexplained Change in Mental Status No Sepsis Action Taken by Nursing No Action Required GENERAL: Awake, alert, poorly kept HENT: Normocephalic, atraumatic. EYES: Normal conjunctiva. Sclera non-icteric. RESPIRATORY: Clear to auscultation. No wheezes. Normal respiratory effort. CARDIAC: Normal rate. Normal rhythm. Extremities warm and well perfused. MUSCULOSKELETAL: Atraumatic. Chest examination reveals no tenderness. NEURO: No sensory or motor deficits noted. No facial droop. SKIN: Warm and dry. No jaundice noted. PSYCH: Endorses depression and suicidal thoughts. States he wants to jump off a parking garage. No HI. Denies hallucinations. Course Course 1410: The patient was evaluated in room A8, and a complete history and physical examination were performed. 1940: Signed out to Dr. Hopkins pending bled placement. 3S at bedside of p atient evaling him. Administered Medications Discontinued Medications Insulin Human Regular (Novolin R U-100 Per Unit) 10 units SC NOW STA Stop: 10/31/19 15:21 Last Admin: 10/31/19 16:31 Dose: 10 units Documented by: [id number] Cosigned by: [id number] Medical Decision Making Differential Diagnosis Differential diagnoses considered include mood disorder, infection, hypoglycemia, electrolyte abnormalities, cardiac sources, intracerebral event, toxicologic, neurologic, as well as others. Medical Records Attestation: I reviewed the patient's medical records. Home Medications Current Medication List: was personally reviewed by me Laboratory Data Attestation: I reviewed the patient's lab results. Result diagrams: 10/31/19 14:28 10/31/19 14:28 Lab Results 10/31/19 10/31/19 10/31/19 Range/Units 14:10 14:10 14:28 WBC 7.74 (4.8-10.8) K/uL RBC 5.00 (4.7-6.1) M/uL Hgb 15.2 (14.0-18.0) g/dL Hct 43.2 (42-52) % MCV 86.4 (80-100) fL MCH 30.4 (25-34) pg MCHC 35.2 (32-36) g/dL RDW Std Deviation 41.4 (36.4-46.3) fL RDW Coeff of Kimmy 13.1 (11.5-14.5) % Plt Count 215 (130-400) K/uL MPV 11.3 H (7.4-10.4) fL Immature Gran % (Auto) 0.9 % Neut % (Auto) 55.8 % Lymph % (Auto) 27.8 % Hancock % (Auto) 13.7 % Eos % (Auto) 1.4 % Baso % (Auto) 0.4 % Immature Gran # (Auto) 0.07 H (0.00-0.02) K/uL Neut # (Auto) 4.32 (1.4-6.5) K/uL Lymph # (Auto) 2.15 (1.2-3.4) K/uL Hancock # (Auto) 1.06 H (0.11-0.59) K/uL Eos # (Auto) 0.11 (0-0.5) K/uL Baso # (Auto) 0.03 (0-0.2) K/uL Sodium (136-145) mmol/L Potassium (3.5-5.1) mmol/L Chloride (98-107) mmol/L Carbon Dioxide (21-32) mmol/L Anion Gap (3-11) BUN (7-18) mg/dl Creatinine (0.6-1.4) mg/dl Est Cr Clr Drug Dosing ml/min Est GFR ( Amer) Est GFR (Non-Af Amer) BUN/Creatinine Ratio (10-20) Glucose (70-99) mg/dl POC Glucose (70-99) mg/dl Calcium (8.5-10.1) mg/dl Total Bilirubin (0.2-1) mg/dl AST (15-37) U/L ALT (12-78) U/L Alkaline Phosphatase (45-117) U/L Total Protein (6.4-8.2) gm/dl Albumin (3.4-5.0) gm/dl Globulin (2.5-4.0) gm/dl Albumin/Globulin Ratio (0.9-2) Beta-Hydroxybutyric Acd (0.2-2.81) mg/dl TSH (0.300-4.500) uIu/ml Urine Color Yellow Urine Appearance Clear (Clear) Urine pH 6.0 (4.5-7.5) Ur Specific [place] 1.026 (1.000-1.030) Urine Protein Negative (Negative) Urine Glucose (UA) 3+ H (Negative) Urine Ketones Negative (Negative) Urine Blood Negative (Negative) Urine Nitrite Negative (Negative) Urine Bilirubin Negative (Negative) Urine Urobilinogen Negative (Negative) Ur Leukocyte Esterase Negative (Negative) Salicylates (2.8-20) mg/dl Urine Opiates Screen Neg (Neg) Ur Methadone, Qual Neg (Neg) Acetaminophen (10-30) ug/ml Urine Barbiturates Neg (Neg) Ur Phencyclidine (PCP) Neg (Neg) U Amphetamin/Meth Scrn Neg (Neg) MDMA (Ecstasy) Screen Neg (Neg) U Benzodiazepines Scrn Neg (Neg) Ur Cocaine Metabolite Neg (Neg) U Marijuana (THC) Screen Neg (Neg) Ethyl Alcohol mg/dL (0-3) mg/dl 10/31/19 10/31/19 10/31/19 Range/Units 14:28 14:28 14:28 WBC (4.8-10.8) K/uL RBC (4.7-6.1) M/uL Hgb (14.0-18.0) g/dL Hct (42-52) % MCV (80-100) fL MCH (25-34) pg MCHC (32-36) g/dL RDW Std Deviation (36.4-46.3) fL RDW Coeff of Kimmy (11.5-14.5) % Plt Count (130-400) K/uL MPV (7.4-10.4) fL Immature Gran % (Auto) % Neut % (Auto) % Lymph % (Auto) % Hancock % (Auto) % Eos % (Auto) % Baso % (Auto) % Immature Gran # (Auto) (0.00-0.02) K/uL Neut # (Auto) (1.4-6.5) K/uL Lymph # (Auto) (1.2-3.4) K/uL Hancock # (Auto) (0.11-0.59) K/uL Eos # (Auto) (0-0.5) K/uL Baso # (Auto) (0-0.2) K/uL Sodium 137 (136-145) mmol/L Potassium 3.7 (3.5-5.1) mmol/L Chloride 105 (98-107) mmol/L Carbon Dioxide 27 (21-32) mmol/L Anion Gap 5.0 (3-11) BUN 12 (7-18) mg/dl Creatinine 0.95 (0.6-1.4) mg/dl Est Cr Clr Drug Dosing 106.9 ml/min Est GFR ( Amer) 101.9 Est GFR (Non-Af Amer) 87.9 BUN/Creatinine Ratio 12.4 (10-20) Glucose 325 H* (70-99) mg/dl POC Glucose (70-99) mg/dl Calcium 9.4 (8.5-10.1) mg/dl Total Bilirubin 0.3 (0.2-1) mg/dl AST 7 L (15-37) U/L ALT 14 (12-78) U/L Alkaline Phosphatase 112 (45-117) U/L Total Protein 7.1 (6.4-8.2) gm/dl Albumin 3.3 L (3.4-5.0) gm/dl Globulin 3.8 (2.5-4.0) gm/dl Albumin/Globulin Ratio 0.9 (0.9-2) Beta-Hydroxybutyric Acd 1.33 (0.2-2.81) mg/dl TSH 2.850 (0.300-4.500) uIu/ml Urine Color Urine Appearance (Clear) Urine pH (4.5-7.5) Ur Specific [place] (1.000-1.030) Urine Protein (Negative) Urine Glucose (UA) (Negative) Urine Ketones (Negative) Urine Blood (Negative) Urine Nitrite (Negative) Urine Bilirubin (Negative) Urine Urobilinogen (Negative) Ur Leukocyte Esterase (Negative) Salicylates 3.8 (2.8-20) mg/dl Urine Opiates Screen (Neg) Ur Methadone, Qual (Neg) Acetaminophen < 2 L (10-30) ug/ml Urine Barbiturates (Neg) Ur Phencyclidine (PCP) (Neg) U Amphetamin/Meth Scrn (Neg) MDMA (Ecstasy) Screen (Neg) U Benzodiazepines Scrn (Neg) Ur Cocaine Metabolite (Neg) U Marijuana (THC) Screen (Neg) Ethyl Alcohol mg/dL < 3.0 (0-3) mg/dl 10/31/19 10/31/19 Range/Units 17:28 18:40 WBC (4.8-10.8) K/uL RBC (4.7-6.1) M/uL Hgb (14.0-18.0) g/dL Hct (42-52) % MCV (80-100) fL MCH (25-34) pg MCHC (32-36) g/dL RDW Std Deviation (36.4-46.3) fL RDW Coeff of Kimmy (11.5-14.5) % Plt Count (130-400) K/uL MPV (7.4-10.4) fL Immature Gran % (Auto) % Neut % (Auto) % Lymph % (Auto) % Hancock % (Auto) % Eos % (Auto) % Baso % (Auto) % Immature Gran # (Auto) (0.00-0.02) K/uL Neut # (Auto) (1.4-6.5) K/uL Lymph # (Auto) (1.2-3.4) K/uL [place]ancock # (Auto) (0.11-0.59) K/uL Eos # (Auto) (0-0.5) K/uL Baso # (Auto) (0-0.2) K/uL Sodium (136-145) mmol/L Potassium (3.5-5.1) mmol/L Chloride (98-107) mmol/L Carbon Dioxide (21-32) mmol/L Anion Gap (3-11) BUN (7-18) mg/dl Creatinine (0.6-1.4) mg/dl Est Cr Clr Drug Dosing ml/min Est GFR ( Amer) Est GFR (Non-Af Amer) BUN/Creatinine Ratio (10-20) Glucose (70-99) mg/dl POC Glucose 299 H 208 H (70-99) mg/dl Calcium (8.5-10.1) mg/dl Total Bilirubin (0.2-1) mg/dl AST (15-37) U/L ALT (12-78) U/L Alkaline Phosphatase (45-117) U/L Total Protein (6.4-8.2) gm/dl Albumin (3.4-5.0) gm/dl Globulin (2.5-4.0) gm/dl Albumin/Globulin Ratio (0.9-2) Beta-Hydroxybutyric Acd (0.2-2.81) mg/dl TSH (0.300-4.500) uIu/ml Urine Color Urine Appearance (Clear) Urine pH (4.5-7.5) Ur Specific [place] (1.000-1.030) Urine Protein (Negative) Urine Glucose (UA) (Negative) Urine Ketones (Negative) Urine Blood (Negative) Urine Nitrite (Negative) Urine Bilirubin (Negative) Urine Urobilinogen (Negative) Ur Leukocyte Esterase (Negative) Salicylates (2.8-20) mg/dl Urine Opiates Screen (Neg) Ur Methadone, Qual (Neg) Acetaminophen (10-30) ug/ml Urine Barbiturates (Neg) Ur Phencyclidine (PCP) (Neg) U Amphetamin/Meth Scrn (Neg) MDMA (Ecstasy) Screen (Neg) U Benzodiazepines Scrn (Neg) Ur Cocaine Metabolite (Neg) U Marijuana (THC) Screen (Neg) Ethyl Alcohol mg/dL (0-3) mg/dl Blood Pressure Blood Pressure Findings: Elevated blood pressure Blood Pressure Disposition: Referred to patients primary care provider NICK Narrative Patient is a 59-year-old gentleman history of diabetes presenting today after made some statements that out of the cold, 1 of the homeless programs in [facility], a bout wanting to harm himself. States he thought about going up to a parking garage and jumping off. States he went to the parking garage but did not go up in it. Denies attempts in the past. Past psychiatric history and inpatient care. Patient states he feels very depressed. Denies hallucination or HI. Basic medical clearance was completed. Hyperglycemic with a history of diabetes. Given some additional insulin here with gradual improvement of glucose. No evidence of DKA or HHS. He is agreeable for inpatient voluntary treatment which I agree should be pursued for his safety with these thoughts. Referrals were made. Seem in conjunction with psychiatric lead case manager. 3 s to . Signed out to Dr. Hopkins pending bed placement on 201. Has made concerning statements and likely has involuntary grounds if changes mind. Impression & Plan Depression, Verbalizes suicidal thoughts Discharge Plan Visit Data Chief Complaint: Mental Health Evaluation Stated Complaint: MENTAL HEALTH EVAL ED Provider: Major Hopkins Discharge Problem: Depression, Verbalizes suicidal thoughts Forms Stand Alone Forms: My [facility], Suicide Prevention Resources Prescriptions Prescriptions: No Action Michelle Green U-100 Insulin 100 unit/mL (3 mL) insulin pen 40 unit SQ HS 30 Days Qty: 12 RF: 0 clopidogrel 75 mg tablet 75 mg PO QAM RF: 0 levetiracetam 500 mg Tablet 500 mg PO BID RF: 0 risperidone 2 mg Tablet 2 mg PO DAILY RF: 0 metformin 1,000 mg Tablet 1,000 mg PO DAILY RF: 0 Paxil 40 mg PO DAILY RF: 0 Discharge Problem: Depression Qualifiers: Depression Type: major depressive disorder Major depression recurrence: recurrent Active/Remission status: currently active Major depression episode severity: unspecified Qualified Code(s): F33.9 - Major depressive disorder, recurrent, unspecified The scribe's documentation has been prepared under my direction and personally reviewed by me in its entirety. I confirm that the note above accurately reflects all work, treatment, procedures, and medical decision making performed by me.
[2019-10-31] MEDS ORDERED: SODIUM CHLORIDE 0.65% NA SOLN 45 ML (OCEAN) PRN (21:44)
[2019-10-31] MEDS ORDERED: ACETAMINOPHEN 325 MG TAB PO PRN (21:44)
[2019-10-31] MEDS ORDERED: LORazepam 1 MG TAB PO PRN (21:44)
[2019-10-31] MEDS ORDERED: MAGNESIUM HYDROXIDE SUSP 30 ML UDC PO PRN (21:44)
[2019-10-31] MEDS ORDERED: ALUMINUM/MAGNESIUM SUSP 30 ML UDC PO PRN (21:44)
[2019-10-31] MEDS ORDERED: BISMUTH SUBSALICYLATE PER ML OMNICELL CHARGE PO PRN (21:44)
[2019-10-31] MEDS ORDERED: PHARMACY GLYCEMIC MGMT CONSULT PRN (21:56)
[2019-10-31] MEDS ORDERED: GLUCAGON FOR INJ 1 MG VIAL SQ PRN (22:15)
[2019-10-31] MEDS ORDERED: GLUCOSE 40% GEL 15 GM TUBE PO PRN (22:15)
[2019-10-31] MEDS ORDERED: CARBOHYDRATES FOR HYPOGLYCEMIA PO PRN (22:15)
[2019-10-31] MEDS ORDERED: DEXTROSE 50% 50 ML SYRINGE IV PRN (22:15)
[2019-10-31] MEDS ORDERED: GLUCOSE 10 TABS/TUBE PO PRN (22:15)
--- NOTE | 2019-10-31 22:19 | Emergency Department Note ---
ED Visit Note Received patient in signout. History and physical verified by me. Patient has been admitted to 3 S. . : Depression Qualifiers: Depression Type: major depressive disorder Major depression recurrence: recurrent Active/Remission status: currently active Major depression episode severity: unspecified Qualified Code(s): F33.9 - Major depressive disorder, recurrent, unspecified
--- NOTE | 2019-10-31 22:40 | Pharmacy Report ---
PHA: Glycemic Control AP - Date of Service October 31, 2019 - Assessment & Plan Laboratory Tests 08/05/19 10/31/19 10/31/19 05:35 14:28 17:28 Glucose 325 H* POC Glucose 299 H Hemoglobin A1c 9.6 H 10/31/19 18:40 POC Glucose 208 H Reported Home Diabetes Regimen: * Insulin glargine 40 units sq qHS (last dose unkown) * metformin 1 gram po daily ASSESSMENT/PLAN: Pt last here 12/16/19 and known to glycemic service. Will use glycemic regimen similar to that visit * D/C metformin * Basal insulin: Ordered Lantus 40 units every qHS (start on admission). * Correctional Insulin: Novolog Correction per scale ACHS Goal Range: Low 120 mg/dL - High 160 mg/dL Correction Factor: 20 mg/dL/unit * Prandial insulin: Per carb ratio of 1 unit per 7 grams CHO consumed Pharmacy will continue to monitor patient daily and write orders per [facility] inpatient glycemic control protocol. Thanks. * Please note that the plan above was derived based on current level of insulin resistance and hospital stress. These recommendations are appropriate for inpatient admission only. Plan of care upon discharge will need to be reassessed to avoid potential outpatient hypo/hyperglycemia.
[2019-10-31] MEDS: levETIRAcetam 500 MG TAB PO SCH (23:29)
[2019-10-31] MEDS ORDERED: INSULIN GLARGINE SOLOSTAR 100 UNITS/ML 3 ML PEN SC SCH (23:30)
[2019-10-31] MEDS: INSULIN ASPART 100 UNITS/ML 3 ML PEN SC SCH (23:33)
[2019-11-01] MEDS ORDERED: METFORMIN HCL 500 MG TAB PO SCH (06:30)
[2019-11-01 07:43] LABS: Estimated Average Glucose 309 mg/dl; Hemoglobin A1C 12.4 % (4.5-5.6)
[2019-11-01] MEDS ORDERED: PHARMACY GLYCEMIC MGMT CONSULT STA (09:14)
--- NOTE | 2019-11-01 09:41 | History & Physical ---
Date of Service November 01, 2019 Impression / Recommendations Impression 59-year-old male with a history of multiple medical problems as detailed above as well as recurrent depression and treatment noncompliance who presents after reporting suicidal thoughts with a plan to jump off a parking garage in the context of numerous psychosocial stressors, including feeling abandoned by his adult children and losing his cell phone. He is homeless, in the process of applying for disability, and has alienated all of the people in his life. He never followed up with outpatient psychiatric care or therapy, and does not know if he has been assigned a new rehabilitation caseworker, as his last one left the agency and the patient never followed up with them, which he attributes to losing his phone. He has not been caring for himself, not checking blood sugar, estimated average glucose is over 300, and has not been filling medications for his various medical conditions regularly. He has been off antihypertensives for some time and presented with hypertension. Inpatient treatment is medically n ecessary due to the severity of his symptoms and risk for suicide if discharged. (1) Depression: 11/01 -patient with history of recurrent depression, who presents with depressive symptoms. He reports compliance with paroxetine 40 mg daily (had been on 60 mg daily when here in 2018) and risperidone 1 mg twice daily, which was started in [place] in 2018. He would like to start with increasing paroxetine to 50mg, which he previously responded well to, and also discussed trial of fluoxetine if that is ineffective (no previous SSRI trials). -Staff contacted PCPs office -no recent FLP, so will order for tomorrow for monitoring on an atypical. Hemoglobin A1c 12.4 today. -Had a BCM through [facility], but he left - contact them to determine if he was transferred to someone else. -He would benefit from outpatient psychiatric care and therapy, but lack of insurance and finances are barriers. Currently, his PCP, Dr. Nilay Zurita, is prescribing medication. -Recommend family meeting with adult children - he is unsure about this. Active/Remission status: currently active Depression Type: major depressive disorder Major depression episode severity: unspecified Major depression recurrence: recurrent Qualified Code(s): F33.9 - Major depressive disorder, recurrent, unspecified (2) Homeless: Patient has been homeless for years, using [facility]. -Recommend referral for case management services for assistance with resources in the county. -Explore options for replacing his cell phone; perhaps through his insurance or the county. (3) Noncompliance with medications: Chronic noncompliance with outpatient medications, does not fill prescriptions regularly, had not been taking antihypertensives or insulin prior to admission, and presented with elevated blood pressure and glucose > 300. Explore ways to improve adherence. (4) Hypertension: Resume home dose of metoprolol 25 mg twice daily. Ensure follow-up with PCP. Hypertension type: unspecified Qualified Code(s): I10 - Essential (primary) hypertension (5) Cerebrovascular disease: Continue home dose of Plavix 75 mg daily. (6) Diabetes mellitus, type 2: Continue insulin and consult the diabetic pharmacist for assistance with management. Hemoglobin A1c today 12.4, with estimated average glucose of 309. Diabetes mellitus complication status: with unspecified complications Diabetes mellitus long term care administrator insulin use: unspecified intermediate insulin use status Qualified Code(s): E11.8 - Type 2 diabetes mellitus with unspecified complications (7) Dyslipidemia: Patient has been prescribed atorvastatin 80 mg in the past, last filled 5 months ago. Unclear if he is still supposed to be on this medication -will refer to PCP for outpatient follow-up. (8) Seizure disorder: Continue home dose of Keppra. Risk Factors Assessment Male: Yes : Yes Do You Have Access To A Gun?: No Health Problems: Yes Mental Health Diagnoses: Yes Previous Attempt: Yes Previous Attempt; Highly Lethal: No Family History of Suicide: No Previous Psychiatric Hospitalization: Yes Hopelessness: Yes Smoker: Yes Protective Factors Assessment : No Responsible for Young Children: No Employed: No Stable Relationships: No Supportive Family: No Psychiatric History Identifying Data CYNTHIA SOLOMON is a 59-year-old homeless male with a history of major depressive disorder and multiple medical problems including CAD, CVD, DM 2, hypertension, seizure disorder, and CO who was admitted on 10/31/19 21:44 on a 201 voluntary commitment for suicidality with a plan to jump off a parking garage. Chief Complaint "Opened my big mouth and let somebody know that I'd started making some plans to kill myself". Past Psychiatric History Previous Psych History: Patient is known to us from a previous hospitalization on our unit in June 2018, also for depression with suicidality and a plan to jump off a roof. At that time, his home dose of paroxetine was increased to 60 mg daily, and stated he was moving to [place], so did not have local aftercare. It does not appear that he ever moved, as he continues to present frequently to the emergency room, 1-2 times a month over the past year. His PCP is Dr. Nilay Zurita, who prescribes his psychotropic medications. Per his external medication history, he does not fill his meds regularly, and should have run out of several of them by now. He presented to the ER yesterday with police after going to a parking garage with intent to jump off and end his life. He reported severe depression, intermittent anxiety, and said he needed to talk to someone. He said he had been compliant with his psychotropic medications, but they had not been effective. He reported multiple stressors including legal problems, homelessness, little contact with his children, lack of supports, financial problems, unemployment, chronic pain, medical problems, and recently losing his phone. He reported poor appetite, disturbed sleep, low motivation, anergia, hopelessness, and helplessness. He stated he had not been checking his blood sugar regularly, and BSG in the ER was 325. He was incontinent of urine in the ER. He signed in voluntarily. Admission labs notable for normal CBC and CMP with the exception of glucose 325, normal TSH, UA with 3+ glucose, UDS negative. On my assessment, he reports he started making plans for suicide a couple of weeks ago, when he noticed he felt "at the bottom of the barrel" and was feeling hopeless. Exacerbated by his 20 y/o son telling him "he was getting sick of me," as the patient had been asking him for money repeatedly. He has no income and says he is "waiting to go before the [employer] for disability," but doesn't know when that will be. He is getting food and custodial from [facility] since it opened in the fall, and during summer months stayed "in a park" and lived off food stamps. He says that after his discharge from here in 06/2018, he moved to [place] and was hospitalized and started on risperidone for "paranoia," and returned to [place] after 3 months. He says he doesn't think his medications are "doing what they're supposed to," because he believes they should prevent all symptoms of depression. He says he is "pretty good" about taking medication as prescribed, but admits he "forgot about" some of his medications, including atorvastatin, metformin, and metoprolol. He says he never checks his blood sugar "because that's my choice, I don't care anymore." He says he decided to end his life because "I came to realize that a lot of my family no longer wants to be my family," stating his youngest son (age 20) and oldest daughter told him "don't take it personal, but I get sick of you." He has only seen his daughter 2-3 times in the past 2-3 years, although she lives locally. He states his only supports are the other people who use [facility]. He has not followed up with case management services as he lost his phone, which he had gotten through medical assistance. He states yesterday he was at [facility], where he typically goes during the day, and decided to walk to a nearby parking garage as he was contemplating jumping off, but did not jump because "the problem is, you don't immediately," and he was worried about surviving and being in pain. He then walked to a day custodial and "shared my feelings with a couple of confidants," and then went to take a shower. Someone told the supervisor hand silvering there, who spoke with the patient, and then called the police, who came and talked to him, and he agreed to come in to the hospital. He says it "crossed my mind" to try to get help, "but I didn't know quite what to do." His goals of treatment are to "sort through my problems," including that he can't get a job due to his medical problems, has no money or income, few supports, is homeless, and feels there is no way out. He would like to try increasing his paroxetine as higher doses have been effective in the past. He denies current paranoia and thinks risperidone has been helpful for that. His primary goal is to get a phone. Current Psychiatric Diagnosis: Depression, PTSD. Outpatient Services: None currently, PCP prescribes psychotopics. He had a rehabilitation caseworker through [facility], but he left for another job, and he doesn't know if he was reassigned, as lost his phone. Previous Psych Admissions: Here 06/2018, 2009 [facility] [place] 2013 Do You Have Access To A Gun?: No History of Previous Suicide Attempt: Yes Describe Attempts in the Past: 2007 - Attempted to smother self with pillow. Past Medication Trials: paroxetine Allergies Allergy/AdvReac Type Severity Reaction Status Date / Time bee venom protein (honey bee) Allergy Intermediate Swelling Verified 10/31/19 14:12 of Lip/Tongue/Throat Home Medications Home Medications Medication Instructions Recorded Confirmed Type Basaglar KwikPen U-100 Insulin 40 unit SQ HS 30 Days #12 ml 08/05/19 10/31/19 Rx clopidogrel 75 mg PO QAM 08/20/19 10/31/19 History levetiracetam 500 mg PO BID 10/31/19 10/31/19 History metformin 1,000 mg PO DAILY 10/31/19 10/31/19 History risperidone 1 mg PO BID 10/31/19 10/31/19 History metoprolol tartrate 25 mg PO BID 11/01/19 11/01/19 History paroxetine HCl 40 mg PO DAILY 11/01/19 11/01/19 History Family History Family History of: Refuses To Discuss Family Mental Health History Comment: Per past records, reported mother and several cousins have depression, and alcoholism/drug abuse on both sides of the family Alcohol History Hx of Alcohol Use Over the Past 12 Months: No AUDIT Total Score: 0 Smoking Use Have You Smoked or Used Tobacco Products in the Last 30 Days: Yes tobacco type: cigarettes Smoking Status: Current every day smoker Substance History Hx of Prescription Med Misuse Over the Past 12 Months: No Hx of Over the Counter Med Misuse Over the Past 12 Months: No Hx of Inhalent Misuse Over the Past 12 Months: No Hx of Organic Substance Use Over the Past 12 Months: No Hx of Illegal Substances/Street Drug Use Over Past 12 Months: No Problems as a Result of Past Substance Use: None Identified Personal History Living Arrangements: Temporary Care Home Living Arrangements Comments: [facility] custodial (homeless for years) Born In: [place] Highest Grade Completed: College Employment Status: Unemployed Marital Status: Number Of Children: 5 Beliefs That Will Affect Care: None Current Legal Problems: Yes Legal Problems Comment: arrested in 2019 for assault Hx Traumatic Life Events: Yes Patient History Medical History Carotid artery disease (Chronic) "complete occlusion right ICA first noted 11/17/14" Cerebrovascular disease (Chronic) Depression (Chronic) Diabetes mellitus, type 2 (Chronic) Dyslipidemia (Chronic) Hypertension (Chronic) Major depressive disorder, recurrent Mood disorder (Chronic) Myocardial infarction Pneumonia (Inactive) PTSD (post-traumatic stress disorder) Seizure disorder (Chronic) TIA (transient ischemic attack) Surgical History S/P coronary artery stent placement Status post tonsillectomy (Chronic) Family History Other Family history non-contributory Social History Preferred Language: Croatian Communication Ability: Effective Chief Inspector Required: No Beliefs That Will Affect Care: None marital status: Current Living Situation: Homeless current occupational status: unemployed Feels Safe at Home: No Is there a partner from a previous relationship who is making you feel unsafe now?: No Smoking Status: Current every day smoker Tobacco Type: cigarettes ; Cigarettes Per Day: 20 ; Second Hand Exposure: No ; Hx Alcohol Use: No Hx Substance Use: No Review of Systems Review of Systems: All systems reviewed & are unremarkable except as noted in HPI & below intermittent urinary incontinence, chronic joint pain (knees, shoulders, hands, and neck) Physical Exam Psychiatric: Orientation: alert and cooperative Apperance: appeared stated age Overweight, dressed in paper scrubs, mustache and glasses. Adequate hygiene and grooming. Seated in NAD. Eye Contact: good eye contact Motor Behavior: steady gait and station and no abnormal motor movements Speech: normal rate/rhythm/volume of speech Affect: euthymic affect; + mood not congruent with affect Mood: + depressed mood Thought Process: goal directed thought process Thought Content: reality based without delusions Suicidal Thoughts: + reports suicidal thoughts Homicidal Thoughts: denies homicidal thoughts Hallucinations: no auditory hallucinations and no visual hallucinations Cognition: recent memory grossly intact Insight: + fair insight Judgement: + fair judgement Vital Signs (Past 24 Hours): Last Vital Signs Temp 36.8 C 11/01/19 06:00 Pulse 89 11/01/19 06:44 Resp 18 11/01/19 06:00 BP 146/83 H 11/01/19 06:44 Pulse Ox 95 10/31/19 22:00 Exam Statement: A physical exam was performed in the ER prior to admission to the unit by Dr. Hugo Poole. I accept that physical as correct/medical clearance for the inpatient physical exam. Results & Data ([facility]) Laboratory Results Laboratory Results - last 24 hr 10/31/19 10/31/19 10/31/19 14:10 14:10 14:28 WBC 7.74 RBC 5.00 Hgb 15.2 Hct 43.2 MCV 86.4 MCH 30.4 MCHC 35.2 RDW Std Deviation 41.4 RDW Coeff of Kimmy 13.1 Plt Count 215 MPV 11.3 H Immature Gran % (Auto) 0.9 Neut % (Auto) 55.8 Lymph % (Auto) 27.8 Coffee % (Auto) 13.7 Eos % (Auto) 1.4 Baso % (Auto) 0.4 Immature Gran # (Auto) 0.07 H Neut # (Auto) 4.32 Lymph # (Auto) 2.15 Coffee # (Auto) 1.06 H Eos # (Auto) 0.11 Baso # (Auto) 0.03 Sodium Potassium Chloride Carbon Dioxide Anion Gap BUN Creatinine Est Cr Clr Drug Dosing Est GFR ( Amer) Est GFR (Non-Af Amer) BUN/Creatinine Ratio Glucose POC Glucose Estimat Average Glucose Hemoglobin A1c Calcium Total Bilirubin AST ALT Alkaline Phosphatase Total Protein Albumin Globulin Albumin/Globulin Ratio Beta-Hydroxybutyric Acd TSH Urine Color Yellow Urine Appearance Clear Urine pH 6.0 Ur Specific [place] 1.026 Urine Protein Negative Urine Glucose (UA) 3+ H Urine Ketones Negative Urine Blood Negative Urine Nitrite Negative Urine Bilirubin Negative Urine Urobilinogen Negative Ur Leukocyte Esterase Negative Nasal Screen MRSA (PCR) Salicylates Urine Opiates Screen Neg Ur Methadone, Qual Neg Acetaminophen Urine Barbiturates Neg Ur Phencyclidine (PCP) Neg U Amphetamin/Meth Scrn Neg MDMA (Ecstasy) Screen Neg U Benzodiazepines Scrn Neg Ur Cocaine Metabolite Neg U Marijuana (THC) Screen Neg Ethyl Alcohol mg/dL 10/31/19 10/31/19 10/31/19 14:28 14:28 14:28 WBC RBC Hgb Hct MCV MCH MCHC RDW Std Deviation RDW Coeff of Kimmy Plt Count MPV Immature Gran % (Auto) Neut % (Auto) Lymph % (Auto) Coffee % (Auto) Eos % (Auto) Baso % (Auto) Immature Gran # (Auto) Neut # (Auto) Lymph # (Auto) Coffee # (Auto) Eos # (Auto) Baso # (Auto) Sodium 137 Potassium 3.7 Chloride 105 Carbon Dioxide 27 Anion Gap 5.0 BUN 12 Creatinine 0.95 Est Cr Clr Drug Dosing 106.9 Est GFR ( Amer) 101.9 Est GFR (Non-Af Amer) 87.9 BUN/Creatinine Ratio 12.4 Glucose 325 H* POC Glucose Estimat Average Glucose Hemoglobin A1c Calcium 9.4 Total Bilirubin 0.3 AST 7 L ALT 14 Alkaline Phosphatase 112 Total Protein 7.1 Albumin 3.3 L Globulin 3.8 Albumin/Globulin Ratio 0.9 Beta-Hydroxybutyric Acd 1.33 TSH 2.850 Urine Color Urine Appearance Urine pH Ur Specific [place] Urine Protein Urine Glucose (UA) Urine Ketones Urine Blood Urine Nitrite Urine Bilirubin Urine Urobilinogen Ur Leukocyte Esterase Nasal Screen MRSA (PCR) Salicylates 3.8 Urine Opiates Screen Ur Methadone, Qual Acetaminophen < 2 L Urine Barbiturates Ur Phencyclidine (PCP) U Amphetamin/Meth Scrn MDMA (Ecstasy) Screen U Benzodiazepines Scrn Ur Cocaine Metabolite U Marijuana (THC) Screen Ethyl Alcohol mg/dL < 3.0 10/31/19 10/31/19 10/31/19 17:28 18:40 20:15 WBC RBC Hgb Hct MCV MCH MCHC RDW Std Deviation RDW Coeff of Kimmy Plt Count MPV Immature Gran % (Auto) Neut % (Auto) Lymph % (Auto) Coffee % (Auto) Eos % (Auto) Baso % (Auto) Immature Gran # (Auto) Neut # (Auto) Lymph # (Auto) Coffee # (Auto) Eos # (Auto) Baso # (Auto) Sodium Potassium Chloride Carbon Dioxide Anion Gap BUN Creatinine Est Cr Clr Drug Dosing Est GFR ( Amer) Est GFR (Non-Af Amer) BUN/Creatinine Ratio Glucose POC Glucose 299 H 208 H Estimat Average Glucose Hemoglobin A1c Calcium Total Bilirubin AST ALT Alkaline Phosphatase Total Protein Albumin Globulin Albumin/Globulin Ratio Beta-Hydroxybutyric Acd TSH Urine Color Urine Appearance Urine pH Ur Specific [place] Urine Protein Urine Glucose (UA) Urine Ketones Urine Blood Urine Nitrite Urine Bilirubin Urine Urobilinogen Ur Leukocyte Esterase Nasal Screen MRSA (PCR) Negative Salicylates Urine Opiates Screen Ur Methadone, Qual Acetaminophen Urine Barbiturates Ur Phencyclidine (PCP) U Amphetamin/Meth Scrn MDMA (Ecstasy) Screen U Benzodiazepines Scrn Ur Cocaine Metabolite U Marijuana (THC) Screen Ethyl Alcohol mg/dL 10/31/19 11/01/19 23:26 07:04 WBC RBC Hgb Hct MCV MCH MCHC RDW Std Deviation RDW Coeff of Kimmy Plt Count MPV Immature Gran % (Auto) Neut % (Auto) Lymph % (Auto) Coffee % (Auto) Eos % (Auto) Baso % (Auto) Immature Gran # (Auto) Neut # (Auto) Lymph # (Auto) Coffee # (Auto) Eos # (Auto) Baso # (Auto) Sodium Potassium Chloride Carbon Dioxide Anion Gap BUN Creatinine Est Cr Clr Drug Dosing Est GFR ( Amer) Est GFR (Non-Af Amer) BUN/Creatinine Ratio Glucose POC Glucose 124 H Estimat Average Glucose 309 Hemoglobin A1c 12.4 H Calcium Total Bilirubin AST ALT Alkaline Phosphatase Total Protein Albumin Globulin Albumin/Globulin Ratio Beta-Hydroxybutyric Acd TSH Urine Color Urine Appearance Urine pH Ur Specific [place] Urine Protein Urine Glucose (UA) Urine Ketones Urine Blood Urine Nitrite Urine Bilirubin Urine Urobilinogen Ur Leukocyte Esterase Nasal Screen MRSA (PCR) Salicylates Urine Opiates Screen Ur Methadone, Qual Acetaminophen Urine Barbiturates Ur Phencyclidine (PCP) U Amphetamin/Meth Scrn MDMA (Ecstasy) Screen U Benzodiazepines Scrn Ur Cocaine Metabolite U Marijuana (THC) Screen Ethyl Alcohol mg/dL Current Inpatient Medications Current Inpatient Medications: Current Inpatient Medications Acetaminophen (Tylenol) 650 mg PO Q4H PRN PRN Reason: Headache or Minor Fever Stop: 11/30/19 21:43 Al Hydrox/Mg Hydrox/Simethicone (Maalox) 30 ml PO Q4H PRN PRN Reason: GI Upset Stop: 11/30/19 21:43 Bismuth Subsalicylate (Kaopectate) 15 ml PO PRN PRN PRN Reason: Loose Stool Stop: 11/30/19 21:43 Clopidogrel Bisulfate (Plavix) 75 mg PO QAM TURNER Stop: 12/01/19 08:59 Dextrose (Dextrose 50%) 25 - 50 ml IV UD PRN; Protocol PRN Reason: Hypoglycemia Protocol Stop: 11/30/19 22:14 Glucagon (Glucagen) 1 mg SQ UD PRN; Protocol PRN Reason: Hypoglycemia Protocol Stop: 11/30/19 22:14 Glucose (Glucose 40%) 15 - 30 gm PO UD PRN; Protocol PRN Reason: Hypoglycemia Protocol Stop: 11/30/19 22:14 Glucose (Dex4 Glucose) 4 - 8 tabs PO UD PRN; Protocol PRN Reason: Hypoglycemia Protocol Stop: 11/30/19 22:14 Hydroxyzine HCl (Vistaril) 50 mg PO HSZ PRN PRN Reason: Insomnia Stop: 11/30/19 21:43 Hydroxyzine HCl (Vistaril) 25 mg PO Q4H PRN PRN Reason: Anxiety Stop: 11/30/19 21:43 Insulin Aspart (Novolog Flexpen) 0 units SC ACHS TURNER; Protocol Stop: 11/30/19 23:29 Last Admin: 10/31/19 23:33 Dose: Not Given Documented by: Insulin Glargine (Lantus Solostar Pen) 40 units SC HS TURNER; Protocol Stop: 11/30/19 23:29 Last Admin: 10/31/19 23:31 Dose: 40 units Documented by: Levetiracetam (Keppra) 500 mg PO BID TURNER Stop: 11/30/19 21:59 Last Admin: 10/31/19 23:29 Dose: 500 mg Documented by: Magnesium Hydroxide (Milk Of Magnesia) 30 ml PO DAILY PRN PRN Reason: Constipation Stop: 11/30/19 21:43 Metoprolol Tartrate (Lopressor) 25 mg PO BID TURNER Stop: 12/01/19 09:44 Miscellaneous (Carbohydrates For Hypoglycemia) 15 - 30 gm PO UD PRN PRN Reason: Hypoglycemia Treatment Stop: 11/30/19 22:14 Miscellaneous Information (Consult Glycemic Management Pharmacy) 1 ea N/A UD PRN PRN Reason: Consult Stop: 11/30/19 21:55 Miscellaneous Information (Consult Glycemic Management Pharmacy) 1 ea N/A NOW STA Stop: 11/01/19 09:15 Risperidone (Risperdal) 1 mg PO BID TURNER Stop: 12/01/19 09:44 Sodium Chloride ([place] Nasal) 1 - 2 sprays NA PRN PRN PRN Reason: Nasal Dryness/Congestion Stop: 11/30/19 21:43
[2019-11-01] MEDS: METOPROLOL TARTRATE 25 MG TAB PO SCH ×2 (10:05→21:17)
[2019-11-01] MEDS: risperiDONE 1 MG TABLET PO SCH ×2 (10:06→21:18)
[2019-11-01] MEDS: levETIRAcetam 500 MG TAB PO SCH ×2 (10:06→21:17)
[2019-11-01] MEDS: CLOPIDOGREL BISULFATE 75 MG TAB PO SCH (10:07)
[2019-11-01] MEDS: INSULIN ASPART 100 UNITS/ML 3 ML PEN SC SCH ×4 (11:11→21:20)
[2019-11-01] MEDS: PARoxetine HCl 10 MG TAB PO SCH (12:11)
[2019-11-01] MEDS: PARoxetine HCl 20 MG TAB PO SCH (12:12)
--- NOTE | 2019-11-01 14:57 | Pharmacy Report ---
Pharmacy Glycemic Short Note 2 - Date of Service November 01, 2019 - Glycemic Short BSG Results (Last 24 hours): 10/31/19 10/31/19 10/31/19 14:28 17:28 18:40 Glucose 325 H* POC Glucose 299 H 208 H 10/31/19 11/01/19 11/01/19 23:26 09:57 12:41 Glucose POC Glucose 124 H 125 H 232 H ASSESSMENT: 11/01: * Patient received total of 50 units of insulin yesterday, of which 40 units were basal (home dose) * Fasting BSG w/in range at 125 mg/dL - will add scale for Lantus tonight based upon BSG * Patient already eating when lunch BSG taken - told nurse to only cover carbs * Plan to add overnight checks as unclear if regimen needs titrated further PLAN FOR INPATIENT GLYCEMIC CONTROL: * Hold outpatient oral diabetes medications * Basal insulin * Lantus 35-40 HS based upon BSG * Bolus insulin * NovoLog per scale ACHS or Q6hrs while NPO * Goal Range: Low 120 mg/dL - High 160 mg/dL * Correction Factor: 20 mg/dL/unit * Nutritional / Prandial insulin per carb ratio of 1 unit per 7 grams CHO consumed
[2019-11-01] MEDS: INSULIN GLARGINE SOLOSTAR 100 UNITS/ML 3 ML PEN SC SCH (21:19)
[2019-11-02] MEDS ORDERED: INSULIN ASPART 100 UNITS/ML 3 ML PEN SC SCH
[2019-11-02 08:53] LABS: Chol HDL Ratio 5; Cholesterol 207 mg/dl (0-200); HDL Cholesterol 43 mg/dl; LDL Cholesterol Calculated 149 mg/dl; Triglycerides 74 mg/dl (0-150); VLDL Cholesterol 15 mg/dl
[2019-11-02] MEDS: levETIRAcetam 500 MG TAB PO SCH ×2 (09:38→21:16)
[2019-11-02] MEDS: risperiDONE 1 MG TABLET PO SCH ×2 (09:38→21:16)
[2019-11-02] MEDS: METOPROLOL TARTRATE 25 MG TAB PO SCH ×2 (09:38→21:16)
[2019-11-02] MEDS: CLOPIDOGREL BISULFATE 75 MG TAB PO SCH (09:38)
[2019-11-02] MEDS: PARoxetine HCl 20 MG TAB PO SCH (09:38)
[2019-11-02] MEDS: PARoxetine HCl 10 MG TAB PO SCH (09:38)
[2019-11-02] MEDS: INSULIN ASPART 100 UNITS/ML 3 ML PEN SC SCH ×4 (09:55→21:40)
--- NOTE | 2019-11-02 13:40 | Psychiatric Progress Note ---
Date of Service November 02, 2019 Impression / Recommendations Impression 59-year-old male with a history of multiple medical problems as detailed above as well as recurrent depression and treatment noncompliance who presents after reporting suicidal thoughts with a plan to jump off a parking garage in the context of numerous psychosocial stressors, including feeling abandoned by his adult children and losing his cell phone. He is homeless, in the process of applying for disability, and has alienated all of the people in his life. He never followed up with outpatient psychiatric care or therapy, and does not know if he has been assigned a new case repairer, as his last one left the agency and the patient never followed up with them, which he attributes to losing his phone. He has not been caring for himself, not checking blood sugar, estimated average glucose is over 300, and has not been filling medications for his various medical conditions regularly. He has been off antihypertensives for some time and presented with hypertension. Recommended home medications have since been resumed. Pt continues to report concern that he would act on plans to harm himself Inpatient treatment is medically necessary due to the severity of his symptoms and risk for suicide if discharged. (1) Depression: 11/01 -patient with history of recurrent depression, who presents with depressive symptoms. He reports compliance with paroxetine 40 mg daily (had been on 60 mg daily when here in 2018) and risperidone 1 mg twice daily, which was started in [place] in 2018. He would like to start with increasing paroxetine to 50mg, which he previously responded well to, and also discussed trial of fluoxetine if that is ineffective (no previous SSRI trials). -Staff contacted PCPs office -no recent FLP, so will order for tomorrow for monitoring on an atypical. Hemoglobin A1c 12.4 today. -Had a BCM through [facility], but he left - contact them to determine if he was transferred to someone else. -He would benefit from outpatient psychiatric care and therapy, but lack of insurance and finances are barriers. Currently, his PCP, Dr. Nilay Zurita, is prescribing medication. -Recommend family meeting with adult children - he is unsure about this. 11/02 - Will titrate paroxetine to 60mg starting tomorrow morning; continue risperidone 1mg BID - Fasting lipid panel obtained this morning - total cholesterol is mildly elevated at 207, remainder of lipid panel is WNL - Pt accepting of referral for case management and psychiatric providers - He continues to verbalize inability to contract for safety due to ongoing SI in the setting of feeling from his children (2) Homeless: Patient has been homeless for years, using [facility]. -Recommend referral for case management services for assistance with resources in the county. -Explore options for replacing his cell phone; perhaps through his insurance or the county. (3) Noncompliance with medications: Chronic noncompliance with outpatient medications, does not fill prescriptions regularly, had not been taking antihypertensives or insulin prior to admission, and presented with elevated blood pressure and glucose > 300. Explore ways to improve adherence. (4) Hypertension: Resume home dose of metoprolol 25 mg twice daily. Ensure follow-up with PCP. 11/02 - Confirmed recommended medications with PCP - Pt is also prescribed lisinopril 10mg qAM which we will resume (5) Cerebrovascular disease: Continue home dose of Plavix 75 mg daily. (6) Diabetes mellitus, type 2: Continue insulin and consult the diabetic pharmacist for assistance with management. Hemoglobin A1c today 12.4, with estimated average glucose of 309. (7) Dyslipidemia: Patient has been prescribed atorvastatin 80 mg in the past, last filled 5 months ago. Unclear if he is still supposed to be on this medication -will refer to PCP for outpatient follow-up. 11/02 - Clarified with PCP that patient has been recommended to continue atorvastatin 80mg - will order for him to continue during admission (8) Seizure disorder: Continue home dose of Keppra. Risk Factors Assessment Male: Yes : Yes Do You Have Access To A Gun?: No Health Problems: Yes Mental Health Diagnoses: Yes Previous Attempt: Yes Previous Attempt; Highly Lethal: No Family History of Suicide: No Previous Psychiatric Hospitalization: Yes Hopelessness: Yes Smoker: Yes Protective Factors Assessment : No Responsible for Young Children: No Employed: No Stable Relationships: No Supportive Family: No Interval History Identifying Information CYNTHIA SOLOMON is a 59-year-old homeless male with a history of major depressive disorder and multiple medical problems including CAD, CVD, DM 2, hypertension, seizure disorder, and VT who was admitted on 10/31/19 21:44 on a 201 voluntary commitment for suicidality with a plan to jump off a parking garage. Chief Complaint "Very tired. I have been for the past two days. When you're sleeping on cots all the time, I guess you try to make up for it." Review of Systems Notes Constitutional: denied Cardiovascular: denied Respiratory: denied Gastrointestinal: denied Neurological: denied Musculoskeletal: reports generalized joint pain Psychiatric: denies symptoms other than stated above Total of at least 10 systems reviewed, pertinent positives as above and in HPI. Sleep Information Total Hours of Sleep: 7.5 Meal Information Percent Meal Consumed - Breakfast: 100 Percent Meal Consumed - Lunch: 100 Percent Meal Consumed - Dinner: 100 Nutrition Comment: per meal record Subjective Subjective Patient was seen & assessed and interval progress reviewed with nursing and social work. Staff report the patient has only selectively been participating in groups. 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 Pt was seen today to assess progress since admission. He states that he is "very tired", admitting he does not sleep well at the f[facility] where he has been residing. Pt states that he has continued to struggle with his mood, having difficulty processing the changing dynamics in his relationship with his son. Pt states, "my son is not dealing with me the way he used to. He's from dad, and I don't know how to handle that." Pt states that he has difficulty as he gave up his education to be there for his son, but now feels his son values his own education more than his relationship with his father. Pt states, "last week he told me he was sick of me. That's what started all of this." Pt admits that "the only thing that prevented me from jumping was the pain." He also disclosed that he has an alternative plan to use "a gun to the head", but "I don't have the means." Pt does admit that if he were not hospitalized, he would be highly concerned he would follow through with one of these plans. He admits to ongoing SI with the explanation "it's from the perspective that [my children] don't want to deal with me." He remains agreeable with recommendations for aftercare services and is concerned about his safety if he were to be discharged home. We did discuss recommendations for inpatient treatment, which include attending group programming even if the patient does not feel comfortable sharing every concern in that setting. He was also encouraged to meet 1:1 with counselors as desired. Pt denies acute needs or concerns presently. Physical Exam Psychiatric Orientation: alert, oriented x 3 and cooperative (superficially) Apperance: + disheveled; + inappropriately dressed (clothing is significantly stained) and + inappropriately groomed Pt is unkempt, hair is messing and clothing is significantly stained. He is malodorous and edentulous. Eye Contact: + fair eye contact Motor Behavior: steady gait and station and no abnormal motor movements Speech: normal rate/rhythm/volume of speech (speech is drawn out with slow rhythm) Affect: + flat affect Mood: + depressed mood and + anxious mood Thought Process: goal directed thought process, clear/coherent thought process and thought association intact Thought Content: + cognitive distortions (regarding relationships with children ), + hopelessness, + worthlessness and + loneliness Suicidal Thoughts: + reports suicidal thoughts, + reports suicidal plan (jump from parking garage or shoot himself ) and + reports suicidal intent (pt reports significant concern he would act on plans if discharged) Hallucinations: no auditory hallucinations and no visual hallucinations Cognition: attention grossly intact and language grossly intact Insight: + poor insight Judgement: + poor judgement Vital Signs (Past 24 Hours) Last Vital Signs Temp 37 C 11/02/19 06:00 Pulse 68 11/02/19 06:00 Resp 18 11/02/19 06:00 BP 178/95 H 11/02/19 06:00 Pulse Ox 95 10/31/19 22:00 Results & Data ([facility]) Laboratory Results Laboratory Results - last 24 hr 11/01/19 11/01/19 11/01/19 17:07 17:12 19:26 POC Glucose 394 H* 349 H* 331 H* Triglycerides Cholesterol LDL Cholesterol, Calc VLDL Cholesterol, Calc HDL Cholesterol Cholesterol/HDL Ratio 11/01/19 11/01/19 11/02/19 19:29 21:16 00:06 POC Glucose 322 H* 201 H 135 H Triglycerides Cholesterol LDL Cholesterol, Calc VLDL Cholesterol, Calc HDL Cholesterol Cholesterol/HDL Ratio 11/02/19 11/02/19 11/02/19 07:35 08:00 12:37 POC Glucose 196 H 200 H Triglycerides 74 Cholesterol 207 H LDL Cholesterol, Calc 149 VLDL Cholesterol, Calc 15 HDL Cholesterol 43 Cholesterol/HDL Ratio 5 Current Inpatient Medications Current Inpatient Medications: Current Inpatient Medications Acetaminophen (Tylenol) 650 mg PO Q4H PRN PRN Reason: Headache or Minor Fever Stop: 11/30/19 21:43 Al Hydrox/Mg Hydrox/Simethicone (Maalox) 30 ml PO Q4H PRN PRN Reason: GI Upset Stop: 11/30/19 21:43 Bismuth Subsalicylate (Kaopectate) 15 ml PO PRN PRN PRN Reason: Loose Stool Stop: 11/30/19 21:43 Clopidogrel Bisulfate (Plavix) 75 mg PO QAM [facility] Stop: 12/01/19 08:59 Last Admin: 11/02/19 09:38 Dose: 75 mg Documented by: Dextrose (Dextrose 50%) 25 - 50 ml IV UD PRN; Protocol PRN Reason: Hypoglycemia Protocol Stop: 11/30/19 22:14 Glucagon (Glucagen) 1 mg SQ UD PRN; Protocol PRN Reason: Hypoglycemia Protocol Stop: 11/30/19 22:14 Glucose (Glucose 40%) 15 - 30 gm PO UD PRN; Protocol PRN Reason: Hypoglycemia Protocol Stop: 11/30/19 22:14 Glucose (Dex4 Glucose) 4 - 8 tabs PO UD PRN; Protocol PRN Reason: Hypoglycemia Protocol Stop: 11/30/19 22:14 Hydroxyzine HCl (Vistaril) 50 mg PO HSZ PRN PRN Reason: Insomnia Stop: 11/30/19 21:43 Hydroxyzine HCl (Vistaril) 25 mg PO Q4H PRN PRN Reason: Anxiety Stop: 11/30/19 21:43 Insulin Aspart (Novolog Flexpen) 0 units SC [facility]; Protocol Stop: 11/30/19 23:29 Last Admin: 11/02/19 13:15 Dose: 9 units Documented by: Insulin Glargine (Lantus Solostar Pen) 0 units SC [facility]; Protocol Stop: 12/01/19 21:59 Last Admin: 11/01/19 21:19 Dose: 35 units Documented by: Levetiracetam (Keppra) 500 mg PO BID [facility] Stop: 11/30/19 21:59 Last Admin: 11/02/19 09:38 Dose: 500 mg Documented by: Magnesium Hydroxide (Milk Of Magnesia) 30 ml PO DAILY PRN PRN Reason: Constipation Stop: 11/30/19 21:43 Metoprolol Tartrate (Lopressor) 25 mg PO BID [facility] Stop: 12/01/19 09:59 Last Admin: 11/02/19 09:38 Dose: 25 mg Documented by: Miscellaneous (Carbohydrates For Hypoglycemia) 15 - 30 gm PO UD PRN PRN Reason: Hypoglycemia Treatment Stop: 11/30/19 22:14 Miscellaneous Information (Consult Glycemic Management Pharmacy) 1 ea N/A UD PRN PRN Reason: Consult Stop: 11/30/19 21:55 Paroxetine HCl (Paroxetine Hcl) 30 mg PO DAILY [facility] Stop: 12/01/19 10:59 Last Admin: 11/02/19 09:38 Dose: 30 mg Documented by: Paroxetine HCl (Paxil) 20 mg PO QAM [facility] Stop: 12/01/19 10:59 Last Admin: 11/02/19 09:38 Dose: 20 mg Documented by: Risperidone (Risperdal) 1 mg PO BID [facility] Stop: 12/01/19 09:44 Last Admin: 11/02/19 09:38 Dose: 1 mg Documented by: Sodium Chloride ([place] Nasal) 1 - 2 sprays NA PRN PRN PRN Reason: Nasal Dryness/Congestion Stop: 11/30/19 21:43 Mental Health & Subst Abuse Tx [employer]anger Name of Sheet [employer] Hanger: Moses Demarco Post Discharge Appointments Primary Care Physician [facility] (1) Diabetes mellitus, type 2 Diabetes mellitus complication status: with unspecified complications Diabetes mellitus custodial insulin use: unspecified medical terminologist insulin use status Qualified Code(s): E11.8 - Type 2 diabetes mellitus with unspecified complications (2) Depression Active/Remission status: currently active Depression Type: major depressive disorder Major depression episode severity: unspecified Major depression recurrence: recurrent Qualified Code(s): F33.9 - Major depressive disorder, recurrent, unspecified (3) Hypertension Hypertension type: unspecified Qualified Code(s): I10 - Essential (primary) hypertension
--- NOTE | 2019-11-02 14:15 | Pharmacy Report ---
Pharmacy Glycemic Short Note 2 - Date of Service November 02, 2019 - Glycemic Short BSG Results (Last 24 hours): 11/01/19 11/01/19 11/01/19 17:07 17:12 19:26 POC Glucose 394 H* 349 H* 331 H* 11/01/19 11/01/19 11/02/19 19:29 21:16 00:06 POC Glucose 322 H* 201 H 135 H 11/02/19 11/02/19 07:35 12:37 POC Glucose 196 H 200 H ASSESSMENT: 11/02: * Patient received total of 75 units of insulin yesterday, of which 35 were basal insulin * Fasting elevated at 196 mg/dL - will adjust basal dosing * Lunchtime BSG remains unchanged. Insulin given ~2 hrs prior therefore anticipate actual BSG to be slightly lower. Will hold on making changes to CF/CR at this time. Had been adjusted last evening. 11/01: * Patient received total of 50 units of insulin yesterday, of which 40 units were basal (home dose) * Fasting BSG w/in range at 125 mg/dL - will add scale for Lantus tonight based upon BSG * Patient already eating when lunch BSG taken - told nurse to only cover carbs * Plan to add overnight checks as unclear if regimen needs titrated further PLAN FOR INPATIENT GLYCEMIC CONTROL: * Hold outpatient oral diabetes medications * Basal insulin * Lantus 35-40 HS based upon BSG * Bolus insulin * NovoLog per scale ACHS or Q6hrs while NPO * Goal Range: Low 120 mg/dL - High 160 mg/dL * Correction Factor: 20 mg/dL/unit * Nutritional / Prandial insulin per carb ratio of 1 unit per 6 grams CHO consumed
[2019-11-02] MEDS: lisinopriL 10 MG TAB PO SCH (15:33)
[2019-11-02] MEDS: INSULIN GLARGINE SOLOSTAR 100 UNITS/ML 3 ML PEN SC SCH (21:43)
[2019-11-03] MEDS ORDERED: INSULIN ASPART 100 UNITS/ML 3 ML PEN SC SCH
[2019-11-03] MEDS: levETIRAcetam 500 MG TAB PO SCH ×2 (09:46→21:41)
[2019-11-03] MEDS: ATORVASTATIN 40 MG TAB PO SCH (09:46)
[2019-11-03] MEDS: risperiDONE 1 MG TABLET PO SCH ×2 (09:47→21:41)
[2019-11-03] MEDS: CLOPIDOGREL BISULFATE 75 MG TAB PO SCH (09:47)
[2019-11-03] MEDS: PARoxetine HCl 20 MG TAB PO SCH (09:47)
[2019-11-03] MEDS: METOPROLOL TARTRATE 25 MG TAB PO SCH ×2 (09:47→21:41)
[2019-11-03] MEDS: lisinopriL 10 MG TAB PO SCH (09:48)
[2019-11-03] MEDS: INSULIN ASPART 100 UNITS/ML 3 ML PEN SC SCH ×4 (09:50→21:36)
--- NOTE | 2019-11-03 14:05 | Psychiatric Progress Note ---
Date of Service November 03, 2019 Impression / Recommendations Impression 59-year-old male with a history of multiple medical problems as detailed above as well as recurrent depression and treatment noncompliance who presents after reporting suicidal thoughts with a plan to jump off a parking garage in the context of numerous psychosocial stressors, including feeling abandoned by his adult children and losing his cell phone. He is homeless, in the process of applying for disability, and has alienated all of the people in his life. He never followed up with outpatient psychiatric care or therapy, and does not know if he has been assigned a new case mgr, as his last one left the agency and the patient never followed up with them, which he attributes to losing his phone. He has not been caring for himself, not checking blood sugar, estimated average glucose is over 300, and has not been filling medications for his various medical conditions regularly. He has been off antihypertensives for some time and presented with hypertension. Recommended home medications have since been resumed. Pt continues to report concern that he would act on plans to harm himself Inpatient treatment is medically necessary due to the severity of his symptoms and risk for suicide if discharged. (1) Depression: 11/01 -patient with history of recurrent depression, who presents with depressive symptoms. He reports compliance with paroxetine 40 mg daily (had been on 60 mg daily when here in 2018) and risperidone 1 mg twice daily, which was started in [place] in 2018. He would like to start with increasing paroxetine to 50mg, which he previously responded well to, and also discussed trial of fluoxetine if that is ineffective (no previous SSRI trials). -Staff contacted PCPs office -no recent FLP, so will order for tomorrow for monitoring on an atypical. Hemoglobin A1c 12.4 today. -Had a BCM through [employer], but he left - contact them to determine if he was transferred to someone else. -He would benefit from outpatient psychiatric care and therapy, but lack of insurance and finances are barriers. Currently, his PCP, Dr. Nilay Zurita, is prescribing medication. -Recommend family meeting with adult children - he is unsure about this. 11/02 - Will titrate paroxetine to 60mg starting tomorrow morning; continue risperidone 1mg BID - Fasting lipid panel obtained this morning - total cholesterol is mildly elevated at 207, remainder of lipid panel is WNL - Pt accepting of referral for case management and psychiatric providers - He continues to verbalize inability to contract for safety due to ongoing SI in the setting of feeling from his children 11/03 - Continue paroxetine 60mg and risperidone 1mg BID - Met with case mgr today to discuss goals after discharge - Positive visits with son, considering requesting his involvement in a family meeting (2) Homeless: Patient has been homeless for years, using out of the [facility]. -Recommend referral for case management services for assistance with resources in the county. -Explore options for replacing his cell phone; perhaps through his insurance or the county. (3) Noncompliance with medications: Chronic noncompliance with outpatient medications, does not fill prescriptions regularly, had not been taking antihypertensives or insulin prior to admission, and presented with elevated blood pressure and glucose > 300. Explore ways to improve adherence. (4) Hypertension: Resume home dose of metoprolol 25 mg twice daily. Ensure follow-up with PCP. 11/02 - Confirmed recommended medications with PCP - Pt is also prescribed lisinopril 10mg qAM which we will resume (5) Cerebrovascular disease: Continue home dose of Plavix 75 mg daily. (6) Diabetes mellitus, type 2: Continue insulin and consult the diabetic pharmacist for assistance with management. Hemoglobin A1c today 12.4, with estimated average glucose of 309. (7) Dyslipidemia: Patient has been prescribed atorvastatin 80 mg in the past, last filled 5 months ago. Unclear if he is still supposed to be on this medication -will refer to PCP for outpatient follow-up. 11/02 - Clarified with PCP that patient has been recommended to continue atorvastatin 80mg - will order for him to continue during admission - Fasting lipid panel obtained this morning - total cholesterol is mildly elevated at 207, remainder of lipid panel is WNL (8) Seizure disorder: Continue home dose of Keppra. Risk Factors Assessment Male: Yes : Yes Do You Have Access To A Gun?: No Health Problems: Yes Mental Health Diagnoses: Yes Previous Attempt: Yes Previous Attempt; Highly Lethal: No Family History of Suicide: No Previous Psychiatric Hospitalization: Yes Hopelessness: Yes Smoker: Yes Protective Factors Assessment : No Responsible for Young Children: No Employed: No Stable Relationships: No Supportive Family: No Interval History Identifying Information CYNTHIA SOLOMON is a 59-year-old homeless male with a history of major depressive disorder and multiple medical problems including CAD, CVD, DM 2, hypertension, seizure disorder, and MN who was admitted on 10/31/19 21:44 on a 201 voluntary commitment for suicidality with a plan to jump off a parking garage. Chief Complaint "A little woozy." Review of Systems Notes Constitutional: reports mild dizziness, more frequent in the AM - stating this is not unusual for him Cardiovascular: denied Respiratory: denied Gastrointestinal: denied Neurological: denied Psychiatric: denies symptoms other than stated above Total of at least 10 systems reviewed, pertinent positives as above and in HPI. Sleep Information Total Hours of Sleep: 8 Meal Information Percent Meal Consumed - Breakfast: 100 Percent Meal Consumed - Lunch: 100 Percent Meal Consumed - Dinner: 100 Nutrition Comment: per meal record Subjective Subjective Patient was seen & assessed and interval progress reviewed with treatment team. Staff reports the patient has been attending select group programming. He tends to remain in his room most mornings. He did rate his mood a / last evening, related to his son coming to visit. He is scheduled to meet with his case mgr today. Patient was seen today to assess progress since admission. He provides verbal consent to allow Katelynn Limon PA-C to observe today's encounter. Patient does admit that he is feeling "a little woozy." He states that this is not abnormal for him when he is "still trying to wake myself up." Patient reports that he is feeling significantly better after a visit from his son last evening. He states that he is hopeful that son will agree to a family meeting, and is hoping to expressed to his son "the meaning of having him in my life." We did discuss needing to set appropriate boundaries on requests from his son, as his son is only 20 years old and in a very different stage of life. Patient does admit "I probably need to add a few things to compensate for when he cannot be there." Patient reports significant improvement in mood and denies suicidal ideation at this time. He states that his case mgr is planning to work with him to replace his cell phone, which makes him happy. Patient denies other needs or concerns at this time. Physical Exam Psychiatric Orientation: alert, oriented x 3 and cooperative (Frequently joking) Apperance: + disheveled; + inappropriately dressed (Clothes are heavily stained, unchanged since yesterday) and + inappropriately groomed (Malodorous, unkempt) Eye Contact: good eye contact Motor Behavior: steady gait and station and no abnormal motor movements Speech: normal rate/rhythm/volume of speech Affect: euthymic affect and mood congruent with affect Mood: no depressed mood ("I am feeling a little more jovial") Thought Process: goal directed thought process and clear/coherent thought process Thought Content: reality based without delusions; no hopelessness Suicidal Thoughts: denies suicidal thoughts Homicidal Thoughts: denies homicidal thoughts Hallucinations: no auditory hallucinations and no visual hallucinations Cognition: attention grossly intact and language grossly intact Insight: + limited insight Judgement: + fair judgement Vital Signs (Past 24 Hours) Last Vital Signs Temp 36.6 C 11/03/19 06:41 Pulse 78 11/03/19 06:43 Resp 18 11/03/19 06:41 BP 142/97 H 11/03/19 06:43 Pulse Ox 95 10/31/19 22:00 Results & Data ([facility]) Laboratory Results Laboratory Results - last 24 hr 11/02/19 11/02/19 11/03/19 17:09 20:30 00:01 POC Glucose 136 H 182 H 186 H 11/03/19 11/03/19 08:51 12:24 POC Glucose 110 H 180 H Current Inpatient Medications Current Inpatient Medications: Current Inpatient Medications Acetaminophen (Tylenol) 650 mg PO Q4H PRN PRN Reason: Headache or Minor Fever Stop: 11/30/19 21:43 Al Hydrox/Mg Hydrox/Simethicone (Maalox) 30 ml PO Q4H PRN PRN Reason: GI Upset Stop: 11/30/19 21:43 Atorvastatin Cal[facility]) [facility] [place] [place] Stop: 12/03/19 08:59 Last Admin: 11/03/19 09:46 Dose: 80 mg Documented by: Bismuth Subsalicylate (Kaopectate) 15 ml PO PRN PRN PRN Reason: Loose Stool Stop: 11/30/19 21:43 Clopidogrel Bisulfate (Plavix) [facility] [place] Stop: 12/01/19 08:59 Last Admin: 11/03/19 09:47 Dose: 75 mg Documented by: Dextrose (Dextrose 50%) 25 - 50 ml IV UD PRN; Protocol PRN Reason: Hypoglycemia Protocol Stop: 11/30/19 22:14 Glucagon (Glucagen) 1 mg SQ UD PRN; Protocol PRN Reason: Hypoglycemia Protocol Stop: 11/30/19 22:14 Glucose (Glucose 40%) 15 - 30 gm PO UD PRN; Protocol PRN Reason: Hypoglycemia Protocol Stop: 11/30/19 22:14 Glucose (Dex4 Glucose) 4 - 8 tabs PO UD PRN; Protocol PRN Reason: Hypoglycemia Protocol Stop: 11/30/19 22:14 Hydroxyzine HCl (Vistaril) 50 mg PO HSZ PRN PRN Reason: Insomnia Stop: 11/30/19 21:43 Hydroxyzine HCl (Vistaril) 25 mg PO Q4H PRN PRN Reason: Anxiety Stop: 11/30/19 21:43 Insulin Aspart (Novolog Flexpen) [address] [facility]; Protocol Stop: 11/30/19 23:29 Last Admin: 11/03/19 13:27 Dose: 12 units Documented by: Insulin Glargine (Lantus Solostar Pen) 0 units SC HS [facility]; Protocol Stop: 12/01/19 21:59 Last Admin: 11/02/19 21:43 Dose: 40 units Documented by: Levetiracetam (Keppra) 500 mg PO BID [facility] Stop: 11/30/19 21:59 Last Admin: 11/03/19 09:46 Dose: 500 mg Documented by: Lisinopril (Zestril) 10 mg PO QAM [facility] Stop: 12/02/19 14:44 Last Admin: 11/03/19 09:48 Dose: 10 mg Documented by: Magnesium Hydroxide (Milk Of Magnesia) 30 ml PO DAILY PRN PRN Reason: Constipation Stop: 11/30/19 21:43 Metoprolol Tartrate (Lopressor) 25 mg PO BID [facility] Stop: 12/01/19 09:59 Last Admin: 11/03/19 09:47 Dose: 25 mg Documented by: Miscellaneous (Carbohydrates For Hypoglycemia) 15 - 30 gm PO UD PRN PRN Reason: Hypoglycemia Treatment Stop: 11/30/19 22:14 Miscellaneous Information (Consult Glycemic Management Pharmacy) 1 ea N/A UD PRN PRN Reason: Consult Stop: 11/30/19 21:55 Paroxetine HCl (Paxil) 60 mg PO DAILY [facility] Stop: 12/03/19 08:59 Last Admin: 11/03/19 09:47 Dose: 60 mg Documented by: Risperidone (Risperdal) 1 mg PO BID [facility] Stop: 12/01/19 09:44 Last Admin: 11/03/19 09:47 Dose: 1 mg Documented by: Sodium Chloride (Marinette Nasal) 1 - 2 sprays NA PRN PRN PRN Reason: Nasal Dryness/Congestion Stop: 11/30/19 21:43 Mental Health & Subst Abuse Tx Psychiatrist Name of Psychiatrist: Lorene England Psychiatrist's Roll Scale Man Name of Roll Scale Man: Moses Demarco Date of Appointment with Roll Scale Man: 11/07/19 Time of Appointment with Roll Scale Man: 9am Case Management Appointment Comment: Will meetyou at the [facility] Post Discharge Appointments Primary Care Physician [facility] Date of Appointment with PCP: 11/08/19 Time of Appointment with PCP: 1:05 Provider Appointment Comment: [facility] [address] [facility], [facility] [id number] Contact Information Discharge Address: Homeless, [place] (1) Diabetes mellitus, type 2 Diabetes mellitus complication status: with unspecified complications Diabetes mellitus oysterman insulin use: unspecified care home insulin use status Qualified Code(s): E11.8 - Type 2 diabetes mellitus with unspecified complications (2) Depression Active/Remission status: currently active Depression Type: major depressive disorder Major depression episode severity: unspecified Major depression recurrence: recurrent Qualified Code(s): F33.9 - Major depressive disorder, recurrent, unspecified (3) Hypertension Hypertension type: unspecified Qualified Code(s): I10 - Essential (primary) hypertension
[2019-11-03] MEDS: INSULIN GLARGINE SOLOSTAR 100 UNITS/ML 3 ML PEN SC SCH (21:45)
[2019-11-04] MEDS: METOPROLOL TARTRATE 25 MG TAB PO SCH ×2 (09:21→21:23)
[2019-11-04] MEDS: levETIRAcetam 500 MG TAB PO SCH ×2 (09:21→21:23)
[2019-11-04] MEDS: ATORVASTATIN 40 MG TAB PO SCH (09:21)
[2019-11-04] MEDS: CLOPIDOGREL BISULFATE 75 MG TAB PO SCH (09:21)
[2019-11-04] MEDS: risperiDONE 1 MG TABLET PO SCH ×2 (09:22→21:24)
[2019-11-04] MEDS: PARoxetine HCl 20 MG TAB PO SCH (09:22)
[2019-11-04] MEDS: lisinopriL 10 MG TAB PO SCH (09:22)
[2019-11-04] MEDS: INSULIN ASPART 100 UNITS/ML 3 ML PEN SC SCH ×4 (09:23→21:36)
--- NOTE | 2019-11-04 09:56 | Pharmacy Report ---
Pharmacy Glycemic Short Note 2 - Date of Service November 04, 2019 - Glycemic Short BSG Results (Last 24 hours): 11/03/19 11/03/19 11/03/19 12:24 17:14 21:22 POC Glucose 180 H 278 H 416 H* 11/04/19 08:49 POC Glucose 94 ASSESSMENT: 11/04: * Patient received total of 98 units of insulin yesterday, of which 40 were basal insulin, blood sugars ranging 94-416mg/dl over past 24 hours * Fasting 94 mg/dL - continue basal dosing * No change in CF/CR at this time as 416mg/dl was d/t eating candy and chips which were not covered with insulin 11/02: * Patient received total of 75 units of insulin yesterday, of which 35 were basal insulin * Fasting elevated at 196 mg/dL - will adjust basal dosing * Lunchtime BSG remains unchanged. Insulin given ~2 hrs prior therefore anticipate actual BSG to be slightly lower. Will hold on making changes to CF/CR at this time. Had been adjusted last evening. 11/01: * Patient received total of 50 units of insulin yesterday, of which 40 units were basal (home dose) * Fasting BSG w/in range at 125 mg/dL - will add scale for Lantus tonight based upon BSG * Patient already eating when lunch BSG taken - told nurse to only cover carbs * Plan to add overnight checks as unclear if regimen needs titrated further PLAN FOR INPATIENT GLYCEMIC CONTROL: * Hold outpatient oral diabetes medications * Basal insulin * Lantus 35-40 HS based upon BSG * Bolus insulin * NovoLog per scale ACHS or Q6hrs while NPO * Goal Range: Low 110 mg/dL - High 140 mg/dL * Correction Factor: 20 mg/dL/unit * Nutritional / Prandial insulin per carb ratio of 1 unit per 6 grams CHO consumed
--- NOTE | 2019-11-04 18:20 | Psychiatric Progress Note ---
Date of Service November 04, 2019 Impression / Recommendations Impression 59-year-old male with a history of multiple medical problems as detailed above as well as recurrent depression and treatment noncompliance who presents after reporting suicidal thoughts with a plan to jump off a parking garage in the context of numerous psychosocial stressors, including feeling abandoned by his adult children and losing his cell phone. He is homeless, in the process of applying for disability, and has alienated all of the people in his life. He never followed up with outpatient psychiatric care or therapy, and does not know if he has been assigned a new vocational case manager, as his last one left the agency and the patient never followed up with them, which he attributes to losing his phone. He has not been caring for himself, not checking blood sugar, estimated average glucose is over 300, and has not been filling medications for his various medical conditions regularly. He has been off antihypertensives for some time and presented with hypertension. Recommended home medications have since been resumed. Pt continues to report concern that he would act on plans to harm himself Inpatient treatment is medically necessary due to the severity of his symptoms and risk for suicide if discharged. (1) Depression: 11/01 -patient with history of recurrent depression, who presents with depressive symptoms. He reports compliance with paroxetine 40 mg daily (had been on 60 mg daily when here in 2018) and risperidone 1 mg twice daily, which was started in [place] in 2018. He would like to start with increasing paroxetine to 50mg, which he previously responded well to, and also discussed trial of fluoxetine if that is ineffective (no previous SSRI trials). -Staff contacted PCPs office -no recent FLP, so will order for tomorrow for monitoring on an atypical. Hemoglobin A1c 12.4 today. -Had a BCM through [facility], but he left - contact them to determine if he was transferred to someone else. -He would benefit from outpatient psychiatric care and therapy, but lack of insurance and finances are barriers. Currently, his PCP, Dr. Nilay Zurita, is prescribing medication. -Recommend family meeting with adult children - he is unsure about this. 11/02 - Will titrate paroxetine to 60mg starting tomorrow morning; continue risperidone 1mg BID - Fasting lipid panel obtained this morning - total cholesterol is mildly elevated at 207, remainder of lipid panel is WNL - Pt accepting of referral for case management and psychiatric providers - He continues to verbalize inability to contract for safety due to ongoing SI in the setting of feeling from his children 11/03 - Continue paroxetine 60mg and risperidone 1mg BID - Met with vocational case manager today to discuss goals after discharge - Positive visits with son, considering requesting his involvement in a family meeting 11/04 converting risperidone to 2mg hs starting 11/05 to alleivate potential am sedation from this medication and to try to help with medication complaince maintained paxil 60mg once a day (2) Homeless: Patient has been homeless for years, using out of the cold skilled nursing. -Recommend referral for case management services for assistance with resources in the county. -Explore options for replacing his cell phone; perhaps through his insurance or the county. (3) Noncompliance with medications: Chronic noncompliance with outpatient medications, does not fill prescriptions regularly, had not been taking antihypertensives or insulin prior to admission, and presented with elevated blood pressure and glucose > 300. Explore ways to improve adherence. (4) Hypertension: Resume home dose of metoprolol 25 mg twice daily. Ensure follow-up with PCP. 11/02 - Confirmed recommended medications with PCP - Pt is also prescribed lisinopril 10mg qAM which we will resume (5) Cerebrovascular disease: Continue home dose of Plavix 75 mg daily. (6) Diabetes mellitus, type 2: Continue insulin and consult the diabetic pharmacist for assistance with management. Hemoglobin A1c today 12.4, with estimated average glucose of 309. (7) Dyslipidemia: Patient has been prescribed atorvastatin 80 mg in the past, last filled 5 months ago. Unclear if he is still supposed to be on this medication -will refer to PCP for outpatient follow-up. 11/02 - Clarified with PCP that patient has been recommended to continue atorvastatin 80mg - will order for him to continue during admission - Fasting lipid panel obtained this morning - total cholesterol is mildly elevated at 207, remainder of lipid panel is WNL (8) Seizure disorder: Continue home dose of Keppra. Risk Factors Assessment Male: Yes : Yes Do You Have Access To A Gun?: No Health Problems: Yes Mental Health Diagnoses: Yes Previous Attempt: Yes Previous Attempt; Highly Lethal: No Family History of Suicide: No Previous Psychiatric Hospitalization: Yes Hopelessness: Yes Smoker: Yes Protective Factors Assessment : No Responsible for Young Children: No Employed: No Stable Relationships: No Supportive Family: No Interval History Identifying Information CYNTHIA SOLOMON is a 59-year-old homeless male with a history of major depressive disorder and multiple medical problems including CAD, CVD, DM 2, hypertension, seizure disorder, and [place] who was admitted on 10/31/19 21:44 on a 201 voluntary commitment for suicidality with a plan to jump off a parking garage. Chief Complaint "still tired but not as tired". Review of Systems Sleep Information Total Hours of Sleep: 7 Meal Information Percent Meal Consumed - Breakfast: 100 Percent Meal Consumed - Lunch: 100 Percent Meal Consumed - Dinner: 100 Nutrition Comment: per meal record Subjective Subjective Patient was seen & assessed and interval progress reviewed with nursing and social work. Pt endorsed being tired after am risperdal dose, was asleep this morning after breakfast instead of attending group with story writer awakening him for this assessment. risperdal bid dosing could be adding to fatigue in morning and pt open to moving risperdal to be same total dose but at bedtime only. Pt denied Si today. pt wary to be discharged just yet, but does feel hopeful that having a vocational case manager again and exploring options for obtaining a replacement phone and having some contact with son that will be able to handle discharge shortly. he slept well last night. His appetite is intact. he denied invol movements. He reported that its hard for him to get to [facility] but been having his Meds sent there since likes the staff there. He is aiming to use [facility] for convenience moving forward though. He feels Paxil at 60mg a day is more effective for him. He has been in contact with son and later today transition social worker was able to set up a brief meting with son tomorrow Physical Exam Psychiatric Orientation: alert, oriented x 3 and cooperative (Frequently joking) Apperance: appeared stated age; + inappropriately dressed (Clothes are heavily stained, unchanged since yesterday) Eye Contact: good eye contact Motor Behavior: steady gait and station and no abnormal motor movements Speech: normal rate/rhythm/volume of speech Affect: + constricted affect and mood congruent with affect Mood: no depressed mood ("I am feeling a little more jovial") and no anxious mood Thought Process: goal directed thought process, clear/coherent thought process and thought association intact Thought Content: reality based without delusions; no hopelessness Suicidal Thoughts: denies suicidal thoughts; + reports suicidal plan (jump from parking garage or shoot himself ) and + reports suicidal intent (pt reports significant concern he would act on plans if discharged) Homicidal Thoughts: denies homicidal thoughts Hallucinations: no auditory hallucinations and no visual hallucinations Cognition: recent memory grossly intact, attention grossly intact and language grossly intact Insight: + fair insight Judgement: + fair judgement Vital Signs (Past 24 Hours) Last Vital Signs Temp 36.8 C 11/04/19 06:41 Pulse 67 11/04/19 12:29 Resp 18 11/04/19 06:41 BP 128/87 11/04/19 12:29 Pulse Ox 95 10/31/19 22:00 Results & Data ([facility]) Laboratory Results Laboratory Results - last 24 hr 11/03/19 11/04/19 11/04/19 21:22 08:49 12:18 POC Glucose 416 H* 94 150 H 11/04/19 17:16 POC Glucose 121 H Current Inpatient Medications Current Inpatient Medications: Current Inpatient Medications Acetaminophen (Tylenol) 650 mg PO Q4H PRN PRN Reason: Headache or Minor Fever Stop: 11/30/19 21:43 Last Admin: 11/03/19 14:56 Dose: 650 mg Documented by: Al Hydrox/Mg Hydrox/Simethicone (Maalox) 30 ml PO Q4H PRN PRN Reason: GI Upset Stop: 11/30/19 21:43 Atorvastatin Calcium (Lipitor) [address] [facility] Stop: 12/03/19 08:59 Last Admin: 11/04/19 09:21 Dose: 80 mg Documented by: Bismuth Subsalicylate (Kaopectate) 15 ml PO PRN PRN PRN Reason: Loose Stool Stop: 11/30/19 21:43 Clopidogrel Bisulfate (Plavix) [address] [facility] Stop: 12/01/19 08:59 Last Admin: 11/04/19 09:21 Dose: 75 mg Documented by: Dextrose (Dextrose 50%) 25 - 50 ml IV UD PRN; Protocol PRN Reason: Hypoglycemia Protocol Stop: 11/30/19 22:14 Glucagon (Glucagen) 1 mg SQ UD PRN; Protocol PRN Reason: Hypoglycemia Protocol Stop: 11/30/19 22:14 Glucose (Glucose 40%) 15 - 30 gm PO UD PRN; Protocol PRN Reason: Hypoglycemia Protocol Stop: 11/30/19 22:14 Glucose (Dex4 Glucose) 4 - 8 tabs PO UD PRN; Protocol PRN Reason: Hypoglycemia Protocol Stop: 11/30/19 22:14 Hydroxyzine HCl (Vistaril) 50 mg PO HSZ PRN PRN Reason: Insomnia Stop: 11/30/19 21:43 Hydroxyzine HCl (Vistaril) 25 mg PO Q4H PRN PRN Reason: Anxiety Stop: 11/30/19 21:43 Insulin Aspart (Novolog Flexpen) 0 units SC ACHS [facility]; Protocol Stop: 11/30/19 23:29 Last Admin: 11/04/19 17:59 Dose: 6 units Documented by: Insulin Glargine (Lantus Solostar Pen) 0 units SC HS [facility]; Protocol Stop: 12/01/19 21:59 Last Admin: 11/03/19 21:45 Dose: 40 units Documented by: Levetiracetam (Keppra) 500 mg PO BID [facility] Stop: 11/30/19 21:59 Last Admin: 11/04/19 09:21 Dose: 500 mg Documented by: Lisinopril (Zestril) 10 mg PO QAM [facility] Stop: 12/02/19 14:44 Last Admin: 11/04/19 09:22 Dose: 10 mg Documented by: Magnesium Hydroxide (Milk Of Magnesia) 30 ml PO DAILY PRN PRN Reason: Constipation Stop: 11/30/19 21:43 Metoprolol Tartrate (Lopressor) 25 mg PO BID [facility] Stop: 12/01/19 09:59 Last Admin: 11/04/19 09:21 Dose: 25 mg Documented by: Miscellaneous (Carbohydrates For Hypoglycemia) 15 - 30 gm PO UD PRN PRN Reason: Hypoglycemia Treatment Stop: 11/30/19 22:14 Miscellaneous Information (Consult Glycemic Management Pharmacy) 1 ea N/A UD PRN PRN Reason: Consult Stop: 11/30/19 21:55 Paroxetine HCl (Paxil) 60 mg PO DAILY [facility] Stop: 12/03/19 08:59 Last Admin: 11/04/19 09:22 Dose: 60 mg Documented by: Risperidone (Risperdal) 1 mg PO BID [facility] Stop: 12/01/19 09:44 Last Admin: 11/04/19 09:22 Dose: 1 mg Documented by: Sodium Chloride ([place] Nasal) 1 - 2 sprays NA PRN PRN PRN Reason: Nasal Dryness/Congestion Stop: 11/30/19 21:43 Mental Health & Subst Abuse Tx Psychiatrist Name of Psychiatrist: Blanca Pepe PA-C Psychiatrist's Date of Appointment with Psychiatrist: 12/01/19 Time of Appointment with Psychiatrist: 9:30am Psychiatric Appointment Comment: Be aware that you must keep this appointment, if missed, won't reschedule. Affirmative Action Specialist Name of Affirmative Action Specialist: Moses Demarco Phone Number for Affirmative Action Specialist: [phone] Date of Appointment with Affirmative Action Specialist: 11/07/19 Time of Appointment with Affirmative Action Specialist: 9am Case Management Appointment Comment: Will meet you at the [facility] Post Discharge Appointments Primary Care Physician Name Of Family Doctor: Dr.Shane Gong [facility] Date of Appointment with PCP: 11/08/19 Time of Appointment with PCP: 1:05 Provider Appointment [facility] [address] [facility] [id number] Contact Information Discharge Address: Homeless, Out of the Cold (1) Depression Active/Remission status: currently active Depression Type: major depressive disorder Major depression episode severity: unspecified Major depression recurrence: recurrent Qualified Code(s): F33.9 - Major depressive disorder, recurrent, unspecified (2) Hypertension Hypertension type: unspecified Qualified Code(s): I10 - Essential (primary) hypertension (3) Diabetes mellitus, type 2 Diabetes mellitus complication status: with unspecified complications Diabetes mellitus [employer] insulin use: unspecified [employer] insulin use status Qualified Code(s): E11.8 - Type 2 diabetes mellitus with unspecified complications
[2019-11-04] MEDS: INSULIN GLARGINE SOLOSTAR 100 UNITS/ML 3 ML PEN SC SCH (21:41)
[2019-11-05] MEDS: PARoxetine HCl 20 MG TAB PO SCH (10:22)
[2019-11-05] MEDS: ATORVASTATIN 40 MG TAB PO SCH (10:22)
[2019-11-05] MEDS: METOPROLOL TARTRATE 25 MG TAB PO SCH (10:22)
[2019-11-05] MEDS: levETIRAcetam 500 MG TAB PO SCH (10:22)
[2019-11-05] MEDS: CLOPIDOGREL BISULFATE 75 MG TAB PO SCH (10:23)
[2019-11-05] MEDS: lisinopriL 10 MG TAB PO SCH (10:23)
[2019-11-05] MEDS: INSULIN ASPART 100 UNITS/ML 3 ML PEN SC SCH ×2 (10:26→12:57)
[2019-11-05] MEDS: risperiDONE 1 MG TABLET PO SCH (10:31)
--- NOTE | 2019-11-05 13:04 | Discharge Summary ---
Date of Service November 05, 2019 History of Present Illness CC: "Opened my big mouth and let somebody know that I'd started making some plans to kill myself". Past Psychiatric History Previous Psych History: Patient is known to us from a previous hospitalization on our unit in June 2018, also for depression with suicidality and a plan to jump off a roof. At that time, his home dose of paroxetine was increased to 60 mg daily, and stated he was moving to [place], so did not have local aftercare. It does not appear that he ever moved, as he continues to present frequently to the emergency room, 1-2 times a month over the past year. His PCP is Dr. Nilay Zurita, who prescribes his psychotropic medications. Per his external medication history, he does not fill his meds regularly, and should have run out of several of them by now. He presented to the ER yesterday with police after going to a parking garage with intent to jump off and end his life. He reported severe depression, intermittent anxiety, and said he needed to talk to someone. He said he had been compliant with his psychotropic medications, but they had not been effective. He reported multiple stressors including legal problems, homelessness, little contact with his children, lack of supports, financial problems, unemployment, chronic pain, medical problems, and recently losing his phone. He reported poor appetite, disturbed sleep, low motivation, anergia, hopelessness, and helplessness. He stated he had not been checking his blood sugar regularly, and BSG in the ER was 325. He was incontinent of urine in the ER. He signed in voluntarily. Admission labs notable for normal CBC and CMP with the exception of glucose 325, normal TSH, UA with 3+ glucose, UDS negative. On my assessment, he reports he started making plans for suicide a couple of weeks ago, when he noticed he felt "at the bottom of the barrel" and was feeling hopeless. Exacerbated by his 20 y/o son telling him "he was getting sick of me," as the patient had been asking him for money repeatedly. He has no income and says he is "waiting to go before the interior design professor for disability," but doesn't know when that will be. He is getting food and usp from [facility] since it opened in the fall, and during summer months stayed "in a park" and lived off food stamps. He says that after his discharge from here in 06/2018, he moved to [place] and was hospitalized and started on risperidone for "paranoia," and returned to [place] after 3 months. He says he doesn't think his medications are "doing what they're supposed to," because he believes they should prevent all symptoms of depression. He says he is "pretty good" about taking medication as prescribed, but admits he "forgot about" some of his medications, including atorvastatin, metformin, and metoprolol. He says he never checks his blood sugar "because that's my choice, I don't care anymore." He says he decided to end his life because "I came to realize that a lot of my family no longer wants to be my family," stating his youngest son (age 20) and oldest daughter told him "don't take it personal, but I get sick of you." He has only seen his daughter 2-3 times in the past 2-3 years, although she lives locally. He states his only supports are the other people who use [facility]. He has not followed up with case management services as he lost his phone, which he had gotten through medical assistance. He states yesterday he was at [facility], where he typically goes during the day, and decided to walk to a nearby parking garage as he was contemplating jumping off, but did not jump because "the problem is, you don't immediately," and he was worried about surviving and being in pain. He then walked to a day usp and "shared my feelings with a couple of confidants," and then went to take a shower. Someone told the supervisor special education there, who spoke with the patient, and then called the police, who came and talked to him, and he agreed to come in to the hospital. He says it "crossed my mind" to try to get help, "but I didn't know quite what to do." His goals of treatment are to "sort through my problems," including that he can't get a job due to his medical problems, has no money or income, few supports, is homeless, and feels there is no way out. He would like to try increasing his paroxetine as higher doses have been effective in the past. He denies current paranoia and thinks risperidone has been helpful for that. His primary goal is to get a phone. Current Psychiatric Diagnosis: Depression, PTSD. Outpatient Services: None currently, PCP prescribes psychotopics. He had a foster care case manager through [employer], but he left for another job, and he doesn't know if he was reassigned, as lost his phone. Previous Psych Admissions: Here 06/2018, 2009 [facility] 2013 Do You Have Access To A Gun?: No History of Previous Suicide Attempt: Yes Describe Attempts in the Past: 2007 - Attempted to smother self with pillow. Past Medication Trials: paroxetine Physical Exam Psychiatric at time of discharge assessment Orientation: alert, oriented x 3 and cooperative (Frequently joking) Apperance: appropriately dressed (Clothes are heavily stained, unchanged since yesterday), appropriately groomed (Malodorous, unkempt) and appeared stated age Eye Contact: good eye contact Motor Behavior: steady gait and station and no abnormal motor movements Speech: normal rate/rhythm/volume of speech Affect: euthymic affect and mood congruent with affect Mood: no anxious mood good mood Thought Process: goal directed thought process, clear/coherent thought process and thought association intact Thought Content: reality based without delusions; no hopelessness Suicidal Thoughts: denies suicidal thoughts; + reports suicidal plan (jump from parking garage or shoot himself ) and + reports suicidal intent (pt reports significant concern he would act on plans if discharged) Homicidal Thoughts: denies homicidal thoughts Hallucinations: no auditory hallucinations and no visual hallucinations Cognition: recent memory grossly intact, attention grossly intact and language grossly intact Insight: + fair insight Judgement: + fair judgement which has improved during course of admission Vital Signs (Past 24 Hours) Last Vital Signs Temp 36.9 C 11/05/19 09:51 Pulse 92 H 11/05/19 09:51 Resp 18 11/05/19 09:51 BP 128/87 11/05/19 09:51 Pulse Ox 95 11/05/19 09:51 Principal Diagnosis Major Depressive Disorder Psychiatric Data Day of Discharge Assessment pt in good spirits and reports feeling better and in a good mood, denied depressive mood and denied having any anxiety. Feels connected with son, and glad to have a foster care case manager. Feels up for discharge today. Denied any SI. Interested in taking his medication. He is refusing nicotine replacement or Meds to help quit smoking but states doing ok without out smoking or replacement options on the unit and while not motivated to quit is open to smoking cessation tip line referral.. Of note pt is homeless and has lost his cell phone with hope to replace but without a true concrete plan as to how to replace it as of yet so tip line might not work and pt is not all that motivated to quit. Pt set for psychiatric med management eval appointment at [facility] on November 30. Plans to utilize [facility] program and setting up to be contacting by them by meeting up with peers after discharge. Attempted to have a family meeting with son which was not able to occur with son seeming wary to have the meeting but son and pt have reconnected as part of the process of pt being admitted here per pt and social media editor. Transition of Care Transition Of Care Record: was reviewed with the patient Advance Directives Advance Directives Information Provided: Yes Advance Directives: No Living Will: No Power of Medicine Worker: No Advance Directives Reason:: Declines as Mental Health Visit. Risk Factors Assessment Male: Yes : Yes Do You Have Access To A Gun?: No Health Problems: Yes Mental Health Diagnoses: Yes Previous Attempt: Yes Previous Attempt; Highly Lethal: No Family History of Suicide: No Previous Psychiatric Hospitalization: Yes Hopelessness: Yes Smoker: Yes Protective Factors Assessment : No Responsible for Young Children: No Employed: No Stable Relationships: No Supportive Family: No Tobacco Cessation at Discharge Tobacco Cessation Medication Prescribed at Discharge: Offered & Pt Refused (but some consideration towards tip line if able to occur given pt's phone status/ homelessness) Total Time Total Time Spent: Greater Than 30 Minutes Total Time Includes: Examination of the patient, Discharge Planning and Medication Reconciliation Discharge Data Lab Results 10/31/19 10/31/19 10/31/19 14:10 14:10 14:28 WBC 7.74 RBC 5.00 Hgb 15.2 Hct 43.2 MCV 86.4 MCH 30.4 MCHC 35.2 RDW Std Deviation 41.4 RDW Coeff of Kimmy 13.1 Plt Count 215 MPV 11.3 H Immature Gran % (Auto) 0.9 Neut % (Auto) 55.8 Lymph % (Auto) 27.8 Irion % (Auto) 13.7 Eos % (Auto) 1.4 Baso % (Auto) 0.4 Immature Gran # (Auto) 0.07 H Neut # (Auto) 4.32 Lymph # (Auto) 2.15 Irion # (Auto) 1.06 H Eos # (Auto) 0.11 Baso # (Auto) 0.03 Sodium Potassium Chloride Carbon Dioxide Anion Gap BUN Creatinine Est Cr Clr Drug Dosing Est GFR ( Amer) Est GFR (Non-Af Amer) BUN/Creatinine Ratio Glucose POC Glucose Estimat Average Glucose Hemoglobin A1c Calcium Total Bilirubin AST ALT Alkaline Phosphatase Total Protein Albumin Globulin Albumin/Globulin Ratio Triglycerides Cholesterol LDL Cholesterol, Calc VLDL Cholesterol, Calc HDL Cholesterol Cholesterol/HDL Ratio Beta-Hydroxybutyric Acd TSH Urine Color Yellow Urine Appearance Clear Urine pH 6.0 Ur Specific Udell 1.026 Urine Protein Negative Urine Glucose (UA) 3+ H Urine Ketones Negative Urine Blood Negative Urine Nitrite Negative Urine Bilirubin Negative Urine Urobilinogen Negative Ur Leukocyte Esterase Negative Nasal Screen MRSA (PCR) Salicylates Urine Opiates Screen Neg Ur Methadone, Qual Neg Acetaminophen Urine Barbiturates Neg Ur Phencyclidine (PCP) Neg U Amphetamin/Meth Scrn Neg MDMA (Ecstasy) Screen Neg U Benzodiazepines Scrn Neg Ur Cocaine Metabolite Neg U Marijuana (THC) Screen Neg Ethyl Alcohol mg/dL 10/31/19 10/31/19 10/31/19 14:28 14:28 14:28 WBC RBC Hgb Hct MCV MCH MCHC RDW Std Deviation RDW Coeff of Kimmy Plt Count MPV Immature Gran % (Auto) Neut % (Auto) Lymph % (Auto) Irion % (Auto) Eos % (Auto) Baso % (Auto) Immature Gran # (Auto) Neut # (Auto) Lymph # (Auto) Irion # (Auto) Eos # (Auto) Baso # (Auto) Sodium 137 Potassium 3.7 Chloride 105 Carbon Dioxide 27 Anion Gap 5.0 BUN 12 Creatinine 0.95 Est Cr Clr Drug Dosing 106.9 Est GFR ( Amer) 101.9 Est GFR (Non-Af Amer) 87.9 BUN/Creatinine Ratio 12.4 Glucose 325 H* POC Glucose Estimat Average Glucose Hemoglobin A1c Calcium 9.4 Total Bilirubin 0.3 AST 7 L ALT 14 Alkaline Phosphatase 112 Total Protein 7.1 Albumin 3.3 L Globulin 3.8 Albumin/Globulin Ratio 0.9 Triglycerides Cholesterol LDL Cholesterol, Calc VLDL Cholesterol, Calc HDL Cholesterol Cholesterol/HDL Ratio Beta-Hydroxybutyric Acd 1.33 TSH 2.850 Urine Color Urine Appearance Urine pH Ur Specific Udell Urine Protein Urine Glucose (UA) Urine Ketones Urine Blood Urine Nitrite Urine Bilirubin Urine Urobilinogen Ur Leukocyte Esterase Nasal Screen MRSA (PCR) Salicylates 3.8 Urine Opiates Screen Ur Methadone, Qual Acetaminophen < 2 L Urine Barbiturates Ur Phencyclidine (PCP) U Amphetamin/Meth Scrn MDMA (Ecstasy) Screen U Benzodiazepines Scrn Ur Cocaine Metabolite U Marijuana (THC) Screen Ethyl Alcohol mg/dL < 3.0 10/31/19 10/31/19 10/31/19 17:28 18:40 20:15 WBC RBC Hgb Hct MCV MCH MCHC RDW Std Deviation RDW Coeff of Kimmy Plt Count MPV Immature Gran % (Auto) Neut % (Auto) Lymph % (Auto) Irion % (Auto) Eos % (Auto) Baso % (Auto) Immature Gran # (Auto) Neut # (Auto) Lymph # (Auto) Irion # (Auto) Eos # (Auto) Baso # (Auto) Sodium Potassium Chloride Carbon Dioxide Anion Gap BUN Creatinine Est Cr Clr Drug Dosing Est GFR ( Amer) Est GFR (Non-Af Amer) BUN/Creatinine Ratio Glucose POC Glucose 299 H 208 H Estimat Average Glucose Hemoglobin A1c Calcium Total Bilirubin AST ALT Alkaline Phosphatase Total Protein Albumin Globulin Albumin/Globulin Ratio Triglycerides Cholesterol LDL Cholesterol, Calc VLDL Cholesterol, Calc HDL Cholesterol Cholesterol/HDL Ratio Beta-Hydroxybutyric Acd TSH Urine Color Urine Appearance Urine pH Ur Specific Udell Urine Protein Urine Glucose (UA) Urine Ketones Urine Blood Urine Nitrite Urine Bilirubin Urine Urobilinogen Ur Leukocyte Esterase Nasal Screen MRSA (PCR) Negative Salicylates Urine Opiates Screen Ur Methadone, Qual Acetaminophen Urine Barbiturates Ur Phencyclidine (PCP) U Amphetamin/Meth Scrn MDMA (Ecstasy) Screen U Benzodiazepines Scrn Ur Cocaine Metabolite U Marijuana (THC) Screen Ethyl Alcohol mg/dL 10/31/19 11/01/19 11/01/19 23:26 07:04 09:57 WBC RBC Hgb Hct MCV MCH MCHC RDW Std Deviation RDW Coeff of Kimmy Plt Count MPV Immature Gran % (Auto) Neut % (Auto) Lymph % (Auto) Irion % (Auto) Eos % (Auto) Baso % (Auto) Immature Gran # (Auto) Neut # (Auto) Lymph # (Auto) Irion # (Auto) Eos # (Auto) Baso # (Auto) Sodium Potassium Chloride Carbon Dioxide Anion Gap BUN Creatinine Est Cr Clr Drug Dosing Est GFR ( Amer) Est GFR (Non-Af Amer) BUN/Creatinine Ratio Glucose POC Glucose 124 H 125 H Estimat Average Glucose 309 Hemoglobin A1c 12.4 H Calcium Total Bilirubin AST ALT Alkaline Phosphatase Total Protein Albumin Globulin Albumin/Globulin Ratio Triglycerides Cholesterol LDL Cholesterol, Calc VLDL Cholesterol, Calc HDL Cholesterol Cholesterol/HDL Ratio Beta-Hydroxybutyric Acd TSH Urine Color Urine Appearance Urine pH Ur Specific Udell Urine Protein Urine Glucose (UA) Urine Ketones Urine Blood Urine Nitrite Urine Bilirubin Urine Urobilinogen Ur Leukocyte Esterase Nasal Screen MRSA (PCR) Salicylates Urine Opiates Screen Ur Methadone, Qual Acetaminophen Urine Barbiturates Ur Phencyclidine (PCP) U Amphetamin/Meth Scrn MDMA (Ecstasy) Screen U Benzodiazepines Scrn Ur Cocaine Metabolite U Marijuana (THC) Screen Ethyl Alcohol mg/dL 11/01/19 11/01/19 11/01/19 12:41 17:07 17:12 WBC RBC Hgb Hct MCV MCH MCHC RDW Std Deviation RDW Coeff of Kimmy Plt Count MPV Immature Gran % (Auto) Neut % (Auto) Lymph % (Auto) Irion % (Auto) Eos % (Auto) Baso % (Auto) Immature Gran # (Auto) Neut # (Auto) Lymph # (Auto) Irion # (Auto) Eos # (Auto) Baso # (Auto) Sodium Potassium Chloride Carbon Dioxide Anion Gap BUN Creatinine Est Cr Clr Drug Dosing Est GFR ( Amer) Est GFR (Non-Af Amer) BUN/Creatinine Ratio Glucose POC Glucose 232 H 394 H* 349 H* Estimat Average Glucose Hemoglobin A1c Calcium Total Bilirubin AST ALT Alkaline Phosphatase Total Protein Albumin Globulin Albumin/Globulin Ratio Triglycerides Cholesterol LDL Cholesterol, Calc VLDL Cholesterol, Calc HDL Cholesterol Cholesterol/HDL Ratio Beta-Hydroxybutyric Acd TSH Urine Color Urine Appearance Urine pH Ur Specific Udell Urine Protein Urine Glucose (UA) Urine Ketones Urine Blood Urine Nitrite Urine Bilirubin Urine Urobilinogen Ur Leukocyte Esterase Nasal Screen MRSA (PCR) Salicylates Urine Opiates Screen Ur Methadone, Qual Acetaminophen Urine Barbiturates Ur Phencyclidine (PCP) U Amphetamin/Meth Scrn MDMA (Ecstasy) Screen U Benzodiazepines Scrn Ur Cocaine Metabolite U Marijuana (THC) Screen Ethyl Alcohol mg/dL 11/01/19 11/01/19 11/01/19 19:26 19:29 21:16 WBC RBC Hgb Hct MCV MCH MCHC RDW Std Deviation RDW Coeff of Kimmy Plt Count MPV Immature Gran % (Auto) Neut % (Auto) Lymph % (Auto) Irion % (Auto) Eos % (Auto) Baso % (Auto) Immature Gran # (Auto) Neut # (Auto) Lymph # (Auto) Irion # (Auto) Eos # (Auto) Baso # (Auto) Sodium Potassium Chloride Carbon Dioxide Anion Gap BUN Creatinine Est Cr Clr Drug Dosing Est GFR ( Amer) Est GFR (Non-Af Amer) BUN/Creatinine Ratio Glucose POC Glucose 331 H* 322 H* 201 H Estimat Average Glucose Hemoglobin A1c Calcium Total Bilirubin AST ALT Alkaline Phosphatase Total Protein Albumin Globulin Albumin/Globulin Ratio Triglycerides Cholesterol LDL Cholesterol, Calc VLDL Cholesterol, Calc HDL Cholesterol Cholesterol/HDL Ratio Beta-Hydroxybutyric Acd TSH Urine Color Urine Appearance Urine pH Ur Specific Udell Urine Protein Urine Glucose (UA) Urine Ketones Urine Blood Urine Nitrite Urine Bilirubin Urine Urobilinogen Ur Leukocyte Esterase Nasal Screen MRSA (PCR) Salicylates Urine Opiates Screen Ur Methadone, Qual Acetaminophen Urine Barbiturates Ur Phencyclidine (PCP) U Amphetamin/Meth Scrn MDMA (Ecstasy) Screen U Benzodiazepines Scrn Ur Cocaine Metabolite U Marijuana (THC) Screen Ethyl Alcohol mg/dL 11/02/19 11/02/19 11/02/19 00:06 07:35 08:00 WBC RBC Hgb Hct MCV MCH MCHC RDW Std Deviation RDW Coeff of Kimmy Plt Count MPV Immature Gran % (Auto) Neut % (Auto) Lymph % (Auto) Irion % (Auto) Eos % (Auto) Baso % (Auto) Immature Gran # (Auto) Neut # (Auto) Lymph # (Auto) Irion # (Auto) Eos # (Auto) Baso # (Auto) Sodium Potassium Chloride Carbon Dioxide Anion Gap BUN Creatinine Est Cr Clr Drug Dosing Est GFR ( Amer) Est GFR (Non-Af Amer) BUN/Creatinine Ratio Glucose POC Glucose 135 H 196 H Estimat Average Glucose Hemoglobin A1c Calcium Total Bilirubin AST ALT Alkaline Phosphatase Total Protein Albumin Globulin Albumin/Globulin Ratio Triglycerides 74 Cholesterol 207 H LDL Cholesterol, Calc 149 VLDL Cholesterol, Calc 15 HDL Cholesterol 43 Cholesterol/HDL Ratio 5 Beta-Hydroxybutyric Acd TSH Urine Color Urine Appearance Urine pH Ur Specific Udell Urine Protein Urine Glucose (UA) Urine Ketones Urine Blood Urine Nitrite Urine Bilirubin Urine Urobilinogen Ur Leukocyte Esterase Nasal Screen MRSA (PCR) Salicylates Urine Opiates Screen Ur Methadone, Qual Acetaminophen Urine Barbiturates Ur Phencyclidine (PCP) U Amphetamin/Meth Scrn MDMA (Ecstasy) Screen U Benzodiazepines Scrn Ur Cocaine Metabolite U Marijuana (THC) Screen Ethyl Alcohol mg/dL 11/02/19 11/02/19 11/02/19 12:37 17:09 20:30 WBC RBC Hgb Hct MCV MCH MCHC RDW Std Deviation RDW Coeff of Kimmy Plt Count MPV Immature Gran % (Auto) Neut % (Auto) Lymph % (Auto) Irion % (Auto) Eos % (Auto) Baso % (Auto) Immature Gran # (Auto) Neut # (Auto) Lymph # (Auto) Irion # (Auto) Eos # (Auto) Baso # (Auto) Sodium Potassium Chloride Carbon Dioxide Anion Gap BUN Creatinine Est Cr Clr Drug Dosing Est GFR ( Amer) Est GFR (Non-Af Amer) BUN/Creatinine Ratio Glucose POC Glucose 200 H 136 H 182 H Estimat Average Glucose Hemoglobin A1c Calcium Total Bilirubin AST ALT Alkaline Phosphatase Total Protein Albumin Globulin Albumin/Globulin Ratio Triglycerides Cholesterol LDL Cholesterol, Calc VLDL Cholesterol, Calc HDL Cholesterol Cholesterol/HDL Ratio Beta-Hydroxybutyric Acd TSH Urine Color Urine Appearance Urine pH Ur Specific Udell Urine Protein Urine Glucose (UA) Urine Ketones Urine Blood Urine Nitrite Urine Bilirubin Urine Urobilinogen Ur Leukocyte Esterase Nasal Screen MRSA (PCR) Salicylates Urine Opiates Screen Ur Methadone, Qual Acetaminophen Urine Barbiturates Ur Phencyclidine (PCP) U Amphetamin/Meth Scrn MDMA (Ecstasy) Screen U Benzodiazepines Scrn Ur Cocaine Metabolite U Marijuana (THC) Screen Ethyl Alcohol mg/dL 11/03/19 11/03/19 11/03/19 00:01 08:51 12:24 WBC RBC Hgb Hct MCV MCH MCHC RDW Std Deviation RDW Coeff of Kimmy Plt Count MPV Immature Gran % (Auto) Neut % (Auto) Lymph % (Auto) Irion % (Auto) Eos % (Auto) Baso % (Auto) Immature Gran # (Auto) Neut # (Auto) Lymph # (Auto) Irion # (Auto) Eos # (Auto) Baso # (Auto) Sodium Potassium Chloride Carbon Dioxide Anion Gap BUN Creatinine Est Cr Clr Drug Dosing Est GFR ( Amer) Est GFR (Non-Af Amer) BUN/Creatinine Ratio Glucose POC Glucose 186 H 110 H 180 H Estimat Average Glucose Hemoglobin A1c Calcium Total Bilirubin AST ALT Alkaline Phosphatase Total Protein Albumin Globulin Albumin/Globulin Ratio Triglycerides Cholesterol LDL Cholesterol, Calc VLDL Cholesterol, Calc HDL Cholesterol Cholesterol/HDL Ratio Beta-Hydroxybutyric Acd TSH Urine Color Urine Appearance Urine pH Ur Specific Udell Urine Protein Urine Glucose (UA) Urine Ketones Urine Blood Urine Nitrite Urine Bilirubin Urine Urobilinogen Ur Leukocyte Esterase Nasal Screen MRSA (PCR) Salicylates Urine Opiates Screen Ur Methadone, Qual Acetaminophen Urine Barbiturates Ur Phencyclidine (PCP) U Amphetamin/Meth Scrn MDMA (Ecstasy) Screen U Benzodiazepines Scrn Ur Cocaine Metabolite U Marijuana (THC) Screen Ethyl Alcohol mg/dL 11/03/19 11/03/19 11/04/19 17:14 21:22 08:49 WBC RBC Hgb Hct MCV MCH MCHC RDW Std Deviation RDW Coeff of Kimmy Plt Count MPV Immature Gran % (Auto) Neut % (Auto) Lymph % (Auto) Irion % (Auto) Eos % (Auto) Baso % (Auto) Immature Gran # (Auto) Neut # (Auto) Lymph # (Auto) Irion # (Auto) Eos # (Auto) Baso # (Auto) Sodium Potassium Chloride Carbon Dioxide Anion Gap BUN Creatinine Est Cr Clr Drug Dosing Est GFR ( Amer) Est GFR (Non-Af Amer) BUN/Creatinine Ratio Glucose POC Glucose 278 H 416 H* 94 Estimat Average Glucose Hemoglobin A1c Calcium Total Bilirubin AST ALT Alkaline Phosphatase Total Protein Albumin Globulin Albumin/Globulin Ratio Triglycerides Cholesterol LDL Cholesterol, Calc VLDL Cholesterol, Calc HDL Cholesterol Cholesterol/HDL Ratio Beta-Hydroxybutyric Acd TSH Urine Color Urine Appearance Urine pH Ur Specific Udell Urine Protein Urine Glucose (UA) Urine Ketones Urine Blood Urine Nitrite Urine Bilirubin Urine Urobilinogen Ur Leukocyte Esterase Nasal Screen MRSA (PCR) Salicylates Urine Opiates Screen Ur Methadone, Qual Acetaminophen Urine Barbiturates Ur Phencyclidine (PCP) U Amphetamin/Meth Scrn MDMA (Ecstasy) Screen U Benzodiazepines Scrn Ur Cocaine Metabolite U Marijuana (THC) Screen Ethyl Alcohol mg/dL 11/04/19 11/04/19 11/04/19 12:18 17:16 20:38 WBC RBC Hgb Hct MCV MCH MCHC RDW Std Deviation RDW Coeff of Kimmy Plt Count MPV Immature Gran % (Auto) Neut % (Auto) Lymph % (Auto) Irion % (Auto) Eos % (Auto) Baso % (Auto) Immature Gran # (Auto) Neut # (Auto) Lymph # (Auto) Irion # (Auto) Eos # (Auto) Baso # (Auto) Sodium Potassium Chloride Carbon Dioxide Anion Gap BUN Creatinine Est Cr Clr Drug Dosing Est GFR ( Amer) Est GFR (Non-Af Amer) BUN/Creatinine Ratio Glucose POC Glucose 150 H 121 H 140 H Estimat Average Glucose Hemoglobin A1c Calcium Total Bilirubin AST ALT Alkaline Phosphatase Total Protein Albumin Globulin Albumin/Globulin Ratio Triglycerides Cholesterol LDL Cholesterol, Calc VLDL Cholesterol, Calc HDL Cholesterol Cholesterol/HDL Ratio Beta-Hydroxybutyric Acd TSH Urine Color Urine Appearance Urine pH Ur Specific Udell Urine Protein Urine Glucose (UA) Urine Ketones Urine Blood Urine Nitrite Urine Bilirubin Urine Urobilinogen Ur Leukocyte Esterase Nasal Screen MRSA (PCR) Salicylates Urine Opiates Screen Ur Methadone, Qual Acetaminophen Urine Barbiturates Ur Phencyclidine (PCP) U Amphetamin/Meth Scrn MDMA (Ecstasy) Screen U Benzodiazepines Scrn Ur Cocaine Metabolite U Marijuana (THC) Screen Ethyl Alcohol mg/dL 11/05/19 11/05/19 10:00 12:40 WBC RBC Hgb Hct MCV MCH MCHC RDW Std Deviation RDW Coeff of Kimmy Plt Count MPV Immature Gran % (Auto) Neut % (Auto) Lymph % (Auto) Irion % (Auto) Eos % (Auto) Baso % (Auto) Immature Gran # (Auto) Neut # (Auto) Lymph # (Auto) Irion # (Auto) Eos # (Auto) Baso # (Auto) Sodium Potassium Chloride Carbon Dioxide Anion Gap BUN Creatinine Est Cr Clr Drug Dosing Est GFR ( Amer) Est GFR (Non-Af Amer) BUN/Creatinine Ratio Glucose POC Glucose 76 163 H Estimat Average Glucose Hemoglobin A1c Calcium Total Bilirubin AST ALT Alkaline Phosphatase Total Protein Albumin Globulin Albumin/Globulin Ratio Triglycerides Cholesterol LDL Cholesterol, Calc VLDL Cholesterol, Calc HDL Cholesterol Cholesterol/HDL Ratio Beta-Hydroxybutyric Acd TSH Urine Color Urine Appearance Urine pH Ur Specific Udell Urine Protein Urine Glucose (UA) Urine Ketones Urine Blood Urine Nitrite Urine Bilirubin Urine Urobilinogen Ur Leukocyte Esterase Nasal Screen MRSA (PCR) Salicylates Urine Opiates Screen Ur Methadone, Qual Acetaminophen Urine Barbiturates Ur Phencyclidine (PCP) U Amphetamin/Meth Scrn MDMA (Ecstasy) Screen U Benzodiazepines Scrn Ur Cocaine Metabolite U Marijuana (THC) Screen Ethyl Alcohol mg/dL Hospital Course (1) Depression: 11/01 -patient with history of recurrent depression, who presents with depressive symptoms. He reports compliance with paroxetine 40 mg daily (had been on 60 mg daily when here in 2018) and risperidone 1 mg twice daily, which was started in [place] in 2018. He would like to start with increasing paroxetine to 50mg, which he previously responded well to, and also discussed trial of fluoxetine if that is ineffective (no previous SSRI trials). -Staff contacted PCPs office -no recent FLP, so will order for tomorrow for monitoring on an atypical. Hemoglobin A1c 12.4 today. -Had a BCM through [employer], but he left - contact them to determine if he was transferred to someone else. -He would benefit from outpatient psychiatric care and therapy, but lack of insurance and finances are barriers. Currently, his PCP, Dr. Nilay Zurita, is prescribing medication. -Recommend family meeting with adult children - he is unsure about this. 11/02 - Will titrate paroxetine to 60mg starting tomorrow morning; continue risperidone 1mg BID - Fasting lipid panel obtained this morning - total cholesterol is mildly elevated at 207, remainder of lipid panel is WNL - Pt accepting of referral for case management and psychiatric providers - He continues to verbalize inability to contract for safety due to ongoing SI in the setting of feeling from his children 11/03 - Continue paroxetine 60mg and risperidone 1mg BID - Met with foster care case manager today to discuss goals after discharge - Positive visits with son, considering requesting his involvement in a family meeting 11/04 converting risperidone to 2mg hs starting 11/05 to alleivate potential am sedation from this medication and to try to help with medication complaince maintained paxil 60mg once a day 11/05 pt rpeorts being less tired this morning with not having risperdal dose this morning and glad to take 2mg hs instead of spliting dose (2) Homeless: Patient has been homeless for years, using [facility]. -Recommend referral for case management services for assistance with resources in the county. -Explore options for replacing his cell phone; perhaps through his insurance or the county. (3) Noncompliance with medications: Chronic noncompliance with outpatient medications, does not fill p rescriptions regularly, had not been taking antihypertensives or insulin prior to admission, and presented with elevated blood pressure and glucose > 300. Explore ways to improve adherence. Patient aiming to use [facility] [address] as states much easier for him to get to that pharmacy then the [facility] had been using. pt has had notable supply of some of his medications on him at tie of admission, sending meds needed to pharmacy assisting with replacement glucose meter and related strips/lancets (4) Hypertension: Resume home dose of metoprolol 25 mg twice daily. Ensure follow-up with PCP. 11/02 - Confirmed recommended medications with PCP - Pt is also prescribed lisinopril 10mg qAM which we will resume (5) Cerebrovascular disease: Continue home dose of Plavix 75 mg daily. has supply of this medication (6) Diabetes mellitus, type 2: Continue insulin and consult the diabetic pharmacist for assistance with management. Hemoglobin A1c during admission 12.4, with estimated average glucose of 309. accuchecks checked throughout the hospital stay and these included am fasting glucose checks that have varied from normal to elevated (7) Dyslipidemia: Patient has been prescribed atorvastatin 80 mg in the past, last filled 5 months ago. Unclear if he is still supposed to be on this medication -will refer to PCP for outpatient follow-up. 11/02 - Clarified with PCP that patient has been recommended to continue atorvastatin 80mg - will order for him to continue during admission - Fasting lipid panel obtained this morning - total cholesterol is mildly elevated at 207, remainder of lipid panel is WNL 11/05 - script for atorvastatin 80mg a day sent to [facility] pharmacy to help with maintaining on this medication (8) Seizure disorder: Continue home dose of Keppra. Mental Health & Subst Abuse Tx Psychiatrist Name of Psychiatrist: Blanca Pepe PA-C Psychiatrist's Date of Appointment with Psychiatrist: 12/01/19 Time of Appointment with Psychiatrist: 9:30am Psychiatric Appointment Comment: Be aware that you must keep this appointment, if missed, won't reschedule. Psychiatrist Release of Information: Obtained, Reviewed and Signed [employer] Name of [employer]: Moses Demarco Phone Number for [employer]: [phone] Date of Appointment with [employer]: 11/07/19 Time of Appointment with [employer]: 9am Case Management Appointment Comment: Will meet you at the [facility] [employer] Release of Information: Obtained, Reviewed and Signed Post Discharge Appointments Primary [facility] Date of Appointment with PCP: 11/08/19 Time of Appointment with PCP: 1:05 [facility] App[facility]ment [facility] [address] [facility] [id number] [facility] Release of Information: Obtained, Reviewed and Signed Smoking Cessation Counseling Tobacco Cessation Medication Prescribed at Discharge: Offered & Pt Refused (but some consideration towards tip line if able to occur given pt's phone status/homelessness) Contact Information Discharge Phone Number: no current phone Discharge Address: Homeless, Out of the [facility] Discharge Plan Discharge Items Patient Disposition: Home - Self-Care Reason For Visit: DEPRESSION NOS Discharge Diagnosis: Depression NOS Activity: Resume your previous activity Non-emergency contact: Primary Care Provider and Psychiatrist Call non-emergency contact if: you have any medication questions and your symptoms worsen Follow-up/Referrals: Nilay Ramos, DO [Primary Care Provider] - Diet: Carb Consistent or DM2 Addtl Attending Provider Instructions: SPECIAL CARE INSTRUCTIONS: 1. Follow through with your scheduled aftercare appointments. If unable to keep an appointment, please call to reschedule. 2. Take your medication only as prescribed. Medication should not be changed or stopped without the approval of your doctor. In the event of worsening symptoms or concerns about side effects, contact your doctor immediately. 3. Utilize new healthy coping skills, anger management skills, and stress management skills learned during your hospitalization. Journal feelings and process them with a support person. Identify stressors or situations that may result in relapse, deterioration or inappropriate behaviors and develop a plan to deal with those issues. 4. If your coping skills are ineffective and you are in crisis, contact your outpatient providers for direction. If unable to reach your providers, please call the CAN HELP LINE AT or go to the closest Emergency Room. 5. Avoid alcohol and un-prescribed drugs. 6. You have been provided with the Mental Health Advance Directives Pamphlet for your review. AFTERCARE APPOINTMENTS: * Please call your insurance company prior to your scheduled appointment to confirm your aftercare providers are covered. Take your insurance information to your appointments. WHO TO CALL AND WHEN: Medical Emergencies: For questions or emergencies related to your hospital stay, please contact the Inpatient Behavioral Health Unit at [phone]. A psychiatric aide instructor is on-call 12/04 for the Behavioral Health Unit for emergencies At any time you feel your situation is an emergency, you may also call 911 immediately. Your Doctors Instructions noted above were prepared by provider Donaldo Cardenas MD. Pending Studies at Discharge: No Stand-Alone Forms: My [facility], Smoking Cessation, Suicide Prevention Resources Medications and DC Order Prescriptions: New (DME) blood-glucose meter [Accu-Chek Guide Glucose Meter] Misc See Rx Instructions .ROUTE .MEDSUPPLY Qty: 1 RF: 0 (DME) lancets [Accu-Chek Fastclix Lancet Drum] Misc See Rx Instructions .ROUTE .MEDSUPPLY Qty: 50 RF: 0 (DME) accu-chek guide test strips strip Qty: 100 RF: 0 atorvastatin 40 mg Tablet 80 mg PO QAM 30 Days Qty: 60 RF: 0 risperidone 2 mg Tablet 2 mg PO HS 30 Days Qty: 30 RF: 0 lisinopril 10 mg Tablet 10 mg PO QAM 30 Days Qty: 30 RF: 0 paroxetine HCl 40 mg tablet 60 mg PO DAILY Qty: 0 RF: 0 Continued Basaglar KwikPen U-100 Insulin 100 unit/mL (3 mL) insulin pen 40 unit SQ HS 30 Days Qty: 12 RF: 0 clopidogrel 75 mg tablet 75 mg PO QAM RF: 0 levetiracetam 500 mg Tablet 500 mg PO BID RF: 0 metformin 1,000 mg Tablet 1,000 mg PO DAILY RF: 0 metoprolol tartrate 50 mg Tablet 25 mg PO BID RF: 0 Discontinued risperidone 2 mg Tablet 1 mg PO BID RF: 0 paroxetine HCl 40 mg tablet 40 mg PO DAILY RF: 0 Discharge Orders: Discharge Order (Routine); Ordered 11/05/19 Ordered By: Donaldo Ross/Other Patient Handouts: Hyperglycemia, Hypoglycemia, Diabetes Resources, Diabetes Type 2 Coping, Diabetes Healthy Meals, Diabetes Exercise Benefits, Diabetes Manage A1C Test Admission Data Admit Date/Time: 10/31/19 21:44 Attending Provider: Milli Bautista Admit Provider: Irma Grace Primary Care Provider: Nilay Ramos Other Interventions: Discharge Summary Assessment (RN) Last Done: 11/05/19 09:51 PSY Interdisciplinary Discharge Planning Last Done: 11/05/19 10:23 Coding Level of Care Code 14369 D/C day mgmt > 30 min Diagnoses Depression F33.9 Active/Remission status: currently active Depression Type: major depressive disorder Major depression episode severity: unspecified Major depression recurrence: recurrent Homeless Z59.0 Noncompliance with medications Z91.14 Hypertension I10 Hypertension type: unspecified Cerebrovascular disease I67.9 Diabetes mellitus, type 2 E11.8 Diabetes mellitus complication status: with unspecified complications Diabetes mellitus senior living insulin use: unspecified senior living insulin use status Dyslipidemia E78.5 Seizure disorder G40.909
[2019-11-05] MEDS ORDERED: risperiDONE 2 MG TABLET PO SCH (22:00)
== END 2019-11-05 14:07 | disposition home or self-care (01) | DRG 885 ==
LOC: ED 13:53 → 3S 21:44